=== PATIENT | female | born 1950 | race African-American/Black ===

== ENCOUNTER 2016-09-05 11:55 | Inpatient (IN) | payer MEDICAID ==
[~2016-09-05] VITALS: Ht 162.6 cm; Wt 61.2 kg
[~2016-09-05 11:55] MED LIST: ASPIRIN81 MG ORAL; BENADRYL50 MG GT; CATAPRES0.2 MG GT; CEPHALEXIN500 MG GT; COUMADIN5 MG ORAL; DOCUSATE SODIU100 MG GT; HEPARIN SO1000 UNIT3 SUBQ; LEVEMIR FL100 UNIT/1 SUBQ; LEVETIRACE100 MG/1 M GT; LOPRESSOR25 M1 GT; MULTI-DELYN237 ML GT; NEURONTIN100 MG GT; NOVOLOG100 UNIT/3 SUBQ; PROTONIX40 M2 GT; TYLENOL650 MG/20. GT
--- NOTE | 2016-09-05 12:28 | Emergency Room Report ---
History of Present Illness General Chief Complaint: Abnormal Labs Source: Patient, Medical Record Present Illness HPI 65 YO female presents to ED BIBA from [facility] for fevers, and positive urine culture. Pt has hx of seizures, DM,and HTN and is non-verbal and Quadra-plegic. HPI and ROS limited due to pt. being non-verbal, and limited to paperwork sent by [facility] Allergies: Coded Allergies: HYDANTOINS (Unverified Allergy, Unknown, 09/09/13) PHENYTOIN (Unverified Allergy, Unknown, 09/09/13) Patient History Limited by: medical condition Past Medical History: see triage record Past Surgical History: none Pertinent Family History: none Immunizations: UTD Reviewed Nursing Documentation: PMH: Agreed, PSxH: Agreed Nursing Documentation-PMH Past Medical History: No History, Except For Hx Cardiac Problems: Yes Hx Hypertension: Yes Hx COPD: Yes Hx Diabetes: Yes Hx Cancer: No Hx Gastrointestinal Problems: Yes - GT tube Hx Neurological Problems: Yes Hx Cerebrovascular Accident: Yes - left side weakness Hx Seizures: Yes Hx Memory Loss: Yes - Forgetful Hx Speech Problem: Yes - Slurred Speech following stroke Hx Weakness: Yes - Left Side following CVA Hx Brain Shunt: Yes Review of Systems All Other Systems: limited Physical Exam Vital Signs Date Time Temp Pulse Resp B/P Pulse Ox O2 Delivery O2 Flow Rate FiO2 09/05/16 11:55 97.9 61 22 136/78 100 Nasal Cannula 2.0 Sp02 EP Interpretation: reviewed, normal General Appearance: normal inspection, no apparent distress, alert, Chronically Ill Head: normocephalic, atraumatic Eyes: bilateral eye PERRL, bilateral eye fluoroscene uptake Respiratory: lungs clear, normal breath sounds, no respiratory distress, no accessory muscle use, no wheezing, other - distant breath sounds Cardiovascular #1: regular rate, rhythm, no edema, normal capillary refill Gastrointestinal: non tender Rectal: deferred Neurologic: alert, other - Pt. have prior CVA deficit, pt is alert but orientation unable to be assessed. Skin: normal inspection, normal color, no rash Medical Decision Making PA Attestation Dr. Davila is my supervising Physician whom patient management has been discussed with. Diagnostic Impression: Primary Impression: Urinary tract infection Qualified Codes: N30.00 - Acute cystitis without hematuria ER Course 65 YO female presents to ED BIBA from [facility] for fevers, and positive urine culture. Pt has hx of seizures, DM,and HTN and is non-verbal and Quadra-plegic. HPI and ROS limited due to pt. being non-verbal, and limited to paperwork sent by [facility]. Ddx considered but are not limited to UTi , Pyelo, STI, Stone, Cystitis, Sepsis Vital signs: are WNL, pt. is afebrile H&PE are most consistent with UTI ORDERS: - UA labs are attached -- elevated WBC's and Leukocytes few bacteria consistent with UTI -CBC: unremarkable -CMP: unremarkable other than decreased albumin -Lactic Acid: WNL - Troponin/Ck-MB/CK: unremarkable Blood Cultures: Pending EK BPM Bradycardic, no acute ST changes interpreted by Dr Davila -CXR 1 view: Bilateral, mostly interstitial edema, left-sided pleural effusion, appearing similar to prior study --Per official radiology report. ED INTERVENTIONS: -400mg Cipro IV DISPOSITION: at this time pt. will be admitted to Dr. Slaughter for UTI. I have discussed this pt. condition with Dr. Slaughter in person. Dr. Slaughter agreed to admit the pt. and to continue pt. care management. Labs Test 09/05/16 13:00 09/05/16 13:10 White Blood Count 9.6 K/UL (4.8-10.8) Red Blood Count 4.46 M/UL (4.20-5.40) Hemoglobin 13.9 G/DL (12.0-16.0) Hematocrit 43.3 % (37.0-47.0) Mean Corpuscular Volume 97 FL (80-99) Mean Corpuscular Hemoglobin 31.2 PG (27.0-31.0) Mean Corpuscular Hemoglobin Concent 32.1 G/DL (32.0-36.0) Red Cell Distribution Width 12.9 % (11.6-14.8) Platelet Count 201 K/UL (150-450) Mean Platelet Volume 8.1 FL (6.5-10.1) Neutrophils (%) (Auto) 73.2 % (45.0-75.0) Lymphocytes (%) (Auto) 13.8 % (20.0-45.0) Monocytes (%) (Auto) 7.6 % (1.0-10.0) Eosinophils (%) (Auto) 4.8 % (0.0-3.0) Basophils (%) (Auto) 0.6 % (0.0-2.0) Sodium Level 141 mEQ/L (135-145) Potassium Level 4.3 mEQ/L (3.4-4.9) Chloride Level 98 mEQ/L (98-107) Carbon Dioxide Level 31 mEQ/L (20-30) Anion Gap 12 (5-15) Blood Urea Nitrogen 17 mg/dL (7-23) Creatinine 0.6 mg/dL (0.5-0.9) Estimat Glomerular Filtration Rate > 60 mL/min (>60) Glucose Level 118 mg/dL (74-106) Lactic Acid Level 1.60 mmol/L (0.66-2.22) Calcium Level 10.4 mg/dL (8.6-10.2) Total Bilirubin 0.3 mg/dL (0.0-1.2) Aspartate Amino Transf (AST/SGOT) 20 U/L (5-40) Alanine Aminotransferase (ALT/SGPT) 28 U/L (3-33) Alkaline Phosphatase 101 U/L (35-104) Total Creatine Kinase 46 U/L (26-140) Creatine Kinase MB 1.7 ng/mL (< 3.8) Creatine Kinase MB Relative Index 3.6 Troponin I < 0.30 ng/mL (<=0.30) Total Protein 7.0 g/dL (6.6-8.7) Albumin 3.3 g/dL (3.5-5.2) Globulin 3.7 g/dL Albumin/Globulin Ratio 0.8 (1.0-2.7) Urine Color Pale yellow Urine Appearance Slightly cloudy Urine pH 8 (4.5-8.0) Urine Specific [place] 1.015 (1.005-1.035) Urine Protein Negative (NEGATIVE) Urine Glucose (UA) Negative (NEGATIVE) Urine Ketones Negative (NEGATIVE) Urine Occult Blood 4+ (NEGATIVE) Urine Nitrite Negative (NEGATIVE) Urine Bilirubin Negative (NEGATIVE) Urine Urobilinogen Normal MG/DL (0.0-1.0) Urine Leukocyte Esterase 3+ (NEGATIVE) Urine RBC 5-10 /HPF (0 - 2) Urine WBC 20-30 /HPF (0 - 2) Urine Squamous Epithelial Cells Few /LPF (NONE/OCC) Urine Bacteria Few /HPF (NONE) EKG Diagnostic Results EP Interpretation: Dr. Davila Rate: bradycardiac - 52 BPM Rhythm: NSR ST Segments: no acute changes ASA given to the pt in ED: No PA Scribe Text Dr. Davila's interpretation of this EKG was scribed by PREETHI Dash Rhythm Strip Diag. Results EP Interpretation: yes - interpreted by Dr. Davila Rate: 52 bradyca Rhythm: NSR PA Scribe Text This rhythm strip was interpreted by Dr. Davila and scribed by PA. Last Vital Signs Date Time Temp Pulse Resp B/P Pulse Ox O2 Delivery O2 Flow Rate FiO2 09/05/16 11:55 97.9 61 22 136/78 100 Nasal Cannula 2.0 Disposition: ADMITTED INPATIENT Condition: Serious Tamika Dash Sep 05, 2016 12:28
[2016-09-05 12:45] VITALS: BP 136/75
[2016-09-05] MEDS ORDERED: ATORVASTATIN CA40 MG ORAL (13:20)
[2016-09-05] MEDS ORDERED: CLOPIDOGREL75 MG ORAL (13:20)
[2016-09-05 13:32] LABS: BASOPHILS % (AUTO) 0.6 % (0.0-2.0); EOSINOPHILS % (AUTO) 4.8 % (0.0-3.0); LYMPHOCYTES % (AUTO) 13.8 % (20.0-45.0); MEAN CORPUSCULAR HEMOGLOBIN 31.2 PG (27.0-31.0); MEAN CORPUSCULAR HGB CONC 32.1 G/DL (32.0-36.0); MEAN CORPUSCULAR VOLUME 97 FL (80-99); MEAN PLATELET VOLUME 8.1 FL (6.5-10.1); MONOCYTES % (AUTO) 7.6 % (1.0-10.0); NEUTROPHILS % (AUTO) 73.2 % (45.0-75.0); PLATELET COUNT 201 K/UL (150-450); RED BLOOD COUNT 4.46 M/UL (4.20-5.40); RED CELL DISTRIBUTION WIDTH 12.9 % (11.6-14.8); WHITE BLOOD COUNT 9.6 K/UL (4.8-10.8)
[2016-09-05 13:43] LABS: APPEARANCE,URINE SLIGHTLY CLOUDY; KETONES,URINE NEGATIVE (NEGATIVE); LEUKOCYTE ESTERASE ,URINE 3+ (NEGATIVE); NITRITE,URINE NEGATIVE (NEGATIVE); PH,URINE 8 (4.5-8.0); PROTEIN,URINE NEGATIVE (NEGATIVE); UROBILINOGEN,URINE NORMAL MG/DL (0.0-1.0)
[2016-09-05 13:47] LABS: ALANINE AMINOTRANSFERASE 28 U/L (3-33); ALBUMIN/GLOBULIN RATIO 0.8 (1.0-2.7); ANION GAP 12 (5-15); ASPARTATE AMINO TRANSFERASE 20 U/L (5-40); CALCIUM 10.4 mg/dL (8.6-10.2); CARBON DIOXIDE 31 mEQ/L (20-30); CHLORIDE 98 mEQ/L (98-107); CREATININE 0.6 mg/dL (0.5-0.9); GLOMERULAR FILTRATION RATE > 60 mL/min (>60); HEMOLYSIS 20; POTASSIUM 4.3 mEQ/L (3.4-4.9); SODIUM 141 mEQ/L (135-145)
[2016-09-05] MEDS ORDERED: Nitroglycerin Subl 0.4mg tab (Bottle Of 25) SL PRN (14:00)
[2016-09-05] MEDS ORDERED: Morphine Sulfate 2mg/ml Inj IVP PRN (14:00)
[2016-09-05] MEDS ORDERED: Miralax 17gm pkt ORAL PRN (14:00)
[2016-09-05] MEDS ORDERED: DuoNeb 0.5-3(2.5)mg/3ml neb HHN PRN (14:00)
[2016-09-05 14:09] LABS: BACTERIA,URINE FEW /HPF; SQUAMOUS EPITHELIAL CELL,UR FEW /LPF (NONE/OCC); WBC,URINE 20-30 /HPF (0 - 2)
[2016-09-05 14:22] VITALS: BP 131/76
--- NOTE | 2016-09-05 14:46 | Infectious Diseases Prog Note ---
Assessment/Plan Problems: (1) Urinary tract infection Assessment & Plan: will send urine culture and start cefepime empirically . (2) Sepsis Assessment & Plan: possibly due to UTI, will start cefepime empirically, monitor blood culture (3) Diabetes mellitus out of control Assessment & Plan: recommend tight glycemic control to keep blood glucose between 80-120 Subjective Allergies: Coded Allergies: HYDANTOINS (Unverified Allergy, Unknown, 09/09/13) PHENYTOIN (Unverified Allergy, Unknown, 09/09/13) Objective Vital Signs Last 24 Hour Vital Signs Date Time Temp Pulse Resp B/P Pulse Ox O2 Delivery O2 Flow Rate FiO2 09/05/16 14:22 98.3 54 16 131/76 99 Room Air 09/05/16 12:45 98.3 16 136/75 97 Room Air 09/05/16 12:45 56 16 Room Air 09/05/16 11:55 97.9 61 22 136/78 100 Nasal Cannula 2.0 Height (Feet): 5 Height (Inches): 4.00 Weight (Pounds): 135 Laboratory Tests Test 09/05/16 13:00 09/05/16 13:10 White Blood Count 9.6 K/UL (4.8-10.8) Red Blood Count 4.46 M/UL (4.20-5.40) Hemoglobin 13.9 G/DL (12.0-16.0) Hematocrit 43.3 % (37.0-47.0) Mean Corpuscular Volume 97 FL (80-99) Mean Corpuscular Hemoglobin 31.2 PG (27.0-31.0) H Mean Corpuscular Hemoglobin Concent 32.1 G/DL (32.0-36.0) Red Cell Distribution Width 12.9 % (11.6-14.8) Platelet Count 201 K/UL (150-450) Mean Platelet Volume 8.1 FL (6.5-10.1) Neutrophils (%) (Auto) 73.2 % (45.0-75.0) Lymphocytes (%) (Auto) 13.8 % (20.0-45.0) L Monocytes (%) (Auto) 7.6 % (1.0-10.0) Eosinophils (%) (Auto) 4.8 % (0.0-3.0) H Basophils (%) (Auto) 0.6 % (0.0-2.0) Sodium Level 141 mEQ/L (135-145) Potassium Level 4.3 mEQ/L (3.4-4.9) Chloride Level 98 mEQ/L (98-107) Carbon Dioxide Level 31 mEQ/L (20-30) H Anion Gap 12 (5-15) Blood Urea Nitrogen 17 mg/dL (7-23) Creatinine 0.6 mg/dL (0.5-0.9) Estimat Glomerular Filtration Rate > 60 mL/min (>60) Glucose Level 118 mg/dL (74-106) H Lactic Acid Level 1.60 mmol/L (0.66-2.22) Calcium Level 10.4 mg/dL (8.6-10.2) H Total Bilirubin 0.3 mg/dL (0.0-1.2) Aspartate Amino Transf (AST/SGOT) 20 U/L (5-40) Alanine Aminotransferase (ALT/SGPT) 28 U/L (3-33) Alkaline Phosphatase 101 U/L (35-104) Total Creatine Kinase 46 U/L (26-140) Creatine Kinase MB Pending Troponin I Pending Total Protein 7.0 g/dL (6.6-8.7) Albumin 3.3 g/dL (3.5-5.2) L Globulin 3.7 g/dL Albumin/Globulin Ratio 0.8 (1.0-2.7) L Urine Color Pale yellow Urine Appearance Slightly cloudy Urine pH 8 (4.5-8.0) Urine Specific [place] 1.015 (1.005-1.035) Urine Protein Negative (NEGATIVE) Urine Glucose (UA) Negative (NEGATIVE) Urine Ketones Negative (NEGATIVE) Urine Occult Blood 4+ (NEGATIVE) H Urine Nitrite Negative (NEGATIVE) Urine Bilirubin Negative (NEGATIVE) Urine Urobilinogen Normal MG/DL (0.0-1.0) Urine Leukocyte Esterase 3+ (NEGATIVE) H Urine RBC 5-10 /HPF (0 - 2) H Urine WBC 20-30 /HPF (0 - 2) H Urine Squamous Epithelial Cells Few /LPF (NONE/OCC) Urine Bacteria Few /HPF (NONE) Current Medications Medications (Trade) Dose Ordered Sig/[place] Route PRN Reason Start Time Stop Time Status Last Admin Dose Admin Acetaminophen (Tylenol) 650 mg Q4H PRN ORAL fever 09/05/16 14:00 7/29/17 13:59 UNV Albuterol/ Ipratropium 3 ml 3 ml EVERY 4 HOURS PRN HHN Shortness of Breath 09/05/16 14:00 09/10/16 13:59 UNV Atorvastatin Calcium (Lipitor) 80 mg BEDTIME ORAL 09/05/16 21:00 10/05/16 20:59 UNV Cefepime HCl 2 gm/ Dextrose 110 ml @ 220 mls/hr EVERY 12 HOURS IV 09/05/16 21:00 09/12/16 20:59 UNV Ciprofloxacin (Cipro 400mg/ 200ml premix bag) 200 ml @ 200 mls/hr ONCE ONCE IV 09/05/16 14:30 09/05/16 15:29 Clopidogrel Bisulfate (Plavix) 75 mg DAILY ORAL 09/06/16 09:00 10/06/16 08:59 UNV Dextrose STAT PRN IV Hypoglycemia 09/05/16 14:00 10/05/16 13:59 UNV Gabapentin (Neurontin) 100 mg BID GT 09/05/16 18:00 10/05/16 17:59 UNV Heparin Sodium (Porcine) (Heparin 5000 units/ml) 5,000 units EVERY 12 HOURS SUBQ 09/05/16 21:00 10/05/16 20:59 UNV Insulin Aspart (NovoLOG) BEFORE MEALS AND HS SUBQ 09/05/16 16:30 10/05/16 16:29 UNV Levetiracetam (Keppra) 500 mg BID GT 09/05/16 18:00 10/05/16 17:59 UNV Morphine Sulfate (Morphine Sulfate) 2 mg EVERY 4 HOURS PRN IVP Moderate Pain (Pain Scale 4-6) 09/05/16 14:00 09/12/16 13:59 UNV Nitroglycerin (Ntg) 0.4 mg Every 5 Minutes PRN SL Prn Chest Pain 09/05/16 14:00 10/05/16 13:59 UNV Ondansetron HCl (Zofran) 4 mg Q6H PRN IVP Nausea & Vomiting 09/05/16 14:00 10/05/16 13:59 UNV Polyethylene Glycol (Miralax) 17 gm DAILYPRN PRN ORAL Constipation 09/05/16 14:00 10/05/16 13:59 UNV Temazepam (Restoril) 15 mg HSPRN PRN ORAL Insomnia 09/05/16 14:00 09/12/16 13:59 UNV Vancomycin HCl/ Dextrose (Vancomycin/D5W) 275 ml @ 183.3 mls/ hr Q24H IV 09/06/16 00:30 09/11/16 00:29 UNV Warfarin Sodium (Coumadin) 5 mg DAILY ORAL 09/06/16 09:00 09/11/16 08:59 UNV Lorin Mitchell M.D. Sep 05, 2016 14:46
[2016-09-05 14:58] LABS: TROPONIN I < 0.30 ng/mL (<=0.30)
--- NOTE | 2016-09-05 15:56 | Diagnostic Imaging Report ---
Indication: COUGH Technique: One view of the chest Comparison: 04/03/2015 Findings: Bilateral interstitial congestion and hazy parenchymal opacity appears similar to prior study. There is a left-sided pleural effusion which appears slightly smaller than the prior study. The right pleural space appears grossly clear. The heart is probably enlarged. Aorta is tortuous and ectatic. Impression: Bilateral mostly interstitial edema, left-sided pleural effusion, appearing similar to prior study 04/03/2015
[2016-09-05 16:22] LABS: CKMB 1.7 ng/mL (< 3.8)
[2016-09-05 17:27] VITALS: BP 124/79
--- NOTE | 2016-09-05 17:31 | Consultation ---
DATE OF CONSULTATION: 09/05/2016 CONSULTING PHYSICIAN: Lorin Mitchell M.D. REQUESTING PHYSICIAN: Los Slaughter M.D. REASON FOR CONSULTATION: Urinary tract infection, possible sepsis, recommendation for antibiotic therapy. HISTORY OF PRESENT ILLNESS: The patient is a 65-year-old female with past medical history of diabetes, COPD, cardiac disease, dysphagia, and CVA with left-sided weakness who was sent from senior living due to abnormal urinalysis and possible infection. The patient was draining cloudy urine from the Davis catheter. So, she was sent from senior living to the emergency room to receive IV antibiotics and to treat for possible urinary tract infection. In the emergency room, the patient had urinalysis, which confirmed evidence of infection, so she was admitted to the hospital for antibiotic treatment and I was consulted by the primary provider for antibiotic choice and further management. As of note, the patient is nonverbal and does not provide any history. History was obtained from the medical record. REVIEW OF SYSTEMS: Unable to obtain. PAST MEDICAL HISTORY: Significant for COPD, hypertension, coronary artery disease, dysphagia, CVA, seizure disorder, and status post left-sided weakness. PAST SURGICAL HISTORY: She had a G-tube placement. ALLERGIES: She is allergic to hydantoins and phenytoin. FAMILY HISTORY: Unable to obtain. SOCIAL HISTORY: She is a senior living resident. No recent drugs, tobacco, or alcohol reported. MEDICATIONS: The patient was started initially on vancomycin, cefepime, and ciprofloxacin. For the rest of the medications, please refer to MAR. LABORATORY DATA: Labs showed white count of 9.6, hemoglobin of 13.9. BUN of 17 and creatinine of 0.6. AST of 20 and ALT of 28. Urinalysis showed +3 leukocyte esterase, WBC 20 to 30 with few bacteria. PHYSICAL EXAMINATION: VITAL SIGNS: Temperature 98.3, pulse 54, respirations 16, blood pressure 131/76, and saturation 99% on room air. GENERAL: Elderly female, lying in bed with dementia, left-sided weakness, nonverbal, not in distress. HEENT: Normocephalic and atraumatic. Pale sclerae. Pupils are reactive to light. Dry oral mucosa. No exudate. NECK: Supple. No lymphadenopathy. CARDIOVASCULAR: Regular rate and rhythm. No murmur. LUNGS: Clear bilaterally. Diminished breathing sound on the bases. ABDOMEN: Soft, nontender, and nondistended. G-tube site looks intact. No organomegaly. EXTREMITIES: No edema or cyanosis. SKIN: No rash or hives. ASSESSMENT AND PLAN: 1. Urinary tract infection. We will send urine for culture. Start cefepime empiric treatment. 2. Possible sepsis due to urinary tract infection. Continue cefepime for now. We will monitor blood culture and urine culture result no need for vancomycin at this point. 3. Diabetes, poorly controlled. Recommend tight glycemic control to keep blood sugar between 80 to 120. Lorin Mitchell M.D. DR: NIKHIL JOB#: [id number] CC:
[2016-09-05 19:27] VITALS: BP_SYST 142; BP_SYST 161; BP_DIAS 68; BP_DIAS 84
[2016-09-05] MEDS: levETIRAcetam 500mg/5ml Liquid GT SCH (19:52)
[2016-09-05] MEDS: Gabapentin 300 MG/6 ML Soln GT SCH (19:52)
[2016-09-05 20:09] LABS: PROTHROMBIN TIME 10.3 SEC (9.30-11.50)
[2016-09-05] MEDS ORDERED: ALBUTEROL2.5 MG/0.1 NEBULIZ062 (20:29)
[2016-09-05 21:00] VITALS: BP 139/80
[2016-09-05] MEDS: NovoLOG Insulin Flexpen SUBQ SCH (21:00)
[2016-09-05] MEDS ORDERED: Atorvastatin 80mg tab ORAL SCH (21:00)
[2016-09-05] MEDS ORDERED: Warfarin Sodium 5mg ORAL SCH (21:30)
[2016-09-05] MEDS: Heparin 5000 units/ml inj SUBQ SCH (23:07)
--- NOTE | 2016-09-05 23:47 | Consultation ---
History of Present Illness General Chief Complaint: Abnormal Labs Present Illness Allergies: Coded Allergies: HYDANTOINS (Unverified Allergy, Unknown, 09/09/13) PHENYTOIN (Unverified Allergy, Unknown, 09/09/13) Medication History Scheduled Albuterol Sulfate (Albuterol Sulfate), 2.5 MG [id number] Q6HR, (Reported) Aspirin* (Aspirin*), 81 MG ORAL DAILY, (Reported) Atorvastatin Calcium* (Atorvastatin Calcium*), 80 MG ORAL BEDTIME, (Reported) Clonidine Hcl* (Catapres*), 0.2 MG GT Q8HR, (Reported) Clopidogrel* (Clopidogrel*), 75 MG ORAL DAILY, (Reported) Docusate Sodium* (Docusate Sodium*), 100 MG GT TWICE A DAY, (Reported) Gabapentin* (Neurontin*), 100 MG GT BID, (Reported) Insulin Aspart* (Novolog*), 0 SUBQ BID, (Reported) Insulin Detemir (Levemir Flexpen), 50 UNITS SUBQ Q12HR, (Reported) Levetiracetam* (Levetiracetam*), 500 MG GT BID, (Reported) Metoprolol Tartrate (Metoprolol Tartrate), 100 MG GT BID, (Reported) Pantoprazole Sodium (Protonix), 40 MG GT DAILY, (Reported) Warfarin Sod* (Coumadin*), 5 MG ORAL DAILY Scheduled PRN Acetaminophen (Acetaminophen), 650 MG GT Q4HR PRN for Prn Headache/Temp > 101, ( Reported) Discontinued Medications Cephalexin* (Keflex*), 500 MG GT EVERY 6 HOURS, (Reported) Discontinued Reason: MD discontinued med Diphenhydramine HCl (Diphenhydramine HCl), 50 MG GT Q6H PRN for Itching, ( Reported) Discontinued Reason: discontinued med Heparin Sodium,Porcine/Pf (Heparin Sod 1,000 Unit/Ml Vial), 5,000 UNIT SUBQ DAILY, (Reported) Discontinued Reason: discontinued med Multivitamin Liquid* (Multi-Delyn*), 5 ML GT DAILY, (Reported) Discontinued Reason: Pt stopped taking med Patient History Healthcare decision maker Mellissa Ferguson Resuscitation status Full Code Advanced Directive on File Yes Physical Exam Last 24 Hour Vital Signs Date Time Temp Pulse Resp B/P Pulse Ox O2 Delivery O2 Flow Rate FiO2 09/05/16 22:08 93 Room Air 09/05/16 21:15 97.9 55 16 142/84 96 Room Air 2.0 09/05/16 21:00 97.7 61 17 139/80 Room Air 09/05/16 19:27 55 16 142/84 96 Room Air 09/05/16 17:27 97.9 58 18 124/79 100 Nasal Cannula 2.0 09/05/16 14:22 98.3 54 16 131/76 99 Nasal Cannula 2.0 09/05/16 12:45 98.3 16 136/75 97 Room Air 09/05/16 12:45 56 16 Room Air 09/05/16 11:55 97.9 61 22 136/78 100 Nasal Cannula 2.0 Laboratory Tests Test 09/05/16 13:00 09/05/16 13:10 09/05/16 19:46 White Blood Count 9.6 K/UL (4.8-10.8) Red Blood Count 4.46 M/UL (4.20-5.40) Hemoglobin 13.9 G/DL (12.0-16.0) Hematocrit 43.3 % (37.0-47.0) Mean Corpuscular Volume 97 FL (80-99) Mean Corpuscular Hemoglobin 31.2 PG (27.0-31.0) H Mean Corpuscular Hemoglobin Concent 32.1 G/DL (32.0-36.0) Red Cell Distribution Width 12.9 % (11.6-14.8) Platelet Count 201 K/UL (150-450) Mean Platelet Volume 8.1 FL (6.5-10.1) Neutrophils (%) (Auto) 73.2 % (45.0-75.0) Lymphocytes (%) (Auto) 13.8 % (20.0-45.0) L Monocytes (%) (Auto) 7.6 % (1.0-10.0) Eosinophils (%) (Auto) 4.8 % (0.0-3.0) H Basophils (%) (Auto) 0.6 % (0.0-2.0) Sodium Level 141 mEQ/L (135-145) Potassium Level 4.3 mEQ/L (3.4-4.9) Chloride Level 98 mEQ/L (98-107) Carbon Dioxide Level 31 mEQ/L (20-30) H Anion Gap 12 (5-15) Blood Urea Nitrogen 17 mg/dL (7-23) Creatinine 0.6 mg/dL (0.5-0.9) Estimat Glomerular Filtration Rate > 60 mL/min (>60) Glucose Level 118 mg/dL (74-106) H Lactic Acid Level 1.60 mmol/L (0.66-2.22) Calcium Level 10.4 mg/dL (8.6-10.2) H Total Bilirubin 0.3 mg/dL (0.0-1.2) Aspartate Amino Transf (AST/SGOT) 20 U/L (5-40) Alanine Aminotransferase (ALT/SGPT) 28 U/L (3-33) Alkaline Phosphatase 101 U/L (35-104) Total Creatine Kinase 46 U/L (26-140) Creatine Kinase MB 1.7 ng/mL (< 3.8) Creatine Kinase MB Relative Index 3.6 Troponin I < 0.30 ng/mL (<=0.30) Total Protein 7.0 g/dL (6.6-8.7) Albumin 3.3 g/dL (3.5-5.2) L Globulin 3.7 g/dL Albumin/Globulin Ratio 0.8 (1.0-2.7) L Urine Color Pale yellow Urine Appearance Slightly cloudy Urine pH 8 (4.5-8.0) Urine Specific [place] 1.015 (1.005-1.035) Urine Protein Negative (NEGATIVE) Urine Glucose (UA) Negative (NEGATIVE) Urine Ketones Negative (NEGATIVE) Urine Occult Blood 4+ (NEGATIVE) H Urine Nitrite Negative (NEGATIVE) Urine Bilirubin Negative (NEGATIVE) Urine Urobilinogen Normal MG/DL (0.0-1.0) Urine Leukocyte Esterase 3+ (NEGATIVE) H Urine RBC 5-10 /HPF (0 - 2) H Urine WBC 20-30 /HPF (0 - 2) H Urine Squamous Epithelial Cells Few /LPF (NONE/OCC) Urine Bacteria Few /HPF (NONE) Prothrombin Time 10.3 SEC (9.30-11.50) Prothromb Time International Ratio 1.0 (0.9-1.1) Height (Feet): 5 Height (Inches): 4.00 Weight (Pounds): 135 Medications Current Medications Medications (Trade) Dose Ordered Sig/[place] Route PRN Reason Start Time Stop Time Status Last Admin Dose Admin Acetaminophen (Tylenol) 650 mg Q4H PRN ORAL fever 09/05/16 14:00 10/05/16 13:59 Albuterol/ Ipratropium 3 ml 3 ml EVERY 4 HOURS PRN HHN Shortness of Breath 09/05/16 14:00 09/10/16 13:59 Atorvastatin Calcium (Lipitor) 80 mg BEDTIME ORAL 09/05/16 21:00 10/05/16 20:59 09/05/16 23:06 Cefepime HCl/ Dextrose (Maxipime/D5W) 110 ml @ 220 mls/hr EVERY 12 HOURS IV 09/05/16 20:00 09/12/16 19:59 Clopidogrel Bisulfate (Plavix) 75 mg DAILY ORAL 09/06/16 09:00 10/06/16 08:59 Dextrose (Dextrose 50%) STAT PRN IV Hypoglycemia 09/05/16 14:00 10/05/16 13:59 Gabapentin (Neurontin) 100 mg BID GT 09/05/16 19:00 10/05/16 18:59 09/05/16 19:52 Heparin Sodium (Porcine) (Heparin 5000 units/ml) 5,000 units EVERY 12 HOURS SUBQ 09/05/16 21:00 10/05/16 20:59 09/05/16 23:07 Insulin Aspart (NovoLOG) BEFORE MEALS AND HS SUBQ 09/05/16 21:00 10/05/16 20:59 Levetiracetam (Keppra) 500 mg BID GT 09/05/16 19:00 10/05/16 18:59 09/05/16 19:52 Morphine Sulfate (Morphine Sulfate) 2 mg EVERY 4 HOURS PRN IVP Moderate Pain (Pain Scale 4-6) 09/05/16 14:00 09/12/16 13:59 Nitroglycerin (Ntg) 0.4 mg Q5M PRN SL Prn Chest Pain 09/05/16 14:00 10/05/16 13:59 Ondansetron HCl (Zofran) 4 mg Q6H PRN IVP Nausea & Vomiting 09/05/16 14:00 10/05/16 13:59 Polyethylene Glycol (Miralax) 17 gm DAILYPRN PRN ORAL Constipation 09/05/16 14:00 10/05/16 13:59 Temazepam (Restoril) 15 mg HSPRN PRN ORAL Insomnia 09/05/16 14:00 09/12/16 13:59 JIMMY DAVIS Sep 05, 2016 23:47
[2016-09-05] MEDS: Cefepime HCl 2 GM in D5W 110 ML IV SCH (23:59)
[2016-09-06] VITALS (7 sets, daily range): BP systolic 139–158; BP diastolic 80–101
[2016-09-06] MEDS ORDERED: Vancomycin 1 GM in D5W 275 ML IV SCH (00:30)
--- NOTE | 2016-09-06 04:15 | History and Physical Report ---
DATE OF ADMISSION: 09/05/2016 CONSULTATION: 1. Bailee Hoang M.D. 2. Dr. Gonzalez. CHIEF COMPLAINT: Abnormal labs, sepsis, and UTI. BRIEF HISTORY: This is a 65-year-old female from [facility] who presented with increased weakness. Abnormal labs showing UTI and sepsis. The patient admitted to Medical floor. Currently calm in bed in the ICU. O2 NC in place. Nonverbal. REVIEW OF SYSTEMS: Nonverbal. PAST MEDICAL HISTORY: CVA with seizure, GERD, hypertension, diabetes, and DVT. PAST SURGICAL HISTORY: Unknown. ALLERGIES: Phenytoin. SOCIAL HISTORY: No smoking. No alcohol. No intravenous drug use. FAMILY HISTORY: Noncontributory. PHYSICAL EXAMINATION: GENERAL: Calm, lethargic, in bed, nonverbal, O2 NC, . VITAL SIGNS: Temperature 98, pulse 54, respirations 15, and blood pressure 131/76. CARDIOVASCULAR: No murmur. LUNGS: Poor air exchange. ABDOMEN: Bowel sound positive. Soft, nontender, and nondistended. EXTREMITIES: No cyanosis, clubbing, or edema. NEUROLOGIC: The patient moves all extremities, but slightly weak. LABORATORY DATA: Lab examination showed CBC is normal. BMP showed CO2 31, glucose 118, otherwise, normal. Albumin 3.3. Urinalysis shows 4+ occult blood, 3+ leukocyte esterase. MEDICATIONS: Plavix, Coumadin, vancomycin, Lipitor, cefepime, heparin, Neurontin, Keppra, NovoLog, Cipro, DuoNeb, Tylenol, and morphine. ASSESSMENT: 1. Urinary tract infection. 2. Sepsis. 3. Cerebrovascular accident. 4. Seizure. 5. Gastroesophageal reflux disease. 6. Bradycardia. 7. Deep venous thrombosis. 8. Diabetes. 9. Hypertension . PLAN: 1. Continue premeds. 2. OT, PT, and dietary evaluation. 3. O2 and pulmonary treatment as needed. 4. Antibiotics per Infectious Disease. 5. Blood pressure and seizure control, and blood sugar control. 6. Dietary followup. 7. Dr. Hoang, Dr. Gonzalez, and Dr. Navarro to consult. 8. We will continue to follow this patient. Los Slaughter D.O. DR: NUPUR JOB#: [id number] CC:
[2016-09-06 05:52] LABS: APPEARANCE,URINE CLEAR; KETONES,URINE NEGATIVE (NEGATIVE); LEUKOCYTE ESTERASE ,URINE 2+ (NEGATIVE); NITRITE,URINE NEGATIVE (NEGATIVE); PH,URINE 7 (4.5-8.0); PROTEIN,URINE 2+ (NEGATIVE); UROBILINOGEN,URINE NORMAL MG/DL (0.0-1.0)
[2016-09-06] MEDS: NovoLOG Insulin Flexpen SUBQ SCH ×3 (05:57→19:21)
[2016-09-06 06:07] LABS: BACTERIA,URINE FEW /HPF; RBC,URINE TNTC /HPF (0 - 2)
[2016-09-06 07:16] LABS: MEAN CORPUSCULAR HEMOGLOBIN 30.5 PG (27.0-31.0); MEAN CORPUSCULAR HGB CONC 31.4 G/DL (32.0-36.0); MEAN CORPUSCULAR VOLUME 97 FL (80-99); MEAN PLATELET VOLUME 9.2 FL (6.5-10.1); PLATELET COUNT 197 K/UL (150-450); RED BLOOD COUNT 4.86 M/UL (4.20-5.40); RED CELL DISTRIBUTION WIDTH 13.3 % (11.6-14.8); WHITE BLOOD COUNT 14.6 K/UL (4.8-10.8)
--- NOTE | 2016-09-06 07:25 | Pulmonology Progress Note ---
Assessment/Plan Assessment/Plan ASSESSMENT sepsis UTI HCAP left pleural effusion dehydration ST likely 2 to dehydration Hx of DVT, PE DM Hx of CVA with R hemiplegia advanced dementia dysphagia, G tube PLAN OF CARE O2 HHN prn fup with CXR empiric abx, fup with cx get sputum cx ID follows strict aspiration precautions, GT feeding, monitor tolerance cardio follows, due to subtherapeutic INR started on Lovenox and Coumadin to bridge to therapeutic INR Venous Duplex BLE continue Plavix, statin check lipid panel BS management with SS of insulin, check HgA1c seizure precautions, continue Keppra case discussed and evaluated by supervising physician Subjective Allergies: Coded Allergies: HYDANTOINS (Unverified Allergy, Unknown, 09/09/13) PHENYTOIN (Unverified Allergy, Unknown, 09/09/13) Subjective leukocytosis today, afebrile, tachycardic on RA sat stable no signs of respiratory distress Objective Last 24 Hour Vital Signs Date Time Temp Pulse Resp B/P Pulse Ox O2 Delivery O2 Flow Rate FiO2 09/06/16 04:00 98.1 84 17 139/83 98 Room Air 09/06/16 00:00 97.0 69 17 149/80 94 Room Air 09/05/16 22:08 93 Room Air 09/05/16 21:15 97.9 55 16 142/84 96 Room Air 2.0 09/05/16 21:00 97.7 61 17 139/80 Room Air 09/05/16 19:27 55 16 142/84 96 Room Air 09/05/16 17:27 97.9 58 18 124/79 100 Nasal Cannula 2.0 09/05/16 14:22 98.3 54 16 131/76 99 Nasal Cannula 2.0 09/05/16 12:45 98.3 16 136/75 97 Room Air 09/05/16 12:45 56 16 Room Air 09/05/16 11:55 97.9 61 22 136/78 100 Nasal Cannula 2.0 Intake and Output 09/05/16 09/06/16 19:00 07:00 Intake Total 470 ml Output Total 10 ml 550 ml Balance -10 ml -80 ml Intake IV Total 110 ml Tube Feeding 360 ml Output Urine Total 10 ml 550 ml General Appearance: no acute distress, other - awake, not responsive, aphasic HEENT: normocephalic, atraumatic, anicteric Respiratory/Chest: rhonchi Cardiovascular: normal peripheral pulses, regular rhythm, no JVD, tachycardia Abdomen: normal bowel sounds, soft, non tender, non distended Neurologic/Psychiatric: abnormal gait - bedridden , other - eyes open, not responsive, aphasic, R hemiplegia Laboratory Tests 09/05/16 13:00: White Blood Count 9.6, Red Blood Count 4.46, Hemoglobin 13.9, Hematocrit 43.3, Mean Corpuscular Volume 97, Mean Corpuscular Hemoglobin 31.2H, Mean Corpuscular Hemoglobin Concent 32.1, Red Cell Distribution Width 12.9, Platelet Count 201, Mean Platelet Volume 8.1, Neutrophils (%) (Auto) 73.2, Lymphocytes (%) (Auto) 13.8L, Monocytes (%) (Auto) 7.6, Eosinophils (%) (Auto) 4.8H, Basophils (%) ( Auto) 0.6, Sodium Level 141, Potassium Level 4.3, Chloride Level 98, Carbon Dioxide Level 31H, Anion Gap 12, Blood Urea Nitrogen 17, Creatinine 0.6, Estimat Glomerular Filtration Rate > 60, Glucose Level 118H, Lactic Acid Level 1.60, Calcium Level 10.4H, Total Bilirubin 0.3, Aspartate Amino Transf (AST/SGOT ) 20, Alanine Aminotransferase (ALT/SGPT) 28, Alkaline Phosphatase 101, Total Creatine Kinase 46, Creatine Kinase MB 1.7, Creatine Kinase MB Relative Index 3.6, Troponin I < 0.30, Total Protein 7.0, Albumin 3.3L, Globulin 3.7, Albumin/ Globulin Ratio 0.8L 09/05/16 13:10: Urine Color Pale yellow, Urine Appearance Slightly cloudy, Urine pH 8, Urine Specific [place] 1.015, Urine Protein Negative, Urine Glucose (UA) Negative, Urine Ketones Negative, Urine Occult Blood 4+H, Urine Nitrite Negative, Urine Bilirubin Negative, Urine Urobilinogen Normal, Urine Leukocyte Esterase 3+H, Urine RBC 5-10H, Urine WBC 20-30H, Urine Squamous Epithelial Cells Few, Urine Bacteria Few 09/05/16 19:46: Prothrombin Time 10.3, Prothromb Time International Ratio 1.0 09/06/16 03:50: Urine Color Pale yellow, Urine Appearance Clear, Urine pH 7, Urine Specific [place] 1.010, Urine Protein 2+H, Urine Glucose (UA) Negative, Urine Ketones Negative, Urine Occult Blood 5+H, Urine Nitrite Negative, Urine Bilirubin Negative, Urine Urobilinogen Normal, Urine Leukocyte Esterase 2+H, Urine RBC TntcH, Urine WBC 5-10H, Urine Squamous Epithelial Cells None, Urine Bacteria Few 09/06/16 06:00: White Blood Count 14.6#H, Red Blood Count 4.86, Hemoglobin 14.8, Hematocrit 47.2H, Mean Corpuscular Volume 97, Mean Corpuscular Hemoglobin 30.5, Mean Corpuscular Hemoglobin Concent 31.4L, Red Cell Distribution Width 13.3, Platelet Count 197, Mean Platelet Volume 9.2, Neutrophils (%) (Auto) , Lymphocytes (%) (Auto) , Monocytes (%) (Auto) , Eosinophils (%) (Auto) , Basophils (%) (Auto) , Neutrophils % (Manual) [Pending], Lymphocytes % (Manual) [Pending], Platelet Estimate [Pending], Platelet Morphology [Pending], Sodium Level [Pending], Potassium Level [Pending], Chloride Level [Pending], Carbon Dioxide Level [Pending], Blood Urea Nitrogen [Pending], Creatinine [Pending], Estimat Glomerular Filtration Rate [Pending], Glucose Level [Pending], Calcium Level [Pending], Total Bilirubin [Pending], Aspartate Amino Transf (AST/SGOT) [ Pending], Alanine Aminotransferase (ALT/SGPT) [Pending], Alkaline Phosphatase [ Pending], Total Protein [Pending], Albumin [Pending], Globulin [Pending] Current Medications Medications (Trade) Dose Ordered Sig/[place] Route PRN Reason Start Time Stop Time Status Last Admin Dose Admin Acetaminophen (Tylenol) 650 mg Q4H PRN ORAL fever 09/05/16 14:00 10/05/16 13:59 Albuterol/ Ipratropium 3 ml 3 ml EVERY 4 HOURS PRN HHN Shortness of Breath 09/05/16 14:00 09/10/16 13:59 Atorvastatin Calcium (Lipitor) 80 mg BEDTIME ORAL 09/05/16 21:00 10/05/16 20:59 09/05/16 23:06 Cefepime HCl/ Dextrose (Maxipime/D5W) 110 ml @ 220 mls/hr EVERY 12 HOURS IV 09/05/16 20:00 09/12/16 19:59 09/05/16 23:59 Clopidogrel Bisulfate (Plavix) 75 mg DAILY ORAL 09/06/16 09:00 10/06/16 08:59 Dextrose (Dextrose 50%) STAT PRN IV Hypoglycemia 09/05/16 14:00 10/05/16 13:59 Gabapentin (Neurontin) 100 mg BID GT 09/05/16 19:00 10/05/16 18:59 09/05/16 19:52 Heparin Sodium (Porcine) (Heparin 5000 units/ml) 5,000 units EVERY 12 HOURS SUBQ 09/05/16 21:00 10/05/16 20:59 09/05/16 23:07 Insulin Aspart (NovoLOG) BEFORE MEALS AND HS SUBQ 09/05/16 21:00 10/05/16 20:59 09/06/16 05:57 Levetiracetam (Keppra) 500 mg BID GT 09/05/16 19:00 10/05/16 18:59 09/05/16 19:52 Morphine Sulfate (Morphine Sulfate) 2 mg EVERY 4 HOURS PRN IVP Moderate Pain (Pain Scale 4-6) 09/05/16 14:00 09/12/16 13:59 Nitroglycerin (Ntg) 0.4 mg Q5M PRN SL Prn Chest Pain 09/05/16 14:00 10/05/16 13:59 Ondansetron HCl (Zofran) 4 mg Q6H PRN IVP Nausea & Vomiting 09/05/16 14:00 10/05/16 13:59 Polyethylene Glycol (Miralax) 17 gm DAILYPRN PRN ORAL Constipation 09/05/16 14:00 10/05/16 13:59 Temazepam (Restoril) 15 mg HSPRN PRN ORAL Insomnia 09/05/16 14:00 09/12/16 13:59 Natasha Luna NP (Vanchtein) Sep 06, 2016 07:25
[2016-09-06 07:26] LABS: ALANINE AMINOTRANSFERASE 24 U/L (3-33); ALBUMIN/GLOBULIN RATIO 0.8 (1.0-2.7); ANION GAP 14 (5-15); ASPARTATE AMINO TRANSFERASE 20 U/L (5-40); CALCIUM 10.2 mg/dL (8.6-10.2); CARBON DIOXIDE 31 mEQ/L (20-30); CHLORIDE 99 mEQ/L (98-107); CREATININE 0.6 mg/dL (0.5-0.9); GLOMERULAR FILTRATION RATE > 60 mL/min (>60); HEMOLYSIS 8; POTASSIUM 4.1 mEQ/L (3.4-4.9); SODIUM 144 mEQ/L (135-145); TOTAL PROTEIN 6.9 g/dL (6.6-8.7)
[2016-09-06] MEDS: levETIRAcetam 500mg/5ml Liquid GT SCH ×2 (09:31→21:20)
[2016-09-06] MEDS: Cefepime HCl 2 GM in D5W 110 ML IV SCH ×3 (09:32→21:21)
[2016-09-06 09:36] LABS: BAND NEUTROPHILS % (MANUAL) 0 % (0-8); BASOPHILS % (MANUAL) 0 % (0-2); EOSINOPHILS % (MANUAL) 2 % (0-3); LYMPHOCYTES % (MANUAL) 4 % (20-45); NEUTROPHILS % (MANUAL) 90 % (45-75); PLATELET ESTIMATE ADEQUATE; PLATELET MORPHOLOGY NORMAL; TOTAL CELLS COUNTED 100
[2016-09-06] MEDS: Heparin 5000 units/ml inj SUBQ SCH (09:36)
[2016-09-06] MEDS: Gabapentin 300 MG/6 ML Soln GT SCH ×2 (10:56→19:22)
--- NOTE | 2016-09-06 13:11 | General Progress Note ---
Assessment/Plan Problem List: (1) Leukocytosis ICD Codes: D72.829 - Elevated white blood cell count, unspecified SNOMED: 917254180 (2) GERD (gastroesophageal reflux disease) ICD Codes: K21.9 - Gastro-esophageal reflux disease without esophagitis SNOMED: 081935138 (3) Seizure ICD Codes: R56.9 - Unspecified convulsions SNOMED: 68751480 (4) CVA (cerebral vascular accident) ICD Codes: I63.9 - Cerebral infarction, unspecified SNOMED: 369789791 (5) DVT (deep venous thrombosis) ICD Codes: I82.409 - Acute embolism and thrombosis of unspecified deep veins of unspecified lower extremity SNOMED: 520697436 (6) Sepsis ICD Codes: A41.9 - Sepsis SNOMED: 12734048 (7) Urinary tract infection ICD Codes: N39.0 - Urinary tract infection, site not specified SNOMED: 14219548 Qualifiers: Qualified Codes: N30.00 - Acute cystitis without hematuria (8) Diabetes mellitus out of control ICD Codes: E11.9 - Diabetes mellitus out of control SNOMED: 339181967 Status: stable, progressing, tolerating diet Assessment/Plan ot pt diet abx cbc bmp am Subjective Constitutional: Reports: weakness Allergies: Coded Allergies: HYDANTOINS (Unverified Allergy, Unknown, 09/09/13) PHENYTOIN (Unverified Allergy, Unknown, 09/09/13) All Systems: reviewed and negative except above Subjective sleepy calm Objective Last 24 Hour Vital Signs Date Time Temp Pulse Resp B/P Pulse Ox O2 Delivery O2 Flow Rate FiO2 09/06/16 12:40 157/81 09/06/16 11:45 99.3 117 20 158/101 100 Room Air 09/06/16 08:13 98.4 69 20 143/91 95 Room Air 09/06/16 07:55 103 20 Room Air 09/06/16 04:00 98.1 84 17 139/83 98 Room Air 09/06/16 00:00 97.0 69 17 149/80 94 Room Air 09/05/16 22:08 93 Room Air 09/05/16 21:15 97.9 55 16 142/84 96 Room Air 2.0 09/05/16 21:00 97.7 61 17 139/80 Room Air 09/05/16 19:27 55 16 142/84 96 Room Air 09/05/16 17:27 97.9 58 18 124/79 100 Nasal Cannula 2.0 09/05/16 14:22 98.3 54 16 131/76 99 Nasal Cannula 2.0 Intake and Output 09/05/16 09/06/16 19:00 07:00 Intake Total 470 ml Output Total 10 ml 550 ml Balance -10 ml -80 ml Intake IV Total 110 ml Tube Feeding 360 ml Output Urine Total 10 ml 550 ml Laboratory Tests 09/05/16 13:10: Urine Color Pale yellow, Urine Appearance Slightly cloudy, Urine pH 8, Urine Specific [place] 1.015, Urine Protein Negative, Urine Glucose (UA) Negative, Urine Ketones Negative, Urine Occult Blood 4+H, Urine Nitrite Negative, Urine Bilirubin Negative, Urine Urobilinogen Normal, Urine Leukocyte Esterase 3+H, Urine RBC 5-10H, Urine WBC 20-30H, Urine Squamous Epithelial Cells Few, Urine Bacteria Few 09/05/16 19:46: Prothrombin Time 10.3, Prothromb Time International Ratio 1.0 09/06/16 03:50: Urine Color Pale yellow, Urine Appearance Clear, Urine pH 7, Urine Specific [place] 1.010, Urine Protein 2+H, Urine Glucose (UA) Negative, Urine Ketones Negative, Urine Occult Blood 5+H, Urine Nitrite Negative, Urine Bilirubin Negative, Urine Urobilinogen Normal, Urine Leukocyte Esterase 2+H, Urine RBC TntcH, Urine WBC 5-10H, Urine Squamous Epithelial Cells None, Urine Bacteria Few 09/06/16 06:00: White Blood Count 14.6#H, Red Blood Count 4.86, Hemoglobin 14.8, Hematocrit 47.2H, Mean Corpuscular Volume 97, Mean Corpuscular Hemoglobin 30.5, Mean Corpuscular Hemoglobin Concent 31.4L, Red Cell Distribution Width 13.3, Platelet Count 197, Mean Platelet Volume 9.2, Neutrophils (%) (Auto) , Lymphocytes (%) (Auto) , Monocytes (%) (Auto) , Eosinophils (%) (Auto) , Basophils (%) (Auto) , Differential Total Cells Counted 100, Neutrophils % ( Manual) 90H, Lymphocytes % (Manual) 4L, Monocytes % (Manual) 4, Eosinophils % ( Manual) 2, Basophils % (Manual) 0, Band Neutrophils 0, Platelet Estimate Adequate, Platelet Morphology Normal, Red Blood Cell Morphology Normal, Sodium Level 144, Potassium Level 4.1, Chloride Level 99, Carbon Dioxide Level 31H, Anion Gap 14, Blood Urea Nitrogen 16, Creatinine 0.6, Estimat Glomerular Filtration Rate > 60, Glucose Level 167H, Calcium Level 10.2, Total Bilirubin 0.3, Aspartate Amino Transf (AST/SGOT) 20, Alanine Aminotransferase (ALT/SGPT) 24, Alkaline Phosphatase 99, Total Protein 6.9, Albumin 3.2L, Globulin 3.7, Albumin/Globulin Ratio 0.8L Height (Feet): 5 Height (Inches): 4.00 Weight (Pounds): 135 General Appearance: lethargic, confused EENT: normal ENT inspection Neck: normal alignment Cardiovascular: normal peripheral pulses, normal rate, regular rhythm Respiratory/Chest: chest wall non-tender, lungs clear, normal breath sounds Abdomen: normal bowel sounds, non tender, soft Extremities: normal inspection Edema: no edema noted Arm (L), no edema noted Arm (R), no edema noted Leg (L), no edema noted Leg (R), no edema noted Pedal (L), no edema noted Pedal (R), no edema noted Generalized Neurologic: motor weakness Skin: normal pigmentation, warm/dry CESAR BAJWA Sep 06, 2016 13:11
--- NOTE | 2016-09-06 14:16 | Infectious Diseases Prog Note ---
Assessment/Plan Problems: (1) Urinary tract infection Assessment & Plan: urine culture is growing gram negative rods , continue cefepime empirically for now . (2) Sepsis Assessment & Plan: possibly due to UTI, on cefepime empirically, will monitor blood culture (3) Diabetes mellitus out of control Assessment & Plan: recommend tight glycemic control to keep blood glucose between 80-120 Subjective ROS Limited/Unobtainable: Yes Allergies: Coded Allergies: HYDANTOINS (Unverified Allergy, Unknown, 09/09/13) PHENYTOIN (Unverified Allergy, Unknown, 09/09/13) Subjective she was up in bed , awake and alert, but nonverbal, afebrile. Objective Vital Signs Last 24 Hour Vital Signs Date Time Temp Pulse Resp B/P Pulse Ox O2 Delivery O2 Flow Rate FiO2 09/06/16 12:40 157/81 09/06/16 11:45 99.3 117 20 158/101 100 Room Air 09/06/16 08:13 98.4 69 20 143/91 95 Room Air 09/06/16 07:55 103 20 Room Air 09/06/16 04:00 98.1 84 17 139/83 98 Room Air 09/06/16 00:00 97.0 69 17 149/80 94 Room Air 09/05/16 22:08 93 Room Air 09/05/16 21:15 97.9 55 16 142/84 96 Room Air 2.0 09/05/16 21:00 97.7 61 17 139/80 Room Air 09/05/16 19:27 55 16 142/84 96 Room Air 09/05/16 17:27 97.9 58 18 124/79 100 Nasal Cannula 2.0 09/05/16 14:22 98.3 54 16 131/76 99 Nasal Cannula 2.0 Height (Feet): 5 Height (Inches): 4.00 Weight (Pounds): 135 General Appearance: WD/WN, no acute distress HEENT: normocephalic, atraumatic, anicteric, mucous membranes moist Respiratory/Chest: chest wall non-tender, lungs clear, normal breath sounds, no respiratory distress, no accessory muscle use Cardiovascular: normal peripheral pulses, normal rate, regular rhythm, no gallop/murmur, no JVD Abdomen: normal bowel sounds, soft, non tender, no organomegaly, non distended , no mass Extremities: no cyanosis, no clubbing Skin: no rash, no lesions, ulcers Microbiology Date/Time Source Procedure Growth Status 09/05/16 13:10 Urine,Clean Catch Urine Culture - Preliminary Gram Negative Bacillus 1 Resulted Laboratory Tests Test 09/05/16 19:46 09/06/16 03:50 09/06/16 06:00 Prothrombin Time 10.3 SEC (9.30-11.50) Prothromb Time International Ratio 1.0 (0.9-1.1) Urine Color Pale yellow Urine Appearance Clear Urine pH 7 (4.5-8.0) Urine Specific [place] 1.010 (1.005-1.035) Urine Protein 2+ (NEGATIVE) H Urine Glucose (UA) Negative (NEGATIVE) Urine Ketones Negative (NEGATIVE) Urine Occult Blood 5+ (NEGATIVE) H Urine Nitrite Negative (NEGATIVE) Urine Bilirubin Negative (NEGATIVE) Urine Urobilinogen Normal MG/DL (0.0-1.0) Urine Leukocyte Esterase 2+ (NEGATIVE) H Urine RBC Tntc /HPF (0 - 2) H Urine WBC 5-10 /HPF (0 - 2) H Urine Squamous Epithelial Cells None /LPF (NONE/OCC) Urine Bacteria Few /HPF (NONE) White Blood Count 14.6 K/UL (4.8-10.8) #H Red Blood Count 4.86 M/UL (4.20-5.40) Hemoglobin 14.8 G/DL (12.0-16.0) Hematocrit 47.2 % (37.0-47.0) H Mean Corpuscular Volume 97 FL (80-99) Mean Corpuscular Hemoglobin 30.5 PG (27.0-31.0) Mean Corpuscular Hemoglobin Concent 31.4 G/DL (32.0-36.0) L Red Cell Distribution Width 13.3 % (11.6-14.8) Platelet Count 197 K/UL (150-450) Mean Platelet Volume 9.2 FL (6.5-10.1) Neutrophils (%) (Auto) % (45.0-75.0) Lymphocytes (%) (Auto) % (20.0-45.0) Monocytes (%) (Auto) % (1.0-10.0) Eosinophils (%) (Auto) % (0.0-3.0) Basophils (%) (Auto) % (0.0-2.0) Differential Total Cells Counted 100 Neutrophils % (Manual) 90 % (45-75) H Lymphocytes % (Manual) 4 % (20-45) L Monocytes % (Manual) 4 % (1-10) Eosinophils % (Manual) 2 % (0-3) Basophils % (Manual) 0 % (0-2) Band Neutrophils 0 % (0-8) Platelet Estimate Adequate Platelet Morphology Normal Red Blood Cell Morphology Normal Sodium Level 144 mEQ/L (135-145) Potassium Level 4.1 mEQ/L (3.4-4.9) Chloride Level 99 mEQ/L (98-107) Carbon Dioxide Level 31 mEQ/L (20-30) H Anion Gap 14 (5-15) Blood Urea Nitrogen 16 mg/dL (7-23) Creatinine 0.6 mg/dL (0.5-0.9) Estimat Glomerular Filtration Rate > 60 mL/min (>60) Glucose Level 167 mg/dL (74-106) H Calcium Level 10.2 mg/dL (8.6-10.2) Total Bilirubin 0.3 mg/dL (0.0-1.2) Aspartate Amino Transf (AST/SGOT) 20 U/L (5-40) Alanine Aminotransferase (ALT/SGPT) 24 U/L (3-33) Alkaline Phosphatase 99 U/L (35-104) Total Protein 6.9 g/dL (6.6-8.7) Albumin 3.2 g/dL (3.5-5.2) L Globulin 3.7 g/dL Albumin/Globulin Ratio 0.8 (1.0-2.7) L Current Medications Medications (Trade) Dose Ordered Sig/[place] Route PRN Reason Start Time Stop Time Status Last Admin Dose Admin Acetaminophen (Tylenol) 650 mg Q4H PRN ORAL fever 09/05/16 14:00 10/05/16 13:59 Albuterol/ Ipratropium 3 ml 3 ml EVERY 4 HOURS PRN HHN Shortness of Breath 09/05/16 14:00 09/10/16 13:59 Atorvastatin Calcium (Lipitor) 80 mg BEDTIME ORAL 09/05/16 21:00 10/05/16 20:59 09/05/16 23:06 Cefepime HCl/ Dextrose (Maxipime/D5W) 110 ml @ 220 mls/hr EVERY 12 HOURS IV 6/29/17 20:00 09/12/16 19:59 09/06/16 09:32 Clonidine HCl (Catapres) 0.1 mg EVERY 6 HOURS PRN GT For High Blood Pressure 09/06/16 12:45 10/06/16 12:44 Clopidogrel Bisulfate (Plavix) 75 mg DAILY ORAL 09/06/16 09:00 10/06/16 08:59 09/06/16 09:24 Dextrose (Dextrose 50%) STAT PRN IV Hypoglycemia 09/05/16 14:00 10/05/16 13:59 Gabapentin (Neurontin) 100 mg BID GT 09/05/16 19:00 10/05/16 18:59 09/06/16 10:56 Heparin Sodium (Porcine) (Heparin 5000 units/ml) 5,000 units EVERY 12 HOURS SUBQ 09/05/16 21:00 10/05/16 20:59 09/06/16 09:36 Insulin Aspart (NovoLOG) EVERY 6 HOURS SUBQ 09/06/16 18:00 10/06/16 17:59 Levetiracetam (Keppra) 500 mg BID GT 09/05/16 19:00 10/05/16 18:59 09/06/16 09:31 Morphine Sulfate (Morphine Sulfate) 2 mg EVERY 4 HOURS PRN IVP Moderate Pain (Pain Scale 4-6) 09/05/16 14:00 09/12/16 13:59 Nitroglycerin (Ntg) 0.4 mg Q5M PRN SL Prn Chest Pain 09/05/16 14:00 10/05/16 13:59 Ondansetron HCl (Zofran) 4 mg Q6H PRN IVP Nausea & Vomiting 09/05/16 14:00 10/05/16 13:59 Polyethylene Glycol (Miralax) 17 gm DAILYPRN PRN ORAL Constipation 09/05/16 14:00 10/05/16 13:59 Temazepam (Restoril) 15 mg HSPRN PRN ORAL Insomnia 09/05/16 14:00 09/12/16 13:59 Lorin Mitchell M.D. Sep 06, 2016 14:16
[2016-09-06] MEDS ORDERED: Enoxaparin 100mg Inj SUBQ SCH (17:45)
[2016-09-06] MEDS ORDERED: NovoLOG Insulin Flexpen SUBQ SCH (18:00)
[2016-09-06] MEDS ORDERED: DuoNeb 0.5-3(2.5)mg/3ml neb HHN PRN (18:20)
[2016-09-06] MEDS ORDERED: Morphine Sulfate 2mg/ml Inj IVP PRN (18:21)
[2016-09-06] MEDS ORDERED: Miralax 17gm pkt ORAL PRN (18:21)
--- NOTE | 2016-09-06 18:46 | Cardiology Report ---
APPROVED REPORT EKG Measurement Heart [id number] 160P13 [id number] Sinus bradycardia Left axis deviation Voltage criteria for left ventricular hypertrophy ST elevation, consider early repolarization, pericarditis, or injury Abnormal ECG
[2016-09-06 19:22] LABS: INR 1.1 (0.9-1.1); PROTHROMBIN TIME 11.4 SEC (9.30-11.50)
[2016-09-06] MEDS ORDERED: Warfarin Sodium 5mg ORAL ONE (21:00)
[2016-09-06] MEDS: Enoxaparin 100mg Inj SUBQ SCH (21:20)
[2016-09-06] MEDS: Atorvastatin 80mg tab ORAL SCH (21:22)
--- NOTE | 2016-09-06 22:02 | Consultation ---
DATE OF CONSULTATION: 09/06/2016 CARDIOLOGY CONSULTATION CONSULTING PHYSICIAN: Tad Lyn M.D. REQUESTING PHYSICIAN: Los Slaughter D.O. REASON FOR CONSULTATION: Tachycardia. HISTORY OF PRESENT ILLNESS: This is a 65-year-old female debilitated due to prior strokes and residing in a assisted facility. She was admitted to the hospital because of an acute infection. She has been persistently tachycardic and I have been asked to assist with care. History is obtained from her daughter who states that this has happened in the past with infection. PAST MEDICAL HISTORY: Includes gastroesophageal reflux disease, history of DVT, pulmonary embolus, cerebrovascular accident with right hemiparesis, diabetes mellitus type 2, hypertension, encephalopathy, seizure disorder. ALLERGIES: Include phenytoin. SOCIAL HISTORY: No record of smoking or alcohol abuse. CURRENT MEDICATIONS: Reviewed and reconciled. REVIEW OF SYSTEMS: A 10-point review of systems performed from the patient's daughter's information. All pertinent data as outlined above. Otherwise all systems are negative. PHYSICAL EXAMINATION: GENERAL: Ill appearing, nonverbal, no acute respiratory distress. VITAL SIGNS: Blood pressure 158/101, pulse 117, respiratory rate 20, and temperature 99.3. HEENT: Conjunctivae pink. Oropharynx clear. Mucous membranes dry. NECK: Supple. LUNGS: Diminished breath sounds. Scattered rhonchi. CARDIAC: Regular rhythm. Rapid rate. Normal S1 and S2. Point of maximal pulse sustained. ABDOMEN: Soft and nontender. G-tube site intact. EXTREMITIES: No edema. Right hemiparesis. LABORATORY AND DIAGNOSTIC DATA: EKG sinus tachycardia with nonspecific ST change. INR 1. Sodium 144, potassium 4.1, bicarbonate 31, BUN 16, creatinine 0.6. Albumin 3.2. White count 14.6, hemoglobin 14.8. Chest x-ray reveals patchy interstitial edema versus infiltrates with left-sided pleural effusion. IMPRESSION: 1. Sepsis, healthcare-acquired pneumonia with parapneumonic effusion. 2. Sinus tachycardia. 3. Hypovolemia and dehydration. 4. Subtherapeutic INR in the setting of deep venous thrombosis and prior pulmonary embolus. 5. Cerebrovascular accident with hemiplegia and severe dementia. 6. Dysphagia with G-tube please. PLAN: 1. Add hypotonic IV fluid hydration. 2. Continue antimicrobials, respiratory hygiene, and bronchodilators. 3. High-dose Lovenox until warfarin is therapeutic to INR goal of 2 to 3. 4. Venous duplex will be obtained. 5. The patient has been transferred to the telemetry unit for cardiac monitoring. Tad Lyn M.D. DR: Ankush JOB#: [id number] CC:
[2016-09-07] VITALS: BP 124/75
[2016-09-07] MEDS: NovoLOG Insulin Flexpen SUBQ SCH ×4 (00:16→17:50)
[2016-09-07 04:00] VITALS: BP 128/76
[2016-09-07 06:39] LABS: BASOPHILS % (AUTO) 0.9 % (0.0-2.0); EOSINOPHILS % (AUTO) 4.6 % (0.0-3.0); LYMPHOCYTES % (AUTO) 5.6 % (20.0-45.0); MEAN CORPUSCULAR HEMOGLOBIN 31.4 PG (27.0-31.0); MEAN CORPUSCULAR HGB CONC 32.4 G/DL (32.0-36.0); MEAN CORPUSCULAR VOLUME 97 FL (80-99); MEAN PLATELET VOLUME 7.9 FL (6.5-10.1); MONOCYTES % (AUTO) 9.6 % (1.0-10.0); NEUTROPHILS % (AUTO) 79.3 % (45.0-75.0); PLATELET COUNT 172 K/UL (150-450); RED BLOOD COUNT 4.66 M/UL (4.20-5.40); RED CELL DISTRIBUTION WIDTH 13.3 % (11.6-14.8); WHITE BLOOD COUNT 11.3 K/UL (4.8-10.8)
[2016-09-07 06:48] LABS: ANION GAP 10 (5-15); CALCIUM 9.5 mg/dL (8.6-10.2); CARBON DIOXIDE 29 mEQ/L (20-30); CHLORIDE 101 mEQ/L (98-107); CHOLESTEROL 93 mg/dL (< 200); CHOLESTEROL/HDL RATIO 3.1 (3.3-4.4); CREATININE 0.8 mg/dL (0.5-0.9); GLOMERULAR FILTRATION RATE > 60 mL/min (>60); HEMOLYSIS 4; LDL CHOLESTEROL (CALC.) 8 mg/dL (60-99); SODIUM 140 mEQ/L (135-145)
[2016-09-07 07:02] LABS: INR 1.1 (0.9-1.1)
[2016-09-07 07:48] VITALS: BP 149/92
--- NOTE | 2016-09-07 08:51 | General Progress Note ---
Assessment/Plan Problem List: (1) Leukocytosis ICD Codes: D72.829 - Elevated white blood cell count, unspecified SNOMED: 291408426 (2) GERD (gastroesophageal reflux disease) ICD Codes: K21.9 - Gastro-esophageal reflux disease without esophagitis SNOMED: 434174083 (3) Seizure ICD Codes: R56.9 - Unspecified convulsions SNOMED: 15761415 (4) CVA (cerebral vascular accident) ICD Codes: I63.9 - Cerebral infarction, unspecified SNOMED: 216238283 (5) DVT (deep venous thrombosis) ICD Codes: I82.409 - Acute embolism and thrombosis of unspecified deep veins of unspecified lower extremity SNOMED: 859644763 (6) Sepsis ICD Codes: A41.9 - Sepsis SNOMED: 98839964 (7) Urinary tract infection ICD Codes: N39.0 - Urinary tract infection, site not specified SNOMED: 91986941 Qualifiers: Qualified Codes: N30.00 - Acute cystitis without hematuria (8) Diabetes mellitus out of control ICD Codes: E11.9 - Diabetes mellitus out of control SNOMED: 242727593 Status: stable, progressing, tolerating diet Assessment/Plan o2 pulm tx ot ot pt diet abx cbc bmp am Subjective Allergies: Coded Allergies: HYDANTOINS (Unverified Allergy, Unknown, 09/09/13) PHENYTOIN (Unverified Allergy, Unknown, 09/09/13) All Systems: reviewed and negative except above Subjective o2nc sleepy calm Objective Last 24 Hour Vital Signs Date Time Temp Pulse Resp B/P Pulse Ox O2 Delivery O2 Flow Rate FiO2 09/07/16 07:48 97.7 75 20 149/92 95 Nasal Cannula 2.0 09/07/16 04:00 98.0 94 18 128/76 95 Room Air 2.0 09/07/16 03:41 95 09/07/16 00:00 98.2 101 18 124/75 93 Room Air 2.0 09/07/16 00:00 101 09/06/16 21:26 99.9 09/06/16 20:00 102.2 122 22 140/90 93 Room Air 2.0 09/06/16 19:00 98 20 Room Air 09/06/16 16:03 99.1 121 22 154/97 93 Room Air 09/06/16 12:40 157/81 09/06/16 11:45 99.3 117 20 158/101 100 Room Air Intake and Output 09/06/16 09/07/16 19:00 07:00 Intake Total 410 ml 1980 ml Output Total 500 ml 800 ml Balance -90 ml 1180 ml Intake Free Water 50 ml 50 ml IV Total 1210 ml Tube Feeding 360 ml 720 ml Output Urine Total 500 ml 800 ml # Bowel Movements 1 1 Laboratory Tests 09/06/16 19:00: Prothrombin Time 11.4, Prothromb Time International Ratio 1.1 09/07/16 06:00: Prothrombin Time 12.0H, Prothromb Time International Ratio 1.1, White Blood Count 11.3H, Red Blood Count 4.66, Hemoglobin 14.6, Hematocrit 45.2, Mean Corpuscular Volume 97, Mean Corpuscular Hemoglobin 31.4H, Mean Corpuscular Hemoglobin Concent 32.4, Red Cell Distribution Width 13.3, Platelet Count 172, Mean Platelet Volume 7.9, Neutrophils (%) (Auto) 79.3H, Lymphocytes (%) (Auto) 5.6L, Monocytes (%) (Auto) 9.6, Eosinophils (%) (Auto) 4.6H, Basophils (%) (Auto ) 0.9, Sodium Level 140, Potassium Level 4.0, Chloride Level 101, Carbon Dioxide Level 29, Anion Gap 10, Blood Urea Nitrogen 16, Creatinine 0.8, Estimat Glomerular Filtration Rate > 60, Glucose Level 174H, Hemoglobin A1c 6.1H, Calcium Level 9.5, Triglycerides Level 274H, Cholesterol Level 93, LDL Cholesterol 8L, HDL Cholesterol 30, Cholesterol/HDL Ratio 3.1L Height (Feet): 5 Height (Inches): 4.00 Weight (Pounds): 135 General Appearance: lethargic, confused EENT: normal ENT inspection Neck: normal alignment Cardiovascular: normal peripheral pulses, normal rate, regular rhythm Respiratory/Chest: chest wall non-tender, lungs clear, normal breath sounds Abdomen: normal bowel sounds, non tender, soft Extremities: normal inspection Edema: no edema noted Arm (L), no edema noted Arm (R), no edema noted Leg (L), no edema noted Leg (R), no edema noted Pedal (L), no edema noted Pedal (R), no edema noted Generalized Neurologic: motor weakness Skin: normal pigmentation, cyanotic CESAR BAJWA Sep 07, 2016 08:51
[2016-09-07] MEDS: Cefepime HCl 2 GM in D5W 110 ML IV SCH (09:51)
[2016-09-07] MEDS: Gabapentin 300 MG/6 ML Soln GT SCH ×2 (09:52→17:46)
[2016-09-07] MEDS: levETIRAcetam 500mg/5ml Liquid GT SCH ×2 (09:52→21:51)
--- NOTE | 2016-09-07 10:11 | Pulmonology Progress Note ---
Assessment/Plan Assessment/Plan ASSESSMENT sepsis UTI HCAP left pleural effusion dehydration ST likely 2 to dehydration Hx of DVT, PE DM Hx of CVA with R hemiplegia advanced dementia dysphagia, G tube PLAN OF CARE tele O2 HHN prn fup with CXR abx, urine cx + E coli get sputum cx ID follows strict aspiration precautions, GT feeding, monitor tolerance cardio follows, due to subtherapeutic INR started on Lovenox and Coumadin to bridge to therapeutic INR Venous Duplex BLE continue Plavix, statin lipid panel with elevated TG, normal LDL and TC BS management with SS of insulin, HgA1c -6.1 at goal seizure precautions, continue Keppra case discussed and evaluated by supervising physician Subjective Allergies: Coded Allergies: HYDANTOINS (Unverified Allergy, Unknown, 09/09/13) PHENYTOIN (Unverified Allergy, Unknown, 09/09/13) Subjective leukocytosis trending down, afebrile, tachycardia resolved no signs of respiratory distress Objective Last 24 Hour Vital Signs Date Time Temp Pulse Resp B/P Pulse Ox O2 Delivery O2 Flow Rate FiO2 09/07/16 08:00 79 09/07/16 07:52 95 18 Room Air 09/07/16 07:48 97.7 75 20 149/92 95 Nasal Cannula 2.0 09/07/16 04:00 98.0 94 18 128/76 95 Room Air 2.0 09/07/16 03:41 95 09/07/16 00:00 98.2 101 18 124/75 93 Room Air 2.0 09/07/16 00:00 101 09/06/16 21:26 99.9 09/06/16 20:00 102.2 122 22 140/90 93 Room Air 2.0 09/06/16 19:00 98 20 Room Air 09/06/16 16:03 99.1 121 22 154/97 93 Room Air 09/06/16 12:40 157/81 09/06/16 11:45 99.3 117 20 158/101 100 Room Air Intake and Output 09/06/16 09/07/16 19:00 07:00 Intake Total 410 ml 1980 ml Output Total 500 ml 800 ml Balance -90 ml 1180 ml Intake Free Water 50 ml 50 ml IV Total 1210 ml Tube Feeding 360 ml 720 ml Output Urine Total 500 ml 800 ml # Bowel Movements 1 1 Objective General Appearance: no acute distress, awake, not responsive, aphasic HEENT: normocephalic, atraumatic, anicteric Respiratory/Chest: few isolated rhonchi Cardiovascular: normal peripheral pulses, regular rhythm, no JVD, tachycardia Abdomen: normal bowel sounds, soft, non tender, non distended Neurologic/Psychiatric: abnormal gait/bedridden , eyes open, not responsive, aphasic, R hemiplegia Microbiology Date/Time Source Procedure Growth Status 09/05/16 13:18 Blood Blood Culture - Preliminary NO GROWTH AFTER 24 HOURS Resulted 09/05/16 13:00 Blood Blood Culture - Preliminary NO GROWTH AFTER 24 HOURS Resulted 09/05/16 13:19 Nasal Nares MRSA Culture - Final Staphylococcus Aureus - Mrsa Complete 09/05/16 13:10 Urine,Clean Catch Urine Culture - Final Escherichia Coli Complete Laboratory Tests 09/06/16 19:00: Prothrombin Time 11.4, Prothromb Time International Ratio 1.1 09/07/16 06:00: Prothrombin Time 12.0H, Prothromb Time International Ratio 1.1, White Blood Count 11.3H, Red Blood Count 4.66, Hemoglobin 14.6, Hematocrit 45.2, Mean Corpuscular Volume 97, Mean Corpuscular Hemoglobin 31.4H, Mean Corpuscular Hemoglobin Concent 32.4, Red Cell Distribution Width 13.3, Platelet Count 172, Mean Platelet Volume 7.9, Neutrophils (%) (Auto) 79.3H, Lymphocytes (%) (Auto) 5.6L, Monocytes (%) (Auto) 9.6, Eosinophils (%) (Auto) 4.6H, Basophils (%) (Auto ) 0.9, Sodium Level 140, Potassium Level 4.0, Chloride Level 101, Carbon Dioxide Level 29, Anion Gap 10, Blood Urea Nitrogen 16, Creatinine 0.8, Estimat Glomerular Filtration Rate > 60, Glucose Level 174H, Hemoglobin A1c 6.1H, Calcium Level 9.5, Triglycerides Level 274H, Cholesterol Level 93, LDL Cholesterol 8L, HDL Cholesterol 30, Cholesterol/HDL Ratio 3.1L Current Medications Medications (Trade) Dose Ordered Sig/Chinyere Route PRN Reason Start Time Stop Time Status Last Admin Dose Admin Acetaminophen (Tylenol) 650 mg Q4H PRN ORAL fever 09/06/16 18:00 10/06/16 17:59 09/06/16 20:25 Albuterol/ Ipratropium (DuoNeb 0.5-3(2.5)mg/3ml) 3 ml Q4H PRN HHN Shortness of Breath 09/06/16 18:20 09/11/16 18:19 Atorvastatin Calcium (Lipitor) 80 mg BEDTIME ORAL 09/06/16 21:00 10/06/16 20:59 09/06/16 21:22 Cefepime HCl/ Dextrose (Maxipime/D5W) 110 ml @ 220 mls/hr EVERY 12 HOURS IV 09/06/16 21:00 09/13/16 20:59 09/07/16 09:51 Clonidine HCl (Catapres) 0.1 mg Q6H PRN GT SBP >160 and or DBP >90 09/06/16 18:00 10/06/16 17:59 Clopidogrel Bisulfate (Plavix) 75 mg DAILY ORAL 09/07/16 09:00 10/07/16 08:59 09/07/16 09:52 Dextrose (Dextrose 50%) STAT PRN IV Hypoglycemia 09/06/16 18:20 10/06/16 18:19 Enoxaparin Sodium (Lovenox) 90 mg QHS SUBQ 09/06/16 20:00 10/06/16 19:59 09/06/16 21:20 Gabapentin (Neurontin) 100 mg BID GT 09/06/16 19:00 10/06/16 18:59 09/07/16 09:52 Insulin Aspart (NovoLOG) EVERY 6 HOURS SUBQ 09/06/16 19:00 10/06/16 18:59 09/07/16 06:26 Levetiracetam (Keppra) 500 mg Q12HR GT 09/06/16 21:00 10/06/16 20:59 09/07/16 09:52 Morphine Sulfate (Morphine Sulfate) 2 mg Q4H PRN IVP Moderate Pain (Pain Scale 4-6) 09/06/16 18:21 09/13/16 18:20 Ondansetron HCl (Zofran) 4 mg Q6H PRN IVP Nausea & Vomiting 09/06/16 18:21 10/06/16 18:20 Polyethylene Glycol (Miralax) 17 gm DAILYPRN PRN ORAL Constipation 09/06/16 18:21 10/06/16 18:20 Sodium Chloride 1,000 ml @ 100 mls/hr Q10H IV 09/06/16 18:45 10/06/16 18:44 09/07/16 05:04 Temazepam (Restoril) 15 mg HSPRN PRN ORAL Insomnia 09/06/16 18:22 09/13/16 18:21 Warfarin Sodium (Coumadin) 5 mg ONCE ONCE ORAL 09/07/16 17:00 09/07/16 17:01 Warfarin Sodium 1 ea 1 ea DAILY PRN MISC Per rx protocol 09/06/16 20:00 10/06/16 19:59 Jeremy (Leroygrzegorz)Natasha NP Sep 07, 2016 10:11
[2016-09-07 11:42] VITALS: BP 161/91
--- NOTE | 2016-09-07 11:45 | Diagnostic Imaging Report ---
Indication: Dyspnea Comparison: 09/05/16 A single view chest radiograph was obtained. Findings: Interstitial edema suspected. Heart is enlarged. Lung volumes are low. Bones are osteopenic. Impression: No significant change. Suspected mild interstitial edema.
--- NOTE | 2016-09-07 14:04 | Infectious Diseases Prog Note ---
Assessment/Plan Problems: (1) Urinary tract infection Assessment & Plan: due to E coli , on cefepime empirically , will switch to ceftriaxon (2) Sepsis Assessment & Plan: possibly due to UTI, on cefepime empirically, will switch to ceftriaxon , and monitor blood culture (3) Diabetes mellitus out of control Assessment & Plan: recommend tight glycemic control to keep blood glucose between 80-120 (4) MRSA colonization Assessment & Plan: of the nares, will start Bactroban for five days Subjective ROS Limited/Unobtainable: Yes Allergies: Coded Allergies: HYDANTOINS (Unverified Allergy, Unknown, 09/09/13) PHENYTOIN (Unverified Allergy, Unknown, 09/09/13) Subjective she was sleeping in bed, comfortable , daughter at bedside , no evidence of cough or SOB as per daughter . afebrile. Objective Vital Signs Last 24 Hour Vital Signs Date Time Temp Pulse Resp B/P Pulse Ox O2 Delivery O2 Flow Rate FiO2 09/07/16 12:00 86 09/07/16 11:42 98.2 88 20 161/91 96 Nasal Cannula 2.0 09/07/16 08:00 79 09/07/16 07:52 95 18 Room Air 09/07/16 07:48 97.7 75 20 149/92 95 Nasal Cannula 2.0 09/07/16 04:00 98.0 94 18 128/76 95 Room Air 2.0 09/07/16 03:41 95 09/07/16 00:00 98.2 101 18 124/75 93 Room Air 2.0 09/07/16 00:00 101 09/06/16 21:26 99.9 09/06/16 20:00 102.2 122 22 140/90 93 Room Air 2.0 09/06/16 19:00 98 20 Room Air 09/06/16 16:03 99.1 121 22 154/97 93 Room Air Height (Feet): 5 Height (Inches): 4.00 Weight (Pounds): 135 General Appearance: WD/WN, no acute distress HEENT: normocephalic, atraumatic, anicteric, mucous membranes moist Respiratory/Chest: chest wall non-tender, lungs clear, normal breath sounds, no respiratory distress, no accessory muscle use, decreased breath sounds Cardiovascular: normal peripheral pulses, normal rate, regular rhythm, no gallop/murmur, no JVD Abdomen: normal bowel sounds, soft, non tender, no organomegaly, non distended , no mass, no scars Extremities: no cyanosis, no clubbing Skin: no rash, no lesions, no ulcers Microbiology Date/Time Source Procedure Growth Status 09/05/16 13:18 Blood Blood Culture - Preliminary NO GROWTH AFTER 24 HOURS Resulted 09/05/16 13:00 Blood Blood Culture - Preliminary NO GROWTH AFTER 24 HOURS Resulted 09/05/16 13:19 Nasal Nares MRSA Culture - Final Staphylococcus Aureus - Mrsa Complete 09/05/16 13:10 Urine,Clean Catch Urine Culture - Final Escherichia Coli Complete Laboratory Tests Test 09/06/16 19:00 09/07/16 06:00 Prothrombin Time 11.4 SEC (9.30-11.50) 12.0 SEC (9.30-11.50) H Prothromb Time International Ratio 1.1 (0.9-1.1) 1.1 (0.9-1.1) White Blood Count 11.3 K/UL (4.8-10.8) H Red Blood Count 4.66 M/UL (4.20-5.40) Hemoglobin 14.6 G/DL (12.0-16.0) Hematocrit 45.2 % (37.0-47.0) Mean Corpuscular Volume 97 FL (80-99) Mean Corpuscular Hemoglobin 31.4 PG (27.0-31.0) H Mean Corpuscular Hemoglobin Concent 32.4 G/DL (32.0-36.0) Red Cell Distribution Width 13.3 % (11.6-14.8) Platelet Count 172 K/UL (150-450) Mean Platelet Volume 7.9 FL (6.5-10.1) Neutrophils (%) (Auto) 79.3 % (45.0-75.0) H Lymphocytes (%) (Auto) 5.6 % (20.0-45.0) L Monocytes (%) (Auto) 9.6 % (1.0-10.0) Eosinophils (%) (Auto) 4.6 % (0.0-3.0) H Basophils (%) (Auto) 0.9 % (0.0-2.0) Sodium Level 140 mEQ/L (135-145) Potassium Level 4.0 mEQ/L (3.4-4.9) Chloride Level 101 mEQ/L (98-107) Carbon Dioxide Level 29 mEQ/L (20-30) Anion Gap 10 (5-15) Blood Urea Nitrogen 16 mg/dL (7-23) Creatinine 0.8 mg/dL (0.5-0.9) Estimat Glomerular Filtration Rate > 60 mL/min (>60) Glucose Level 174 mg/dL (74-106) H Hemoglobin A1c 6.1 % (< 6.0) H Calcium Level 9.5 mg/dL (8.6-10.2) Triglycerides Level 274 mg/dL (< 150) H Cholesterol Level 93 mg/dL (< 200) LDL Cholesterol 8 mg/dL (60-99) L HDL Cholesterol 30 mg/dL (> 60) Cholesterol/HDL Ratio 3.1 (3.3-4.4) L Current Medications Medications (Trade) Dose Ordered Sig/Cihnyere Route PRN Reason Start Time Stop Time Status Last Admin Dose Admin Acetaminophen (Tylenol) 650 mg Q4H PRN ORAL fever 09/06/16 18:00 10/06/16 17:59 09/06/16 20:25 Albuterol/ Ipratropium (DuoNeb 0.5-3(2.5)mg/3ml) 3 ml Q4H PRN HHN Shortness of Breath 09/06/16 18:20 09/11/16 18:19 Atorvastatin Calcium (Lipitor) 80 mg BEDTIME ORAL 09/06/16 21:00 10/06/16 20:59 09/06/16 21:22 Cefepime HCl/ Dextrose (Maxipime/D5W) 110 ml @ 220 mls/hr Q24H IV 09/08/16 09:00 09/15/16 08:59 Clonidine HCl (Catapres) 0.1 mg Q6H PRN GT SBP >160 and or DBP >90 09/06/16 18:00 10/06/16 17:59 Clopidogrel Bisulfate (Plavix) 75 mg DAILY ORAL 09/07/16 09:00 10/07/16 08:59 09/07/16 09:52 Dextrose (Dextrose 50%) STAT PRN IV Hypoglycemia 09/06/16 18:20 10/06/16 18:19 Enoxaparin Sodium (Lovenox) 90 mg QHS SUBQ 09/06/16 20:00 10/06/16 19:59 09/06/16 21:20 Gabapentin (Neurontin) 100 mg BID GT 09/06/16 19:00 10/06/16 18:59 09/07/16 09:52 Insulin Aspart (NovoLOG) EVERY 6 HOURS SUBQ 09/06/16 19:00 10/06/16 18:59 09/07/16 12:25 Levetiracetam (Keppra) 500 mg Q12HR GT 09/06/16 21:00 10/06/16 20:59 09/07/16 09:52 Morphine Sulfate (Morphine Sulfate) 2 mg Q4H PRN IVP Moderate Pain (Pain Scale 4-6) 09/06/16 18:21 09/13/16 18:20 Ondansetron HCl (Zofran) 4 mg Q6H PRN IVP Nausea & Vomiting 09/06/16 18:21 10/06/16 18:20 Polyethylene Glycol (Miralax) 17 gm DAILYPRN PRN ORAL Constipation 09/06/16 18:21 10/06/16 18:20 Sodium Chloride (0.45% NS 1000ml) 1,000 ml @ 100 mls/hr Q10H IV 09/06/16 18:45 10/06/16 18:44 09/07/16 05:04 Temazepam (Restoril) 15 mg HSPRN PRN ORAL Insomnia 09/06/16 18:22 09/13/16 18:21 Warfarin Sodium 1 ea 1 ea DAILY PRN MISC Per rx protocol 09/06/16 20:00 10/06/16 19:59 Warfarin Sodium 5 mg 5 mg ONCE ONCE ORAL 09/07/16 17:00 09/07/16 17:01 Lorin Mitchell M.D. Sep 07, 2016 14:04
[2016-09-07 16:20] VITALS: BP 145/79
[2016-09-07] MEDS ORDERED: Warfarin Sodium 5mg ORAL ONE ×2 (17:00→19:00)
[2016-09-07 20:00] VITALS: BP 136/68
[2016-09-07] MEDS: Atorvastatin 80mg tab ORAL SCH (21:51)
[2016-09-07] MEDS: Enoxaparin 100mg Inj SUBQ SCH (21:54)
--- NOTE | 2016-09-07 22:46 | Progress Note ---
DATE: 09/07/2016 CARDIOLOGY PROGRESS NOTE: SUBJECTIVE: The patient remains on antibiotics for urinary tract infection. Glucose control is optimal. Blood pressure parameters are rising. The patient's heart rate has stabilized. OBJECTIVE: VITAL SIGNS: Blood pressure is 161/91, pulse 88, respiratory rate 20, and afebrile. GENERAL: Poorly responsive. Moderate dependent edema. CHEST: Diminished breath sounds. No rales. HEART: Regular rhythm and rate. Normal S1 and S2. ABDOMEN: No drainage at G-tube site. LABORATORY DATA: White count is 11 and hemoglobin 14. BUN is 16 and creatinine 0.8. IMPRESSION: 1. Sinus tachycardia secondary to acute sepsis and hypovolemia, now improved. 2. Hypovolemia and dehydration, improved. 3. Urinary tract infection with sepsis, recovering. 4. Cerebrovascular disease with advanced dementia, dysphagia, and hemiparesis. 5. Subtherapeutic INR in setting of prior DVT and PE 6. Hypertensive heart disease with rising BP range. PLAN: 1. Decrease intravenous fluids. 2. Continue nutrition by gastrostomy tube. 3. Antimicrobials, per Infectious Disease real estate consultant. 4. Optimize glucose control with insulin titration. 5. High dose lovenox until INR 2-3. 6. Titrate anti-HTN regimen with caution, based on BP parameters. Tad Lyn M.D. DR: Manisha JOB#: [id number] CC: KAYY
[2016-09-08] VITALS: BP 142/77
[2016-09-08] MEDS: NovoLOG Insulin Flexpen SUBQ SCH ×4 (00:13→18:11)
[2016-09-08 04:00] VITALS: BP 139/70
[2016-09-08 07:26] LABS: BASOPHILS % (AUTO) 2.1 % (0.0-2.0); EOSINOPHILS % (AUTO) 7.7 % (0.0-3.0); LYMPHOCYTES % (AUTO) 4.8 % (20.0-45.0); MEAN CORPUSCULAR HGB CONC 32.7 G/DL (32.0-36.0); MEAN CORPUSCULAR VOLUME 98 FL (80-99); MONOCYTES % (AUTO) 12.3 % (1.0-10.0); NEUTROPHILS % (AUTO) 73.1 % (45.0-75.0); PLATELET COUNT 167 K/UL (150-450); RED BLOOD COUNT 4.29 M/UL (4.20-5.40); RED CELL DISTRIBUTION WIDTH 13.5 % (11.6-14.8)
[2016-09-08 07:31] LABS: INR 1.2 (0.9-1.1); PROTHROMBIN TIME 12.5 SEC (9.30-11.50)
[2016-09-08 07:58] VITALS: BP 158/86
[2016-09-08 08:08] LABS: ANION GAP 11 (5-15); CALCIUM 9.2 mg/dL (8.6-10.2); CARBON DIOXIDE 27 mEQ/L (20-30); CHLORIDE 104 mEQ/L (98-107); CREATININE 0.6 mg/dL (0.5-0.9); GLOMERULAR FILTRATION RATE > 60 mL/min (>60); HEMOLYSIS 36; POTASSIUM 4.4 mEQ/L (3.4-4.9); SODIUM 142 mEQ/L (135-145)
[2016-09-08] MEDS ORDERED: cefTRIAXone 1 GM in D5W 55 ML IVPB SCH (09:00)
[2016-09-08] MEDS ORDERED: Cefepime HCl 2 GM in D5W 110 ML IV SCH (09:00)
[2016-09-08] MEDS: levETIRAcetam 500mg/5ml Liquid GT SCH ×2 (09:17→21:13)
--- NOTE | 2016-09-08 09:53 | General Progress Note ---
Assessment/Plan Problem List: (1) Leukocytosis ICD Codes: D72.829 - Elevated white blood cell count, unspecified SNOMED: 889426334 (2) GERD (gastroesophageal reflux disease) ICD Codes: K21.9 - Gastro-esophageal reflux disease without esophagitis SNOMED: 167120433 (3) Seizure ICD Codes: R56.9 - Unspecified convulsions SNOMED: 92429020 (4) CVA (cerebral vascular accident) ICD Codes: I63.9 - Cerebral infarction, unspecified SNOMED: 896739038 (5) DVT (deep venous thrombosis) ICD Codes: I82.409 - Acute embolism and thrombosis of unspecified deep veins of unspecified lower extremity SNOMED: 400279151 (6) Sepsis ICD Codes: A41.9 - Sepsis SNOMED: 74228556 (7) Urinary tract infection ICD Codes: N39.0 - Urinary tract infection, site not specified SNOMED: 88427604 Qualifiers: Qualified Codes: N30.00 - Acute cystitis without hematuria (8) Diabetes mellitus out of control ICD Codes: E11.9 - Diabetes mellitus out of control SNOMED: 272514655 Status: stable, progressing, tolerating diet Assessment/Plan o2 pulm tx ot ot pt diet abx cbc bmp am dc plan Subjective Constitutional: Reports: weakness Allergies: Coded Allergies: HYDANTOINS (Unverified Allergy, Unknown, 09/09/13) PHENYTOIN (Unverified Allergy, Unknown, 09/09/13) All Systems: reviewed and negative except above Subjective o2nc sleepy calm Objective Last 24 Hour Vital Signs Date Time Temp Pulse Resp B/P Pulse Ox O2 Delivery O2 Flow Rate FiO2 09/08/16 07:58 97.7 85 18 158/86 100 Nasal Cannula 3.0 09/08/16 07:57 Nasal Cannula 2.0 28 09/08/16 07:56 99 Nasal Cannula 2.0 28 09/08/16 07:54 75 18 Room Air 09/08/16 04:00 81 09/08/16 04:00 98.1 79 20 139/70 100 Nasal Cannula 2.0 09/08/16 00:00 97.7 92 20 142/77 100 Nasal Cannula 2.0 09/07/16 23:37 75 09/07/16 20:00 98.1 91 20 136/68 100 Nasal Cannula 2.0 09/07/16 19:29 82 18 Room Air 09/07/16 19:12 87 09/07/16 16:20 98.1 76 20 145/79 98 Nasal Cannula 2.0 09/07/16 16:00 79 09/07/16 14:06 161/91 09/07/16 12:00 86 09/07/16 11:42 98.2 88 20 161/91 96 Nasal Cannula 2.0 Intake and Output 09/07/16 09/08/16 19:00 07:00 Intake Total 1120 ml 1220 ml Output Total 900 ml 800 ml Balance 220 ml 420 ml Intake Free Water 50 ml 50 ml IV Total 1010 ml 450 ml Tube Feeding 60 ml 720 ml Output Urine Total 900 ml 800 ml # Bowel Movements 1 Laboratory Tests 09/08/16 05:20: White Blood Count 9.0, Red Blood Count 4.29, Hemoglobin 13.8, Hematocrit 42.1, Mean Corpuscular Volume 98, Mean Corpuscular Hemoglobin 32.0H, Mean Corpuscular Hemoglobin Concent 32.7, Red Cell Distribution Width 13.5, Platelet Count 167, Mean Platelet Volume 9.0, Neutrophils (%) (Auto) 73.1, Lymphocytes (%) (Auto) 4.8L, Monocytes (%) (Auto) 12.3H, Eosinophils (%) (Auto) 7.7H, Basophils (%) ( Auto) 2.1H, Prothrombin Time 12.5H, Prothromb Time International Ratio 1.2H, Sodium Level 142, Potassium Level 4.4, Chloride Level 104, Carbon Dioxide Level 27, Anion Gap 11, Blood Urea Nitrogen 12, Creatinine 0.6, Estimat Glomerular Filtration Rate > 60, Glucose Level 160H, Calcium Level 9.2 Height (Feet): 5 Height (Inches): 4.00 Weight (Pounds): 135 General Appearance: lethargic EENT: normal ENT inspection Neck: normal alignment Cardiovascular: normal peripheral pulses, normal rate, regular rhythm Respiratory/Chest: chest wall non-tender, lungs clear, normal breath sounds Abdomen: normal bowel sounds, non tender, soft Extremities: normal inspection Edema: no edema noted Arm (L), no edema noted Arm (R), no edema noted Leg (L), no edema noted Leg (R), no edema noted Pedal (L), no edema noted Pedal (R), no edema noted Generalized Neurologic: motor weakness Skin: normal pigmentation, warm/dry CESAR BAJWA Sep 08, 2016 09:53
[2016-09-08] MEDS: Gabapentin 300 MG/6 ML Soln GT SCH ×2 (10:23→18:03)
[2016-09-08 11:34] VITALS: BP 153/85
--- NOTE | 2016-09-08 11:46 | Progress Note ---
DATE: 09/08/2016 CARDIOLOGY PROGRESS NOTE SUBJECTIVE: The patient remains on high-dose Lovenox, pending therapeutic INR. The patient is more alert, less distress, and less withdrawn. Monitored rhythm sinus. OBJECTIVE: GENERAL: No fevers. Baseline hemiparesis. Nonverbal. G-tube intact. VITAL SIGNS: Blood pressure is 139/70, pulse rate 79, and respiratory rate 20. LUNGS: Diminished breath sounds. No rales HEART: Regular rhythm and rate. Normal S1 and S2. ABDOMEN: Soft. EXTREMITIES: Trace edema. LABORATORY AND DIAGNOSTIC DATA: INR is 1.2. Potassium 4.4, BUN 12, creatinine 0.6, and glucose 160. White count 9 and hemoglobin 13.8. IMPRESSION: 1. Rehydrated resolved sinus tachycardia. 2. Subtherapeutic INR in the setting of prior deep venous thrombosis and pulmonary embolus. 3. Hypovolemia, corrected. 4. Urinary tract infection with sepsis, recovering. 5. Hypertensive heart disease. PLAN: Taper intravenous fluids. Continue nutrition by feeding tube. Lovenox until INR therapeutic. Discontinue telemetry. Titrate antihypertensives based on clinical parameters. Tad Lyn M.D. DR: GEORGES JOB#: [id number] CC:
--- NOTE | 2016-09-08 11:52 | Pulmonology Progress Note ---
Assessment/Plan Assessment/Plan ASSESSMENT sepsis UTI with E coli HCAP left pleural effusion dehydration ST likely 2 to dehydration-resolved Hx of DVT, PE DM Hx of CVA with R hemiplegia advanced dementia dysphagia, G tube PLAN OF CARE tele O2 HHN prn fup with CXR abx, urine cx + E coli get sputum cx if able ID follows gentle IV hydration strict aspiration precautions, GT feeding, monitor tolerance cardio follows, due to subtherapeutic INR started on Lovenox and Coumadin to bridge to therapeutic INR, today-1.2 Venous Duplex BLE continue Plavix, statin lipid panel with elevated TG, normal LDL and TC BS management with SS of insulin, HgA1c -6.1 at goal seizure precautions, continue Keppra case discussed and evaluated by supervising physician Subjective Allergies: Coded Allergies: HYDANTOINS (Unverified Allergy, Unknown, 09/09/13) PHENYTOIN (Unverified Allergy, Unknown, 09/09/13) Subjective leukocytosis resolved, afebrile, tachycardia resolved no signs of respiratory distress Objective Last 24 Hour Vital Signs Date Time Temp Pulse Resp B/P Pulse Ox O2 Delivery O2 Flow Rate FiO2 09/08/16 11:34 98.1 83 18 153/85 100 Nasal Cannula 3.0 09/08/16 08:00 75 09/08/16 07:58 97.7 85 18 158/86 100 Nasal Cannula 3.0 09/08/16 07:57 Nasal Cannula 2.0 28 09/08/16 07:56 99 Nasal Cannula 2.0 28 09/08/16 07:54 75 18 Room Air 09/08/16 04:00 81 09/08/16 04:00 98.1 79 20 139/70 100 Nasal Cannula 2.0 09/08/16 00:00 97.7 92 20 142/77 100 Nasal Cannula 2.0 09/07/16 23:37 75 09/07/16 20:00 98.1 91 20 136/68 100 Nasal Cannula 2.0 09/07/16 19:29 82 18 Room Air 09/07/16 19:12 87 09/07/16 16:20 98.1 76 20 145/79 98 Nasal Cannula 2.0 09/07/16 16:00 79 09/07/16 14:06 161/91 09/07/16 12:00 86 Intake and Output 09/07/16 09/08/16 19:00 07:00 Intake Total 1120 ml 1220 ml Output Total 900 ml 800 ml Balance 220 ml 420 ml Intake Free Water 50 ml 50 ml IV Total 1010 ml 450 ml Tube Feeding 60 ml 720 ml Output Urine Total 900 ml 800 ml # Bowel Movements 1 Objective General Appearance: no acute distress, awake, not responsive, aphasic HEENT: normocephalic, atraumatic, anicteric Respiratory/Chest: few isolated rhonchi Cardiovascular: normal peripheral pulses, regular rhythm, no JVD, tachycardia Abdomen: normal bowel sounds, soft, non tender, non distended Neurologic/Psychiatric: abnormal gait/bedridden , eyes open, not responsive, aphasic, R hemiplegia Microbiology Date/Time Source Procedure Growth Status 09/05/16 13:18 Blood Blood Culture - Preliminary NO GROWTH AFTER 48 HOURS Resulted 09/05/16 13:00 Blood Blood Culture - Preliminary NO GROWTH AFTER 48 HOURS Resulted 09/05/16 13:19 Nasal Nares MRSA Culture - Final Staphylococcus Aureus - Mrsa Complete 09/05/16 13:10 Urine,Clean Catch Urine Culture - Final Escherichia Coli Complete 09/05/16 13:19 Rectum VRE Culture - Final Enterococcus Faecalis - Vre Complete Laboratory Tests 09/08/16 05:20: White Blood Count 9.0, Red Blood Count 4.29, Hemoglobin 13.8, Hematocrit 42.1, Mean Corpuscular Volume 98, Mean Corpuscular Hemoglobin 32.0H, Mean Corpuscular Hemoglobin Concent 32.7, Red Cell Distribution Width 13.5, Platelet Count 167, Mean Platelet Volume 9.0, Neutrophils (%) (Auto) 73.1, Lymphocytes (%) (Auto) 4.8L, Monocytes (%) (Auto) 12.3H, Eosinophils (%) (Auto) 7.7H, Basophils (%) ( Auto) 2.1H, Prothrombin Time 12.5H, Prothromb Time International Ratio 1.2H, Sodium Level 142, Potassium Level 4.4, Chloride Level 104, Carbon Dioxide Level 27, Anion Gap 11, Blood Urea Nitrogen 12, Creatinine 0.6, Estimat Glomerular Filtration Rate > 60, Glucose Level 160H, Calcium Level 9.2 Current Medications Medications (Trade) Dose Ordered Sig/Chinyere Route PRN Reason Start Time Stop Time Status Last Admin Dose Admin Acetaminophen (Tylenol) 650 mg Q4H PRN ORAL fever 09/06/16 18:00 10/06/16 17:59 09/06/16 20:25 Albuterol/ Ipratropium (DuoNeb 0.5-3(2.5)mg/3ml) 3 ml Q4H PRN HHN Shortness of Breath 09/06/16 18:20 09/11/16 18:19 Atorvastatin Calcium (Lipitor) 80 mg BEDTIME ORAL 09/06/16 21:00 10/06/16 20:59 09/07/16 21:51 Ceftriaxone Sodium/Dextrose (Rocephin/D5W) 55 ml @ 110 mls/hr Q24H IVPB 09/08/16 09:00 09/15/16 08:59 09/08/16 09:18 Clonidine HCl (Catapres) 0.1 mg Q6H PRN GT SBP >160 and or DBP >90 09/06/16 18:00 10/06/16 17:59 09/07/16 14:06 Clopidogrel Bisulfate (Plavix) 75 mg DAILY ORAL 09/07/16 09:00 10/07/16 08:59 09/08/16 09:17 Dextrose (Dextrose 50%) STAT PRN IV Hypoglycemia 09/06/16 18:20 10/06/16 18:19 Enoxaparin Sodium (Lovenox) 90 mg QHS SUBQ 09/06/16 20:00 10/06/16 19:59 09/07/16 21:54 Gabapentin (Neurontin) 100 mg BID GT 09/06/16 19:00 10/06/16 18:59 09/08/16 10:23 Insulin Aspart (NovoLOG) EVERY 6 HOURS SUBQ 09/06/16 19:00 10/06/16 18:59 09/08/16 05:58 Levetiracetam (Keppra) 500 mg Q12HR GT 09/06/16 21:00 10/06/16 20:59 09/08/16 09:17 Morphine Sulfate (Morphine Sulfate) 2 mg Q4H PRN IVP Moderate Pain (Pain Scale 4-6) 09/06/16 18:21 09/13/16 18:20 Mupirocin 1 applic 1 applic THREE TIMES A DAY TOPIC 09/07/16 18:00 09/12/16 17:59 09/08/16 09:16 Ondansetron HCl (Zofran) 4 mg Q6H PRN IVP Nausea & Vomiting 09/06/16 18:21 10/06/16 18:20 Polyethylene Glycol (Miralax) 17 gm DAILYPRN PRN ORAL Constipation 09/06/16 18:21 10/06/16 18:20 Sodium Chloride (0.45% NS 1000ml) 1,000 ml @ 50 mls/hr Q20H IV 09/07/16 22:00 10/07/16 21:59 09/07/16 21:55 Temazepam 15 mg 15 mg HSPRN PRN ORAL Insomnia 09/06/16 18:22 09/13/16 18:21 Warfarin Sodium (Coumadin per pharmacy) 1 ea DAILY PRN MISC Per rx protocol 09/06/16 20:00 10/06/16 19:59 Warfarin Sodium (Coumadin) 7.5 mg ONCE ONCE ORAL 09/08/16 17:00 09/08/16 17:01 Jeremy ([facility])Natasha NP Sep 08, 2016 11:52
[2016-09-08 15:46] VITALS: BP 141/75
[2016-09-08] MEDS ORDERED: Warfarin Sodium 7.5mg ORAL ONE (17:00)
[2016-09-08 20:08] VITALS: BP 157/85
[2016-09-08] MEDS ORDERED: Atorvastatin 80mg tab ORAL SCH (21:00)
[2016-09-08] MEDS ORDERED: Enoxaparin 100mg Inj SUBQ SCH (21:00)
[2016-09-08] MEDS ORDERED: DuoNeb 0.5-3(2.5)mg/3ml neb HHN PRN (22:30)
[2016-09-08] MEDS ORDERED: Morphine Sulfate 2mg/ml Inj IVP PRN (22:30)
[2016-09-09] MEDS: NovoLOG Insulin Flexpen SUBQ SCH ×3 (00:24→12:02)
[2016-09-09 04:51] VITALS: BP 161/100
[2016-09-09 05:39] VITALS: BP 157/98
[2016-09-09 07:16] LABS: BASOPHILS % (AUTO) 0.3 % (0.0-2.0); EOSINOPHILS % (AUTO) 6.1 % (0.0-3.0); MEAN CORPUSCULAR HEMOGLOBIN 31.9 PG (27.0-31.0); MEAN CORPUSCULAR HGB CONC 32.6 G/DL (32.0-36.0); MEAN CORPUSCULAR VOLUME 98 FL (80-99); MEAN PLATELET VOLUME 8.4 FL (6.5-10.1); MONOCYTES % (AUTO) 9.2 % (1.0-10.0); NEUTROPHILS % (AUTO) 71.5 % (45.0-75.0); PLATELET COUNT 182 K/UL (150-450); RED BLOOD COUNT 4.32 M/UL (4.20-5.40); RED CELL DISTRIBUTION WIDTH 13.6 % (11.6-14.8); WHITE BLOOD COUNT 7.7 K/UL (4.8-10.8)
[2016-09-09 07:42] LABS: ANION GAP 9 (5-15); CALCIUM 9.7 mg/dL (8.6-10.2); CARBON DIOXIDE 32 mEQ/L (20-30); CHLORIDE 103 mEQ/L (98-107); CREATININE 0.5 mg/dL (0.5-0.9); GLOMERULAR FILTRATION RATE > 60 mL/min (>60); HEMOLYSIS 10; POTASSIUM 4.2 mEQ/L (3.4-4.9); SODIUM 144 mEQ/L (135-145)
[2016-09-09 08:00] VITALS: BP 156/93
[2016-09-09 08:00] LABS: INR 1.6 (0.9-1.1); PROTHROMBIN TIME 16.3 SEC (9.30-11.50)
--- NOTE | 2016-09-09 08:02 | Cardiology Report ---
APPROVED REPORT EXAM: Two-dimensional and M-mode echocardiogram with Doppler and color Doppler. INDICATION Tachycardia M-Mode DIMENSIONS IVSd0.7 (0.7-1.1cm)Left Atrium (MM)1.7 (1.6-4.0cm) LVDd4.3 (3.5-5.6cm)Aortic Root2.5 (2.0-3.7cm) PWd0.9 (0.7-1.1cm)Aortic Cusp Exc.1.7 (1.5-2.0cm) LVDs2.7 (2.5-4.0cm) PWs1.2 cm Normal left ventricular chamber size, systolic function and wall motion. Left ventricular ejection fraction estimated to be 60-65 %. No evidence of left ventricular hypertrophy. No evidence of pericardial fat or effusion. All other cardiac chamber sizes are within normal limits. Focal aortic valve sclerosis with adequate cusp excursion Thickened mitral valve leaflets with normal excursion. Mild mitral annulus and aortic root calcification. Pulmonic valve is well visualized. Normal tricuspid valve structure. IVC is normal in size with physiologic collapse. A color flow and spectral Doppler study was performed and revealed: No aortic regurgitation. No mitral regurgitation. Left ventricular diastolic dysfunction grade 1. Moderate tricuspid regurgitation. Tricuspid systolic velocities suggests peak right ventricular systolic pressure of 39 mmHg Consistent with mild pulmonary hypertension. Pulmonic regurgitation present.
[2016-09-09] MEDS: levETIRAcetam 500mg/5ml Liquid GT SCH (09:00)
[2016-09-09] MEDS ORDERED: cefTRIAXone 1 GM in D5W 55 ML IVPB SCH (09:00)
[2016-09-09] MEDS ORDERED: 1/2 NS 1000ml IV ONE ×2 (09:11→19:14)
[2016-09-09] MEDS ORDERED: Tubing IV Secondary IV ONE (09:11)
[2016-09-09] MEDS: Gabapentin 300 MG/6 ML Soln GT SCH ×2 (09:23→18:00)
--- NOTE | 2016-09-09 11:11 | Diagnostic Imaging Report ---
Indications: Shortness of breath Technique: Portable AP chest Findings: Comparison: 09/07/16 Cardiomegaly, pulmonary vascular redistribution, bilateral interstitial infiltrates, curvilinear density in region of right minor pleural fissure, linear density left lung base, left costophrenic angle indistinctness suggesting pleural effusion, leftward cardiac opacification all persist, unchanged. No new abnormality identified. IMPRESSION: Stable bilateral congestive changes Stable bilateral subsegmental atelectasis Underlying left lower lobe atelectasis or pneumonia not excludable, unchanged
[2016-09-09 11:47] VITALS: BP 154/86
--- NOTE | 2016-09-09 12:08 | General Progress Note ---
Assessment/Plan Problem List: (1) Leukocytosis ICD Codes: D72.829 - Elevated white blood cell count, unspecified SNOMED: 643203009 (2) GERD (gastroesophageal reflux disease) ICD Codes: K21.9 - Gastro-esophageal reflux disease without esophagitis SNOMED: 570442632 (3) Seizure ICD Codes: R56.9 - Unspecified convulsions SNOMED: 01393433 (4) CVA (cerebral vascular accident) ICD Codes: I63.9 - Cerebral infarction, unspecified SNOMED: 988277620 (5) DVT (deep venous thrombosis) ICD Codes: I82.409 - Acute embolism and thrombosis of unspecified deep veins of unspecified lower extremity SNOMED: 886299089 (6) Sepsis ICD Codes: A41.9 - Sepsis SNOMED: 52452804 (7) Urinary tract infection ICD Codes: N39.0 - Urinary tract infection, site not specified SNOMED: 65295463 Qualifiers: Qualified Codes: N30.00 - Acute cystitis without hematuria (8) Diabetes mellitus out of control ICD Codes: E11.9 - Diabetes mellitus out of control SNOMED: 256780543 Status: stable, progressing, tolerating diet Assessment/Plan o2 pulm tx ot ot pt diet abx cbc bmp am dc plan Subjective Constitutional: Reports: weakness Allergies: Coded Allergies: HYDANTOINS (Unverified Allergy, Unknown, 09/09/13) PHENYTOIN (Unverified Allergy, Unknown, 09/09/13) All Systems: reviewed and negative except above Subjective o2nc sleepy calm Objective Last 24 Hour Vital Signs Date Time Temp Pulse Resp B/P Pulse Ox O2 Delivery O2 Flow Rate FiO2 09/09/16 11:47 97.5 79 18 154/86 100 Nasal Cannula 3.0 09/09/16 08:08 82 16 Nasal Cannula 2.0 28 09/09/16 08:08 96 Nasal Cannula 2.0 28 09/09/16 08:08 Nasal Cannula 2.0 28 09/09/16 08:00 97.7 87 20 156/93 100 Nasal Cannula 3.0 09/09/16 05:53 85 24 99 32 09/09/16 05:48 83 23 95 Nasal Cannula 3.0 32 09/09/16 05:39 88 20 157/98 97 Nasal Cannula 2.0 09/09/16 04:51 97.3 92 20 161/100 97 Nasal Cannula 2.0 09/09/16 04:25 167/102 09/08/16 20:08 97.9 92 20 157/85 97 Nasal Cannula 2.0 09/08/16 19:30 95 Nasal Cannula 2.0 28 09/08/16 19:30 Nasal Cannula 2.0 28 09/08/16 19:30 86 16 Nasal Cannula 2.0 28 09/08/16 15:46 97.0 83 18 141/75 96 Nasal Cannula 3.0 Intake and Output 09/08/16 09/09/16 19:00 07:00 Intake Total 205 ml 1040 ml Output Total 650 ml 1000 ml Balance -445 ml 40 ml IV Total 205 ml 500 ml Tube Feeding 540 ml Output Urine Total 650 ml 1000 ml Laboratory Tests 09/09/16 05:50: White Blood Count 7.7, Red Blood Count 4.32, Hemoglobin 13.8, Hematocrit 42.3, Mean Corpuscular Volume 98, Mean Corpuscular Hemoglobin 31.9H, Mean Corpuscular Hemoglobin Concent 32.6, Red Cell Distribution Width 13.6, Platelet Count 182, Mean Platelet Volume 8.4, Neutrophils (%) (Auto) 71.5, Lymphocytes (%) (Auto) 13.0L, Monocytes (%) (Auto) 9.2, Eosinophils (%) (Auto) 6.1H, Basophils (%) ( Auto) 0.3, Prothrombin Time 16.3H, Prothromb Time International Ratio 1.6H, Sodium Level 144, Potassium Level 4.2, Chloride Level 103, Carbon Dioxide Level 32H, Anion Gap 9, Blood Urea Nitrogen 10, Creatinine 0.5, Estimat Glomerular Filtration Rate > 60, Glucose Level 176H, Calcium Level 9.7 Height (Feet): 5 Height (Inches): 4.00 Weight (Pounds): 135 General Appearance: lethargic EENT: normal ENT inspection Neck: non-tender, normal alignment, supple Cardiovascular: normal peripheral pulses, normal rate, regular rhythm Respiratory/Chest: chest wall non-tender, lungs clear, normal breath sounds Abdomen: normal bowel sounds, non tender, soft Extremities: normal inspection Edema: no edema noted Arm (L), no edema noted Arm (R), no edema noted Leg (L), no edema noted Leg (R), no edema noted Pedal (L), no edema noted Pedal (R), no edema noted Generalized Neurologic: motor weakness Skin: normal pigmentation, warm/dry CESAR BAJWA Sep 09, 2016 12:08
[2016-09-09] MEDS ORDERED: LEVAQUIN250 M1 GT (13:19)
--- NOTE | 2016-09-09 13:40 | Diagnostic Imaging Report ---
APPROVED REPORT CPT Code: 67121 Present Symptoms Lower Extremity Pain: Bilateral BILATERAL: Imaging reveals a patent deep venous system bilaterally. There is no evidence of thrombus within the femoral, popliteal or tibial segments. The greater saphenous veins are also within normal limits. Doppler indicates normal spontaneous flow within these segments.
--- NOTE | 2016-09-09 14:26 | Pulmonology Progress Note ---
Assessment/Plan Problems: (1) Pneumonia (2) Sepsis (3) Seizure (4) Dementia Assessment/Plan check cultures IV abx iv fluids dvt prophylaxis check labs all notes and meds reviewed. Subjective ROS Limited/Unobtainable: No Constitutional: Reports: no symptoms HEENT: Repors: no symptoms Respiratory: Reports: no symptoms Allergies: Coded Allergies: HYDANTOINS (Unverified Allergy, Unknown, 09/09/13) PHENYTOIN (Unverified Allergy, Unknown, 09/09/13) Objective Last 24 Hour Vital Signs Date Time Temp Pulse Resp B/P Pulse Ox O2 Delivery O2 Flow Rate FiO2 09/09/16 11:47 97.5 79 18 154/86 100 Nasal Cannula 3.0 09/09/16 08:08 82 16 Nasal Cannula 2.0 09/09/16 08:08 96 Nasal Cannula 2.0 09/09/16 08:08 Nasal Cannula 2.0 09/09/16 08:00 97.7 87 20 156/93 100 Nasal Cannula 3.0 09/09/16 05:53 85 24 99 32 09/09/16 05:48 83 23 95 Nasal Cannula 3.0 32 09/09/16 05:39 88 20 157/98 97 Nasal Cannula 2.0 09/09/16 04:51 97.3 92 20 161/100 97 Nasal Cannula 2.0 09/09/16 04:25 167/102 09/08/16 20:08 97.9 92 20 157/85 97 Nasal Cannula 2.0 09/08/16 19:30 95 Nasal Cannula 2.0 09/08/16 19:30 Nasal Cannula 2.0 09/08/16 19:30 86 16 Nasal Cannula 2.0 09/08/16 15:46 97.0 83 18 141/75 96 Nasal Cannula 3.0 Intake and Output 09/08/16 09/09/16 19:00 07:00 Intake Total 205 ml 1040 ml Output Total 650 ml 1000 ml Balance -445 ml 40 ml IV Total 205 ml 500 ml Tube Feeding 540 ml Output Urine Total 650 ml 1000 ml General Appearance: WD/WN HEENT: normocephalic, atraumatic Respiratory/Chest: chest wall non-tender, lungs clear Cardiovascular: normal peripheral pulses, normal rate Abdomen: normal bowel sounds, soft, non tender Genitourinary: normal external genitalia Skin: no rash Neurologic/Psychiatric: die cutter II-XII grossly normal Lymphatic: no neck adenopathy Microbiology Date/Time Source Procedure Growth Status 09/07/16 19:10 Sputum Gram Stain - Final Resulted 09/07/16 19:10 Sputum Sputum Culture - Preliminary NO GROWTH Resulted Laboratory Tests 09/09/16 05:50: White Blood Count 7.7, Red Blood Count 4.32, Hemoglobin 13.8, Hematocrit 42.3, Mean Corpuscular Volume 98, Mean Corpuscular Hemoglobin 31.9H, Mean Corpuscular Hemoglobin Concent 32.6, Red Cell Distribution Width 13.6, Platelet Count 182, Mean Platelet Volume 8.4, Neutrophils (%) (Auto) 71.5, Lymphocytes (%) (Auto) 13.0L, Monocytes (%) (Auto) 9.2, Eosinophils (%) (Auto) 6.1H, Basophils (%) ( Auto) 0.3, Prothrombin Time 16.3H, Prothromb Time International Ratio 1.6H, Sodium Level 144, Potassium Level 4.2, Chloride Level 103, Carbon Dioxide Level 32H, Anion Gap 9, Blood Urea Nitrogen 10, Creatinine 0.5, Estimat Glomerular Filtration Rate > 60, Glucose Level 176H, Calcium Level 9.7 Current Medications Medications (Trade) Dose Ordered Sig/Chinyere Route PRN Reason Start Time Stop Time Status Last Admin Dose Admin Acetaminophen (Tylenol) 650 mg Q4H PRN ORAL fever 09/08/16 22:00 10/08/16 21:59 Albuterol/ Ipratropium (DuoNeb 0.5-3(2.5)mg/3ml) 3 ml Q4H PRN HHN Shortness of Breath 09/08/16 22:30 09/13/16 22:29 09/09/16 05:48 Atorvastatin Calcium (Lipitor) 80 mg BEDTIME ORAL 09/08/16 21:00 10/08/16 20:59 09/08/16 21:14 Ceftriaxone Sodium/Dextrose (Rocephin/D5W) 55 ml @ 110 mls/hr Q24H IVPB 09/09/16 09:00 09/14/16 08:59 09/09/16 09:47 Clonidine HCl (Catapres) 0.1 mg Q6H PRN GT SBP >160 and or DBP >90 09/09/16 00:00 8/2/17 00:00 09/09/16 04:25 Clopidogrel Bisulfate (Plavix) 75 mg DAILY ORAL 09/09/16 09:00 10/09/16 08:59 09/09/16 09:00 Dextrose (Dextrose 50%) STAT PRN IV Hypoglycemia 09/09/16 18:30 10/09/16 18:29 Enoxaparin Sodium (Lovenox) 90 mg QHS SUBQ 09/08/16 21:00 10/08/16 20:59 09/08/16 21:36 Gabapentin (Neurontin) 100 mg BID GT 09/09/16 09:00 10/09/16 08:59 09/09/16 09:23 Insulin Aspart (NovoLOG) EVERY 6 HOURS SUBQ 09/09/16 00:00 10/09/16 00:00 09/09/16 12:02 Levetiracetam (Keppra) 500 mg Q12HR GT 09/08/16 21:00 10/08/16 20:59 09/09/16 09:00 Morphine Sulfate (Morphine Sulfate) 2 mg Q4H PRN IVP Moderate Pain (Pain Scale 4-6) 09/08/16 22:30 09/15/16 22:29 Mupirocin (Bactroban Oint) 1 applic THREE TIMES A DAY TOPIC 09/09/16 09:00 09/12/16 17:59 09/09/16 12:05 Ondansetron HCl (Zofran) 4 mg Q6H PRN IVP Nausea & Vomiting 09/09/16 00:30 10/09/16 00:29 Polyethylene Glycol (Miralax) 17 gm DAILYPRN PRN ORAL Constipation 09/09/16 18:30 10/09/16 18:29 Sodium Chloride 1,000 ml @ 50 mls/hr Q20H IV 09/08/16 20:30 10/08/16 20:29 09/08/16 20:30 Temazepam (Restoril) 15 mg HSPRN PRN ORAL Insomnia 09/09/16 18:30 09/16/16 18:29 Warfarin Sodium (Coumadin per pharmacy) 1 ea DAILY PRN MISC Per rx protocol 09/09/16 09:00 10/09/16 08:59 Warfarin Sodium (Coumadin) 7.5 mg COUMADIN ONCE ORAL 09/09/16 17:00 09/09/16 17:01 JIMMY DAVIS Sep 09, 2016 14:26
[2016-09-09] MEDS ORDERED: LOVENOX10 M2 SUBQ (15:13)
--- NOTE | 2016-09-09 15:13 | Infectious Diseases Prog Note ---
Assessment/Plan Problems: (1) Urinary tract infection Assessment & Plan: due to E coli , on ceftriaxon , will switch to oral keflex for 4 more days (2) Sepsis Assessment & Plan: possibly due to UTI, on ceftriaxon , will switch to keflex , since blood culture is negative (3) Diabetes mellitus out of control Assessment & Plan: recommend tight glycemic control to keep blood glucose between 80-120 (4) MRSA colonization Assessment & Plan: of the nares, on Bactroban for five days Subjective ROS Limited/Unobtainable: Yes Allergies: Coded Allergies: HYDANTOINS (Unverified Allergy, Unknown, 09/09/13) PHENYTOIN (Unverified Allergy, Unknown, 09/09/13) Subjective she was doing well , up in bed, comfortable ,no evidence of cough or SOB . afebrile. Objective Vital Signs Last 24 Hour Vital Signs Date Time Temp Pulse Resp B/P Pulse Ox O2 Delivery O2 Flow Rate FiO2 09/09/16 11:47 97.5 79 18 154/86 100 Nasal Cannula 3.0 09/09/16 08:08 82 16 Nasal Cannula 2.0 09/09/16 08:08 96 Nasal Cannula 2.0 28 09/09/16 08:08 Nasal Cannula 2.0 28 09/09/16 08:00 97.7 87 20 156/93 100 Nasal Cannula 3.0 09/09/16 05:53 85 24 99 32 09/09/16 05:48 83 23 95 Nasal Cannula 3.0 32 09/09/16 05:39 88 20 157/98 97 Nasal Cannula 2.0 09/09/16 04:51 97.3 92 20 161/100 97 Nasal Cannula 2.0 09/09/16 04:25 167/102 09/08/16 20:08 97.9 92 20 157/85 97 Nasal Cannula 2.0 09/08/16 19:30 95 Nasal Cannula 2.0 28 09/08/16 19:30 Nasal Cannula 2.0 28 09/08/16 19:30 86 16 Nasal Cannula 2.0 09/08/16 15:46 97.0 83 18 141/75 96 Nasal Cannula 3.0 Height (Feet): 5 Height (Inches): 4.00 Weight (Pounds): 135 General Appearance: WD/WN, no acute distress HEENT: normocephalic, atraumatic, anicteric, mucous membranes moist Respiratory/Chest: chest wall non-tender, lungs clear, normal breath sounds, no respiratory distress, no accessory muscle use Cardiovascular: normal peripheral pulses, normal rate, regular rhythm, no gallop/murmur, no JVD Abdomen: normal bowel sounds, soft, non tender, no organomegaly, non distended , no mass Extremities: no cyanosis, no clubbing Skin: no rash, no lesions Microbiology Date/Time Source Procedure Growth Status 09/07/16 19:10 Sputum Gram Stain - Final Resulted 09/07/16 19:10 Sputum Sputum Culture - Preliminary NO GROWTH Resulted Laboratory Tests Test 09/09/16 05:50 White Blood Count 7.7 K/UL (4.8-10.8) Red Blood Count 4.32 M/UL (4.20-5.40) Hemoglobin 13.8 G/DL (12.0-16.0) Hematocrit 42.3 % (37.0-47.0) Mean Corpuscular Volume 98 FL (80-99) Mean Corpuscular Hemoglobin 31.9 PG (27.0-31.0) H Mean Corpuscular Hemoglobin Concent 32.6 G/DL (32.0-36.0) Red Cell Distribution Width 13.6 % (11.6-14.8) Platelet Count 182 K/UL (150-450) Mean Platelet Volume 8.4 FL (6.5-10.1) Neutrophils (%) (Auto) 71.5 % (45.0-75.0) Lymphocytes (%) (Auto) 13.0 % (20.0-45.0) L Monocytes (%) (Auto) 9.2 % (1.0-10.0) Eosinophils (%) (Auto) 6.1 % (0.0-3.0) H Basophils (%) (Auto) 0.3 % (0.0-2.0) Prothrombin Time 16.3 SEC (9.30-11.50) H Prothromb Time International Ratio 1.6 (0.9-1.1) H Sodium Level 144 mEQ/L (135-145) Potassium Level 4.2 mEQ/L (3.4-4.9) Chloride Level 103 mEQ/L (98-107) Carbon Dioxide Level 32 mEQ/L (20-30) H Anion Gap 9 (5-15) Blood Urea Nitrogen 10 mg/dL (7-23) Creatinine 0.5 mg/dL (0.5-0.9) Estimat Glomerular Filtration Rate > 60 mL/min (>60) Glucose Level 176 mg/dL (74-106) H Calcium Level 9.7 mg/dL (8.6-10.2) Current Medications Medications (Trade) Dose Ordered Sig/Chinyere Route PRN Reason Start Time Stop Time Status Last Admin Dose Admin Acetaminophen (Tylenol) 650 mg Q4H PRN ORAL fever 09/08/16 22:00 10/08/16 21:59 Albuterol/ Ipratropium (DuoNeb 0.5-3(2.5)mg/3ml) 3 ml Q4H PRN HHN Shortness of Breath 09/08/16 22:30 09/13/16 22:29 09/09/16 05:48 Atorvastatin Calcium (Lipitor) 80 mg BEDTIME ORAL 09/08/16 21:00 10/08/16 20:59 09/08/16 21:14 Ceftriaxone Sodium/Dextrose (Rocephin/D5W) 55 ml @ 110 mls/hr Q24H IVPB 09/09/16 09:00 09/14/16 08:59 09/09/16 09:47 Clonidine HCl (Catapres) 0.1 mg Q6H PRN GT SBP >160 and or DBP >90 09/09/16 00:00 10/09/16 00:00 09/09/16 04:25 Clopidogrel Bisulfate (Plavix) 75 mg DAILY ORAL 09/09/16 09:00 10/09/16 08:59 09/09/16 09:00 Dextrose (Dextrose 50%) STAT PRN IV Hypoglycemia 09/09/16 18:30 10/09/16 18:29 Enoxaparin Sodium (Lovenox) 90 mg QHS SUBQ 09/08/16 21:00 10/08/16 20:59 09/08/16 21:36 Gabapentin (Neurontin) 100 mg BID GT 09/09/16 09:00 10/09/16 08:59 09/09/16 09:23 Insulin Aspart (NovoLOG) EVERY 6 HOURS SUBQ 09/09/16 00:00 10/09/16 00:00 09/09/16 12:02 Levetiracetam (Keppra) 500 mg Q12HR GT 09/08/16 21:00 10/08/16 20:59 09/09/16 09:00 Morphine Sulfate (Morphine Sulfate) 2 mg Q4H PRN IVP Moderate Pain (Pain Scale 4-6) 09/08/16 22:30 09/15/16 22:29 Mupirocin (Bactroban Oint) 1 applic THREE TIMES A DAY TOPIC 09/09/16 09:00 09/12/16 17:59 09/09/16 12:05 Ondansetron HCl (Zofran) 4 mg Q6H PRN IVP Nausea & Vomiting 09/09/16 00:30 10/09/16 00:29 Polyethylene Glycol (Miralax) 17 gm DAILYPRN PRN ORAL Constipation 09/09/16 18:30 10/09/16 18:29 Sodium Chloride 1,000 ml @ 50 mls/hr Q20H IV 09/08/16 20:30 10/08/16 20:29 09/08/16 20:30 Temazepam (Restoril) 15 mg HSPRN PRN ORAL Insomnia 09/09/16 18:30 09/16/16 18:29 Warfarin Sodium (Coumadin per pharmacy) 1 ea DAILY PRN MISC Per rx protocol 09/09/16 09:00 10/09/16 08:59 Warfarin Sodium (Coumadin) 7.5 mg COUMADIN ONCE ORAL 09/09/16 17:00 09/09/16 17:01 Lorin Mitchell M.D. Sep 09, 2016 15:13
[2016-09-09] MEDS ORDERED: MIRALAX17 G2 ORAL (15:14)
[2016-09-09] MEDS ORDERED: RESTORIL15 MG ORAL (15:14)
[2016-09-09] MEDS ORDERED: ZOFRAN 4 MG4 MG/2 ML IV (15:14)
[2016-09-09] MEDS ORDERED: MORPHINE SU4 MG/1 ML IVP (15:14)
[2016-09-09] MEDS ORDERED: COUMADIN7.5 MG ORAL (15:15)
[2016-09-09] MEDS ORDERED: CEPHALEXIN500 MG ORAL (15:28)
[2016-09-09 16:00] VITALS: BP 156/86
[2016-09-09] MEDS ORDERED: Warfarin Sodium 7.5mg ORAL ONE (17:00)
[2016-09-09] MEDS ORDERED: Cephalexin 500mg cap ORAL SCH (18:00)
[2016-09-09] MEDS ORDERED: Miralax 17gm pkt ORAL PRN (18:30)
[2016-09-09 18:55] VITALS: BP 175/110
[2016-09-09] MEDS ORDERED: Sterile Water Irrig 1000ml IRRIG ONE (19:14)
--- NOTE | 2016-09-10 23:00 | Progress Note ---
DATE: 09/09/2016 This is a late entry for September 09, 2016 SUBJECTIVE: The patient was seen and evaluated. Case discussed with her daughter. OBJECTIVE: GENERAL: The patient is in no distress. VITAL SIGNS: Blood pressure 154/86, pulse 79, respiratory rate 18, and afebrile. NECK: Supple. LUNGS: Clear. CARDIAC: Regular rhythm and rate. Normal S1, S2 with a fourth heart sound. ABDOMEN: Soft, left hemiparesis. EXTREMITIES: Trace edema. LABORATORY DATA: White count 7.7, hemoglobin 13.8. Potassium 4.2, BUN 10, and creatinine 0.5. INR 1.6. IMPRESSION: 1. Sinus tachycardia, resolved with hydration. 2. Dehydration and hypovolemia, recovered with IV fluid hydration. 3. Subtherapeutic INR improving with loading of warfarin. 4. Urinary tract infection with sepsis, recovering and no signs of shock. 5. Hypertensive heart disease with increasing blood pressure trend. PLAN: 1. Discontinue intravenous fluids. 2. Continue hydration by G-tube as well as nutrition. 3. Stable for correction facility. 4. Antihypertensives advanced to optimize blood pressure control. Ezio Hubbard JOB#: [id number] CC:
--- NOTE | 2016-09-11 01:45 | Consultation ---
DATE OF CONSULTATION: 09/09/2016 HEMATOLOGY/ONCOLOGY CONSULTATION CONSULTING PHYSICIAN: Jose Boateng M.D. REQUESTING PHYSICIAN: Los Slaughter D.O. REASON FOR CONSULTATION: Evaluation of use of anticoagulants in the setting of pulmonary embolism and deep venous thrombosis. IDENTIFICATION: Dear Dr. Los Slaughter, The patient is a pleasant 65-year-old female debilitated due to prior multiple strokes residing in a long term facility rehab unit. She was admitted because of acute infection. She was found to be tachycardic and has had history of pulmonary embolism though unknown . In addition she has a clot in her left lower extremity, left superficial vein from 2016 which has since had a Doppler which was negative. Hematology service was consulted in regards to Coumadin use in the setting of aspirin and Plavix. PAST MEDICAL HISTORY: Pulmonary embolism, history of deep venous thrombosis, gastroesophageal reflux disease, cerebrovascular accident with right hemiparesis, type 2 diabetes, hypertension, encephalopathy, seizure disorder. CURRENT MEDICATIONS: Reviewed. ALLERGIES: Include phenytoin. SOCIAL HISTORY: No alcohol, tobacco, or illicit drug use. REVIEW OF SYSTEMS: Reviewed from the daughter and are negative. The patient is nonverbal. PHYSICAL EXAMINATION: GENERAL: The patient is in no acute distress. VITAL SIGNS: Blood pressure 135/102, pulse 103, respiratory rate 20, temperature 98 degrees Fahrenheit. PULMONARY: Decreased breath sounds. CARDIOVASCULAR: Regular rate and rhythm. No S3 or S4. ABDOMEN: Soft and nontender. EXTREMITIES: No edema. Right hemiparesis. LABORATORY AND DIAGNOSTIC DATA: INR 1.7. Potassium 4.1, bicarbonate 31, BUN 16, and creatinine 0.6. White count 14.6, hemoglobin 14.8. Imaging, chest x-ray shows patchy interstitial edema versus infiltrates. ASSESSMENT: 1. Pulmonary embolism as well as deep venous thrombosis from before. Okay to discontinue Coumadin at the moment given most recent Duplex is negative. 2. Leukocytosis secondary to infection, improved 3. Deep venous thrombosis of the left lower extremity has since resolved. 4. Coagulopathy secondary to use of Coumadin. 5. Cerebrovascular accident. Continue aspirin and Plavix. 6. Deep venous thrombosis prophylaxis with heparin subcutaneous in the setting of jail. 7. Sinus tachycardia. 8. Hypovolemia. 9. Dehydration. 10. Dysphagia status post gastrostomy tube. 11. Discussed with staff. 12. . Jose Boateng M.D. DR: Rodriguez JOB#: [id number] CC:
--- NOTE | 2016-09-12 00:15 | Discharge Summary 2 SIG ---
DATE OF ADMISSION: 09/05/2016 DATE OF DISCHARGE: 09/09/2016 CONSULTANTS: 1. Bailee Hoang M.D. 2. Jose Boateng M.D. 3. Lorin Mitchell M.D. 4. Tad Lyn M.D. BRIEF HOSPITAL COURSE: The patient is a 65-year-old female from [facility] who presented to [facility] with increased weakness. The patient also had a fever at SNF and had a positive urine culture. Workup was done at ED. UA showed elevated WBC with leukocytes. EKG showed sinus bradycardia with no acute ST changes. Chest x-ray showed bilateral interstitial edema with left-sided pleural effusion. The patient was pancultured and was started on IV antibiotics at ED and was admitted to medical floor. The patient was tachycardic. Dr. Lyn was consulted. The patient had a history of DVT and prior PE with subtherapeutic INR, was given Lovenox, and bridged with Coumadin until INR was therapeutic. The patient was transferred to telemetry and was continued on hypotonic IV fluid hydration. Chest x-ray done showed no significant change. Venous duplex of lower extremity was negative for DVT. Echocardiogram showed ejection fraction of 60% to 65% with mild pulmonary hypertension and moderate tricuspid regurgitation. She was continued on Plavix and a statin, and was continued on Keppra for seizure. Urine culture showed growth of E. coli. Cefepime was switched to ceftriaxone. The patient was also positive for MRSA colonization of the nares and was given Bactroban. Sinus tachycardia improved. Telemetry was discontinued. Blood culture was negative. IV fluid was discontinued. The patient was also seen by Hematology Service and was eventually discharged to senior care. FINAL DIAGNOSES: 1. Sepsis possibly due to urinary tract infection. 2. Urinary tract infection with Escherichia coli. 3. Sinus tachycardia secondary to sepsis and dehydration. 4. Subtherapeutic INR. 5. Prior deep venous thrombosis and pulmonary embolism, on anticoagulation. 6. Hypertensive heart disease. 7. Dehydration and hypovolemia, recovered with IV hydration. 8. Seizure disorder. 9. Dementia. 10. Coagulopathy secondary to use of Coumadin. 11. Dysphagia, status post gastrostomy tube. 12. Old cerebrovascular accident. 13. Gastroesophageal reflux disease. 14. Diabetes mellitus. Los Slaughter D.O. I have been assigned to dictate discharge summary on this account and I was not involved in the patient's management. Ana Walton N.P. DR: MANNIE JOB#: [id number] CC:
== END 2016-09-09 19:15 | DRG 720 ==
LOC: EDBD 11:55 → EMR 12:28 → EDBEDREQ 12:45 → 4W 12:55 → EDBEDREQ 20:09 → 2E 09-06 16:57 → 4W 09-08 20:12
DX: A41.9 Sepsis, unspecified organism (principal); J18.9 Pneumonia, unspecified organism; F03.90 Unspecified dementia, unspecified severity, without behavioral disturbance, psychotic disturbance, mood disturbance, and anxiety; E11.65 Type 2 diabetes mellitus with hyperglycemia; N39.0 Urinary tract infection, site not specified; K21.9 Gastro-esophageal reflux disease without esophagitis; Z79.02 Long term (current) use of antithrombotics/antiplatelets; Z79.4 Long term (current) use of insulin; Z86.718 Personal history of other venous thrombosis and embolism; B96.20 Unspecified Escherichia coli [E. coli] as the cause of diseases classified elsewhere; R00.0 Tachycardia, unspecified; Z86.711 Personal history of pulmonary embolism; R13.10 Dysphagia, unspecified; Z79.01 Long term (current) use of anticoagulants; I11.9 Hypertensive heart disease without heart failure; Z43.1 Encounter for attention to gastrostomy; I25.10 Atherosclerotic heart disease of native coronary artery without angina pectoris; Z88.8 Allergy status to other drugs, medicaments and biological substances; Z22.322 Carrier or suspected carrier of Methicillin resistant Staphylococcus aureus; G40.909 Epilepsy, unspecified, not intractable, without status epilepticus; I69.351 Hemiplegia and hemiparesis following cerebral infarction affecting right dominant side
CPT/HCPCS: 36415; 71010; 80048; 80053; 80061; 81001; 81003; 82550; 82553; 82962; 83036; 83605; 84484; 85007; 85025; 85610; 87040; 87070; 87081; 87086; 87181; 87205; 93005; 93306; 93970; 94640; 94664; 94760; 97803; J1815; J7620

== ENCOUNTER 2016-11-04 13:42 | Inpatient (IN) | payer MEDICAID ==
[~2016-11-04] VITALS: Ht 165.1 cm; Wt 59.0 kg
[~2016-11-04 13:42] MED LIST changes: +ALBUTEROL2.5 MG/0.1 NEBULIZ062; +ATORVASTATIN CA40 MG ORAL; +CLOPIDOGREL75 MG ORAL; +COUMADIN7.5 MG GT; +LEVAQUIN250 M1 GT; +LOVENOX10 M2 SUBQ; +MIRALAX17 G2 ORAL; +MORPHINE SU4 MG/1 ML IVP; +RESTORIL15 MG ORAL; +ZOFRAN 4 MG4 MG/2 ML IV
[2016-11-04] MEDS ORDERED: CATAPRES0.2 MG GT (14:09)
[2016-11-04] MEDS ORDERED: MULTI-DELYN237 ML GT (14:09)
[2016-11-04] MEDS ORDERED: PANTOPRAZOLE SO40 MG GT (14:09)
[2016-11-04] MEDS ORDERED: GALZIN25 MG GT (14:09)
[2016-11-04] MEDS ORDERED: ALBUTEROL2.5 MG/3 M INH (14:09)
[2016-11-04] MEDS ORDERED: IPRATROPIU0.2 MG/1 M HHN (14:09)
[2016-11-04] MEDS ORDERED: ASCORBIC ACID500 MG GT (14:09)
[2016-11-04] MEDS ORDERED: SENNA8.6 M2 GT (14:09)
[2016-11-04] MEDS ORDERED: HUMALOG100 UNIT/4 SUBQ (14:09)
[2016-11-04] MEDS ORDERED: METOPROLOL SUC100 MG GT (14:09)
[2016-11-04] MEDS ORDERED: LEVEMIR100 UNIT/1 SUBQ (14:09)
[2016-11-04 14:14] LABS: LYMPHOCYTES % (AUTO) 12.8 % (20.0-45.0); MEAN CORPUSCULAR HEMOGLOBIN 29.7 PG (27.0-31.0); MEAN CORPUSCULAR HGB CONC 31.4 G/DL (32.0-36.0); MEAN CORPUSCULAR VOLUME 94 FL (80-99); MEAN PLATELET VOLUME 9.2 FL (6.5-10.1); MONOCYTES % (AUTO) 12.9 % (1.0-10.0); NEUTROPHILS % (AUTO) 67.4 % (45.0-75.0); PLATELET COUNT 200 K/UL (150-450); RED BLOOD COUNT 4.49 M/UL (4.20-5.40); RED CELL DISTRIBUTION WIDTH 13.4 % (11.6-14.8); WHITE BLOOD COUNT 7.9 K/UL (4.8-10.8)
[2016-11-04 14:20] LABS: APPEARANCE,URINE CLOUDY; KETONES,URINE 1+ (NEGATIVE); LEUKOCYTE ESTERASE ,URINE 3+ (NEGATIVE); NITRITE,URINE NEGATIVE (NEGATIVE); PH,URINE 8 (4.5-8.0); PROTEIN,URINE 3+ (NEGATIVE); UROBILINOGEN,URINE NORMAL MG/DL (0.0-1.0)
[2016-11-04 14:23] LABS: BACTERIA,URINE MODERATE /HPF; CALCIUM OXALATE CRYSTALS,UR FEW /LPF; RBC,URINE 60-80 /HPF (0 - 2); SQUAMOUS EPITHELIAL CELL,UR FEW /LPF (NONE/OCC)
[2016-11-04 14:29] LABS: ALANINE AMINOTRANSFERASE 37 U/L (3-33); ALBUMIN/GLOBULIN RATIO 0.6 (1.0-2.7); ANION GAP 12 (5-15); ASPARTATE AMINO TRANSFERASE 24 U/L (5-40); CALCIUM 10.5 mg/dL (8.6-10.2); CARBON DIOXIDE 33 mEQ/L (20-30); CHLORIDE 93 mEQ/L (98-107); CREATININE 1.7 mg/dL (0.5-0.9); GLOMERULAR FILTRATION RATE 36.5 mL/min (>60); HEMOLYSIS 16; POTASSIUM 4.3 mEQ/L (3.4-4.9); SODIUM 138 mEQ/L (135-145); TOTAL PROTEIN 7.3 g/dL (6.6-8.7)
--- NOTE | 2016-11-04 14:54 | Emergency Room Report ---
History of Present Illness General Chief Complaint: Female Urogenital Problems Source: Patient Present Illness HPI [id number] BIBEMS from [facility] for gross hematuria. PMD states was "unstable and hypoxic" at [facility]. Daughter states patient on Coumadin. Also has IVC filter d/t to be removed. Frequent UTIs. Was also just admitted to [facility] for urosepsis per daughter. Chronic indwelling catheter Last Blood Cx shows matthews-susceptible except for Flouroquinolones Daughter states mental status is "more or less the same." Apashic s/pt previous CVA. Allergies: Coded Allergies: HYDANTOINS (Unverified Allergy, Unknown, 09/09/13) PHENYTOIN (Unverified Allergy, Unknown, 09/09/13) Patient History Past Medical History: CVA/TIA Past Surgical History: none Pertinent Family History: none Social History: Denies: smoking, alcohol use, drug use Now: No Immunizations: UTD Reviewed Nursing Documentation: PMH: Agreed, PSxH: Agreed Nursing Documentation-PMH Hx Cardiac Problems: Yes Hx Hypertension: Yes Hx COPD: Yes Hx Diabetes: Yes Hx Cancer: No Hx Gastrointestinal Problems: Yes - GT tube Hx Neurological Problems: Yes - intracranial hemorrhage Hx Cerebrovascular Accident: Yes Hx Seizures: Yes Hx Epilepsy: Yes Hx Memory Loss: Yes - Forgetful Hx Speech Problem: Yes - Slurred Speech following stroke Hx Weakness: Yes - Left Side following CVA Hx Brain Shunt: Yes Review of Systems All Other Systems: negative except mentioned in HPI Physical Exam Vital Signs Date Time Temp Pulse Resp B/P (MAP) Pulse Ox O2 Delivery O2 Flow Rate FiO2 11/04/16 13:30 97.9 96 20 108/74 100 Nasal Cannula 2.0 Sp02 EP Interpretation: reviewed, normal General Appearance: normal inspection, well appearing, no apparent distress, alert, non-toxic Head: normocephalic, atraumatic Eyes: bilateral eye PERRL, bilateral eye EOMI ENT: normal ENT inspection, hearing grossly normal, normal voice Neck: normal inspection, full range of motion, supple, no bony tend Respiratory: normal inspection, lungs clear, normal breath sounds, no respiratory distress, no retraction, no wheezing Cardiovascular #1: regular rate, rhythm, no edema Gastrointestinal: normal inspection, normal bowel sounds, non tender, soft, no mass, no guarding, no hernia Genitourinary: no CVA tenderness, other - Gross hematuira in [place] Musculoskeletal: normal inspection, back normal, normal range of motion, Maryann' s Sign negative Neurologic: other - Contracted left upper extremity Psychiatric: normal inspection, judgement/insight normal, mood/affect normal Skin: normal inspection, normal color, no rash Lymphatic: normal inspection Medical Decision Making Diagnostic Impression: Primary Impression: Gross hematuria Additional Impressions: EDGAR (acute kidney injury) UTI (urinary tract infection) due to urinary indwelling catheter Qualified Codes: T83.511D - Infection and inflammatory reaction due to indwelling urethral catheter, subsequent encounter; N39.0 - Urinary tract infection, site not specified ER Course VSS. Afebrile. Not unstable in ED Labs show normal H&H. Normal INR, which is ? given supposedly on Coumadin. EDGAR. Zosyn given based on E Coli sensitive on last Urine Cx here Gentle hydration given in ED for EDGAR Endorsed to Dr Bajwa for admission EKG Diagnostic Results Rate: normal Rhythm: NSR ST Segments: no acute changes ASA given to the pt in ED: No Rhythm Strip Diag. Results EP Interpretation: yes Rate: 94 Rhythm: NSR, no PVC's, no ectopy Chest X-Ray Diagnostic Results Chest X-Ray Diagnostic Results : Chest X-Ray Ordered: Yes # of Views/Limited/Complete: 1 View Indication: Shortness of Breath EP Interpretation: Yes Interpretation: no pneumothorax, other - Cardiomegaly. Improved vascular congestion from previous Interpreting ER Provider: Dr Daniel Mcdaniel MD Last Vital Signs Date Time Temp Pulse Resp B/P (MAP) Pulse Ox O2 Delivery O2 Flow Rate FiO2 11/04/16 13:30 97.9 96 20 108/74 100 Nasal Cannula 2.0 Status: improved Disposition: ADMITTED INPATIENT Referrals: CESAR BAJWA (PCP) DANIEL MCDANIEL M.D. Nov 04, 2016 14:54
[2016-11-04] MEDS ORDERED: Piperacillin/Tazobactam 3.375 GM in NS 110 ML IVPB ONE (15:00)
--- NOTE | 2016-11-04 15:18 | Infectious Diseases Prog Note ---
Assessment/Plan Problems: (1) Catheter-associated urinary tract infection Assessment & Plan: will send urine culture and start cefepime empirically (2) Gross hematuria Assessment & Plan: suspect due to anticoagulation, monitor H/H, transfuse blood as needed, consult urology (3) EDGAR (acute kidney injury) Assessment & Plan: suspect dehydration , or obstruction due to blood clots, recommend renal consult, and hydration. Subjective Allergies: Coded Allergies: HYDANTOINS (Unverified Allergy, Unknown, 09/09/13) PHENYTOIN (Unverified Allergy, Unknown, 09/09/13) Objective Vital Signs Last 24 Hour Vital Signs Date Time Temp Pulse Resp B/P (MAP) Pulse Ox O2 Delivery O2 Flow Rate FiO2 11/04/16 13:30 97.9 96 20 108/74 100 Nasal Cannula 2.0 Height (Feet): 5 Height (Inches): 5.00 Weight (Pounds): 130 Laboratory Tests Test 11/04/16 13:55 11/04/16 14:00 White Blood Count 7.9 K/UL (4.8-10.8) Red Blood Count 4.49 M/UL (4.20-5.40) Hemoglobin 13.3 G/DL (12.0-16.0) Hematocrit 42.4 % (37.0-47.0) Mean Corpuscular Volume 94 FL (80-99) Mean Corpuscular Hemoglobin 29.7 PG (27.0-31.0) Mean Corpuscular Hemoglobin Concent 31.4 G/DL (32.0-36.0) L Red Cell Distribution Width 13.4 % (11.6-14.8) Platelet Count 200 K/UL (150-450) Mean Platelet Volume 9.2 FL (6.5-10.1) Neutrophils (%) (Auto) 67.4 % (45.0-75.0) Lymphocytes (%) (Auto) 12.8 % (20.0-45.0) L Monocytes (%) (Auto) 12.9 % (1.0-10.0) H Eosinophils (%) (Auto) 6.0 % (0.0-3.0) H Basophils (%) (Auto) 1.0 % (0.0-2.0) Prothrombin Time 10.0 SEC (9.30-11.50) Prothromb Time International Ratio 1.0 (0.9-1.1) Sodium Level 138 mEQ/L (135-145) Potassium Level 4.3 mEQ/L (3.4-4.9) Chloride Level 93 mEQ/L (98-107) L Carbon Dioxide Level 33 mEQ/L (20-30) H Anion Gap 12 (5-15) Blood Urea Nitrogen 82 mg/dL (7-23) H Creatinine 1.7 mg/dL (0.5-0.9) H Estimat Glomerular Filtration Rate 36.5 mL/min (>60) Glucose Level 243 mg/dL (74-106) H Calcium Level 10.5 mg/dL (8.6-10.2) H Total Bilirubin < 0.2 mg/dL (0.0-1.2) Aspartate Amino Transf (AST/SGOT) 24 U/L (5-40) Alanine Aminotransferase (ALT/SGPT) 37 U/L (3-33) H Alkaline Phosphatase 102 U/L (35-104) Total Protein 7.3 g/dL (6.6-8.7) Albumin 3.0 g/dL (3.5-5.2) L Globulin 4.3 g/dL Albumin/Globulin Ratio 0.6 (1.0-2.7) L Urine Color Red Urine Appearance Cloudy Urine pH 8 (4.5-8.0) Urine Specific [employer] 1.010 (1.005-1.035) Urine Protein 3+ (NEGATIVE) H Urine Glucose (UA) Negative (NEGATIVE) Urine Ketones 1+ (NEGATIVE) H Urine Occult Blood 5+ (NEGATIVE) H Urine Nitrite Negative (NEGATIVE) Urine Bilirubin Negative (NEGATIVE) Urine Urobilinogen Normal MG/DL (0.0-1.0) Urine Leukocyte Esterase 3+ (NEGATIVE) H Urine RBC 60-80 /HPF (0 - 2) H Urine WBC 5-10 /HPF (0 - 2) H Urine Squamous Epithelial Cells Few /LPF (NONE/OCC) Urine Calcium Oxalate Crystals Few /LPF (NONE) Urine Bacteria Moderate /HPF (NONE) H Current Medications Medications (Trade) Dose Ordered Sig/Chinyere Route PRN Reason Start Time Stop Time Status Last Admin Dose Admin Piperacillin Sod/ Tazobactam Sod 3.375 gm/Sodium Chloride 110 ml @ 220 mls/hr ONCE ONCE IVPB 11/04/16 15:00 11/04/16 15:29 11/04/16 14:55 Lorin Mitchell M.D. Nov 04, 2016 15:18
--- NOTE | 2016-11-04 15:21 | Diagnostic Imaging Report ---
Indication: Dyspnea Comparison: 09/09/16 A single view chest radiograph was obtained. Findings: Lung volumes are low. There is basilar atelectasis and cardiomegaly. Mild interstitial edema may be present. The bones are osteopenic. Impression: No significant change compared to the last occasion. Mild basilar atelectasis demonstrated. Suspect mild interstitial edema
[2016-11-04] MEDS ORDERED: Zolpidem 5mg tab ORAL PRN ×2 (16:30→19:00)
[2016-11-04 16:38] VITALS: BP 113/72
[2016-11-04] MEDS ORDERED: Miralax 17gm pkt ORAL PRN (19:00)
[2016-11-04] MEDS ORDERED: Morphine Sulfate 2mg/ml Inj IVP PRN (19:00)
[2016-11-04] MEDS ORDERED: Mylanta II UD 30ml ORAL PRN (19:00)
[2016-11-04] MEDS ORDERED: LORazepam Inj 2mg/ml 1ml IV PRN (19:00)
[2016-11-04] MEDS ORDERED: Albuterol ud Inhalation HHN PRN (19:15)
--- NOTE | 2016-11-04 19:42 | Consultation ---
History of Present Illness General Chief Complaint: Female Urogenital Problems Present Illness Allergies: Coded Allergies: HYDANTOINS (Unverified Allergy, Unknown, 09/09/13) PHENYTOIN (Unverified Allergy, Unknown, 09/09/13) Medication History Scheduled Ascorbic Acid* (Ascorbic Acid*), 500 MG GT DAILY, (Reported) Atorvastatin Calcium* (Atorvastatin Calcium*), 80 MG ORAL BEDTIME, (Reported) Cephalexin* (Keflex*), 250 MG GT BID, (Reported) Clonidine Hcl* (Catapres*), 0.2 MG GT Q8HR, (Reported) Clopidogrel* (Clopidogrel*), 75 MG ORAL DAILY, (Reported) Enoxaparin* (Lovenox*), 40 MG SUBQ QHS, (Reported) Gabapentin* (Neurontin*), 100 MG GT BID, (Reported) Insulin Detemir (Levemir), 24 SUBQ BID, (Reported) Levetiracetam* (Levetiracetam*), 500 MG GT BID, (Reported) Metoprolol Succinate* (Metoprolol Succinate*), 100 MG GT DAILY, (Reported) Multivitamin Liquid* (Multi-Delyn*), 5 ML GT DAILY, (Reported) Pantoprazole* (Pantoprazole*), 40 MG GT DAILY, (Reported) Sennosides (Senna), 8.6 MG GT BEDTIME, (Reported) Warfarin Sod (Coumadin*), 5 MG GT EVERY OTHER DAY, (Reported) Zinc Acetate (Galzin), 220 MG GT DAILY, (Reported) Scheduled PRN Acetaminophen (Acetaminophen), 650 MG GT Q4HR PRN for Prn Headache/Temp > 101, ( Reported) Albuterol Sulfate* (Albuterol Sulfate Hhn*), 3 ML INH Q6H PRN for Shortness of Breath, (Reported) Ipratropium Slemp 0.5MG/2.5ML (Ipratropium Slemp 0.5MG/2.5ML), 0.5 MG HHN Q6H PRN for Shortness of Breath, (Reported) Morphine Sulfate (Morphine Sulfate), 2 MG IVP Q4HR PRN for For Pain, (Reported) Ondansetron* (Zofran*), 4 MG IV Q6H PRN for Nausea & Vomiting, (Reported) Polyethylene Glycol 3350* (Miralax*), 17 GM ORAL DAILY PRN for Constipation, ( Reported) Temazepam* (Restoril*), 15 MG ORAL BEDTIME PRN for Insomnia, (Reported) Miscellaneous Medications Insulin Lispro (Humalog), 0 SUBQ, (Reported) Patient History Healthcare decision maker Resuscitation status Full Code Advanced Directive on File No Physical Exam Last 24 Hour Vital Signs Date Time Temp Pulse Resp B/P (MAP) Pulse Ox O2 Delivery O2 Flow Rate FiO2 11/04/16 16:39 88 19 110/74 99 Room Air 11/04/16 16:38 97.9 89 20 113/72 100 Nasal Cannula 2.0 11/04/16 13:30 97.9 96 20 108/74 100 Nasal Cannula 2.0 Laboratory Tests Test 11/04/16 13:55 11/04/16 14:00 White Blood Count 7.9 K/UL (4.8-10.8) Red Blood Count 4.49 M/UL (4.20-5.40) Hemoglobin 13.3 G/DL (12.0-16.0) Hematocrit 42.4 % (37.0-47.0) Mean Corpuscular Volume 94 FL (80-99) Mean Corpuscular Hemoglobin 29.7 PG (27.0-31.0) Mean Corpuscular Hemoglobin Concent 31.4 G/DL (32.0-36.0) L Red Cell Distribution Width 13.4 % (11.6-14.8) Platelet Count 200 K/UL (150-450) Mean Platelet Volume 9.2 FL (6.5-10.1) Neutrophils (%) (Auto) 67.4 % (45.0-75.0) Lymphocytes (%) (Auto) 12.8 % (20.0-45.0) L Monocytes (%) (Auto) 12.9 % (1.0-10.0) H Eosinophils (%) (Auto) 6.0 % (0.0-3.0) H Basophils (%) (Auto) 1.0 % (0.0-2.0) Prothrombin Time 10.0 SEC (9.30-11.50) Prothromb Time International Ratio 1.0 (0.9-1.1) Sodium Level 138 mEQ/L (135-145) Potassium Level 4.3 mEQ/L (3.4-4.9) Chloride Level 93 mEQ/L (98-107) L Carbon Dioxide Level 33 mEQ/L (20-30) H Anion Gap 12 (5-15) Blood Urea Nitrogen 82 mg/dL (7-23) H Creatinine 1.7 mg/dL (0.5-0.9) H Estimat Glomerular Filtration Rate 36.5 mL/min (>60) Glucose Level 243 mg/dL (74-106) H Calcium Level 10.5 mg/dL (8.6-10.2) H Total Bilirubin < 0.2 mg/dL (0.0-1.2) Aspartate Amino Transf (AST/SGOT) 24 U/L (5-40) Alanine Aminotransferase (ALT/SGPT) 37 U/L (3-33) H Alkaline Phosphatase 102 U/L (35-104) Total Protein 7.3 g/dL (6.6-8.7) Albumin 3.0 g/dL (3.5-5.2) L Globulin 4.3 g/dL Albumin/Globulin Ratio 0.6 (1.0-2.7) L Urine Color Red Urine Appearance Cloudy Urine pH 8 (4.5-8.0) Urine Specific [place] 1.010 (1.005-1.035) Urine Protein 3+ (NEGATIVE) H Urine Glucose (UA) Negative (NEGATIVE) Urine Ketones 1+ (NEGATIVE) H Urine Occult Blood 5+ (NEGATIVE) H Urine Nitrite Negative (NEGATIVE) Urine Bilirubin Negative (NEGATIVE) Urine Urobilinogen Normal MG/DL (0.0-1.0) Urine Leukocyte Esterase 3+ (NEGATIVE) H Urine RBC 60-80 /HPF (0 - 2) H Urine WBC 5-10 /HPF (0 - 2) H Urine Squamous Epithelial Cells Few /LPF (NONE/OCC) Urine Calcium Oxalate Crystals Few /LPF (NONE) Urine Bacteria Moderate /HPF (NONE) H Height (Feet): 5 Height (Inches): 5.00 Weight (Pounds): 130 Medications Current Medications Medications (Trade) Dose Ordered Sig/[place] Route PRN Reason Start Time Stop Time Status Last Admin Dose Admin Acetaminophen (Tylenol) 650 mg Q4H PRN ORAL fever 11/04/16 19:00 12/04/16 18:59 Al Hydroxide/Mg Hydroxide (Mylanta II) 30 ml Q6H PRN ORAL dyspepsia 11/04/16 19:00 12/04/16 18:59 Albuterol Sulfate (Proventil) 2.5 mg Q6H PRN HHN Shortness of Breath 11/04/16 19:15 11/09/16 19:14 Cefepime HCl 1 gm/ Dextrose 55 ml @ 110 mls/hr Q24HRS IVPB 11/04/16 21:00 11/11/16 20:59 Dextrose (Dextrose 50%) STAT PRN IV Hypoglycemia 11/04/16 19:00 12/04/16 18:59 Gabapentin (Neurontin) 100 mg BID GT 11/05/16 20:00 12/05/16 19:59 Lorazepam (Ativan 2mg/ml 1ml) 0.5 mg Q4H PRN IV For Anxiety 11/04/16 19:00 11/11/16 18:59 Metoprolol Succinate (Toprol XL) 100 mg DAILY ORAL 11/05/16 09:00 12/05/16 08:59 Morphine Sulfate (Morphine Sulfate) 1 mg Q4H PRN IVP For Pain 11/04/16 19:00 11/11/16 18:59 Ondansetron HCl (Zofran) 4 mg Q6H PRN IVP Nausea & Vomiting 11/04/16 19:00 12/04/16 18:59 Polyethylene Glycol (Miralax) 17 gm HSPRN PRN ORAL Constipation 11/04/16 19:00 12/04/16 18:59 Zolpidem Tartrate (Ambien) 5 mg HSPRN PRN ORAL Insomnia 11/04/16 19:00 11/11/16 18:59 JIMMY DAVIS Nov 04, 2016 19:42
[2016-11-04 20:00] VITALS: BP 116/74
[2016-11-04] MEDS ORDERED: Heparin 5000 units/ml inj SUBQ SCH (21:00)
[2016-11-04] MEDS ORDERED: Cefepime HCl 1 GM in D5W 55 ML IVPB SCH (21:00)
--- NOTE | 2016-11-04 21:23 | Consultation ---
History of Present Illness General Chief Complaint: Female Urogenital Problems Referring physician: Dr Slaughter Reason for Consultation: ARF on CKD Present Illness HPI This is a 65-year-old female, a [facility] resident with a PMHx significant for CVA, seizure, GERD, hypertension, diabetes, recurrent UTIs, and DVT, who presented with increased weakness, and gross hematuria. Per medical records, she was "unstable and hypoxic" at [facility], was just admitted to [facility] for urosepsis, chronic indwelling catheter, on Coumadin and also has IVC filter. Frequent UTIs. Apashic s/pt previous CVA.. Abnormal labs showing UTI and sepsis as well as elevated BUN and creatinine. Allergies: Coded Allergies: HYDANTOINS (Unverified Allergy, Unknown, 09/09/13) PHENYTOIN (Unverified Allergy, Unknown, 09/09/13) Medication History Scheduled Ascorbic Acid* (Ascorbic Acid*), 500 MG GT DAILY, (Reported) Atorvastatin Calcium* (Atorvastatin Calcium*), 80 MG ORAL BEDTIME, (Reported) Cephalexin* (Keflex*), 250 MG GT BID, (Reported) Clonidine Hcl* (Catapres*), 0.2 MG GT Q8HR, (Reported) Clopidogrel* (Clopidogrel*), 75 MG ORAL DAILY, (Reported) Enoxaparin* (Lovenox*), 40 MG SUBQ QHS, (Reported) Gabapentin* (Neurontin*), 100 MG GT BID, (Reported) Insulin Detemir (Levemir), 24 SUBQ BID, (Reported) Levetiracetam* (Levetiracetam*), 500 MG GT BID, (Reported) Metoprolol Succinate* (Metoprolol Succinate*), 100 MG GT DAILY, (Reported) Multivitamin Liquid* (Multi-Delyn*), 5 ML GT DAILY, (Reported) Pantoprazole* (Pantoprazole*), 40 MG GT DAILY, (Reported) Sennosides (Senna), 8.6 MG GT BEDTIME, (Reported) Warfarin Sod (Coumadin*), 5 MG GT EVERY OTHER DAY, (Reported) Zinc Acetate (Galzin), 220 MG GT DAILY, (Reported) Scheduled PRN Acetaminophen (Acetaminophen), 650 MG GT Q4HR PRN for Prn Headache/Temp > 101, ( Reported) Albuterol Sulfate* (Albuterol Sulfate Hhn*), 3 ML INH Q6H PRN for Shortness of Breath, (Reported) Ipratropium [place] 0.5MG/2.5ML (Ipratropium [place] 0.5MG/2.5ML), 0.5 MG HHN Q6H PRN for Shortness of Breath, (Reported) Morphine Sulfate (Morphine Sulfate), 2 MG IVP Q4HR PRN for For Pain, (Reported) Ondansetron* (Zofran*), 4 MG IV Q6H PRN for Nausea & Vomiting, (Reported) Polyethylene Glycol 3350* (Miralax*), 17 GM ORAL DAILY PRN for Constipation, ( Reported) Temazepam* (Restoril*), 15 MG ORAL BEDTIME PRN for Insomnia, (Reported) Miscellaneous Medications Insulin Lispro (Humalog), 0 SUBQ, (Reported) Patient History Limited by: medical condition Healthcare decision maker Resuscitation status Full Code Advanced Directive on File No Past Medical/Surgical History Past Medical/Surgical History: (1) HTN (hypertension) (2) Pleural effusion (3) Dysphagia (4) Hyperglycemia (5) Seizure (6) DVT (deep venous thrombosis) (7) GERD (gastroesophageal reflux disease) (8) CVA (cerebral vascular accident) (9) Dementia (10) UTI (urinary tract infection) due to urinary indwelling catheter (11) EDGAR (acute kidney injury) Social History Social History: (1) [facility] resident (2) No history of alcohol use (3) Non-smoker (4) No illicit drug use Review of Systems ROS Narrative pt is nonverbal Physical Exam Last 24 Hour Vital Signs Date Time Temp Pulse Resp B/P (MAP) Pulse Ox O2 Delivery O2 Flow Rate FiO2 11/04/16 20:00 97.7 104 20 116/74 99 Nasal Cannula 3.0 11/04/16 16:39 88 19 110/74 99 Room Air 11/04/16 16:38 97.9 89 20 113/72 100 Nasal Cannula 2.0 11/04/16 13:30 97.9 96 20 108/74 100 Nasal Cannula 2.0 Laboratory Tests Test 11/04/16 13:55 11/04/16 14:00 White Blood Count 7.9 K/UL (4.8-10.8) Red Blood Count 4.49 M/UL (4.20-5.40) Hemoglobin 13.3 G/DL (12.0-16.0) Hematocrit 42.4 % (37.0-47.0) Mean Corpuscular Volume 94 FL (80-99) Mean Corpuscular Hemoglobin 29.7 PG (27.0-31.0) Mean Corpuscular Hemoglobin Concent 31.4 G/DL (32.0-36.0) L Red Cell Distribution Width 13.4 % (11.6-14.8) Platelet Count 200 K/UL (150-450) Mean Platelet Volume 9.2 FL (6.5-10.1) Neutrophils (%) (Auto) 67.4 % (45.0-75.0) Lymphocytes (%) (Auto) 12.8 % (20.0-45.0) L Monocytes (%) (Auto) 12.9 % (1.0-10.0) H Eosinophils (%) (Auto) 6.0 % (0.0-3.0) H Basophils (%) (Auto) 1.0 % (0.0-2.0) Prothrombin Time 10.0 SEC (9.30-11.50) Prothromb Time International Ratio 1.0 (0.9-1.1) Sodium Level 138 mEQ/L (135-145) Potassium Level 4.3 mEQ/L (3.4-4.9) Chloride Level 93 mEQ/L (98-107) L Carbon Dioxide Level 33 mEQ/L (20-30) H Anion Gap 12 (5-15) Blood Urea Nitrogen 82 mg/dL (7-23) H Creatinine 1.7 mg/dL (0.5-0.9) H Estimat Glomerular Filtration Rate 36.5 mL/min (>60) Glucose Level 243 mg/dL (74-106) H Calcium Level 10.5 mg/dL (8.6-10.2) H Total Bilirubin < 0.2 mg/dL (0.0-1.2) Aspartate Amino Transf (AST/SGOT) 24 U/L (5-40) Alanine Aminotransferase (ALT/SGPT) 37 U/L (3-33) H Alkaline Phosphatase 102 U/L (35-104) Total Protein 7.3 g/dL (6.6-8.7) Albumin 3.0 g/dL (3.5-5.2) L Globulin 4.3 g/dL Albumin/Globulin Ratio 0.6 (1.0-2.7) L Urine Color Red Urine Appearance Cloudy Urine pH 8 (4.5-8.0) Urine Specific [place] 1.010 (1.005-1.035) Urine Protein 3+ (NEGATIVE) H Urine Glucose (UA) Negative (NEGATIVE) Urine Ketones 1+ (NEGATIVE) H Urine Occult Blood 5+ (NEGATIVE) H Urine Nitrite Negative (NEGATIVE) Urine Bilirubin Negative (NEGATIVE) Urine Urobilinogen Normal MG/DL (0.0-1.0) Urine Leukocyte Esterase 3+ (NEGATIVE) H Urine RBC 60-80 /HPF (0 - 2) H Urine WBC 5-10 /HPF (0 - 2) H Urine Squamous Epithelial Cells Few /LPF (NONE/OCC) Urine Calcium Oxalate Crystals Few /LPF (NONE) Urine Bacteria Moderate /HPF (NONE) H Height (Feet): 5 Height (Inches): 5.00 Weight (Pounds): 130 Medications Current Medications Medications (Trade) Dose Ordered Sig/[place] Route PRN Reason Start Time Stop Time Status Last Admin Dose Admin Acetaminophen (Tylenol) 650 mg Q4H PRN ORAL fever 11/04/16 19:00 12/04/16 18:59 Al Hydroxide/Mg Hydroxide (Mylanta II) 30 ml Q6H PRN ORAL dyspepsia 11/04/16 19:00 12/04/16 18:59 Albuterol Sulfate (Proventil) 2.5 mg Q6H PRN HHN Shortness of Breath 11/04/16 19:15 11/09/16 19:14 Cefepime HCl 1 gm/ Dextrose 55 ml @ 110 mls/hr Q24HRS IVPB 11/04/16 21:00 11/11/16 20:59 11/04/16 20:46 Dextrose (Dextrose 50%) STAT PRN IV Hypoglycemia 11/04/16 19:00 12/04/16 18:59 Gabapentin (Neurontin) 100 mg BID GT 11/05/16 20:00 12/05/16 19:59 Lorazepam (Ativan 2mg/ml 1ml) 0.5 mg Q4H PRN IV For Anxiety 11/04/16 19:00 11/11/16 18:59 Metoprolol Succinate (Toprol XL) 100 mg DAILY ORAL 11/05/16 09:00 12/05/16 08:59 Morphine Sulfate (Morphine Sulfate) 1 mg Q4H PRN IVP For Pain 11/04/16 19:00 11/11/16 18:59 Ondansetron HCl (Zofran) 4 mg Q6H PRN IVP Nausea & Vomiting 11/04/16 19:00 12/04/16 18:59 Polyethylene Glycol (Miralax) 17 gm HSPRN PRN ORAL Constipation 11/04/16 19:00 12/04/16 18:59 Zolpidem Tartrate (Ambien) 5 mg HSPRN PRN ORAL Insomnia 11/04/16 19:00 11/11/16 18:59 Assessment/Plan Problem List: (1) Acute renal failure superimposed on chronic kidney disease ICD Codes: N17.9 - Acute kidney failure, unspecified; N18.9 - Chronic kidney disease, unspecified SNOMED: 619218018 (2) Sepsis ICD Codes: A41.9 - Sepsis SNOMED: 58804664 (3) Diabetes mellitus out of control ICD Codes: E11.9 - Diabetes mellitus out of control SNOMED: 052902351 (4) Leukocytosis ICD Codes: D72.829 - Elevated white blood cell count, unspecified SNOMED: 832811272 (5) Gross hematuria ICD Codes: R31.0 - Gross hematuria; N39.0 - Urinary tract infection, site not specified SNOMED: 238277292 (6) Dementia ICD Codes: F03.90 - Unspecified dementia without behavioral disturbance SNOMED: 04531887 Assessment/Plan Continue current treatment plan IVF 0.45% NACL @ 75cc/hr Renally dose meds, avoid nephrotoxins Continue abx per ID Monitor lytes, correct prn Monitor I/O DVT prophylaxis am labs Odilia Zamarripa N.P. Nov 04, 2016 21:23
[2016-11-05] VITALS: BP 112/76
--- NOTE | 2016-11-05 02:45 | Consultation ---
DATE OF CONSULTATION: INFECTIOUS DISEASE CONSULTATION CONSULTING PHYSICIAN: Lorin Mitchell M.D. REQUESTING PHYSICIAN: Los Slaughter D.O. REASON FOR CONSULTATION: Urinary tract infection, recurrent. Recommendation for antibiotic treatment. HISTORY OF PRESENT ILLNESS: The patient is a 65-year-old female with past medical history of CVA, hypertension, seizure disorder, and COPD, who has been on anticoagulation, was sent from a [facility] facility for gross hematuria. The patient had recurrent urine infection in the past and she has been on Coumadin, also has an IVC filter placed. Recently, she was admitted to [facility] for urosepsis and was treated for it. The patient had a chronic Davis catheter and she was here admitted in August for urine infection, grew E. coli sensitive to all antibiotics except fluoroquinolone, so I was consulted by the primary provider for antibiotic treatment and further management. PAST MEDICAL HISTORY: Significant for coronary artery disease, hypertension, COPD, diabetes, CVA, and seizure. PAST SURGICAL HISTORY: Negative. MEDICATIONS: She received Zosyn in the emergency room. ALLERGIES: She is allergic to hydantoins and phenytoins. SOCIAL HISTORY: She lives at a [facility] facility. No recent drugs, tobacco, or alcohol. FAMILY HISTORY: Negative. PHYSICAL EXAMINATION: VITAL SIGNS: Temperature 97.9 degrees, pulse 96, respirations 20, and blood pressure 108/74. GENERAL: An elderly female, lying in bed, aphasic, not in distress, and nonverbal. HEENT: Normocephalic and atraumatic. Dry oral mucosa. No exudate. NECK: Supple. No lymphadenopathy. CARDIOVASCULAR: Regular rate and rhythm. No murmur. LUNGS: Clear bilaterally. Diminished breathing sounds at the base. ABDOMEN: Soft, nontender, and nondistended. Normal bowel sounds. PEG tube site looks intact. EXTREMITY: No edema. No cyanosis. Contraction and muscle atrophy due to CVA and paresis. LABORATORY DATA: Labs showed white count of 7.9, hemoglobin of 13.3, BUN of 82, and creatinine of 1.7. AST of 24 and ALT of 37. Urinalysis showed negative nitrite, +3 leukocyte esterase, WBC 5 to 10, and moderate amount of bacteria. MICROBIOLOGY: In August 2016, urine culture grew E. coli, resistant only to ciprofloxacin and levofloxacin. IMAGING: None. ASSESSMENT AND RECOMMENDATIONS: 1. Gross hematuria, suspect due to anticoagulation. Monitor hemoglobin and hematocrit. Transfuse blood as needed. Consult urology. 2. Urinary tract infection. The patient will be started on cefepime. We will send urine culture. 3. Acute renal failure, suspect due to dehydration versus obstruction due to blood clot. Continue hydration. Monitor urine output. Consult renal. Lorin Mitchell M.D. DR: JONNATHAN JOB#: [id number] CC:
[2016-11-05 04:00] VITALS: BP 124/76
[2016-11-05 06:41] LABS: BASOPHILS % (AUTO) 0.6 % (0.0-2.0); EOSINOPHILS % (AUTO) 3.8 % (0.0-3.0); MEAN CORPUSCULAR HEMOGLOBIN 30.2 PG (27.0-31.0); MEAN CORPUSCULAR HGB CONC 31.6 G/DL (32.0-36.0); MEAN CORPUSCULAR VOLUME 95 FL (80-99); MEAN PLATELET VOLUME 7.7 FL (6.5-10.1); MONOCYTES % (AUTO) 8.8 % (1.0-10.0); NEUTROPHILS % (AUTO) 83.7 % (45.0-75.0); PLATELET COUNT 193 K/UL (150-450); RED BLOOD COUNT 4.32 M/UL (4.20-5.40); RED CELL DISTRIBUTION WIDTH 13.6 % (11.6-14.8); WHITE BLOOD COUNT 10.2 K/UL (4.8-10.8)
[2016-11-05 07:09] LABS: ALANINE AMINOTRANSFERASE 31 U/L (3-33); ALBUMIN/GLOBULIN RATIO 0.7 (1.0-2.7); ANION GAP 11 (5-15); ASPARTATE AMINO TRANSFERASE 17 U/L (5-40); CALCIUM 10.7 mg/dL (8.6-10.2); CARBON DIOXIDE 36 mEQ/L (20-30); CHLORIDE 99 mEQ/L (98-107); CHOLESTEROL 120 mg/dL (< 200); CHOLESTEROL/HDL RATIO 4.3 (3.3-4.4); CREATININE 0.8 mg/dL (0.5-0.9); GLOMERULAR FILTRATION RATE > 60 mL/min (>60); HEMOLYSIS 2; LDL CHOLESTEROL (CALC.) 42 mg/dL (60-99); POTASSIUM 4.4 mEQ/L (3.4-4.9); SODIUM 146 mEQ/L (135-145); TOTAL PROTEIN 7.6 g/dL (6.6-8.7)
[2016-11-05 08:12] VITALS: BP 122/81
[2016-11-05] MEDS: Metoprolol Succinate XL 100mg tab ORAL SCH (09:41)
[2016-11-05] MEDS ORDERED: NovoLOG Insulin Flexpen SUBQ SCH ×2 (11:30→11:50)
--- NOTE | 2016-11-05 11:40 | Diagnostic Imaging Report ---
APPROVED REPORT CPT Code: 24452 Present Symptoms Shortness of breath Past History DVT : RIGHT LEG: Venous imaging reveals a patent deep venous system. There is no evidence of thrombus within the femoral, popliteal or tibial segments. The greater saphenous vein is also within normal limits. Doppler indicates normal spontaneous flow within these segments. LEFT LEG: Venous imaging reveals recanalized chronic thrombus in the distal superficial femoral vein. Collateral vein noted anterior to the superficial femoral artery. The remainder of the deep venous system is within normal limits. There is no evidence of thrombus in the common femoral, popliteal or calf veins. The greater saphenous vein is also within normal limits. Doppler indicates normal spontaneous flow within these segments. There is no evidence of acute DVT.
--- NOTE | 2016-11-05 11:55 | Wound Care Consultation ---
Wound Assessment Wound Assessment #1: Wound Number: 1 Wound Present on Admission: Yes New Wound: No Status Change of Wound: No Wound Location Body Site Modif: mid Wound Location Body Site: sacral Wound Type: pressure ulcer Matteo Test: Does not Matteo Pressure Ulcer Stage: IV/unstageable Wound Thickness: Full Thickness Wound Length: 4.5 Wound Width: 5.5 Wound Depth: utd Percent of Wound Blakeslee/Red: 20 Percent of Wound Bed Yellow/Wh: 80 Wound Drainage Description: Serosanguineous Wound Drainage Amount: Moderate Wound Drainage Odor: Mild Odor Tissue Surrounding Wound: Macerated Wound General Appearance: Draining, Necrotic Wound Assessment #2: Wound Number: 2 Wound Present on Admission: Yes New Wound: No Status Change of Wound: No Wound Location Body Site Modif: left Wound Location Body Site: trochanter Wound Type: pressure ulcer Matteo Test: Does not Matteo Pressure Ulcer Stage: deep tissue injury Wound Thickness: Full Thickness Wound Length: 6.0 Wound Width: 5.5 Wound Depth: utd Percent of Wound Purple/Maroon: 100 Wound Drainage Amount: None Wound Drainage Odor: None/Absent Tissue Surrounding Wound: Intact Wound General Appearance: Reddened Wound Comment #1 Sacral unstageable pressure ulcer #2 Left trochanter DTI pressure ulcer Recommendation -Sacral unstageable pressure ulcer Cleanse with saline, pat dry, apply Therahoney gel to wound bed, apply calcium alginate, cover with Biatain silicone daily and PRN soiled/dislodged -Local wound care per protocol for DTIs -Low air loss mattress -Optimize nutrition -Offload both heels -Heel protector on both heels -Turn and Reposition -Keep clean dry -Assess and f/u accordingly for any changes LINSEY TORRES RN Nov 05, 2016 11:55
[2016-11-05 11:57] VITALS: BP 117/76
[2016-11-05] MEDS: NovoLOG Insulin Flexpen SUBQ SCH ×2 (12:56→18:14)
--- NOTE | 2016-11-05 15:36 | Cardiology Report ---
APPROVED REPORT EKG Measurement Heart [id number] Normal sinus rhythm Moderate voltage criteria for LVH, may be normal variant Borderline ECG
--- NOTE | 2016-11-05 15:40 | Infectious Diseases Prog Note ---
Assessment/Plan Problems: (1) Gross hematuria Assessment & Plan: suspect due to anticoagulation, monitor H/H, transfuse blood as needed, consult urology (2) EDGAR (acute kidney injury) Assessment & Plan: suspect dehydration , or obstruction due to blood clots, recommend renal consult, and hydration. (3) Catheter-associated urinary tract infection Assessment & Plan: urine culture is growing gram negative rods , continue cefepime empirically Subjective ROS Limited/Unobtainable: Yes Allergies: Coded Allergies: HYDANTOINS (Unverified Allergy, Unknown, 09/09/13) PHENYTOIN (Unverified Allergy, Unknown, 09/09/13) Objective Vital Signs Last 24 Hour Vital Signs Date Time Temp Pulse Resp B/P (MAP) Pulse Ox O2 Delivery O2 Flow Rate FiO2 11/05/16 11:57 97.9 101 20 117/76 99 Nasal Cannula 2.0 11/05/16 09:41 105 122/81 11/05/16 08:12 98.2 105 20 122/81 97 Nasal Cannula 2.0 11/05/16 04:00 97.6 105 20 124/76 98 11/05/16 00:00 97.3 98 20 112/76 99 Nasal Cannula 3.0 11/04/16 20:00 97.7 104 20 116/74 99 Nasal Cannula 3.0 11/04/16 16:39 88 19 110/74 99 Room Air 11/04/16 16:38 97.9 89 20 113/72 100 Nasal Cannula 2.0 Height (Feet): 5 Height (Inches): 5.00 Weight (Pounds): 130 General Appearance: WD/WN, cachetic HEENT: normocephalic, atraumatic, anicteric Respiratory/Chest: chest wall non-tender, no respiratory distress, no accessory muscle use, decreased breath sounds Cardiovascular: normal peripheral pulses, normal rate, regular rhythm, no gallop/murmur, no JVD Abdomen: normal bowel sounds, soft, non tender, no organomegaly, non distended , no mass Extremities: no cyanosis, no clubbing Skin: no rash, no lesions, ulcers Microbiology Date/Time Source Procedure Growth Status 11/04/16 14:00 Urine,Clean Catch Urine Culture - Preliminary Gram Negative Bacillus 1 Resulted 11/05/16 01:30 Sacral Ulcer Gram Stain - Final Resulted 11/05/16 01:30 Sacral Ulcer Wound Culture Pending Resulted Laboratory Tests Test 11/05/16 05:10 White Blood Count 10.2 K/UL (4.8-10.8) Red Blood Count 4.32 M/UL (4.20-5.40) Hemoglobin 13.0 G/DL (12.0-16.0) Hematocrit 41.2 % (37.0-47.0) Mean Corpuscular Volume 95 FL (80-99) Mean Corpuscular Hemoglobin 30.2 PG (27.0-31.0) Mean Corpuscular Hemoglobin Concent 31.6 G/DL (32.0-36.0) L Red Cell Distribution Width 13.6 % (11.6-14.8) Platelet Count 193 K/UL (150-450) Mean Platelet Volume 7.7 FL (6.5-10.1) Neutrophils (%) (Auto) 83.7 % (45.0-75.0) H Lymphocytes (%) (Auto) 3.0 % (20.0-45.0) L Monocytes (%) (Auto) 8.8 % (1.0-10.0) Eosinophils (%) (Auto) 3.8 % (0.0-3.0) H Basophils (%) (Auto) 0.6 % (0.0-2.0) Sodium Level 146 mEQ/L (135-145) H Potassium Level 4.4 mEQ/L (3.4-4.9) Chloride Level 99 mEQ/L (98-107) Carbon Dioxide Level 36 mEQ/L (20-30) H Anion Gap 11 (5-15) Blood Urea Nitrogen 55 mg/dL (7-23) #H Creatinine 0.8 mg/dL (0.5-0.9) # Estimat Glomerular Filtration Rate > 60 mL/min (>60) Glucose Level 239 mg/dL (74-106) H Calcium Level 10.7 mg/dL (8.6-10.2) H Total Bilirubin 0.3 mg/dL (0.0-1.2) Aspartate Amino Transf (AST/SGOT) 17 U/L (5-40) Alanine Aminotransferase (ALT/SGPT) 31 U/L (3-33) Alkaline Phosphatase 99 U/L (35-104) Total Protein 7.6 g/dL (6.6-8.7) Albumin 3.3 g/dL (3.5-5.2) L Globulin 4.3 g/dL Albumin/Globulin Ratio 0.7 (1.0-2.7) L Triglycerides Level 248 mg/dL (< 150) H Cholesterol Level 120 mg/dL (< 200) LDL Cholesterol 42 mg/dL (60-99) L HDL Cholesterol 28 mg/dL (> 60) Cholesterol/HDL Ratio 4.3 (3.3-4.4) Thyroid Stimulating Hormone (TSH) 2.010 uIU/mL (0.300-4.500) Current Medications Medications (Trade) Dose Ordered Sig/Chinyere Route PRN Reason Start Time Stop Time Status Last Admin Dose Admin Acetaminophen (Tylenol) 650 mg Q4H PRN ORAL fever 11/04/16 19:00 12/04/16 18:59 Al Hydroxide/Mg Hydroxide (Mylanta II) 30 ml Q6H PRN ORAL dyspepsia 11/04/16 19:00 12/04/16 18:59 Albuterol Sulfate (Proventil) 2.5 mg Q6H PRN HHN Shortness of Breath 11/04/16 19:15 11/09/16 19:14 Cefepime HCl 1 gm/ Dextrose 55 ml @ 110 mls/hr Q24HRS IVPB 11/04/16 21:00 11/11/16 20:59 11/04/16 20:46 Dextrose (Dextrose 50%) STAT PRN IV Hypoglycemia 11/04/16 19:00 12/04/16 18:59 Dextrose (Dextrose 50%) STAT PRN IV Hypoglycemia 11/05/16 11:00 12/05/16 10:59 Gabapentin (Neurontin) 100 mg BID GT 11/05/16 20:00 12/05/16 19:59 Insulin Aspart (NovoLOG) Q6HR SUBQ 11/05/16 12:00 12/05/16 11:29 11/05/16 12:56 Lorazepam (Ativan 2mg/ml 1ml) 0.5 mg Q4H PRN IV For Anxiety 11/04/16 19:00 11/11/16 18:59 Metoprolol Succinate (Toprol XL) 100 mg DAILY ORAL 11/05/16 09:00 12/05/16 08:59 11/05/16 09:41 Morphine Sulfate (Morphine Sulfate) 1 mg Q4H PRN IVP For Pain 11/04/16 19:00 11/11/16 18:59 Ondansetron HCl (Zofran) 4 mg Q6H PRN IVP Nausea & Vomiting 11/04/16 19:00 12/04/16 18:59 Polyethylene Glycol (Miralax) 17 gm HSPRN PRN ORAL Constipation 11/04/16 19:00 12/04/16 18:59 Sodium Chloride 1,000 ml @ 75 mls/hr [id number] IV 11/04/16 21:30 12/04/16 21:29 11/05/16 09:41 Zolpidem Tartrate (Ambien) 5 mg HSPRN PRN ORAL Insomnia 11/04/16 19:00 11/11/16 18:59 Lorin Mitchell M.D. Nov 05, 2016 15:40
[2016-11-05 20:00] VITALS: BP 114/71
[2016-11-05] MEDS: Cefepime 2gm/D5W 110ml IV SCH ×2 (22:36)
--- NOTE | 2016-11-05 22:40 | Pulmonology Progress Note ---
Assessment/Plan Problems: (1) UTI (urinary tract infection) due to urinary indwelling catheter (2) EDGAR (acute kidney injury) (3) Leukocytosis (4) Seizure Assessment/Plan IV fluids IV antibiotics check cultures dvt prophylaxis Subjective ROS Limited/Unobtainable: No Allergies: Coded Allergies: HYDANTOINS (Unverified Allergy, Unknown, 09/09/13) PHENYTOIN (Unverified Allergy, Unknown, 09/09/13) Objective Last 24 Hour Vital Signs Date Time Temp Pulse Resp B/P (MAP) Pulse Ox O2 Delivery O2 Flow Rate FiO2 11/05/16 20:22 98 Nasal Cannula 2.0 28 11/05/16 20:22 Nasal Cannula 2.0 28 11/05/16 20:19 97 20 Nasal Cannula 2.0 11/05/16 20:00 97.9 97 20 114/71 97 Nasal Cannula 2.0 11/05/16 11:57 97.9 101 20 117/76 99 Nasal Cannula 2.0 11/05/16 09:41 105 122/81 11/05/16 08:12 98.2 105 20 122/81 97 Nasal Cannula 2.0 11/05/16 04:00 97.6 105 20 124/76 98 11/05/16 00:00 97.3 98 20 112/76 99 Nasal Cannula 3.0 Intake and Output 11/05/16 11/06/16 19:00 07:00 Intake Total 1095 ml Output Total 1850 ml Balance -755 ml Intake Oral 0 ml IV Total 675 ml Tube Feeding 420 ml Output Urine Total 1850 ml General Appearance: WD/WN, no acute distress HEENT: normocephalic, atraumatic Respiratory/Chest: chest wall non-tender, lungs clear, chest wall tender Cardiovascular: normal peripheral pulses Abdomen: normal bowel sounds, soft, non tender Genitourinary: normal external genitalia Extremities: no cyanosis Skin: no rash Neurologic/Psychiatric: die repairer trimmer dies II-XII grossly normal, no motor/sensory deficits Microbiology Date/Time Source Procedure Growth Status 11/04/16 14:00 Urine,Clean Catch Urine Culture - Preliminary Gram Negative Bacillus 1 Resulted 11/05/16 01:30 Sacral Ulcer Gram Stain - Final Resulted 11/05/16 01:30 Sacral Ulcer Wound Culture Pending Resulted Laboratory Tests 11/05/16 05:10: White Blood Count 10.2, Red Blood Count 4.32, Hemoglobin 13.0, Hematocrit 41.2, Mean Corpuscular Volume 95, Mean Corpuscular Hemoglobin 30.2, Mean Corpuscular Hemoglobin Concent 31.6L, Red Cell Distribution Width 13.6, Platelet Count 193, Mean Platelet Volume 7.7, Neutrophils (%) (Auto) 83.7H, Lymphocytes (%) (Auto) 3.0L, Monocytes (%) (Auto) 8.8, Eosinophils (%) (Auto) 3.8H, Basophils (%) (Auto ) 0.6, Sodium Level 146H, Potassium Level 4.4, Chloride Level 99, Carbon Dioxide Level 36H, Anion Gap 11, Blood Urea Nitrogen 55#H, Creatinine 0.8#, Estimat Glomerular Filtration Rate > 60, Glucose Level 239H, Calcium Level 10.7H , Total Bilirubin 0.3, Aspartate Amino Transf (AST/SGOT) 17, Alanine Aminotransferase (ALT/SGPT) 31, Alkaline Phosphatase 99, Total Protein 7.6, Albumin 3.3L, Globulin 4.3, Albumin/Globulin Ratio 0.7L, Triglycerides Level 248H, Cholesterol Level 120, LDL Cholesterol 42L, HDL Cholesterol 28, Cholesterol/HDL Ratio 4.3, Thyroid Stimulating Hormone (TSH) 2.010 Current Medications Medications (Trade) Dose Ordered Sig/Chinyere Route PRN Reason Start Time Stop Time Status Last Admin Dose Admin Acetaminophen (Tylenol) 650 mg Q4H PRN ORAL fever 11/04/16 19:00 12/04/16 18:59 Al Hydroxide/Mg Hydroxide (Mylanta II) 30 ml Q6H PRN ORAL dyspepsia 11/04/16 19:00 12/04/16 18:59 Albuterol Sulfate (Proventil) 2.5 mg Q6H PRN HHN Shortness of Breath 11/04/16 19:15 11/09/16 19:14 Cefepime HCl 2 gm/ Dextrose 110 ml @ 220 mls/hr Q24HRS IV 11/05/16 21:00 11/12/16 20:59 11/05/16 22:36 Dextrose (Dextrose 50%) STAT PRN IV Hypoglycemia 11/04/16 19:00 12/04/16 18:59 Dextrose (Dextrose 50%) STAT PRN IV Hypoglycemia 11/05/16 11:00 12/05/16 10:59 Gabapentin (Neurontin) 100 mg BID GT 11/05/16 20:00 12/05/16 19:59 11/05/16 22:24 Insulin Aspart (NovoLOG) Q6HR SUBQ 11/05/16 12:00 12/05/16 11:29 11/05/16 18:14 Lorazepam (Ativan 2mg/ml 1ml) 0.5 mg Q4H PRN IV For Anxiety 11/04/16 19:00 11/11/16 18:59 Metoprolol Succinate (Toprol XL) 100 mg DAILY ORAL 11/05/16 09:00 12/05/16 08:59 11/05/16 09:41 Morphine Sulfate (Morphine Sulfate) 1 mg Q4H PRN IVP For Pain 11/04/16 19:00 11/11/16 18:59 Ondansetron HCl (Zofran) 4 mg Q6H PRN IVP Nausea & Vomiting 11/04/16 19:00 12/04/16 18:59 Polyethylene Glycol (Miralax) 17 gm HSPRN PRN ORAL Constipation 11/04/16 19:00 12/04/16 18:59 Sodium Chloride 1,000 ml @ 75 mls/hr [id number] IV 11/04/16 21:30 12/04/16 21:29 11/05/16 22:37 Zolpidem Tartrate (Ambien) 5 mg HSPRN PRN ORAL Insomnia 11/04/16 19:00 11/11/16 18:59 JIMMY DAVIS Nov 05, 2016 22:40
[2016-11-06] VITALS: BP 118/70
[2016-11-06] MEDS: NovoLOG Insulin Flexpen SUBQ SCH ×4 (00:41→17:57)
--- NOTE | 2016-11-06 01:30 | History and Physical Report ---
DATE OF ADMISSION: 11/04/2016 TIME SEEN: At 2 p.m. CONSULTANTS: 1. Dr. Gonzalez. 2. Casey Chapin M.D. 3. Bailee Hoang M.D. CHIEF COMPLAINT: UTI, sepsis, renal failure, and confusion. BRIEF HISTORY: This is a 65-year-old female from [facility], who presented with the above-mentioned diagnoses of UTI, sepsis, and renal failure, admitted to medical floor for further treatment. Currently calm, O2 NC, sleeping in bed. Not talking much. PAST MEDICAL HISTORY: Renal failure, CVA, diabetes, and confusion. PAST SURGICAL HISTORY: Unknown. MEDICATIONS: Include Neurontin, NovoLog, Toprol, cefepime, Proventil, Tylenol, morphine, MiraLAX, Zofran, Ambien, and Mylanta. ALLERGIES: Hydantoin and phenytoin. SOCIAL HISTORY: No smoking. No alcohol. No intravenous drug abuse. FAMILY HISTORY: Noncontributory. REVIEW OF SYSTEMS: Unavailable. PHYSICAL EXAMINATION: GENERAL: Lethargy in bed, nonverbal. VITAL SIGNS: Temperature is 97 degrees, pulse 101, respirations 20, and blood pressure 117/76. CARDIOVASCULAR: No murmurs. LUNGS: Poor exchange. ABDOMEN: Positive bowel sounds. Nontender and nondistended. EXTREMITIES: No cyanosis, clubbing, or edema. NEUROLOGIC: The patient moves all extremities, slightly weak. LABORATORY DATA: Lab exam shows CBC normal. BMP shows sodium 146, bicarbonate 36, BUN and creatinine 55 and 0.8. Glucose 239. Albumin 3.3. INR is 1.0. Urinalysis shows 3 + leukocyte esterase. ASSESSMENT: 1. Urinary tract infection. 2. Sepsis. 3. Renal failure. 4. Gastroesophageal reflux disease. 5. Cerebrovascular accident. 6. Diabetes. 7. Shortness of breath. PLAN: 1. Continue premedications. 2. O2 and pulmonary treatment. 3. Antibiotics per Infectious Diseases. 4. Blood pressure and blood sugar control. 5. Dietary followup. 6. Resume home medications. 7. OT, PT, and dietary evaluation. Dr. Gonzalez, Dr. Chapin, and Dr. Hoang to consult. [place] D.O. DR: MARY CARMEN JOB#: [id number] CC:
[2016-11-06 04:00] VITALS: BP 117/67
[2016-11-06 07:05] LABS: BASOPHILS % (AUTO) 0.5 % (0.0-2.0); EOSINOPHILS % (AUTO) 6.3 % (0.0-3.0); LYMPHOCYTES % (AUTO) 8.6 % (20.0-45.0); MEAN CORPUSCULAR HEMOGLOBIN 30.1 PG (27.0-31.0); MEAN CORPUSCULAR HGB CONC 31.4 G/DL (32.0-36.0); MEAN CORPUSCULAR VOLUME 96 FL (80-99); MEAN PLATELET VOLUME 7.6 FL (6.5-10.1); MONOCYTES % (AUTO) 13.1 % (1.0-10.0); NEUTROPHILS % (AUTO) 71.6 % (45.0-75.0); PLATELET COUNT 215 K/UL (150-450); RED BLOOD COUNT 3.75 M/UL (4.20-5.40); RED CELL DISTRIBUTION WIDTH 14.1 % (11.6-14.8); WHITE BLOOD COUNT 9.1 K/UL (4.8-10.8)
[2016-11-06 07:17] LABS: ANION GAP 7 (5-15); CALCIUM 10.2 mg/dL (8.6-10.2); CARBON DIOXIDE 37 mEQ/L (20-30); CHLORIDE 103 mEQ/L (98-107); CREATININE 0.6 mg/dL (0.5-0.9); GLOMERULAR FILTRATION RATE > 60 mL/min (>60); HEMOLYSIS 0; POTASSIUM 4.3 mEQ/L (3.4-4.9); SODIUM 147 mEQ/L (135-145)
[2016-11-06 07:59] VITALS: BP 136/80
[2016-11-06] MEDS: Metoprolol Succinate XL 100mg tab ORAL SCH (08:30)
[2016-11-06 12:22] VITALS: BP 114/63
--- NOTE | 2016-11-06 12:54 | General Progress Note ---
Assessment/Plan Problem List: (1) UTI (urinary tract infection) due to urinary indwelling catheter ICD Codes: T83.511A - Infection and inflammatory reaction due to indwelling urethral catheter, initial encounter; N39.0 - Urinary tract infection, site not specified SNOMED: 734222880 Qualifiers: Qualified Codes: T83.511D - Infection and inflammatory reaction due to indwelling urethral catheter, subsequent encounter; N39.0 - Urinary tract infection, site not specified (2) CVA (cerebral vascular accident) ICD Codes: I63.9 - Cerebral infarction, unspecified SNOMED: 385579936 (3) Sepsis ICD Codes: A41.9 - Sepsis SNOMED: 59503541 (4) Diabetes mellitus out of control ICD Codes: E11.9 - Diabetes mellitus out of control SNOMED: 725341444 (5) Acute renal failure superimposed on chronic kidney disease ICD Codes: N17.9 - Acute kidney failure, unspecified; N18.9 - Chronic kidney disease, unspecified SNOMED: 407666555 Status: stable, progressing, tolerating diet Assessment/Plan ot pt diet o2 pulm tx abx cbc bmp am Subjective Constitutional: Reports: weakness Allergies: Coded Allergies: HYDANTOINS (Unverified Allergy, Unknown, 09/09/13) PHENYTOIN (Unverified Allergy, Unknown, 09/09/13) All Systems: reviewed and negative except above Subjective o2nc sleepy Objective Last 24 Hour Vital Signs Date Time Temp Pulse Resp B/P (MAP) Pulse Ox O2 Delivery O2 Flow Rate FiO2 11/06/16 12:22 98.1 78 20 114/63 99 Nasal Cannula 2.0 11/06/16 08:30 94 136/80 11/06/16 08:05 Nasal Cannula 3.0 32 11/06/16 08:05 99 Nasal Cannula 3.0 32 11/06/16 08:05 94 20 Nasal Cannula 3.0 32 11/06/16 07:59 97.5 98 20 136/80 100 Nasal Cannula 2.0 11/06/16 04:00 97.5 95 21 117/67 99 Nasal Cannula 2.0 11/06/16 00:00 97.0 89 19 118/70 98 Nasal Cannula 2.0 11/05/16 20:22 98 Nasal Cannula 2.0 11/05/16 20:22 Nasal Cannula 2.0 28 11/05/16 20:19 97 20 Nasal Cannula 2.0 28 11/05/16 20:00 97.9 97 20 114/71 97 Nasal Cannula 2.0 Intake and Output 11/06/16 11/07/16 19:00 07:00 Intake Total 345 ml Balance 345 ml IV Total 225 ml Tube Feeding 120 ml Laboratory Tests 11/06/16 05:15: White Blood Count 9.1, Red Blood Count 3.75L, Hemoglobin 11.3L, Hematocrit 35.9L , Mean Corpuscular Volume 96, Mean Corpuscular Hemoglobin 30.1, Mean Corpuscular Hemoglobin Concent 31.4L, Red Cell Distribution Width 14.1, Platelet Count 215, Mean Platelet Volume 7.6, Neutrophils (%) (Auto) 71.6, Lymphocytes (%) (Auto) 8.6L, Monocytes (%) (Auto) 13.1H, Eosinophils (%) (Auto) 6.3H, Basophils (%) (Auto) 0.5, Sodium Level 147H, Potassium Level 4.3, Chloride Level 103, Carbon Dioxide Level 37H, Anion Gap 7, Blood Urea Nitrogen 33H, Creatinine 0.6, Estimat Glomerular Filtration Rate > 60, Glucose Level 227H , Calcium Level 10.2 Height (Feet): 5 Height (Inches): 5.00 Weight (Pounds): 130 General Appearance: lethargic EENT: normal ENT inspection Neck: normal alignment Cardiovascular: normal peripheral pulses, normal rate, regular rhythm Respiratory/Chest: chest wall non-tender, lungs clear, normal breath sounds Abdomen: normal bowel sounds, non tender, soft Extremities: normal inspection Edema: no edema noted Arm (L), no edema noted Arm (R), no edema noted Leg (L), no edema noted Leg (R), no edema noted Pedal (L), no edema noted Pedal (R), no edema noted Generalized Neurologic: motor weakness Skin: normal pigmentation, warm/dry CESAR BAJWA Nov 06, 2016 12:54
--- NOTE | 2016-11-06 14:53 | Infectious Diseases Prog Note ---
Assessment/Plan Problems: (1) Catheter-associated urinary tract infection Assessment & Plan: urine culture is growing gram negative rods , continue cefepime empirically (2) Gross hematuria Assessment & Plan: suspect due to anticoagulation, monitor H/H, transfuse blood as needed, consult urology (3) EDGAR (acute kidney injury) Assessment & Plan: suspect dehydration , or obstruction due to blood clots, renal is following , continue hydration. Subjective ROS Limited/Unobtainable: Yes Allergies: Coded Allergies: HYDANTOINS (Unverified Allergy, Unknown, 09/09/13) PHENYTOIN (Unverified Allergy, Unknown, 09/09/13) Objective Vital Signs Last 24 Hour Vital Signs Date Time Temp Pulse Resp B/P (MAP) Pulse Ox O2 Delivery O2 Flow Rate FiO2 11/06/16 12:22 98.1 78 20 114/63 99 Nasal Cannula 2.0 11/06/16 08:30 94 136/80 11/06/16 08:05 Nasal Cannula 3.0 32 11/06/16 08:05 99 Nasal Cannula 3.0 32 11/06/16 08:05 94 20 Nasal Cannula 3.0 32 11/06/16 07:59 97.5 98 20 136/80 100 Nasal Cannula 2.0 11/06/16 04:00 97.5 95 21 117/67 99 Nasal Cannula 2.0 11/06/16 00:00 97.0 89 19 118/70 98 Nasal Cannula 2.0 11/05/16 20:22 98 Nasal Cannula 2.0 28 11/05/16 20:22 Nasal Cannula 2.0 28 11/05/16 20:19 97 20 Nasal Cannula 2.0 11/05/16 20:00 97.9 97 20 114/71 97 Nasal Cannula 2.0 Height (Feet): 5 Height (Inches): 5.00 Weight (Pounds): 130 General Appearance: WD/WN, no acute distress HEENT: normocephalic, atraumatic, anicteric, mucous membranes moist Respiratory/Chest: chest wall non-tender, no respiratory distress, no accessory muscle use, decreased breath sounds, crackles/rales Cardiovascular: normal peripheral pulses, normal rate, regular rhythm, no gallop/murmur, no JVD Abdomen: normal bowel sounds, soft, non tender, no organomegaly, non distended , no mass, no scars Extremities: no cyanosis, no clubbing Skin: no rash, no lesions, no ulcers Microbiology Date/Time Source Procedure Growth Status 11/04/16 20:00 Blood Blood Culture - Preliminary NO GROWTH AFTER 24 HOURS Resulted 11/04/16 19:45 Blood Blood Culture - Preliminary NO GROWTH AFTER 24 HOURS Resulted 11/04/16 14:00 Urine,Clean Catch Urine Culture - Preliminary Proteus Mirabilis Gram Negative Bacillus 2 Resulted 11/05/16 01:30 Sacral Ulcer Gram Stain - Final Resulted 11/05/16 01:30 Wound Culture - Preliminary Gram Negative Bacillus 1 Resulted Laboratory Tests Test 11/06/16 05:15 White Blood Count 9.1 K/UL (4.8-10.8) Red Blood Count 3.75 M/UL (4.20-5.40) L Hemoglobin 11.3 G/DL (12.0-16.0) L Hematocrit 35.9 % (37.0-47.0) L Mean Corpuscular Volume 96 FL (80-99) Mean Corpuscular Hemoglobin 30.1 PG (27.0-31.0) Mean Corpuscular Hemoglobin Concent 31.4 G/DL (32.0-36.0) L Red Cell Distribution Width 14.1 % (11.6-14.8) Platelet Count 215 K/UL (150-450) Mean Platelet Volume 7.6 FL (6.5-10.1) Neutrophils (%) (Auto) 71.6 % (45.0-75.0) Lymphocytes (%) (Auto) 8.6 % (20.0-45.0) L Monocytes (%) (Auto) 13.1 % (1.0-10.0) H Eosinophils (%) (Auto) 6.3 % (0.0-3.0) H Basophils (%) (Auto) 0.5 % (0.0-2.0) Sodium Level 147 mEQ/L (135-145) H Potassium Level 4.3 mEQ/L (3.4-4.9) Chloride Level 103 mEQ/L (98-107) Carbon Dioxide Level 37 mEQ/L (20-30) H Anion Gap 7 (5-15) Blood Urea Nitrogen 33 mg/dL (7-23) H Creatinine 0.6 mg/dL (0.5-0.9) Estimat Glomerular Filtration Rate > 60 mL/min (>60) Glucose Level 227 mg/dL (74-106) H Calcium Level 10.2 mg/dL (8.6-10.2) Current Medications Medications (Trade) Dose Ordered Sig/Chinyere Route PRN Reason Start Time Stop Time Status Last Admin Dose Admin Acetaminophen (Tylenol) 650 mg Q4H PRN ORAL fever 11/04/16 19:00 12/04/16 18:59 Al Hydroxide/Mg Hydroxide (Mylanta II) 30 ml Q6H PRN ORAL dyspepsia 11/04/16 19:00 12/04/16 18:59 Albuterol Sulfate (Proventil) 2.5 mg Q6H PRN HHN Shortness of Breath 11/04/16 19:15 11/09/16 19:14 Cefepime HCl 2 gm/ Dextrose 110 ml @ 220 mls/hr Q24HRS IV 11/05/16 21:00 11/12/16 20:59 11/05/16 22:36 Dextrose (Dextrose 50%) STAT PRN IV Hypoglycemia 11/04/16 19:00 12/04/16 18:59 Dextrose (Dextrose 50%) STAT PRN IV Hypoglycemia 11/05/16 11:00 12/05/16 10:59 Gabapentin (Neurontin) 100 mg BID GT 11/05/16 20:00 12/05/16 19:59 11/06/16 08:30 Insulin Aspart (NovoLOG) Q6HR SUBQ 11/05/16 12:00 12/05/16 11:29 11/06/16 12:04 Lorazepam (Ativan 2mg/ml 1ml) 0.5 mg Q4H PRN IV For Anxiety 11/04/16 19:00 11/11/16 18:59 Metoprolol Succinate (Toprol XL) 100 mg DAILY ORAL 11/05/16 09:00 12/05/16 08:59 11/06/16 08:30 Morphine Sulfate (Morphine Sulfate) 1 mg Q4H PRN IVP For Pain 11/04/16 19:00 11/11/16 18:59 Ondansetron HCl (Zofran) 4 mg Q6H PRN IVP Nausea & Vomiting 11/04/16 19:00 12/04/16 18:59 Polyethylene Glycol (Miralax) 17 gm HSPRN PRN ORAL Constipation 11/04/16 19:00 12/04/16 18:59 Sodium Chloride 1,000 ml @ 75 mls/hr [id number] IV 11/04/16 21:30 12/04/16 21:29 11/06/16 13:58 Zolpidem Tartrate (Ambien) 5 mg HSPRN PRN ORAL Insomnia 11/04/16 19:00 11/11/16 18:59 Lorin Mitchell M.D. Nov 06, 2016 14:53
[2016-11-06] MEDS ORDERED: 1/2 NS 1000ml IV ONE ×2 (16:55→17:01)
[2016-11-06] MEDS ORDERED: Tubing IV Secondary IV ONE (16:55)
[2016-11-06] MEDS ORDERED: NS 275ml ONE (16:55)
--- NOTE | 2016-11-06 17:19 | Nephrology Progress Note ---
Assessment/Plan Problem List: (1) Acute renal failure superimposed on chronic kidney disease (2) Sepsis (3) Diabetes mellitus out of control (4) Leukocytosis (5) Gross hematuria (6) Dementia Plan Continue current treatment plan IVF 0.45% NACL @ 75cc/hr Renally dose meds, avoid nephrotoxins Continue abx per ID Monitor lytes, correct prn Monitor I/O DVT prophylaxis am labs Subjective ROS Limited/Unobtainable: Yes Subjective In no apparent distress, non verbal, IVF ongoing, tube feeding ongoing, family at bedside Objective Objective Last 24 Hour Vital Signs Date Time Temp Pulse Resp B/P (MAP) Pulse Ox O2 Delivery O2 Flow Rate FiO2 11/06/16 12:22 98.1 78 20 114/63 99 Nasal Cannula 2.0 11/06/16 08:30 94 136/80 11/06/16 08:05 Nasal Cannula 3.0 32 11/06/16 08:05 99 Nasal Cannula 3.0 32 11/06/16 08:05 94 20 Nasal Cannula 3.0 32 11/06/16 07:59 97.5 98 20 136/80 100 Nasal Cannula 2.0 11/06/16 04:00 97.5 95 21 117/67 99 Nasal Cannula 2.0 11/06/16 00:00 97.0 89 19 118/70 98 Nasal Cannula 2.0 11/05/16 20:22 98 Nasal Cannula 2.0 28 11/05/16 20:22 Nasal Cannula 2.0 28 11/05/16 20:19 97 20 Nasal Cannula 2.0 28 11/05/16 20:00 97.9 97 20 114/71 97 Nasal Cannula 2.0 Intake and Output 11/06/16 11/07/16 19:00 07:00 Intake Total 675 ml Balance 675 ml IV Total 375 ml Tube Feeding 300 ml Laboratory Tests 11/06/16 05:15: White Blood Count 9.1, Red Blood Count 3.75L, Hemoglobin 11.3L, Hematocrit 35.9L , Mean Corpuscular Volume 96, Mean Corpuscular Hemoglobin 30.1, Mean Corpuscular Hemoglobin Concent 31.4L, Red Cell Distribution Width 14.1, Platelet Count 215, Mean Platelet Volume 7.6, Neutrophils (%) (Auto) 71.6, Lymphocytes (%) (Auto) 8.6L, Monocytes (%) (Auto) 13.1H, Eosinophils (%) (Auto) 6.3H, Basophils (%) (Auto) 0.5, Sodium Level 147H, Potassium Level 4.3, Chloride Level 103, Carbon Dioxide Level 37H, Anion Gap 7, Blood Urea Nitrogen 33H, Creatinine 0.6, Estimat Glomerular Filtration Rate > 60, Glucose Level 227H , Calcium Level 10.2 Height (Feet): 5 Height (Inches): 5.00 Weight (Pounds): 130 General Appearance: no apparent distress, other - non verbal Neck: non-tender Cardiovascular: regular rhythm Respiratory/Chest: inspiratory wheezing - right lung Abdomen: non tender, other - PEG tube Extremities: non-tender, normal inspection Neurologic: motor weakness Odilia Zamarripa N.P. Nov 06, 2016 17:19
--- NOTE | 2016-11-06 18:53 | Pulmonology Progress Note ---
Assessment/Plan Problems: (1) UTI (urinary tract infection) due to urinary indwelling catheter (2) EDGAR (acute kidney injury) (3) Leukocytosis (4) Seizure Assessment/Plan IV fluids IV antibiotics check cultures dvt prophylaxis tolerating feeding check labs in am Subjective ROS Limited/Unobtainable: Yes Allergies: Coded Allergies: HYDANTOINS (Unverified Allergy, Unknown, 09/09/13) PHENYTOIN (Unverified Allergy, Unknown, 09/09/13) Objective Last 24 Hour Vital Signs Date Time Temp Pulse Resp B/P (MAP) Pulse Ox O2 Delivery O2 Flow Rate FiO2 11/06/16 12:22 98.1 78 20 114/63 99 Nasal Cannula 2.0 11/06/16 08:30 94 136/80 11/06/16 08:05 Nasal Cannula 3.0 32 11/06/16 08:05 99 Nasal Cannula 3.0 32 11/06/16 08:05 94 20 Nasal Cannula 3.0 32 11/06/16 07:59 97.5 98 20 136/80 100 Nasal Cannula 2.0 11/06/16 04:00 97.5 95 21 117/67 99 Nasal Cannula 2.0 11/06/16 00:00 97.0 89 19 118/70 98 Nasal Cannula 2.0 11/05/16 20:22 98 Nasal Cannula 2.0 28 11/05/16 20:22 Nasal Cannula 2.0 28 11/05/16 20:19 97 20 Nasal Cannula 2.0 28 11/05/16 20:00 97.9 97 20 114/71 97 Nasal Cannula 2.0 Intake and Output 11/06/16 11/07/16 19:00 07:00 Intake Total 1185 ml Balance 1185 ml Free Water 30 ml IV Total 675 ml Tube Feeding 480 ml General Appearance: WD/WN HEENT: normocephalic, atraumatic Respiratory/Chest: chest wall non-tender, lungs clear Breasts: no masses Cardiovascular: normal peripheral pulses, normal rate Abdomen: normal bowel sounds, soft, non tender Genitourinary: normal external genitalia Extremities: no cyanosis Skin: no rash Neurologic/Psychiatric: drapery cutter machine II-XII grossly normal Microbiology Date/Time Source Procedure Growth Status 11/04/16 20:00 Blood Blood Culture - Preliminary NO GROWTH AFTER 24 HOURS Resulted 11/04/16 19:45 Blood Blood Culture - Preliminary NO GROWTH AFTER 24 HOURS Resulted 11/04/16 14:00 Urine,Clean Catch Urine Culture - Preliminary Proteus Mirabilis Gram Negative Bacillus 2 Resulted 11/05/16 01:30 Sacral Ulcer Gram Stain - Final Resulted 11/05/16 01:30 Wound Culture - Preliminary Gram Negative Bacillus 1 Resulted Laboratory Tests 11/06/16 05:15: White Blood Count 9.1, Red Blood Count 3.75L, Hemoglobin 11.3L, Hematocrit 35.9L , Mean Corpuscular Volume 96, Mean Corpuscular Hemoglobin 30.1, Mean Corpuscular Hemoglobin Concent 31.4L, Red Cell Distribution Width 14.1, Platelet Count 215, Mean Platelet Volume 7.6, Neutrophils (%) (Auto) 71.6, Lymphocytes (%) (Auto) 8.6L, Monocytes (%) (Auto) 13.1H, Eosinophils (%) (Auto) 6.3H, Basophils (%) (Auto) 0.5, Sodium Level 147H, Potassium Level 4.3, Chloride Level 103, Carbon Dioxide Level 37H, Anion Gap 7, Blood Urea Nitrogen 33H, Creatinine 0.6, Estimat Glomerular Filtration Rate > 60, Glucose Level 227H , Calcium Level 10.2 Current Medications Medications (Trade) Dose Ordered Sig/Chinyere Route PRN Reason Start Time Stop Time Status Last Admin Dose Admin Acetaminophen (Tylenol) 650 mg Q4H PRN ORAL fever 11/04/16 19:00 12/04/16 18:59 Al Hydroxide/Mg Hydroxide (Mylanta II) 30 ml Q6H PRN ORAL dyspepsia 11/04/16 19:00 12/04/16 18:59 Albuterol Sulfate (Proventil) 2.5 mg Q6H PRN HHN Shortness of Breath 11/04/16 19:15 11/09/16 19:14 Cefepime HCl 2 gm/ Dextrose 110 ml @ 220 mls/hr Q24HRS IV 11/05/16 21:00 11/12/16 20:59 11/05/16 22:36 Dextrose (Dextrose 50%) STAT PRN IV Hypoglycemia 11/04/16 19:00 12/04/16 18:59 Dextrose (Dextrose 50%) STAT PRN IV Hypoglycemia 11/05/16 11:00 12/05/16 10:59 Gabapentin (Neurontin) 100 mg BID GT 11/05/16 20:00 12/05/16 19:59 11/06/16 17:57 Insulin Aspart (NovoLOG) Q6HR SUBQ 11/05/16 12:00 12/05/16 11:29 11/06/16 17:57 Lorazepam (Ativan 2mg/ml 1ml) 0.5 mg Q4H PRN IV For Anxiety 11/04/16 19:00 11/11/16 18:59 Metoprolol Succinate (Toprol XL) 100 mg DAILY ORAL 11/05/16 09:00 12/05/16 08:59 11/06/16 08:30 Morphine Sulfate (Morphine Sulfate) 1 mg Q4H PRN IVP For Pain 11/04/16 19:00 11/11/16 18:59 Ondansetron HCl (Zofran) 4 mg Q6H PRN IVP Nausea & Vomiting 11/04/16 19:00 12/04/16 18:59 Polyethylene Glycol (Miralax) 17 gm HSPRN PRN ORAL Constipation 11/04/16 19:00 12/04/16 18:59 Sodium Chloride 1,000 ml @ 75 mls/hr [id number] IV 11/04/16 21:30 12/04/16 21:29 11/06/16 13:58 Zolpidem Tartrate (Ambien) 5 mg HSPRN PRN ORAL Insomnia 11/04/16 19:00 11/11/16 18:59 JIMMY DAVIS Nov 06, 2016 18:53
[2016-11-06] MEDS: Cefepime 2gm/D5W 110ml IV SCH ×2 (20:30)
[2016-11-06 21:00] VITALS: BP 131/76
[2016-11-07] MEDS: NovoLOG Insulin Flexpen SUBQ SCH ×4 (00:26→17:47)
[2016-11-07 06:29] LABS: BASOPHILS % (AUTO) 0.9 % (0.0-2.0); EOSINOPHILS % (AUTO) 8.2 % (0.0-3.0); LYMPHOCYTES % (AUTO) 8.9 % (20.0-45.0); MEAN CORPUSCULAR HEMOGLOBIN 29.9 PG (27.0-31.0); MEAN CORPUSCULAR HGB CONC 31.1 G/DL (32.0-36.0); MEAN CORPUSCULAR VOLUME 96 FL (80-99); MONOCYTES % (AUTO) 11.5 % (1.0-10.0); NEUTROPHILS % (AUTO) 70.5 % (45.0-75.0); PLATELET COUNT 192 K/UL (150-450); RED BLOOD COUNT 3.73 M/UL (4.20-5.40); RED CELL DISTRIBUTION WIDTH 13.9 % (11.6-14.8); WHITE BLOOD COUNT 9.6 K/UL (4.8-10.8)
[2016-11-07 06:44] LABS: ANION GAP 6 (5-15); CALCIUM 9.7 mg/dL (8.6-10.2); CARBON DIOXIDE 35 mEQ/L (20-30); CHLORIDE 103 mEQ/L (98-107); CREATININE 0.5 mg/dL (0.5-0.9); GLOMERULAR FILTRATION RATE > 60 mL/min (>60); HEMOLYSIS 2; POTASSIUM 4.5 mEQ/L (3.4-4.9); SODIUM 144 mEQ/L (135-145)
[2016-11-07 08:00] VITALS: BP 135/78
[2016-11-07] MEDS: Metoprolol Succinate XL 100mg tab ORAL SCH (09:00)
[2016-11-07 11:42] VITALS: BP 153/88
--- NOTE | 2016-11-07 11:57 | General Progress Note ---
Assessment/Plan Problem List: (1) UTI (urinary tract infection) due to urinary indwelling catheter ICD Codes: T83.511A - Infection and inflammatory reaction due to indwelling urethral catheter, initial encounter; N39.0 - Urinary tract infection, site not specified SNOMED: 031596118 Qualifiers: Qualified Codes: T83.511D - Infection and inflammatory reaction due to indwelling urethral catheter, subsequent encounter; N39.0 - Urinary tract infection, site not specified (2) CVA (cerebral vascular accident) ICD Codes: I63.9 - Cerebral infarction, unspecified SNOMED: 631570414 (3) Sepsis ICD Codes: A41.9 - Sepsis SNOMED: 97455886 (4) Diabetes mellitus out of control ICD Codes: E11.9 - Diabetes mellitus out of control SNOMED: 582616012 (5) Acute renal failure superimposed on chronic kidney disease ICD Codes: N17.9 - Acute kidney failure, unspecified; N18.9 - Chronic kidney disease, unspecified SNOMED: 790670946 Status: stable, progressing, tolerating diet Assessment/Plan ot pt diet o2 pulm tx abx dc Subjective Constitutional: Reports: weakness Allergies: Coded Allergies: HYDANTOINS (Unverified Allergy, Unknown, 09/09/13) PHENYTOIN (Unverified Allergy, Unknown, 09/09/13) All Systems: reviewed and negative except above Subjective o2nc sleepy Objective Last 24 Hour Vital Signs Date Time Temp Pulse Resp B/P (MAP) Pulse Ox O2 Delivery O2 Flow Rate FiO2 11/07/16 11:42 97.9 78 18 153/88 99 Nasal Cannula 2.0 11/07/16 09:00 89 135/78 11/07/16 08:00 97.9 89 20 135/78 100 Nasal Cannula 2.0 11/06/16 21:00 98.1 84 20 131/76 99 Nasal Cannula 2.0 11/06/16 20:31 Nasal Cannula 2.0 28 11/06/16 20:30 82 20 Nasal Cannula 3.0 32 11/06/16 20:30 97 Nasal Cannula 2.0 28 11/06/16 12:22 98.1 78 20 114/63 99 Nasal Cannula 2.0 Laboratory Tests 11/07/16 05:50: White Blood Count 9.6, Red Blood Count 3.73L, Hemoglobin 11.2L, Hematocrit 35.9L , Mean Corpuscular Volume 96, Mean Corpuscular Hemoglobin 29.9, Mean Corpuscular Hemoglobin Concent 31.1L, Red Cell Distribution Width 13.9, Platelet Count 192, Mean Platelet Volume 7.0, Neutrophils (%) (Auto) 70.5, Lymphocytes (%) (Auto) 8.9L, Monocytes (%) (Auto) 11.5H, Eosinophils (%) (Auto) 8.2H, Basophils (%) (Auto) 0.9, Sodium Level 144, Potassium Level 4.5, Chloride Level 103, Carbon Dioxide Level 35H, Anion Gap 6, Blood Urea Nitrogen 16, Creatinine 0.5, Estimat Glomerular Filtration Rate > 60, Glucose Level 193H, Calcium Level 9.7 Height (Feet): 5 Height (Inches): 5.00 Weight (Pounds): 130 General Appearance: lethargic EENT: normal ENT inspection Neck: normal alignment Cardiovascular: normal peripheral pulses, normal rate, regular rhythm Respiratory/Chest: chest wall non-tender, lungs clear, decreased breath sounds Abdomen: normal bowel sounds, non tender, soft Extremities: normal inspection Edema: no edema noted Arm (L), no edema noted Arm (R), no edema noted Leg (L), no edema noted Leg (R), no edema noted Pedal (L), no edema noted Pedal (R), no edema noted Generalized Neurologic: motor weakness Skin: normal pigmentation, warm/dry CESAR BAJWA Nov 07, 2016 11:57
[2016-11-07] MEDS ORDERED: MYLANTA30 M1 GT ×2 (13:55→13:58)
[2016-11-07] MEDS ORDERED: cefTRIAXone 1 GM in D5W 55 ML IVPB SCH (14:00)
[2016-11-07] MEDS ORDERED: NOVOLOG100 UNITS1 (14:01)
[2016-11-07] MEDS ORDERED: LORAZEPAM0.5 GM MC (14:03)
[2016-11-07] MEDS ORDERED: TOPROL XL200 MG ORAL (14:04)
[2016-11-07] MEDS ORDERED: ZOLPIDEM TARTRAT5 MG ORAL (14:06)
[2016-11-07] MEDS ORDERED: ROCEPHIN250 MG IV (14:08)
[2016-11-07] MEDS ORDERED: MORPHINE 11 MG/2 ML IV (14:28)
[2016-11-07] MEDS ORDERED: DEXTROSE 50%-WA50 ML IV (14:30)
[2016-11-07 16:00] VITALS: BP 151/95
--- NOTE | 2016-11-07 16:37 | Pulmonology Progress Note ---
Assessment/Plan Problems: (1) UTI (urinary tract infection) due to urinary indwelling catheter (2) EDGAR (acute kidney injury) (3) Leukocytosis (4) Seizure Assessment/Plan IV fluids IV antibiotics check cultures dvt prophylaxis tolerating feeding check labs in am dc home when cleared by all consultants renal function improving Subjective ROS Limited/Unobtainable: Yes Constitutional: Reports: no symptoms HEENT: Repors: no symptoms Allergies: Coded Allergies: HYDANTOINS (Unverified Allergy, Unknown, 09/09/13) PHENYTOIN (Unverified Allergy, Unknown, 09/09/13) Objective Last 24 Hour Vital Signs Date Time Temp Pulse Resp B/P (MAP) Pulse Ox O2 Delivery O2 Flow Rate FiO2 11/07/16 11:42 97.9 78 18 153/88 99 Nasal Cannula 2.0 11/07/16 09:00 89 135/78 11/07/16 08:00 97.9 89 20 135/78 100 Nasal Cannula 2.0 11/06/16 21:00 98.1 84 20 131/76 99 Nasal Cannula 2.0 11/06/16 20:31 Nasal Cannula 2.0 28 11/06/16 20:30 82 20 Nasal Cannula 3.0 32 11/06/16 20:30 97 Nasal Cannula 2.0 28 Intake and Output 11/07/16 11/08/16 19:00 07:00 Intake Total 450 ml Balance 450 ml IV Total 450 ml General Appearance: cachetic HEENT: normocephalic, atraumatic Respiratory/Chest: chest wall non-tender, lungs clear Cardiovascular: normal peripheral pulses, normal rate Abdomen: normal bowel sounds, soft, non tender Extremities: no cyanosis Neurologic/Psychiatric: instrument lens generator II-XII grossly normal, no motor/sensory deficits Microbiology Date/Time Source Procedure Growth Status 11/04/16 20:00 Blood Blood Culture - Preliminary NO GROWTH AFTER 48 HOURS Resulted 11/04/16 19:45 Blood Blood Culture - Preliminary NO GROWTH AFTER 48 HOURS Resulted 11/05/16 01:30 Sacral Ulcer Gram Stain - Final Resulted 11/05/16 01:30 Wound Culture - Preliminary Acinetobacter Baumannii Complx Gram Negative Bacillus 2 Gram Negative Bacillus 3 Strep Species, Gamma-Hemolytic Diphtheroids Resulted Laboratory Tests 11/07/16 05:50: White Blood Count 9.6, Red Blood Count 3.73L, Hemoglobin 11.2L, Hematocrit 35.9L , Mean Corpuscular Volume 96, Mean Corpuscular Hemoglobin 29.9, Mean Corpuscular Hemoglobin Concent 31.1L, Red Cell Distribution Width 13.9, Platelet Count 192, Mean Platelet Volume 7.0, Neutrophils (%) (Auto) 70.5, Lymphocytes (%) (Auto) 8.9L, Monocytes (%) (Auto) 11.5H, Eosinophils (%) (Auto) 8.2H, Basophils (%) (Auto) 0.9, Sodium Level 144, Potassium Level 4.5, Chloride Level 103, Carbon Dioxide Level 35H, Anion Gap 6, Blood Urea Nitrogen 16, Creatinine 0.5, Estimat Glomerular Filtration Rate > 60, Glucose Level 193H, Calcium Level 9.7 Current Medications Medications (Trade) Dose Ordered Sig/Chinyere Route PRN Reason Start Time Stop Time Status Last Admin Dose Admin Acetaminophen (Tylenol) 650 mg Q4H PRN ORAL fever 11/04/16 19:00 12/04/16 18:59 Al Hydroxide/Mg Hydroxide (Mylanta II) 30 ml Q6H PRN ORAL dyspepsia 11/04/16 19:00 12/04/16 18:59 Albuterol Sulfate (Proventil) 2.5 mg Q6H PRN HHN Shortness of Breath 11/04/16 19:15 11/09/16 19:14 Ceftriaxone Sodium 1 gm/ Dextrose 55 ml @ 110 mls/hr Q24H IVPB 11/07/16 14:00 11/14/16 13:59 11/07/16 14:17 Dextrose (Dextrose 50%) STAT PRN IV Hypoglycemia 11/04/16 19:00 12/04/16 18:59 Dextrose (Dextrose 50%) STAT PRN IV Hypoglycemia 11/05/16 11:00 12/05/16 10:59 Gabapentin (Neurontin) 100 mg BID GT 11/05/16 20:00 12/05/16 19:59 11/07/16 09:00 Insulin Aspart (NovoLOG) Q6HR SUBQ 11/05/16 12:00 12/05/16 11:29 11/07/16 05:49 Lorazepam (Ativan 2mg/ml 1ml) 0.5 mg Q4H PRN IV For Anxiety 11/04/16 19:00 11/11/16 18:59 Metoprolol Succinate (Toprol XL) 100 mg DAILY ORAL 11/05/16 09:00 12/05/16 08:59 11/07/16 09:00 Morphine Sulfate (Morphine Sulfate) 1 mg Q4H PRN IVP For Pain 11/04/16 19:00 11/11/16 18:59 Ondansetron HCl (Zofran) 4 mg Q6H PRN IVP Nausea & Vomiting 11/04/16 19:00 12/04/16 18:59 Polyethylene Glycol (Miralax) 17 gm HSPRN PRN ORAL Constipation 11/04/16 19:00 12/04/16 18:59 Sodium Chloride 1,000 ml @ 75 mls/hr [id number] IV 11/04/16 21:30 12/04/16 21:29 11/07/16 03:22 Zolpidem Tartrate (Ambien) 5 mg HSPRN PRN ORAL Insomnia 11/04/16 19:00 11/11/16 18:59 JIMMY DAVIS Nov 07, 2016 16:37
--- NOTE | 2016-11-07 17:46 | Infectious Diseases Prog Note ---
Assessment/Plan Problems: (1) Catheter-associated urinary tract infection Assessment & Plan: urine culture is growing gram negative rods , continue cefepime empirically (2) Gross hematuria Assessment & Plan: suspect due to anticoagulation, monitor H/H, transfuse blood as needed, consult urology (3) EDGAR (acute kidney injury) Assessment & Plan: suspect dehydration , or obstruction due to blood clots, renal is following , continue hydration. Subjective Allergies: Coded Allergies: HYDANTOINS (Unverified Allergy, Unknown, 09/09/13) PHENYTOIN (Unverified Allergy, Unknown, 09/09/13) Objective Vital Signs Last 24 Hour Vital Signs Date Time Temp Pulse Resp B/P (MAP) Pulse Ox O2 Delivery O2 Flow Rate FiO2 11/07/16 16:00 97.7 81 19 151/95 100 Nasal Cannula 2.0 11/07/16 11:42 97.9 78 18 153/88 99 Nasal Cannula 2.0 11/07/16 09:00 89 135/78 11/07/16 08:00 97.9 89 20 135/78 100 Nasal Cannula 2.0 11/06/16 21:00 98.1 84 20 131/76 99 Nasal Cannula 2.0 11/06/16 20:31 Nasal Cannula 2.0 28 11/06/16 20:30 82 20 Nasal Cannula 3.0 32 11/06/16 20:30 97 Nasal Cannula 2.0 28 Height (Feet): 5 Height (Inches): 5.00 Weight (Pounds): 130 Microbiology Date/Time Source Procedure Growth Status 11/04/16 20:00 Blood Blood Culture - Preliminary NO GROWTH AFTER 48 HOURS Resulted 11/04/16 19:45 Blood Blood Culture - Preliminary NO GROWTH AFTER 48 HOURS Resulted 11/05/16 01:30 Sacral Ulcer Gram Stain - Final Resulted 11/05/16 01:30 Wound Culture - Preliminary Acinetobacter Baumannii Complx Gram Negative Bacillus 2 Gram Negative Bacillus 3 Strep Species, Gamma-Hemolytic Diphtheroids Resulted Laboratory Tests Test 11/07/16 05:50 White Blood Count 9.6 K/UL (4.8-10.8) Red Blood Count 3.73 M/UL (4.20-5.40) L Hemoglobin 11.2 G/DL (12.0-16.0) L Hematocrit 35.9 % (37.0-47.0) L Mean Corpuscular Volume 96 FL (80-99) Mean Corpuscular Hemoglobin 29.9 PG (27.0-31.0) Mean Corpuscular Hemoglobin Concent 31.1 G/DL (32.0-36.0) L Red Cell Distribution Width 13.9 % (11.6-14.8) Platelet Count 192 K/UL (150-450) Mean Platelet Volume 7.0 FL (6.5-10.1) Neutrophils (%) (Auto) 70.5 % (45.0-75.0) Lymphocytes (%) (Auto) 8.9 % (20.0-45.0) L Monocytes (%) (Auto) 11.5 % (1.0-10.0) H Eosinophils (%) (Auto) 8.2 % (0.0-3.0) H Basophils (%) (Auto) 0.9 % (0.0-2.0) Sodium Level 144 mEQ/L (135-145) Potassium Level 4.5 mEQ/L (3.4-4.9) Chloride Level 103 mEQ/L (98-107) Carbon Dioxide Level 35 mEQ/L (20-30) H Anion Gap 6 (5-15) Blood Urea Nitrogen 16 mg/dL (7-23) Creatinine 0.5 mg/dL (0.5-0.9) Estimat Glomerular Filtration Rate > 60 mL/min (>60) Glucose Level 193 mg/dL (74-106) H Calcium Level 9.7 mg/dL (8.6-10.2) Current Medications Medications (Trade) Dose Ordered Sig/Chinyere Route PRN Reason Start Time Stop Time Status Last Admin Dose Admin Acetaminophen (Tylenol) 650 mg Q4H PRN ORAL fever 11/04/16 19:00 12/04/16 18:59 Al Hydroxide/Mg Hydroxide (Mylanta II) 30 ml Q6H PRN ORAL dyspepsia 11/04/16 19:00 12/04/16 18:59 Albuterol Sulfate (Proventil) 2.5 mg Q6H PRN HHN Shortness of Breath 11/04/16 19:15 11/09/16 19:14 Ceftriaxone Sodium 1 gm/ Dextrose 55 ml @ 110 mls/hr Q24H IVPB 11/07/16 14:00 11/14/16 13:59 11/07/16 14:17 Dextrose (Dextrose 50%) STAT PRN IV Hypoglycemia 11/04/16 19:00 12/04/16 18:59 Dextrose (Dextrose 50%) STAT PRN IV Hypoglycemia 11/05/16 11:00 12/05/16 10:59 Gabapentin (Neurontin) 100 mg BID GT 11/05/16 20:00 12/05/16 19:59 11/07/16 17:42 Insulin Aspart (NovoLOG) Q6HR SUBQ 11/05/16 12:00 12/05/16 11:29 11/07/16 05:49 Lorazepam (Ativan 2mg/ml 1ml) 0.5 mg Q4H PRN IV For Anxiety 11/04/16 19:00 11/11/16 18:59 Metoprolol Succinate (Toprol XL) 100 mg DAILY ORAL 11/05/16 09:00 12/05/16 08:59 11/07/16 09:00 Morphine Sulfate (Morphine Sulfate) 1 mg Q4H PRN IVP For Pain 11/04/16 19:00 11/11/16 18:59 Ondansetron HCl (Zofran) 4 mg Q6H PRN IVP Nausea & Vomiting 11/04/16 19:00 12/04/16 18:59 Polyethylene Glycol (Miralax) 17 gm HSPRN PRN ORAL Constipation 11/04/16 19:00 12/04/16 18:59 Sodium Chloride 1,000 ml @ 75 mls/hr [id number] IV 11/04/16 21:30 12/04/16 21:29 11/07/16 03:22 Zolpidem Tartrate (Ambien) 5 mg HSPRN PRN ORAL Insomnia 11/04/16 19:00 11/11/16 18:59 Lorin Mitchell M.D. Nov 07, 2016 17:46
[2016-11-07 19:30] VITALS: BP 133/78
[2016-11-07] MEDS ORDERED: Tubing IV Secondary IV ONE (19:49)
[2016-11-07] MEDS ORDERED: 1/2 NS 1000ml IV ONE (19:49)
--- NOTE | 2016-11-08 15:57 | Discharge Summary ---
Discharge Summary Hospital Course Date of Admission Nov 04, 2016 at 14:54 Date of Discharge Nov 07, 2016 at 19:50 Admitting Diagnosis urinary tract infection HPI Lily Ferguson is a 65 year old female who was admitted on Nov 04, 2016 at 14:54 for Urinary Tract Infection Hospital Course [id number] Discharge Discharge Disposition Patient was discharged to SNF/Subacute Facility(03) Discharge Diagnoses: Ana Walton NP Nov 08, 2016 15:57
--- NOTE | 2016-11-09 05:00 | Discharge Summary 2 SIG ---
DATE OF ADMISSION: 11/04/2016 DATE OF DISCHARGE: 11/07/2016 CONSULTANTS: 1. Lorin Mitchell M.D. 2. Bailee Hoang M.D. 3. Casey Chapin M.D. BRIEF HOSPITAL COURSE: The patient is a 65-year-old female from [facility], presented to ED for gross hematuria. She was just admitted to [facility] for urosepsis per daughter and has a chronic indwelling catheter. She has been on Coumadin and also has an IVC filter, which is due to be removed. On evaluation at ED, labs showed normal hemoglobin and hematocrit and normal INR. She was started on gentle IV hydration. Labs showed acute kidney injury, creatinine was elevated to 1.7 and BUN of 82. Urine WBC 5 to 10 and urine RBC 30 to 60. She was started on cefepime empirically and was given IV hydration with half NS. She has a sacral unstageable pressure ulcer and a left trochanter DTI pressure ulcer. Wound care was rendered. Venous duplex of lower extremity was negative for DVT. Renal function improved with IV hydration. She was eventually discharged back to SNF. FINAL DIAGNOSES: 1. Catheter-associated urinary tract infection. 2. Acute kidney injury. 3. Acute on chronic kidney failure. 4. Diabetes mellitus, out of control. 5. Gross hematuria. 6. Dementia. 7. Sacral unstageable pressure ulcer and left trochanter DTI pressure ulcer, present on admission. DISPOSITION: The patient was discharged to [facility]. DISCHARGE MEDICATIONS: Refer to medication list. Los Slaughter D.O. I have been assigned to dictate discharge summary on this account and I was not involved in the patient's management. Ana Walton N.P. DR: Nicolasa JOB#: [id number] CC: [email or web address]
== END 2016-11-07 19:50 | DRG 466 ==
LOC: EDBD 13:42 → EMR 14:10 → 4E 14:54 → EDBEDREQ 15:23 → 4W 11-05 18:45
DX: T83.511A Infection and inflammatory reaction due to indwelling urethral catheter, initial encounter (principal); N17.9 Acute kidney failure, unspecified; L89.150 Pressure ulcer of sacral region, unstageable; L89.229 Pressure ulcer of left hip, unspecified stage; E11.22 Type 2 diabetes mellitus with diabetic chronic kidney disease; F03.90 Unspecified dementia, unspecified severity, without behavioral disturbance, psychotic disturbance, mood disturbance, and anxiety; J44.9 Chronic obstructive pulmonary disease, unspecified; I69.320 Aphasia following cerebral infarction; E11.65 Type 2 diabetes mellitus with hyperglycemia; R31.0 Gross hematuria; K21.9 Gastro-esophageal reflux disease without esophagitis; I12.9 Hypertensive chronic kidney disease with stage 1 through stage 4 chronic kidney disease, or unspecified chronic kidney disease; N18.9 Chronic kidney disease, unspecified; Z79.4 Long term (current) use of insulin; I69.391 Dysphagia following cerebral infarction; R13.10 Dysphagia, unspecified; Z93.1 Gastrostomy status; Z86.718 Personal history of other venous thrombosis and embolism; Z79.01 Long term (current) use of anticoagulants; D72.829 Elevated white blood cell count, unspecified; I25.10 Atherosclerotic heart disease of native coronary artery without angina pectoris
CPT/HCPCS: 36415; 71010; 80048; 80053; 80061; 81003; 82962; 84443; 85025; 85610; 87040; 87070; 87086; 87181; 87205; 93005; 93970; 94664; 94760; 97803; 99285; J1815

== ENCOUNTER 2017-02-19 06:58 | Inpatient (IN) | payer MEDICAID ==
[~2017-02-19] VITALS: Ht 162.6 cm; Wt 72.6 kg
[2017-02-19] VITALS (7 sets, daily range): BP systolic 114–155; BP diastolic 66–109
[~2017-02-19 06:58] MED LIST changes: +ALBUTEROL2.5 MG/3 M INH; +ASCORBIC ACID500 MG GT; +DEXTROSE 50%-WA50 ML IV; +GALZIN25 MG GT; +HUMALOG100 UNIT/4 SUBQ; +IPRATROPIU0.2 MG/1 M HHN; +LEVEMIR100 UNIT/1 SUBQ; +LORAZEPAM0.5 GM MC; +METOPROLOL SUC100 MG GT; +MORPHINE 11 MG/2 ML IV; +MYLANTA30 M1 GT; +NOVOLOG100 UNITS1; +PANTOPRAZOLE SO40 MG GT; +ROCEPHIN250 MG IV; +SENNA8.6 M2 GT; +TOPROL XL200 MG ORAL; +ZOLPIDEM TARTRAT5 MG ORAL
--- NOTE | 2017-02-19 07:11 | Emergency Room Report ---
History of Present Illness General Source: Medical Record, EMS, PMD Present Illness HPI 66-year-old female brought in by EMS from longterm for multiple reasons: Including gross hematuria, tachypnea, elevated blood pressure and elevated glucose. hpi is limited because patient is nonverbal at baseline, and previous CVA All information from review of the EMR Patient was admitted at end of October for gross hematuria and urosepsis Patient has chronic indwelling Davis, frequent UTIs Blood cultures from that visit were negative Urine cultures ECOLI and PROTEUS show susceptibility to Zosyn. Cefepime was given on recent admission but only Proteus demonstrated susceptibility to it. Allergies: Coded Allergies: HYDANTOINS (Unverified Allergy, Unknown, 09/09/13) PHENYTOIN (Unverified Allergy, Unknown, 09/09/13) Patient History Past Medical History: other - See HPI Past Surgical History: none Pertinent Family History: none Social History: Denies: smoking, alcohol use, drug use Now: No Immunizations: UTD Reviewed Nursing Documentation: PMH: Agreed, PSxH: Agreed Nursing Documentation-PMH Hx Cardiac Problems: Yes Hx Hypertension: Yes Hx COPD: Yes Hx Diabetes: Yes Hx Cancer: No Hx Gastrointestinal Problems: Yes - GT tube Hx Neurological Problems: Yes - intracranial hemorrhage Hx Cerebrovascular Accident: Yes - Left side weakness Hx Seizures: Yes Hx Epilepsy: Yes Hx Memory Loss: Yes - Forgetful Hx Speech Problem: Yes - Slurred Speech following stroke Hx Weakness: Yes - Left Side following CVA Hx Brain Shunt: Yes Review of Systems All Other Systems: limited - non-verbal Physical Exam Sp02 EP Interpretation: reviewed, normal General Appearance: normal inspection, well appearing, no apparent distress, alert, non-toxic, Chronically Ill Head: normocephalic, atraumatic Eyes: bilateral eye PERRL, bilateral eye EOMI ENT: normal ENT inspection, no angioedema Neck: normal inspection, full range of motion, supple, no bony tend Respiratory: normal inspection, lungs clear, normal breath sounds, no respiratory distress, no retraction, no accessory muscle use, no wheezing, speaking full sentences Cardiovascular #1: regular rate, rhythm, no edema Gastrointestinal: normal inspection, normal bowel sounds, non tender, soft, no guarding, no hernia, other - G-tube in place Genitourinary: no CVA tenderness Musculoskeletal: normal inspection, back normal, normal range of motion, Maryann' s Sign negative Neurologic: normal inspection, alert, responsive, speech normal, other - contracted left upper extremity Psychiatric: normal inspection, judgement/insight normal, mood/affect normal Skin: normal inspection, normal color, no rash Procedures Critical Care Time Critical Care Time CC time 35 Critical care time endorsed for this patient for suspected recurrent urosepsis given tachycardia, tachypnea Critical care time includes review of laboratory tests, imaging, review of EMR, review of paperwork from SNF (if available), discussion with patient and family (if available), review of code status/POLS (if available). Critical care time also likely includes assessment of fluid status, stabilization of vital signs, selection and dosing of appropriate antibiotics, selection and dosing of Aspirin/Plavix/Heparin/Lovenox, discussion with PMD/ attending hospitalist/e mail system administrator. Critical care time does not include any procedures which are documented elsewhere in this EMR. Medical Decision Making Medicare Attestation I Aundrea Mcdaniel MD hereby attest that the medical record entry for date of service, 02/20/16 accurately reflects signatures/notations that I made in my capacity as MD when I treated/diagnosed the above listed Medicare beneficiary. I attest that this information is true, accurate and complete to the best of my knowledge. I understand that any falsification, omission, or concealment of material fact may subject me to administrative, civil, or criminal liability. This patient warrants hospital admission for extreme of age and has a condition that cannot be treated as outpatient. Diagnostic Impression: Primary Impression: Hyperglycemia Additional Impressions: Sepsis Qualified Codes: A41.9 - Sepsis, unspecified organism UTI (urinary tract infection) due to urinary indwelling catheter Qualified Codes: T83.511D - Infection and inflammatory reaction due to indwelling urethral catheter, subsequent encounter; N39.0 - Urinary tract infection, site not specified Hyperkalemia ER Course 66-year-old female brought in for gross hematuria, hyperglycemia Vital signs including tachycardia, tachypnea and fever Consistent with sepsis Has history of frequent UTIs, indwelling Davis Presuming sepsis again today Empiric antibiotics, Zosyn, given recent previous urine susceptibility IV insulin given for elevated sugar 1 L NS bolus given - complete 30 mL per KG sepsis bundle fluid bolus and not given because I am uncertain of patient's EF Labs also significant for hyperkalemia of 5.5. No peak T waves on EKG. Was given IV insulin and fluid to reduce hyperkalemia. Albuterol not given because patient's tachycardic. Calcium gluc also not given also because no acute EKG changes. Hyperglycemia treated with insulin. Not in DKA. Telemetry admission, DR Slaughter as her PMD, at 734am EKG Diagnostic Results Rate: tachycardiac Rhythm: NSR ST Segments: no acute changes ASA given to the pt in ED: No Rhythm Strip Diag. Results EP Interpretation: yes Rate: 113 Rhythm: NSR, no PVC's, no ectopy Chest X-Ray Diagnostic Results Chest X-Ray Diagnostic Results : Chest X-Ray Ordered: Yes # of Views/Limited/Complete: 1 View Indication: Other - Sepsis EP Interpretation: Yes Interpretation: no consolidation, no effusion, no pneumothorax, other - Bibasilar atelectasis, Cardiomegaly Electronically Signed by: Dr Aundrea Mcdaniel MD Reevaluation Time: 08:20 Status: improved Reevaluation Impression Sepsis Re-examination Time: 820am VS: Temp 99F HR 110 BP 115/79 RR 22 CVS: RRR Respiratory: Lungs clear bilaterally Peripheral pulses: 2+ radial Capillary refill: <2 seconds Skin exam: warm, dry, no rash, not mottled Disposition: ADMITTED INPATIENT Condition: Serious AUNDREA MCDANIEL M.D. Feb 19, 2017 07:11
[2017-02-19] MEDS ORDERED: Piperacillin/Tazobactam 3.375 GM in NS 55 ML IVPB ONE (07:30)
[2017-02-19] MEDS ORDERED: Zosyn 3.375gm inj ONE (07:32)
[2017-02-19 07:37] LABS: BASOPHILS % (AUTO) 2.2 % (0.0-2.0); HEMATOCRIT 42.1 % (37.0-47.0); HEMOGLOBIN 12.2 G/DL (12.0-16.0); LYMPHOCYTES % (AUTO) 10.5 % (20.0-45.0); MEAN CORPUSCULAR VOLUME 85 FL (80-99); MONOCYTES % (AUTO) 5.1 % (1.0-10.0); NEUTROPHILS % (AUTO) 80.3 % (45.0-75.0); PLATELET COUNT 231 K/UL (150-450); RED BLOOD COUNT 4.96 M/UL (4.20-5.40); RED CELL DISTRIBUTION WIDTH 16.4 % (11.6-14.8); WHITE BLOOD COUNT 11.7 K/UL (4.8-10.8)
[2017-02-19 07:46] LABS: ANION GAP 2 mmol/L (5-15); BLOOD UREA NITROGEN 24 mg/dL (7-18); CALCIUM 9.9 MG/DL (8.5-10.1); CARBON DIOXIDE 37 MMOL/L (21-32); CHLORIDE 99 MMOL/L (98-107); CREATININE 0.8 MG/DL (0.55-1.30); POTASSIUM 5.5 MMOL/L (3.5-5.1); SODIUM 137 MMOL/L (136-145)
[2017-02-19] MEDS ORDERED: Acetaminophen 650mg/20.3ml GT STA (07:55)
[2017-02-19 08:00] LABS: ALANINE AMINOTRANSFERASE 33 U/L (12-78); ALBUMIN 2.5 G/DL (3.4-5.0); ALBUMIN/GLOBULIN RATIO 0.4 (1.0-2.7); ALKALINE PHOSPHATASE 153 U/L (46-116); ASPARTATE AMINO TRANSFERASE 47 U/L (15-37); BILIRUBIN,TOTAL 0.3 MG/DL (0.2-1.0); CKMB 1.4 NG/ML (0.0-3.6); CREATINE KINASE 97 U/L (26-308)
[2017-02-19] MEDS ORDERED: LOSARTAN POTASS25 M1 PO (08:49)
[2017-02-19] MEDS ORDERED: METOPROLOL TART50 M1 GT (08:49)
[2017-02-19] MEDS ORDERED: ZINC SULFATE220 M2 ORAL (08:49)
--- NOTE | 2017-02-19 12:25 | Consultation ---
History of Present Illness General Date patient seen: Feb 19, 2017 Chief Complaint: Shortness of breath aspiration pneumonia Referring physician: Dr. Slaughter Reason for Consultation: Dyspnea aspiration pneumonia Present Illness HPI 66-year-old female brought in by EMS from skilled nursing for multiple reasons: dyspnea, gross hematuria, tachypnea, elevated blood pressure and elevated glucose. History of present illness is limited because patient is nonverbal at baseline, and previous CVA with profound left sided hemiplegia. All information from review of the EMR. Chest xray done in the emergency room reveals evidence of a left basilar pleural fluid, atelectasis, and possibly consolidation when compared to a similar study of 11/04/2016. Patient was recently admitted at end of October for gross hematuria and urosepsis Patient has chronic indwelling Davis, frequent UTIs. Blood cultures from that visit were negative. I was asked to consult on this case from pulmonary point of view due to the patients respiratory symptoms and abnormal chest exam. Allergies: Coded Allergies: HYDANTOINS (Unverified Allergy, Unknown, 09/09/13) PHENYTOIN (Unverified Allergy, Unknown, 09/09/13) Medication History Scheduled Al Hydroxide/mg Hydroxide (Mag-Al Liquid), 30 ML GT Q6HR, (Reported) Ascorbic Acid* (Ascorbic Acid*), 500 MG GT DAILY, (Reported) Atorvastatin Calcium* (Atorvastatin Calcium*), 80 MG ORAL BEDTIME, (Reported) Ceftriaxone Sod (Rocephin), 1 GM IV DAILY, (Reported) Cephalexin* (Keflex*), 250 MG GT BID, (Reported) Clonidine Hcl* (Catapres*), 0.2 MG GT Q8HR, (Reported) Clopidogrel* (Clopidogrel*), 75 MG ORAL DAILY, (Reported) Enoxaparin* (Lovenox*), 40 MG SUBQ QHS, (Reported) Gabapentin* (Neurontin*), 100 MG GT BID, (Reported) Insulin Detemir (Levemir), 24 SUBQ BID, (Reported) Levetiracetam* (Levetiracetam*), 500 MG GT BID, (Reported) Losartan Potassium (Losartan Potassium), 25 MG PO DAILY, (Reported) Metoprolol Succinate (Toprol Xl), 100 MG ORAL DAILY, (Reported) Metoprolol Succinate* (Metoprolol Succinate*), 100 MG GT DAILY, (Reported) Metoprolol Tartrate* (Metoprolol Tartrate*), 50 MG GT BID, (Reported) Morphine Sulfate/Pf (Morphine 1 mg/2 ml Syringe), 1 MG IV Q4HR, (Reported) Multivitamin Liquid* (Multi-Delyn*), 5 ML GT DAILY, (Reported) Pantoprazole* (Pantoprazole*), 40 MG GT DAILY, (Reported) Sennosides (Senna), 8.6 MG GT BEDTIME, (Reported) Warfarin Sod (Coumadin*), 5 MG GT EVERY OTHER DAY, (Reported) Zinc Acetate (Galzin), 220 MG GT DAILY, (Reported) Zinc Sulfate (Zinc Sulfate), 220 MG ORAL DAILY, (Reported) Scheduled PRN Acetaminophen (Acetaminophen), 650 MG GT Q4HR PRN for Prn Headache/Temp > 101, ( Reported) Al Hydroxide/mg Hydroxide (Mag-Al Liquid), 30 ML GT Q6HR PRN for Dyspepsia, ( Reported) Albuterol Sulfate* (Albuterol Sulfate Hhn*), 3 ML INH Q6H PRN for Shortness of Breath, (Reported) Dextrose 50 % in Water (Dextrose 50%-Water Syringe), 50 ML IV NEEDED PRN for Hypoglycemia, (Reported) Ipratropium [place] 0.5MG/2.5ML (Ipratropium [place] 0.5MG/2.5ML), 0.5 MG HHN Q6H PRN for Shortness of Breath, (Reported) Lorazepam (Lorazepam), 0.5 GM MC Q4HR PRN for For Anxiety, (Reported) Morphine Sulfate (Morphine Sulfate), 2 MG IVP Q4HR PRN for For Pain, (Reported) Ondansetron* (Zofran*), 4 MG IV Q6H PRN for Nausea & Vomiting, (Reported) Polyethylene Glycol 3350* (Miralax*), 17 GM ORAL DAILY PRN for Constipation, ( Reported) Temazepam* (Restoril*), 15 MG ORAL BEDTIME PRN for Insomnia, (Reported) Zolpidem Tartrate* (Zolpidem Tartrate*), 5 MG ORAL BEDTIME PRN for Insomnia, ( Reported) Miscellaneous Medications Insulin Aspart (Novolog Flexpen), (Reported) Insulin Lispro (Humalog), 0 SUBQ, (Reported) Patient History Healthcare decision maker Resuscitation status Advanced Directive on File No Past Medical/Surgical History Past Medical/Surgical History: (1) Cellulitis (2) Catheter-associated urinary tract infection (3) Acute renal failure superimposed on chronic kidney disease (4) GERD (gastroesophageal reflux disease) (5) HTN (hypertension) (6) CVA (cerebral vascular accident) (7) Diabetes mellitus out of control (8) Hypercalcemia (9) Upper respiratory infection (10) Sepsis (11) MRSA colonization (12) Atelectasis, left (13) Leukocytosis (14) Hyperglycemia (15) Seizure (16) DVT (deep venous thrombosis) (17) Pneumonia (18) Dysphagia (19) Dementia (20) Pleural effusion (21) Hypercapnic respiratory failure (22) Adrenal adenoma Review of Systems Constitutional: Reports: malaise, weakness Respiratory: Reports: shortness of breath Genitourinary: Reports: dysuria, hematuria, incontinence Physical Exam General Appearance: mild distress Lines, tubes and drains: peripheral HEENT: normocephalic, atraumatic, PERRL Neck: non-tender, normal alignment, supple, normal inspection Respiratory/Chest: chest wall non-tender, decreased breath sounds, accessory muscle use Cardiovascular/Chest: normal peripheral pulses, normal rate, regular rhythm, no JVD Abdomen: normal bowel sounds, non tender, soft, no organomegaly, no mass Genitourinary/Rectal: normal genital exam, normal rectal exam Extremities: non-tender, normal inspection, no calf tenderness Skin Exam: normal pigmentation, warm/dry Neurologic: responsive, abnormal CN, disoriented, aphasia Last 24 Hour Vital Signs Date Time Temp Pulse Resp B/P (MAP) Pulse Ox O2 Delivery O2 Flow Rate FiO2 02/19/17 11:33 98.1 106 22 155/99 100 02/19/17 10:45 103 19 124/70 100 Nasal Cannula 2.0 02/19/17 10:02 101.0 102 22 133/66 100 Nasal Cannula 2.0 02/19/17 08:30 101.0 02/19/17 08:24 101.1 110 27 115/79 100 Nasal Cannula 2.0 02/19/17 07:10 101.3 113 32 114/79 100 Nasal Cannula 2.0 02/19/17 07:00 123 30 122/82 96 Nasal Cannula 2.0 Intake and Output 12/13/17 12/14/17 19:00 07:00 Intake Total 50 ml Output Total 100 ml Balance -50 ml Intake IV Total 50 ml Output Urine Total 100 ml Laboratory Tests Test 02/19/17 07:16 02/19/17 09:10 White Blood Count 11.7 K/UL (4.8-10.8) H Red Blood Count 4.96 M/UL (4.20-5.40) Hemoglobin 12.2 G/DL (12.0-16.0) Hematocrit 42.1 % (37.0-47.0) Mean Corpuscular Volume 85 FL (80-99) Mean Corpuscular Hemoglobin 24.6 PG (27.0-31.0) L Mean Corpuscular Hemoglobin Concent 29.0 G/DL (32.0-36.0) L Red Cell Distribution Width 16.4 % (11.6-14.8) H Platelet Count 231 K/UL (150-450) Mean Platelet Volume 7.1 FL (6.5-10.1) Neutrophils (%) (Auto) 80.3 % (45.0-75.0) H Lymphocytes (%) (Auto) 10.5 % (20.0-45.0) L Monocytes (%) (Auto) 5.1 % (1.0-10.0) Eosinophils (%) (Auto) 2.0 % (0.0-3.0) Basophils (%) (Auto) 2.2 % (0.0-2.0) H Prothrombin Time 10.1 SEC (9.30-11.50) Prothromb Time International Ratio 1.0 (0.9-1.1) Sodium Level 137 MMOL/L (136-145) Potassium Level 5.5 MMOL/L (3.5-5.1) H Chloride Level 99 MMOL/L (98-107) Carbon Dioxide Level 37 MMOL/L (21-32) H Anion Gap 2 mmol/L (5-15) L Blood Urea Nitrogen 24 mg/dL (7-18) H Creatinine 0.8 MG/DL (0.55-1.30) Estimat Glomerular Filtration Rate > 60 mL/min (>60) Glucose Level 383 MG/DL (74-106) H Lactic Acid Level 2.50 mmol/L (0.66-2.22) H 2.60 mmol/L (0.66-2.22) H Calcium Level 9.9 MG/DL (8.5-10.1) Total Bilirubin 0.3 MG/DL (0.2-1.0) Aspartate Amino Transf (AST/SGOT) 47 U/L (15-37) H Alanine Aminotransferase (ALT/SGPT) 33 U/L (12-78) Alkaline Phosphatase 153 U/L (46-116) H Total Creatine Kinase 97 U/L (26-308) Creatine Kinase MB 1.4 NG/ML (0.0-3.6) Creatine Kinase MB Relative Index 1.4 Troponin I 0.000 ng/mL (0.000-0.056) Pro-B-Type Natriuretic Peptide 499 pg/mL (0-125) H Total Protein 8.5 G/DL (6.4-8.2) H Albumin 2.5 G/DL (3.4-5.0) L Globulin 6.0 g/dL Albumin/Globulin Ratio 0.4 (1.0-2.7) L Height (Feet): 5 Height (Inches): 4.00 Weight (Pounds): 160 Assessment/Plan Status: stable, progressing Assessment/Plan Acute dyspnea Acute respiratory distress Aspiration Pnuemonia Large left pleural effusion Sepsis UTI with E coli and Enterobacter Hx of CVA with L hemiplegia Dysphagia, G tube Seizure disorder HTN Moderate pulmonary HTN Plan High risk for aspiration strict aspiration precautions Check ABG Titrate O2 to keep sat above 92 %, CXR examined US chest requested Venous Duplex Pulmonary toilet Broad spectrum empiric abx Infectious Disease requested to follow DVT prophylaxis Seizure precautions, continue Keppra BP management with BB and optimize further as needed JIMMY DAVIS Feb 19, 2017 12:25
[2017-02-19] MEDS ORDERED: Nitroglycerin Subl 0.4mg tab SL PRN (12:30)
[2017-02-19] MEDS ORDERED: Morphine Sulfate 2mg/ml Inj IVP PRN (12:30)
[2017-02-19] MEDS ORDERED: Miralax 17gm pkt ORAL PRN (12:30)
[2017-02-19] MEDS: Albuterol/Ipratropium 3ml neb HHN PRN (13:36)
[2017-02-19 15:08] LABS: APPEARANCE,URINE CLOUDY; BILIRUBIN, URINE NEGATIVE (NEGATIVE); COLOR,URINE PALE YELLOW; GLUCOSE, URINE (UA) 4+ (NEGATIVE); KETONES,URINE NEGATIVE (NEGATIVE); LEUKOCYTE ESTERASE ,URINE 3+ (NEGATIVE); NITRITE,URINE POSITIVE (NEGATIVE); PH,URINE 8 (4.5-8.0); PROTEIN,URINE 3+ (NEGATIVE); UROBILINOGEN,URINE NORMAL MG/DL (0.0-1.0)
[2017-02-19] MEDS: Cefepime HCl 2 GM in D5W 55 ML IV SCH (15:23)
[2017-02-19] MEDS: Metoprolol Tartrate 50mg tab GT SCH ×2 (15:23→22:20)
[2017-02-19] MEDS: cloNIDine 0.2mg Tab GT SCH ×2 (15:23→22:20)
[2017-02-19] MEDS: Vancomycin 1250mg/D5W 250ml IVPB SCH (16:30)
[2017-02-19] MEDS: NovoLOG Insulin Flexpen SUBQ SCH ×2 (16:44→22:23)
--- NOTE | 2017-02-19 17:15 | Consultation ---
DATE OF CONSULTATION: 02/19/2017 INFECTIOUS DISEASE CONSULTATION CONSULTING PHYSICIAN: Dillon Terrell M.D. PRIMARY ATTENDING PHYSICIAN: Los Slaughter D.O. REASON FOR CONSULT: Sepsis and urinary tract infection. HISTORY OF PRESENT ILLNESS: This is a 66-year-old female admitted today from a longterm facility. She has multiple medical problems including hematuria, tachycardia, and increasing blood pressure and glucose. In the hospital, the patient was found to have a fever of 101.3, heart rate of 123, and respiratory rate of 32. She cannot provide any history. PAST MEDICAL HISTORY: Significant for CVA x2, the first time in 2004 and the second time in 2016. The patient had weakness in the left side of the body, status post G-tube, seizure disorder, diabetes mellitus, hypertension, and chronic obstructive pulmonary disease. The patient has indwelling urinary catheter and pressure ulcer. MEDICATIONS: She is started on cefepime and got a dose of Zosyn in the ER. She is started on vancomycin, Tylenol, Catapres, DuoNeb inhaler, gabapentin, heparin, insulin, Keppra, metoprolol, morphine, and Zofran. ALLERGIES: She is allergic to phenytoin and hydantoins. SOCIAL HISTORY: senior care resident. Single. Has daughter, who is present at the bedside. No history of alcohol, drug abuse, or smoking. FAMILY HISTORY: Significant for diabetes, hypertension, and history of stroke. REVIEW OF SYSTEMS: Unobtainable. PHYSICAL EXAMINATION: VITAL SIGNS: Temperature 98.1, pulse 106, and blood pressure 155/99. GENERAL APPEARANCE: Seems to have respiratory distress, breathing fast. HEAD AND NECK: Mucous membranes are moist. [place] conjunctiva. Poor dentition. HEART: Tachycardic. LUNGS: Tachypneic, but clear. Getting O2 by nasal cannula. ABDOMEN: Distended, soft, and nontender. EXTREMITY: No edema. She has a bone deformity below the left knee. SKIN: She has stage III sacral ulcer. LABORATORY DATA: WBC 11.7, hemoglobin 12.2, hematocrit 42.1, and platelets is 231,000. Sodium 137, potassium 5.5, chloride 97, bicarbonate 37, BUN 24, creatinine 0.8, and glucose 283. Lactic acid 2.6. AST is high at 47, ALT is 33, and alkaline phosphatase is 153. Albumin is 2.5. Chest x-ray was negative. Cultures are pending. IMPRESSION: Sepsis. The patient has fever, leukocytosis, tachypnea, and tachycardia. Source of infection may be urinary tract infection. The patient has chronic indwelling urinary catheter. She has diabetes mellitus that is uncontrolled. She has hypertension and seizure disorder. She had hyperkalemia at the time of admission. She has stage III sacral ulcer. RECOMMENDATIONS: We will continue with cefepime and vancomycin. We will order an x-ray of the left knee for bone deformity there. At the end of my exam, I thank, Dr. Los Slaughter, for involving me in the care of this patient. Dillon Terrell M.D. DR: PARMJIT JOB#: [id number] CC:
[2017-02-19] MEDS: Gabapentin 300 MG/6 ML Soln GT SCH (17:21)
--- NOTE | 2017-02-19 20:46 | Cardiology Progress Note ---
Assessment/Plan Assessment/Plan The patient is seen and examined, full consult note will be dictated. Objective Last 24 Hour Vital Signs Date Time Temp Pulse Resp B/P (MAP) Pulse Ox O2 Delivery O2 Flow Rate FiO2 02/19/17 20:20 Nasal Cannula 2.0 28 02/19/17 20:19 94 Nasal Cannula 2.0 28 02/19/17 20:19 127 25 Nasal Cannula 2.0 28 02/19/17 20:10 101.7 127 25 115/83 97 Nasal Cannula 2.0 02/19/17 18:27 118 18 125/78 98 Nasal Cannula 2.0 02/19/17 16:53 103 02/19/17 15:33 99.3 120 26 150/109 98 02/19/17 15:23 117 155/99 02/19/17 15:23 155/99 02/19/17 13:46 117 28 99 Nasal Cannula 2.0 28 02/19/17 13:43 118 26 Nasal Cannula 2.0 28 02/19/17 13:36 118 24 99 Nasal Cannula 2.0 24 02/19/17 11:33 98.1 106 22 155/99 100 02/19/17 11:23 105 02/19/17 10:45 103 19 124/70 100 Nasal Cannula 2.0 02/19/17 10:02 101.0 102 22 133/66 100 Nasal Cannula 2.0 02/19/17 08:30 101.0 02/19/17 08:24 101.1 110 27 115/79 100 Nasal Cannula 2.0 02/19/17 07:10 101.3 113 32 114/79 100 Nasal Cannula 2.0 02/19/17 07:00 123 30 122/82 96 Nasal Cannula 2.0 Intake and Output 02/19/17 02/20/17 19:00 07:00 Intake Total 1173.334 ml Output Total 800 ml Balance 373.334 ml Intake Free Water 300 ml IV Total 493.334 ml Tube Feeding 380 ml Output Urine Total 800 ml Laboratory Tests Test 02/19/17 07:16 02/19/17 09:10 02/19/17 10:00 White Blood Count 11.7 K/UL (4.8-10.8) H Red Blood Count 4.96 M/UL (4.20-5.40) Hemoglobin 12.2 G/DL (12.0-16.0) Hematocrit 42.1 % (37.0-47.0) Mean Corpuscular Volume 85 FL (80-99) Mean Corpuscular Hemoglobin 24.6 PG (27.0-31.0) L Mean Corpuscular Hemoglobin Concent 29.0 G/DL (32.0-36.0) L Red Cell Distribution Width 16.4 % (11.6-14.8) H Platelet Count 231 K/UL (150-450) Mean Platelet Volume 7.1 FL (6.5-10.1) Neutrophils (%) (Auto) 80.3 % (45.0-75.0) H Lymphocytes (%) (Auto) 10.5 % (20.0-45.0) L Monocytes (%) (Auto) 5.1 % (1.0-10.0) Eosinophils (%) (Auto) 2.0 % (0.0-3.0) Basophils (%) (Auto) 2.2 % (0.0-2.0) H Prothrombin Time 10.1 SEC (9.30-11.50) Prothromb Time International Ratio 1.0 (0.9-1.1) Sodium Level 137 MMOL/L (136-145) Potassium Level 5.5 MMOL/L (3.5-5.1) H Chloride Level 99 MMOL/L (98-107) Carbon Dioxide Level 37 MMOL/L (21-32) H Anion Gap 2 mmol/L (5-15) L Blood Urea Nitrogen 24 mg/dL (7-18) H Creatinine 0.8 MG/DL (0.55-1.30) Estimat Glomerular Filtration Rate > 60 mL/min (>60) Glucose Level 383 MG/DL (74-106) H Lactic Acid Level 2.50 mmol/L (0.66-2.22) H 2.60 mmol/L (0.66-2.22) H Calcium Level 9.9 MG/DL (8.5-10.1) Total Bilirubin 0.3 MG/DL (0.2-1.0) Aspartate Amino Transf (AST/SGOT) 47 U/L (15-37) H Alanine Aminotransferase (ALT/SGPT) 33 U/L (12-78) Alkaline Phosphatase 153 U/L (46-116) H Total Creatine Kinase 97 U/L (26-308) Creatine Kinase MB 1.4 NG/ML (0.0-3.6) Creatine Kinase MB Relative Index 1.4 Troponin I 0.000 ng/mL (0.000-0.056) Pro-B-Type Natriuretic Peptide 499 pg/mL (0-125) H Total Protein 8.5 G/DL (6.4-8.2) H Albumin 2.5 G/DL (3.4-5.0) L Globulin 6.0 g/dL Albumin/Globulin Ratio 0.4 (1.0-2.7) L Urine Color Pale yellow Urine Appearance Cloudy Urine pH 8 (4.5-8.0) Urine Specific [place] 1.010 (1.005-1.035) Urine Protein 3+ (NEGATIVE) H Urine Glucose (UA) 4+ (NEGATIVE) H Urine Ketones Negative (NEGATIVE) Urine Occult Blood 5+ (NEGATIVE) H Urine Nitrite Positive (NEGATIVE) H Urine Bilirubin Negative (NEGATIVE) Urine Urobilinogen Normal MG/DL (0.0-1.0) Urine Leukocyte Esterase 3+ (NEGATIVE) H Urine RBC 20-30 /HPF (0 - 2) H Urine WBC 5-10 /HPF (0 - 2) H Urine Squamous Epithelial Cells Few /LPF (NONE/OCC) Urine Amorphous Sediment Few /LPF (NONE) H Urine Bacteria Few /HPF (NONE) DESMOND GORDON Feb 19, 2017 20:46
[2017-02-19] MEDS: levETIRAcetam 500mg/5ml Liquid GT SCH (22:19)
[2017-02-19] MEDS: Heparin 5000 units/ml inj SUBQ SCH (22:22)
--- NOTE | 2017-02-20 00:16 | History and Physical Report ---
DATE OF ADMISSION: 02/19/2017 TIME SEEN: At 2 p.m. ATTENDING PHYSICIAN: Los Slaughter D.O. CONSULTANTS: 1. Bailee Hoang M.D. 2. Dr. Gonzalez. 3. Sergio Baumann M.D. 4. Gil Navarro M.D. 5. Alec Lopez M.D. 6. Tom Hurt M.D. CHIEF COMPLAINT: Altered mental status, UTI, sepsis, and hyperglycemia. BRIEF HISTORY: This is a 66-year-old female from [facility], presented with above-mentioned diagnoses. Currently on O2 NC, slightly confused in bed, nonverbal. PAST MEDICAL HISTORY: Include CVA, GERD, acute renal failure, hypertension, and diabetes. PAST SURGICAL HISTORY: G-tube. MEDICATIONS: Include Keppra, heparin, Neurontin, NovoLog, Catapres, vancomycin, cefepime, albuterol, and morphine. ALLERGIES: Phenytoin and hydantoin. SOCIAL HISTORY: No smoking. No alcohol. No intravenous drug abuse. FAMILY HISTORY: Noncontributory. REVIEW OF SYSTEMS: Unavailable. PHYSICAL EXAMINATION: GENERAL: O2 NC/sleeping in bed, nonverbal. VITAL SIGNS: Show temperature is 98, pulse 117, respirations 28, and blood pressure 155/99. CARDIOVASCULAR: No murmur. LUNGS: Poor exchange. ABDOMEN: Bowel sounds positive. Nontender. Nondistended. EXTREMITIES: No cyanosis, clubbing, or edema. NEUROLOGIC: The patient moves all extremities, but does not follow commands. LABORATORY DATA: Labs at this time show white count 11.7, otherwise, CBC is normal. BMP shows potassium 5.5, BUN and creatinine 24 and 0.8, and glucose 383. Troponin 0.00. INR is 1.0. ASSESSMENT: 1. Urinary tract infection. 2. Sepsis. 3. Cerebrovascular accident. 4. Gastroesophageal reflux disease. 5. Acute renal failure. 6. Hyperglycemia. 7. Diabetes. 8. Altered mental status. 9. Hypertension. PLAN: 1. Continue previous medications. 2. OT, PT, and dietary evaluation. 3. O2 and pulmonary treatment. 4. CBC and BMP in the morning. 5. Antibiotics per Infectious Diseases. 6. Dr. Hoang, Dr. Gonzalez, Dr. Baumann, Dr. Navarro, Dr. Lopez, and Dr. Hurt to consult. 7. We will continue to follow this patient medically. Los Slaughter D.O. DR: ROSANGELA JOB#: [id number] CC:
[2017-02-20 00:17] VITALS: BP 80/55
[2017-02-20] MEDS ORDERED: Vancomycin 1 GM in D5W 275 ML IV SCH (00:30)
[2017-02-20 04:00] VITALS: BP 119/73
--- NOTE | 2017-02-20 04:00 | Consultation ---
DATE OF CONSULTATION: 02/19/2017 CARDIOLOGY CONSULTATION CONSULTING PHYSICIAN: Gil Navarro M.D. ATTENDING/REFERRING PHYSICIAN: Los Slaughter D.O. REASON FOR CONSULTATION: Management of shortness of breath. HISTORY OF PRESENT ILLNESS: The patient is a very unfortunate 66-year-old female, who was brought in by EMS from [facility] for complaints of dyspnea. The patient is not providing any history and nonverbal at baseline, this report is prepared by using the old record. She had suffered from cerebrovascular accident in the past. In the nursing facility, she was found to also have gross hematuria as well as elevated glucose and also she was hypertensive. Upon arrival to the emergency department, vital signs showed blood pressure 122/82 with heart rate of 123, respiratory rate of 30, and she was saturating at 96% on 2 L oxygen. An attempt to obtain the images of x-ray was made, however, there was no evidence of chest x-ray on the computer. In the emergency department, she received 1 liter of normal saline bolus as well as IV insulin due to hyperkalemia. She was also started on Zosyn as empiric therapy for possible urinary tract infection. She was admitted to telemetry for further evaluation and management. She is considered to be full code. Initial 12-lead electrocardiogram in the emergency department was significant for sinus tachycardia, rate of 115, but there was no ST or T-wave abnormalities. PAST MEDICAL HISTORY: Including UTI, history of hypertension, history of COPD, history of diabetes mellitus, history of dysphagia, status post G-tube placement, history of intracranial hemorrhage, history of CVA with left hemiparesis, history of seizures, history of dementia, and history of brain shunt. PAST SURGICAL HISTORY: Status post PEG placement. MEDICATIONS: List of medications in the nursing facility includin. Acetaminophen 650 mg G-tube q.4 hours p.r.n. temperature above 101. 2. Mag-AL liquid 30 mL G-tube q.6 hours. 3. Albuterol 3 mL inhaler q.6 hours p.r.n. shortness of breath. 4. Ascorbic acid 500 mg G-tube daily. 5. Atorvastatin 80 mg G-tube nightly. 6. Rocephin 1 g IV daily for 10 days. 7. Keflex 250 mg G-tube twice daily for 4 days. 8. Catapres 0.2 mg G-tube q.8 hours. 9. Clopidogrel 75 mg G-tube daily. 10. Lovenox 40 mg subcutaneously daily. 11. Neurontin 100 mg G-tube twice daily. 12. Insulin aspart as needed. 13. Levemir insulin units subcutaneous twice daily. 14. Atrovent 0.5 mg HHN q.6 hours p.r.n. shortness of breath. 15. Keppra 500 mg G-tube twice daily. 16. Lorazepam 0.5 mg q.4 hours p.r.n. anxiety. 17. Losartan 25 mg G-tube daily. 18. Metoprolol 100 mg G-tube daily. 19. Morphine sulfate 2 mg IV push q.4 hours p.r.n. pain. 20. Multivitamin 5 mL G-tube daily. 21. Zofran 4 mg IV q.6 hours p.r.n. nausea, vomiting. 22. Pantoprazole 40 mg G-tube daily. 23. MiraLAX 17 g G-tube daily p.r.n. constipation. 24. Senna 8.6 mg G-tube nightly. 25. Restoril 15 mg nightly G-tube p.r.n. insomnia. 26. Warfarin 5 mg G-tube every other day, pharmacy to dose. 27. 220 mg G-tube daily. 28. Zolpidem 5 mg G-tube nightly p.r.n. insomnia. ALLERGIES: Phenytoin. FAMILY HISTORY: Cannot be obtained at this time due to the patient being nonverbal. SOCIAL HISTORY: There is no current use of tobacco, alcohol, or illicit drug use. REVIEW OF SYSTEMS: Cannot be obtained as the patient is nonverbal. PHYSICAL EXAMINATION: VITAL SIGNS: Blood pressure was 122/82, pulse of 123, respirations of 30, and O2 saturation 96% on 2 L oxygen. GENERAL: The patient is a very unfortunate 66-year-old with head dropped and tilted, chronically ill-looking with contraction over the left upper and lower extremities. HEENT: Atraumatic and normocephalic. Anicteric. Conjunctival pallor. Pupils are equal, round, and reactive to light and accommodation. NECK: Cannot assess JVP as she is in sitting position. No carotid bruit. CARDIOVASCULAR SYSTEM: Normal S1, S2. Tachycardic. No murmurs, gallops, or rubs. LUNGS: Clear to auscultation bilaterally. Poor inspiratory effort. ABDOMEN: Soft, nontender, and nondistended. No hepatosplenomegaly. Presence of a G-tube. EXTREMITIES: No evidence of edema, clubbing, or cyanosis. LABORATORY AND DIAGNOSTIC DATA: INR was 1.0. Chemistry shows sodium 137, potassium 5.5, chloride 99, bicarbonate 37, BUN of 24, creatinine 0.8, glucose 383, and calcium 9.9. Troponin I is zero. ProBNP was 499. WBC 11.7, hemoglobin of 12.2, hematocrit 42.1, and platelet count 231,000. INR 1.0. Chest x-ray not available. Chest x-ray from 11/04/2016 shows poor inspiratory effort, cardiomegaly with no pulmonary edema. A 2D echocardiography from 09/07/2016 showed normal LV systolic function with LVEF of about 60% to 65% with grade 1 LV diastolic dysfunction and moderate TR with RVSP of 39 mmHg consistent with mild pulmonary hypertension and mild LA. ASSESSMENT AND PLAN: The patient is a very unfortunate 66-year-old lady who is seen in cardiology consultation. 1. Sinus tachycardia, likely secondary to underlying infection/sepsis. Treatment of this condition is aggressive hydration. I do not recommend any atrioventricular mckenzie agents at this point. 2. Tachypnea/dyspnea. Arterial blood gas was drawn. Pulmonary to follow up. The patient may require repeat of chest x-ray. Pulmonary consultation is recommended. 3. We would obtain 2D echocardiography for assessment of left ventricular systolic and diastolic function for better hemodynamic management. 4. History of prior cerebrovascular accident with left hemiparalysis. It is unclear whether the patient was having atrial fibrillation or flutter in the past as there is presence of warfarin as one of the medication in her list. There is no documentation about atrial fibrillation in the past. 5. At this time, warfarin has been placed on hold. Of note, the patient's INR is 1.0 and most likely the patient has not been taking warfarin in the nursing facility. I would like to thank Dr. Slaughter for the courtesy of this consultation. Gil Navarro M.D. DR: GAGE JOB#: [id number] CC:
[2017-02-20] MEDS: Albuterol/Ipratropium 3ml neb HHN PRN ×3 (04:37→23:28)
--- NOTE | 2017-02-20 05:01 | Diagnostic Imaging Report ---
Indication: Pain Technique: 3 views of the left knee Comparison: None Findings: Ossific density adjacent to the medial epicondyle may reflect old ligamentous injury. No acute fractures or dislocations. The joint spaces are preserved. No suprapatellar effusion. Impression: No acute process
--- NOTE | 2017-02-20 05:01 | Diagnostic Imaging Report ---
Indication: Shortness of breath Technique: One view of the chest Comparison: 11/04/2016 Findings: Suboptimal inspiration. There is some right perihilar atelectasis. There is obscuration of left hemidiaphragm, likely combination of pleural fluid and atelectasis, possibly some consolidation as well. The heart is borderline enlarged. The aorta is tortuous and ectatic. Findings are similar to the previous study Impression: Left basilar pleural fluid, atelectasis, and possibly consolidation, similar to prior study of 11/04/2016 Right perihilar atelectasis
[2017-02-20] MEDS: cloNIDine 0.2mg Tab GT SCH ×3 (06:00→22:25)
[2017-02-20] MEDS: NovoLOG Insulin Flexpen SUBQ SCH ×4 (07:03→22:38)
[2017-02-20 07:31] LABS: BASOPHILS % (AUTO) 0.5 % (0.0-2.0); EOSINOPHILS % (AUTO) 1.3 % (0.0-3.0); HEMATOCRIT 32.4 % (37.0-47.0); HEMOGLOBIN 9.7 G/DL (12.0-16.0); LYMPHOCYTES % (AUTO) 4.6 % (20.0-45.0); MEAN CORPUSCULAR VOLUME 86 FL (80-99); MONOCYTES % (AUTO) 10.5 % (1.0-10.0); NEUTROPHILS % (AUTO) 83.2 % (45.0-75.0); PLATELET COUNT 214 K/UL (150-450); RED BLOOD COUNT 3.79 M/UL (4.20-5.40); RED CELL DISTRIBUTION WIDTH 16.6 % (11.6-14.8); WHITE BLOOD COUNT 9.5 K/UL (4.8-10.8)
[2017-02-20 07:53] LABS: ALANINE AMINOTRANSFERASE 34 U/L (12-78); ALBUMIN 2.1 G/DL (3.4-5.0); ALBUMIN/GLOBULIN RATIO 0.4 (1.0-2.7); ALKALINE PHOSPHATASE 118 U/L (46-116); ANION GAP 2 mmol/L (5-15); ASPARTATE AMINO TRANSFERASE 29 U/L (15-37); BILIRUBIN,TOTAL 0.2 MG/DL (0.2-1.0); BLOOD UREA NITROGEN 26 mg/dL (7-18); CALCIUM 9.1 MG/DL (8.5-10.1); CARBON DIOXIDE 34 MMOL/L (21-32); CHLORIDE 107 MMOL/L (98-107); POTASSIUM 4.3 MMOL/L (3.5-5.1); SODIUM 143 MMOL/L (136-145)
[2017-02-20 08:47] VITALS: BP 104/68
--- NOTE | 2017-02-20 09:14 | General Progress Note ---
Progress Note Progress Note [id number] full note dictated ZEINA ZENDEJAS Feb 20, 2017 09:14
--- NOTE | 2017-02-20 09:27 | Infectious Diseases Prog Note ---
Assessment/Plan Assessment/Plan A: Sepsis UTI Pneumonia Uncontrolled DM s/p CVA P: Continue Vancomycin & Cefepime will f/u cultures Subjective ROS Limited/Unobtainable: Yes Constitutional: Reports: fever, other - last night Allergies: Coded Allergies: HYDANTOINS (Unverified Allergy, Unknown, 09/09/13) PHENYTOIN (Unverified Allergy, Unknown, 09/09/13) Objective Vital Signs Last 24 Hour Vital Signs Date Time Temp Pulse Resp B/P (MAP) Pulse Ox O2 Delivery O2 Flow Rate FiO2 02/20/17 08:47 97.3 96 20 104/68 100 02/20/17 08:02 94 Nasal Cannula 2.0 28 02/20/17 08:02 Nasal Cannula 2.0 28 02/20/17 08:01 115 24 Nasal Cannula 2.0 28 02/20/17 06:00 119/73 02/20/17 04:49 106 24 98 Nasal Cannula 2.0 28 02/20/17 04:35 101 26 92 Nasal Cannula 2.0 02/20/17 04:00 97 02/20/17 04:00 97.0 99 24 119/73 85 Nasal Cannula 2.0 02/20/17 00:17 99.1 101 24 80/55 98 Nasal Cannula 2.0 02/20/17 00:00 97 02/19/17 23:20 101.7 02/19/17 22:20 130 115/83 02/19/17 22:20 115/83 02/19/17 20:20 Nasal Cannula 2.0 28 02/19/17 20:19 94 Nasal Cannula 2.0 02/19/17 20:19 130 25 Nasal Cannula 2.0 02/19/17 20:10 101.7 127 25 115/83 97 Nasal Cannula 2.0 02/19/17 20:00 138 02/19/17 18:27 118 18 125/78 98 Nasal Cannula 2.0 02/19/17 16:53 103 02/19/17 15:33 99.3 120 26 150/109 98 02/19/17 15:23 117 155/99 02/19/17 15:23 155/99 02/19/17 13:46 117 28 99 Nasal Cannula 2.0 28 02/19/17 13:43 118 26 Nasal Cannula 2.0 02/19/17 13:36 118 24 99 Nasal Cannula 2.0 24 02/19/17 11:33 98.1 106 22 155/99 100 02/19/17 11:23 105 02/19/17 10:45 103 19 124/70 100 Nasal Cannula 2.0 02/19/17 10:02 101.0 102 22 133/66 100 Nasal Cannula 2.0 Height (Feet): 5 Height (Inches): 4.00 Weight (Pounds): 160 General Appearance: no acute distress HEENT: mucous membranes moist Respiratory/Chest: lungs clear Cardiovascular: normal rate Abdomen: soft, non tender, other - G feeding Extremities: no edema Neurologic/Psychiatric: aphasia, other - left heiplegia Microbiology Date/Time Source Procedure Growth Status 02/19/17 10:00 Indwelling Cath Urine Culture - Preliminary Resulted Laboratory Tests Test 02/19/17 10:00 02/19/17 20:28 02/20/17 06:05 Urine Color Pale yellow Urine Appearance Cloudy Urine pH 8 (4.5-8.0) Urine Specific [place] 1.010 (1.005-1.035) Urine Protein 3+ (NEGATIVE) H Urine Glucose (UA) 4+ (NEGATIVE) H Urine Ketones Negative (NEGATIVE) Urine Occult Blood 5+ (NEGATIVE) H Urine Nitrite Positive (NEGATIVE) H Urine Bilirubin Negative (NEGATIVE) Urine Urobilinogen Normal MG/DL (0.0-1.0) Urine Leukocyte Esterase 3+ (NEGATIVE) H Urine RBC 20-30 /HPF (0 - 2) H Urine WBC 5-10 /HPF (0 - 2) H Urine Squamous Epithelial Cells Few /LPF (NONE/OCC) Urine Amorphous Sediment Few /LPF (NONE) H Urine Bacteria Few /HPF (NONE) Arterial Blood pH 7.410 (7.350-7.450) Arterial Blood Partial Pressure CO2 54.9 mmHg (35.0-45.0) H Arterial Blood Partial Pressure O2 76.3 mmHg (75.0-100.0) Arterial Blood HCO3 34.0 mmol/L (22.0-26.0) H Arterial Blood Oxygen Saturation 95.2 % (92.0-98.0) Arterial Blood Base Excess 7.9 Justo Test Positive White Blood Count 9.5 K/UL (4.8-10.8) Red Blood Count 3.79 M/UL (4.20-5.40) L Hemoglobin 9.7 G/DL (12.0-16.0) L Hematocrit 32.4 % (37.0-47.0) L Mean Corpuscular Volume 86 FL (80-99) Mean Corpuscular Hemoglobin 25.7 PG (27.0-31.0) L Mean Corpuscular Hemoglobin Concent 30.0 G/DL (32.0-36.0) L Red Cell Distribution Width 16.6 % (11.6-14.8) H Platelet Count 214 K/UL (150-450) Mean Platelet Volume 8.8 FL (6.5-10.1) Neutrophils (%) (Auto) 83.2 % (45.0-75.0) H Lymphocytes (%) (Auto) 4.6 % (20.0-45.0) L Monocytes (%) (Auto) 10.5 % (1.0-10.0) H Eosinophils (%) (Auto) 1.3 % (0.0-3.0) Basophils (%) (Auto) 0.5 % (0.0-2.0) Sodium Level 143 MMOL/L (136-145) Potassium Level 4.3 MMOL/L (3.5-5.1) Chloride Level 107 MMOL/L (98-107) Carbon Dioxide Level 34 MMOL/L (21-32) H Anion Gap 2 mmol/L (5-15) L Blood Urea Nitrogen 26 mg/dL (7-18) H Creatinine 1.0 MG/DL (0.55-1.30) Estimat Glomerular Filtration Rate > 60 mL/min (>60) Glucose Level 374 MG/DL (74-106) H Calcium Level 9.1 MG/DL (8.5-10.1) Total Bilirubin 0.2 MG/DL (0.2-1.0) Aspartate Amino Transf (AST/SGOT) 29 U/L (15-37) Alanine Aminotransferase (ALT/SGPT) 34 U/L (12-78) Alkaline Phosphatase 118 U/L (46-116) H Total Protein 6.9 G/DL (6.4-8.2) Albumin 2.1 G/DL (3.4-5.0) L Globulin 4.8 g/dL Albumin/Globulin Ratio 0.4 (1.0-2.7) L Current Medications Medications (Trade) Dose Ordered Sig/Chinyere Route PRN Reason Start Time Stop Time Status Last Admin Dose Admin Acetaminophen (Tylenol) 650 mg Q4H PRN ORAL fever (temp >100.5F) 02/19/17 12:30 03/21/17 12:29 02/19/17 22:21 Albuterol/ Ipratropium (Albuterol/ Ipratropium) 3 ml Q4H PRN HHN Shortness of Breath 02/19/17 12:30 02/24/17 12:29 02/20/17 04:37 Cefepime HCl 2 gm/ Dextrose 55 ml @ 110 mls/hr Q24H IV 02/19/17 13:00 02/26/17 12:59 02/19/17 15:23 Clonidine HCl (Catapres) 0.2 mg Q8HR GT 02/19/17 14:00 03/21/17 13:59 02/19/17 22:20 Dextrose (Dextrose 50%) STAT PRN IV Hypoglycemia 02/19/17 12:30 03/21/17 12:29 Gabapentin (Neurontin) 100 mg BID GT 02/19/17 18:00 03/21/17 17:59 02/19/17 17:21 Heparin Sodium (Porcine) (Heparin 5000 units/ml) 5,000 units EVERY 12 HOURS SUBQ 02/19/17 21:00 03/21/17 20:59 02/19/17 22:22 Insulin Aspart (NovoLOG) BEFORE MEALS AND HS SUBQ 02/19/17 16:30 03/21/17 16:29 02/20/17 07:03 Levetiracetam (Keppra) 500 mg Q12HR GT 02/19/17 21:00 03/21/17 20:59 02/19/17 22:19 Metoprolol Tartrate (Lopressor) 50 mg Q12HR GT 02/19/17 13:00 03/21/17 12:59 02/19/17 22:20 Morphine Sulfate (Morphine Sulfate) 2 mg Q4H PRN IVP Moderate Pain (Pain Scale 4-6) 02/19/17 12:30 02/26/17 12:29 Nitroglycerin (Ntg) 0.4 mg Q5M PRN SL Prn Chest Pain 02/19/17 12:30 03/21/17 12:29 Ondansetron HCl (Zofran) 4 mg Q6H PRN IVP Nausea & Vomiting 02/19/17 12:30 03/21/17 12:29 Polyethylene Glycol (Miralax) 17 gm DAILYPRN PRN ORAL Constipation 02/19/17 12:30 03/21/17 12:29 Temazepam (Restoril) 15 mg HSPRN PRN ORAL Insomnia 02/19/17 12:30 02/26/17 12:29 Vancomycin HCl (Vanco rx to dose) 1 ea DAILY PRN MISC per RX protocol 02/19/17 12:45 03/21/17 12:44 Vancomycin HCl/ Dextrose 250 ml @ 166.667 mls/hr Q24H IVPB 02/19/17 14:00 02/24/17 13:59 02/19/17 16:30 DENEEN BRENNAN Feb 20, 2017 09:27
[2017-02-20] MEDS: Metoprolol Tartrate 50mg tab GT SCH ×2 (10:20→22:26)
[2017-02-20] MEDS: Heparin 5000 units/ml inj SUBQ SCH ×2 (10:20→21:00)
[2017-02-20] MEDS: levETIRAcetam 500mg/5ml Liquid GT SCH ×2 (10:20→22:26)
--- NOTE | 2017-02-20 12:12 | Neurology Progress Note ---
Interim History Interim History ROS Limited/Unobtainable: Yes Objective Physical Exam Last Vital Signs Date Time Temp Pulse Resp B/P (MAP) Pulse Ox O2 Delivery O2 Flow Rate FiO2 02/20/17 11:38 97 26 99 Nasal Cannula 2.0 28 02/20/17 10:20 104/68 02/20/17 08:47 97.3 Laboratory Tests Test 02/19/17 20:28 02/20/17 06:05 Arterial Blood pH 7.410 (7.350-7.450) Arterial Blood Partial Pressure CO2 54.9 mmHg (35.0-45.0) H Arterial Blood Partial Pressure O2 76.3 mmHg (75.0-100.0) Arterial Blood HCO3 34.0 mmol/L (22.0-26.0) H Arterial Blood Oxygen Saturation 95.2 % (92.0-98.0) Arterial Blood Base Excess 7.9 Justo Test Positive White Blood Count 9.5 K/UL (4.8-10.8) Red Blood Count 3.79 M/UL (4.20-5.40) L Hemoglobin 9.7 G/DL (12.0-16.0) L Hematocrit 32.4 % (37.0-47.0) L Mean Corpuscular Volume 86 FL (80-99) Mean Corpuscular Hemoglobin 25.7 PG (27.0-31.0) L Mean Corpuscular Hemoglobin Concent 30.0 G/DL (32.0-36.0) L Red Cell Distribution Width 16.6 % (11.6-14.8) H Platelet Count 214 K/UL (150-450) Mean Platelet Volume 8.8 FL (6.5-10.1) Neutrophils (%) (Auto) 83.2 % (45.0-75.0) H Lymphocytes (%) (Auto) 4.6 % (20.0-45.0) L Monocytes (%) (Auto) 10.5 % (1.0-10.0) H Eosinophils (%) (Auto) 1.3 % (0.0-3.0) Basophils (%) (Auto) 0.5 % (0.0-2.0) Sodium Level 143 MMOL/L (136-145) Potassium Level 4.3 MMOL/L (3.5-5.1) Chloride Level 107 MMOL/L (98-107) Carbon Dioxide Level 34 MMOL/L (21-32) H Anion Gap 2 mmol/L (5-15) L Blood Urea Nitrogen 26 mg/dL (7-18) H Creatinine 1.0 MG/DL (0.55-1.30) Estimat Glomerular Filtration Rate > 60 mL/min (>60) Glucose Level 374 MG/DL (74-106) H Calcium Level 9.1 MG/DL (8.5-10.1) Total Bilirubin 0.2 MG/DL (0.2-1.0) Aspartate Amino Transf (AST/SGOT) 29 U/L (15-37) Alanine Aminotransferase (ALT/SGPT) 34 U/L (12-78) Alkaline Phosphatase 118 U/L (46-116) H Total Protein 6.9 G/DL (6.4-8.2) Albumin 2.1 G/DL (3.4-5.0) L Globulin 4.8 g/dL Albumin/Globulin Ratio 0.4 (1.0-2.7) L Impression/Recommendations Recommendations #[id number] AAMIR CRENSHAW Feb 20, 2017 12:12
[2017-02-20] MEDS: Gabapentin 300 MG/6 ML Soln GT SCH ×2 (12:27→18:04)
[2017-02-20 12:35] VITALS: BP 120/70
--- NOTE | 2017-02-20 13:06 | Pulmonology Progress Note ---
Assessment/Plan Assessment/Plan Acute dyspnea Acute respiratory distress Aspiration Pnuemonia Large left pleural effusion Sepsis UTI with E coli and Enterobacter Hx of CVA with L hemiplegia Dysphagia, G tube Seizure disorder HTN Moderate pulmonary HTN Plan High risk for aspiration strict aspiration precautions Check ABG Titrate O2 to keep sat above 92 %, CXR examined US chest requested Venous Duplex Pulmonary toilet Broad spectrum empiric abx Infectious Disease requested to follow DVT prophylaxis Seizure precautions, continue Keppra BP management with BB and optimize further as needed Subjective ROS Limited/Unobtainable: No Respiratory: Reports: productive cough, shortness of breath Allergies: Coded Allergies: HYDANTOINS (Unverified Allergy, Unknown, 09/09/13) PHENYTOIN (Unverified Allergy, Unknown, 09/09/13) Objective Last 24 Hour Vital Signs Date Time Temp Pulse Resp B/P (MAP) Pulse Ox O2 Delivery O2 Flow Rate FiO2 02/20/17 12:35 98.4 82 20 120/70 97 02/20/17 12:27 104/68 02/20/17 11:38 97 26 99 Nasal Cannula 2.0 28 02/20/17 11:31 106 22 96 Nasal Cannula 2.0 28 02/20/17 10:20 96 104/68 02/20/17 08:47 97.3 96 20 104/68 100 02/20/17 08:02 94 Nasal Cannula 2.0 02/20/17 08:02 Nasal Cannula 2.0 28 02/20/17 08:01 115 24 Nasal Cannula 2.0 28 02/20/17 06:00 119/73 02/20/17 04:49 106 24 98 Nasal Cannula 2.0 28 02/20/17 04:35 101 26 92 Nasal Cannula 2.0 28 02/20/17 04:00 97 02/20/17 04:00 97.0 99 24 119/73 85 Nasal Cannula 2.0 02/20/17 00:17 99.1 101 24 80/55 98 Nasal Cannula 2.0 02/20/17 00:00 97 02/19/17 23:20 101.7 02/19/17 22:20 130 115/83 02/19/17 22:20 115/83 02/19/17 20:20 Nasal Cannula 2.0 28 02/19/17 20:19 94 Nasal Cannula 2.0 02/19/17 20:19 130 25 Nasal Cannula 2.0 28 02/19/17 20:10 101.7 127 25 115/83 97 Nasal Cannula 2.0 02/19/17 20:00 138 02/19/17 18:27 118 18 125/78 98 Nasal Cannula 2.0 02/19/17 16:53 103 02/19/17 15:33 99.3 120 26 150/109 98 02/19/17 15:23 117 155/99 02/19/17 15:23 155/99 02/19/17 13:46 117 28 99 Nasal Cannula 2.0 28 02/19/17 13:43 118 26 Nasal Cannula 2.0 28 02/19/17 13:36 118 24 99 Nasal Cannula 2.0 24 General Appearance: no acute distress HEENT: normocephalic, atraumatic, PERRL Respiratory/Chest: chest wall non-tender, lungs clear, normal breath sounds, no respiratory distress Breasts: no masses Cardiovascular: normal peripheral pulses, normal rate, regular rhythm, no JVD Abdomen: normal bowel sounds, soft, non tender, no organomegaly, non distended , no mass Genitourinary: normal external genitalia Extremities: no cyanosis Skin: no rash, no lesions 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, no motor/sensory deficits Microbiology Date/Time Source Procedure Growth Status 02/19/17 10:00 Indwelling Cath Urine Culture - Preliminary Resulted Laboratory Tests 02/19/17 20:28: Arterial Blood pH 7.410, Arterial Blood Partial Pressure CO2 54.9H, Arterial Blood Partial Pressure O2 76.3, Arterial Blood HCO3 34.0H, Arterial Blood Oxygen Saturation 95.2, Arterial Blood Base Excess 7.9, Justo Test Positive 02/20/17 06:05: White Blood Count 9.5, Red Blood Count 3.79L, Hemoglobin 9.7L, Hematocrit 32.4L , Mean Corpuscular Volume 86, Mean Corpuscular Hemoglobin 25.7L, Mean Corpuscular Hemoglobin Concent 30.0L, Red Cell Distribution Width 16.6H, Platelet Count 214, Mean Platelet Volume 8.8, Neutrophils (%) (Auto) 83.2H, Lymphocytes (%) (Auto) 4.6L, Monocytes (%) (Auto) 10.5H, Eosinophils (%) (Auto) 1.3, Basophils (%) (Auto) 0.5, Sodium Level 143, Potassium Level 4.3, Chloride Level 107, Carbon Dioxide Level 34H, Anion Gap 2L, Blood Urea Nitrogen 26H, Creatinine 1.0, Estimat Glomerular Filtration Rate > 60, Glucose Level 374H, Calcium Level 9.1, Total Bilirubin 0.2, Aspartate Amino Transf (AST/SGOT) 29, Alanine Aminotransferase (ALT/SGPT) 34, Alkaline Phosphatase 118H, Total Protein 6.9, Albumin 2.1L, Globulin 4.8, Albumin/Globulin Ratio 0.4L Current Medications Medications (Trade) Dose Ordered Sig/Chinyere Route PRN Reason Start Time Stop Time Status Last Admin Dose Admin Acetaminophen (Tylenol) 650 mg Q4H PRN ORAL fever (temp >100.5F) 02/19/17 12:30 03/21/17 12:29 02/19/17 22:21 Albuterol/ Ipratropium (Albuterol/ Ipratropium) 3 ml Q4H PRN HHN Shortness of Breath 02/19/17 12:30 02/24/17 12:29 02/20/17 11:31 Cefepime HCl 2 gm/ Dextrose 55 ml @ 110 mls/hr Q24H IV 02/19/17 13:00 02/26/17 12:59 02/19/17 15:23 Clonidine HCl (Catapres) 0.2 mg Q8HR GT 02/19/17 14:00 03/21/17 13:59 02/20/17 12:27 Dextrose (Dextrose 50%) STAT PRN IV Hypoglycemia 02/19/17 12:30 03/21/17 12:29 Gabapentin (Neurontin) 100 mg BID GT 02/19/17 18:00 03/21/17 17:59 02/20/17 12:27 Heparin Sodium (Porcine) (Heparin 5000 units/ml) 5,000 units EVERY 12 HOURS SUBQ 02/19/17 21:00 03/21/17 20:59 02/20/17 10:20 Insulin Aspart (NovoLOG) BEFORE MEALS AND HS SUBQ 02/19/17 16:30 03/21/17 16:29 02/20/17 12:25 Levetiracetam (Keppra) 500 mg Q12HR GT 02/19/17 21:00 03/21/17 20:59 02/20/17 10:20 Metoprolol Tartrate (Lopressor) 50 mg Q12HR GT 02/19/17 13:00 03/21/17 12:59 02/20/17 10:20 Morphine Sulfate (Morphine Sulfate) 2 mg Q4H PRN IVP Moderate Pain (Pain Scale 4-6) 02/19/17 12:30 02/26/17 12:29 Nitroglycerin (Ntg) 0.4 mg Q5M PRN SL Prn Chest Pain 02/19/17 12:30 03/21/17 12:29 Ondansetron HCl (Zofran) 4 mg Q6H PRN IVP Nausea & Vomiting 02/19/17 12:30 03/21/17 12:29 Polyethylene Glycol (Miralax) 17 gm DAILYPRN PRN ORAL Constipation 02/19/17 12:30 03/21/17 12:29 Temazepam (Restoril) 15 mg HSPRN PRN ORAL Insomnia 02/19/17 12:30 02/26/17 12:29 Vancomycin HCl (Vanco rx to dose) 1 ea DAILY PRN MISC per RX protocol 02/19/17 12:45 03/21/17 12:44 Vancomycin HCl/ Dextrose 250 ml @ 166.667 mls/hr Q24H IVPB 02/19/17 14:00 02/24/17 13:59 02/19/17 16:30 JIMMY DAVIS Feb 20, 2017 13:06
--- NOTE | 2017-02-20 13:33 | Diagnostic Imaging Report ---
Indication: Altered mental status Technique: Continuous helical CT scanning of the head was performed utilizing automated exposure control without intravenous contrast material. Axial and coronal reconstructions were obtained. Comparison: None CT dose: Total DLP 1425 mGycm; CTDI vol 70.6 mGy Findings: Exam degraded by patient motion, particularly degrading the coronal reconstructions. A left frontal approach ventriculostomy catheter is noted. There is hypoattenuation in the left frontal lobe possibly related to ventriculostomy tube tract. The attenuation is noted within the right laird radiata and right basal ganglia, again possibly related to ventriculostomy or known prior hemorrhage. There are asymmetric focus of high attenuation in the region of the right inferior frontal/anterior temporal lobes is noted which is likely artifactual in etiology. Apparent focal low attenuation in the right aspect of the lorenzo and midbrain may also be related to artifact secondary to patient positioning. There is no hydrocephalus. There is mild periventricular hypoattenuation on the left, likely reflecting sequela of chronic microvascular ischemia. There is no depressed skull fracture. Mastoid air cells are clear. There is near complete opacification of the left maxillary sinus. Because of thickening noted within multiple ethmoid air cells. Impression: Limited, motion degraded exam. Right frontal approach ventriculostomy catheter in place with expected low attenuation along the ventriculostomy tube tract. Additional foci of low-attenuation in the right laird radiata and right basal ganglia may be related to prior surgical intervention or known prior hemorrhage in this area. Ischemia in these areas is not entirely excluded. Focus of high attenuation in the region of the right inferior frontal/anterior temporal lobe and focal low attenuation in the right lorenzo and midbrain. These findings may be artifactual and related to patient motion/positioning. Areas of hemorrhage and ischemia (respectively) not excluded. Short term interval repeat head CT or MRI recommended for better evaluation as clinically indicated. The CT scanner at [facility] is accredited by the [employer] and the scans are performed using protocols designed to limit radiation exposure to as low as reasonably achievable to attain images of sufficient resolution adequate for diagnostic evaluation.
[2017-02-20] MEDS: Cefepime HCl 2 GM in D5W 55 ML IV SCH (14:38)
--- NOTE | 2017-02-20 15:22 | General Progress Note ---
Assessment/Plan Problem List: (1) CVA (cerebral vascular accident) ICD Codes: I63.9 - Cerebral infarction, unspecified SNOMED: 053121373 (2) Diabetes mellitus out of control ICD Codes: E11.9 - Diabetes mellitus out of control SNOMED: 134491957 (3) UTI (urinary tract infection) due to urinary indwelling catheter ICD Codes: T83.511A - Infection and inflammatory reaction due to indwelling urethral catheter, initial encounter; N39.0 - Urinary tract infection, site not specified SNOMED: 939312363 Qualifiers: Qualified Codes: T83.511D - Infection and inflammatory reaction due to indwelling urethral catheter, subsequent encounter; N39.0 - Urinary tract infection, site not specified (4) Sepsis ICD Codes: A41.9 - Sepsis SNOMED: 69540439 Qualifiers: Qualified Codes: A41.9 - Sepsis, unspecified organism (5) GERD (gastroesophageal reflux disease) ICD Codes: K21.9 - Gastro-esophageal reflux disease without esophagitis SNOMED: 306371201 (6) HTN (hypertension) ICD Codes: I10 - Essential (primary) hypertension SNOMED: 50074148 Status: stable, progressing, tolerating diet Assessment/Plan o2 pul trx ot pt diet abx cbc bmp am Subjective Constitutional: Reports: weakness Allergies: Coded Allergies: HYDANTOINS (Unverified Allergy, Unknown, 09/09/13) PHENYTOIN (Unverified Allergy, Unknown, 09/09/13) All Systems: reviewed and negative except above Subjective o2nc sleep Objective Last 24 Hour Vital Signs Date Time Temp Pulse Resp B/P (MAP) Pulse Ox O2 Delivery O2 Flow Rate FiO2 02/20/17 12:35 98.4 82 20 120/70 97 02/20/17 12:27 104/02/20/17 12:00 107 02/20/17 11:38 97 26 99 Nasal Cannula 2.0 28 02/20/17 11:31 106 22 96 Nasal Cannula 2.0 28 02/20/17 10:20 96 104/68 02/20/17 08:47 97.3 96 20 104/68 100 02/20/17 08:02 94 Nasal Cannula 2.0 28 02/20/17 08:02 Nasal Cannula 2.0 28 02/20/17 08:01 115 24 Nasal Cannula 2.0 28 02/20/17 08:00 102 12/14/17 06:00 119/73 02/20/17 04:49 106 24 98 Nasal Cannula 2.0 28 02/20/17 04:35 101 26 92 Nasal Cannula 2.0 28 02/20/17 04:00 97 02/20/17 04:00 97.0 99 24 119/73 85 Nasal Cannula 2.0 02/20/17 00:17 99.1 101 24 80/55 98 Nasal Cannula 2.0 02/20/17 00:00 97 02/19/17 23:20 101.7 02/19/17 22:20 130 115/83 02/19/17 22:20 115/83 02/19/17 20:20 Nasal Cannula 2.0 28 02/19/17 20:19 94 Nasal Cannula 2.0 28 02/19/17 20:19 130 25 Nasal Cannula 2.0 28 02/19/17 20:10 101.7 127 25 115/83 97 Nasal Cannula 2.0 02/19/17 20:00 138 02/19/17 18:27 118 18 125/78 98 Nasal Cannula 2.0 02/19/17 16:53 103 02/19/17 15:33 99.3 120 26 150/109 98 02/19/17 15:23 117 155/99 02/19/17 15:23 155/99 Laboratory Tests 02/19/17 20:28: Arterial Blood pH 7.410, Arterial Blood Partial Pressure CO2 54.9H, Arterial Blood Partial Pressure O2 76.3, Arterial Blood HCO3 34.0H, Arterial Blood Oxygen Saturation 95.2, Arterial Blood Base Excess 7.9, Justo Test Positive 02/20/17 06:05: White Blood Count 9.5, Red Blood Count 3.79L, Hemoglobin 9.7L, Hematocrit 32.4L , Mean Corpuscular Volume 86, Mean Corpuscular Hemoglobin 25.7L, Mean Corpuscular Hemoglobin Concent 30.0L, Red Cell Distribution Width 16.6H, Platelet Count 214, Mean Platelet Volume 8.8, Neutrophils (%) (Auto) 83.2H, Lymphocytes (%) (Auto) 4.6L, Monocytes (%) (Auto) 10.5H, Eosinophils (%) (Auto) 1.3, Basophils (%) (Auto) 0.5, Sodium Level 143, Potassium Level 4.3, Chloride Level 107, Carbon Dioxide Level 34H, Anion Gap 2L, Blood Urea Nitrogen 26H, Creatinine 1.0, Estimat Glomerular Filtration Rate > 60, Glucose Level 374H, Calcium Level 9.1, Total Bilirubin 0.2, Aspartate Amino Transf (AST/SGOT) 29, Alanine Aminotransferase (ALT/SGPT) 34, Alkaline Phosphatase 118H, Total Protein 6.9, Albumin 2.1L, Globulin 4.8, Albumin/Globulin Ratio 0.4L Height (Feet): 5 Height (Inches): 4.00 Weight (Pounds): 160 General Appearance: lethargic EENT: normal ENT inspection Neck: normal alignment Cardiovascular: normal peripheral pulses, normal rate, regular rhythm Respiratory/Chest: chest wall non-tender, lungs clear, normal breath sounds Abdomen: normal bowel sounds, non tender, soft Extremities: normal inspection Edema: no edema noted Arm (L), no edema noted Arm (R), no edema noted Leg (L), no edema noted Leg (R), no edema noted Pedal (L), no edema noted Pedal (R), no edema noted Generalized Neurologic: motor weakness Skin: normal pigmentation, warm/dry CESAR BAJWA Feb 20, 2017 15:22
[2017-02-20 16:00] VITALS: BP 105/55
[2017-02-20] MEDS: Vancomycin 1250mg/D5W 250ml IVPB SCH (16:12)
--- NOTE | 2017-02-20 17:46 | Consultation ---
DATE OF CONSULTATION: 02/20/2017 NEPHROLOGY CONSULTATION CONSULTING PHYSICIAN: Jade Washington M.D. ATTENDING/REFERRING PHYSICIAN: Los Slaughter D.O. REASON FOR CONSULTATION: Abnormal electrolytes. HISTORY OF PRESENT ILLNESS: The patient is a 66-year-old female, brought in from [facility] to the [facility] for evaluation of dyspnea on exertion. The patient is not able to provide any meaningful history, so most of our history was obtained through reviewing the information from the nursing facility. The patient was found to have gross hematuria and elevated blood sugar, and upon arrival, the patient was found to be mildly tachycardic and not hypoxic. Consequently, the patient was admitted in the hospital and started on IV antibiotics for possible urinary tract infection. I was called for hyperkalemia, hematuria, and abnormal electrolytes. PAST MEDICAL HISTORY: 1. History of urinary tract infection in the past. 2. History of COPD. 3. History of diabetes. 4. History of dysphagia, status post PEG placement. 5. History of intracranial hemorrhage. 6. History of CVA. 7. History of left hemiparesis. 8. History of seizure disorder. 9. History of dementia. 10. History of 01:46. PAST SURGICAL HISTORY: History of PEG placement. MEDICATIONS: 1. Tylenol 650 p.o. q.6 h. 2. Albuterol p.r.n. 3. Ascorbic acid 500 mg p.o. daily. 4. Atorvastatin 80 mg p.o. daily. 5. Catapres 0.2 via G-tube q.6 h. 6. Plavix 75 mg p.o. daily. 7. Lovenox 40 subcutaneous. 8. Neurontin 100 mg via G-tube. 9. Atrovent p.r.n. shortness of breath. 10. Keppra 500 mg via G-tube b.i.d. 11. Lorazepam 0.5 mg p.r.n. 12. Metoprolol 100 mg p.o. daily. 13. Morphine sulfate 2 g IV q.4 h. 14. MVI 5 mL via G-tube. 15. Zofran 4 mg IV q.4 h. p.r.n. nausea or vomiting. 16. MiraLAX 17 g p.o. daily. 17. Senna 8.6 mg. 18. Restoril 15 mg at night. 19. Warfarin 5 mg p.o. daily. 20. Ambien 5 mg p.o. daily. ALLERGIES: Allergic to phenytoin. FAMILY HISTORY: Noncontributory. REVIEW OF SYSTEMS: Unable to obtain due to the patient's condition and mental status. PHYSICAL EXAMINATION: VITAL SIGNS: The patient had temperature of 98 degrees, blood pressure 120/82, pulse rate of 123, and respiratory rate of 30. HEAD AND NECK: No JVP. No LAD. No thyromegaly. Extraocular movement intact. Pupils are reactive to light and accommodation. LUNGS: Clear to auscultation. CARDIAC: Regular rate and rhythm. S1 and S2. No murmur. No rub. ABDOMEN: Soft. PEG is in place. EXTREMITIES: She has 1 to 2+ edema. No clubbing. No cyanosis. NEUROLOGIC: The patient opened up her eyes with verbal stimuli, not following commands. LABORATORY DATA: Lab value upon admission, the patient has WBC count of 11,000, hemoglobin of 12.2, hematocrit of 42, and platelet count of 233,000. Chemistry reveals sodium 137, potassium 5.5, chloride 99, bicarbonate 37, BUN of 24, creatinine of 0.8, glucose of 383, calcium of 9.9. AST of 47, ALT of 33, alkaline phosphatase of 153. BNP of 499. Total protein of 8.5 and albumin of 3.5. UA reveals specific gravity of 1.010, protein 3+, glucose 3+, blood 5+, WBC of 5-10, RBC 20-30, leukocyte esterase positive. ASSESSMENT: 1. Hyperkalemia. 2. Urinary tract infection. 3. Prerenal azotemia. 4. Dehydration. 5. Dyspnea on exertion. PLAN: 1. Obtain UA. 2. Check the random urine protein/creatinine ratio to calculate the proteinuria. 3. Check the urine sodium and creatinine to calculate fractional excretion of sodium. 4. Monitor renal function and electrolytes closely. Replace electrolyte as needed. 5. Broad-spectrum antibiotic for the urinary tract infection. 6. If the patient continued to have hematuria, may need an ultrasound of the kidney and bladder. Again, I would like to thank Dr. Los Slaughter for allowing me to participate in the care of this patient. Jade Washington M.D. DR: VALDEMAR JOB#: [id number] CC:
[2017-02-20 20:20] VITALS: BP 108/62
[2017-02-21 04:27] VITALS: BP 104/63
[2017-02-21] MEDS: cloNIDine 0.2mg Tab GT SCH ×3 (06:28→22:13)
[2017-02-21] MEDS: NovoLOG Insulin Flexpen SUBQ SCH ×3 (06:38→17:53)
[2017-02-21 07:23] LABS: ANION GAP 1 mmol/L (5-15); BLOOD UREA NITROGEN 19 mg/dL (7-18); CALCIUM 9.5 MG/DL (8.5-10.1); CARBON DIOXIDE 36 MMOL/L (21-32); CHLORIDE 109 MMOL/L (98-107); CREATININE 0.8 MG/DL (0.55-1.30); SODIUM 146 MMOL/L (136-145)
[2017-02-21 07:32] LABS: BASOPHILS % (AUTO) 0.9 % (0.0-2.0); EOSINOPHILS % (AUTO) 3.6 % (0.0-3.0); HEMATOCRIT 31.6 % (37.0-47.0); HEMOGLOBIN 9.5 G/DL (12.0-16.0); LYMPHOCYTES % (AUTO) 11.5 % (20.0-45.0); MEAN CORPUSCULAR VOLUME 85 FL (80-99); MONOCYTES % (AUTO) 10.3 % (1.0-10.0); NEUTROPHILS % (AUTO) 73.6 % (45.0-75.0); PLATELET COUNT 184 K/UL (150-450); RED BLOOD COUNT 3.74 M/UL (4.20-5.40); RED CELL DISTRIBUTION WIDTH 16.3 % (11.6-14.8); WHITE BLOOD COUNT 6.5 K/UL (4.8-10.8)
--- NOTE | 2017-02-21 07:52 | Pulmonology Progress Note ---
Assessment/Plan Assessment/Plan ASSESSMENT Sepsis with possible bacteremia UTI PNA acute respiratory distress with hypoxemia and hypercapnia large left pleural effusion gross hematuria -resolved hyperkalemia hyperglycemia with DM OOC hx of CVA with L hemiplegia dysphagia, G tube seizure disorder HTN moderate pulmonary HTN PLAN OF CARE tele ABG with hypercapnia, titrate O2 to keep sat above 92 %, CXR US guided thoracentesis Friday Venous Duplex Pulmonary toilet empiric abx ID follows urine cx + GNB, Strep species, sputum cx +GNB, blood cx 2/4 Staph DVT [id number] seizure precautions, continue Keppra BP management with BB and optimize further as needed PT/OT pain management bowel regimen monitor HH, transfuse with goal to keep Hgb above 8 BS management with SS of insulin, Qko6l-3,4 not at goal, BS elevated, add Levemir cardio follows aggressive hydration, monitor HR ECHO with EF 55% and RVSP of 47 c/w moderate pulmonary HTN Strict aspiration precautions, GT feeding monitor tolerance case discussed and evaluated by supervising physician Subjective Allergies: Coded Allergies: HYDANTOINS (Unverified Allergy, Unknown, 09/09/13) PHENYTOIN (Unverified Allergy, Unknown, 09/09/13) Subjective no fever, no leukocytosis episode of hypoxemia last night ABG with evidence of hypercapnia breathing somewhat labored, tachypneic Objective Last 24 Hour Vital Signs Date Time Temp Pulse Resp B/P (MAP) Pulse Ox O2 Delivery O2 Flow Rate FiO2 02/21/17 06:28 104/63 02/21/17 04:27 97.9 105 20 104/63 98 Nasal Cannula 02/21/17 04:00 106 02/21/17 00:00 100 02/20/17 23:37 90 22 96 Nasal Cannula 2.0 02/20/17 23:30 28 02/20/17 23:28 98 22 90 Nasal Cannula 2.0 02/20/17 22:26 96 108/62 02/20/17 22:25 108/62 02/20/17 20:28 96 Nasal Cannula 2.0 28 02/20/17 20:28 Nasal Cannula 2.0 28 02/20/17 20:27 91 22 Nasal Cannula 2.0 02/20/17 20:20 98.2 70 20 108/62 96 02/20/17 20:20 Nasal Cannula 2.0 02/20/17 20:00 95 02/20/17 16:00 97.7 91 20 105/55 96 02/20/17 16:00 90 02/20/17 12:35 98.4 82 20 120/70 97 02/20/17 12:27 104/68 02/20/17 12:00 107 02/20/17 11:38 97 26 99 Nasal Cannula 2.0 28 02/20/17 11:31 106 22 96 Nasal Cannula 2.0 28 02/20/17 10:20 96 104/68 02/20/17 08:47 97.3 96 20 104/68 100 02/20/17 08:02 94 Nasal Cannula 2.0 28 02/20/17 08:02 Nasal Cannula 2.0 28 02/20/17 08:01 115 24 Nasal Cannula 2.0 28 02/20/17 08:00 102 General Appearance: other - mild distress HEENT: normocephalic, atraumatic, anicteric Respiratory/Chest: chest wall non-tender, no accessory muscle use, rhonchi - few isolated Cardiovascular: normal rate, regular rhythm - SR on tele, no JVD Abdomen: normal bowel sounds, soft, non tender, non distended, other - G tube Extremities: no edema Neurologic/Psychiatric: other - poorly responsive , Left hemiplegia Musculoskeletal: atrophy - BLE Microbiology Date/Time Source Procedure Growth Status 02/19/17 07:20 Blood Blood Culture - Preliminary NO GROWTH AFTER 24 HOURS Resulted 02/19/17 07:15 Blood Blood Culture - Preliminary NO GROWTH AFTER 24 HOURS Resulted 02/19/17 16:30 Sputum Induced Gram Stain Pending Resulted 02/19/17 16:30 Sputum Culture - Preliminary Gram Negative Bacillus 1 Gram Negative Bacillus 2 Resulted 02/19/17 10:00 Indwelling Cath Urine Culture - Preliminary Gram Negative Bacillus 1 Streptococcus Species Resulted Laboratory Tests 02/21/17 01:59: Arterial Blood pH 7.360, Arterial Blood Partial Pressure CO2 63.8*H, Arterial Blood Partial Pressure O2 105.0H, Arterial Blood HCO3 35.1H, Arterial Blood Oxygen Saturation 97.5, Arterial Blood Base Excess 7.9, Justo Test Positive 02/21/17 06:30: White Blood Count 6.5, Red Blood Count 3.74L, Hemoglobin 9.5L, Hematocrit 31.6L , Mean Corpuscular Volume 85, Mean Corpuscular Hemoglobin 25.5L, Mean Corpuscular Hemoglobin Concent 30.2L, Red Cell Distribution Width 16.3H, Platelet Count 184, Mean Platelet Volume 8.6, Neutrophils (%) (Auto) 73.6, Lymphocytes (%) (Auto) 11.5L, Monocytes (%) (Auto) 10.3H, Eosinophils (%) (Auto ) 3.6H, Basophils (%) (Auto) 0.9, Sodium Level 146H, Potassium Level 4.0, Chloride Level 109H, Carbon Dioxide Level 36H, Anion Gap 1L, Blood Urea Nitrogen 19H, Creatinine 0.8, Estimat Glomerular Filtration Rate > 60, Glucose Level 200#H, Hemoglobin A1c 9.4H, Calcium Level 9.5 Current Medications Medications (Trade) Dose Ordered Sig/[place] Route PRN Reason Start Time Stop Time Status Last Admin Dose Admin Acetaminophen (Tylenol) 650 mg Q4H PRN ORAL fever (temp >100.5F) 02/19/17 12:30 03/21/17 12:29 02/19/17 22:21 Albuterol/ Ipratropium (Albuterol/ Ipratropium) 3 ml Q4H PRN HHN Shortness of Breath 02/19/17 12:30 02/24/17 12:29 02/20/17 23:28 Cefepime HCl 2 gm/ Dextrose 55 ml @ 110 mls/hr Q24H IV 02/19/17 13:00 02/26/17 12:59 02/20/17 14:38 Clonidine HCl (Catapres) 0.2 mg Q8HR GT 02/19/17 14:00 03/21/17 13:59 02/21/17 06:28 Dextrose (Dextrose 50%) STAT PRN IV Hypoglycemia 02/19/17 12:30 03/21/17 12:29 Gabapentin (Neurontin) 100 mg BID GT 02/19/17 18:00 03/21/17 17:59 02/20/17 18:04 Heparin Sodium (Porcine) (Heparin 5000 units/ml) 5,000 units EVERY 12 HOURS SUBQ 02/19/17 21:00 03/21/17 20:59 02/20/17 21:00 Insulin Aspart (NovoLOG) BEFORE MEALS AND HS SUBQ 02/19/17 16:30 03/21/17 16:29 02/21/17 06:38 Levetiracetam (Keppra) 500 mg Q12HR GT 02/19/17 21:00 03/21/17 20:59 02/20/17 22:26 Metoprolol Tartrate (Lopressor) 50 mg Q12HR GT 02/19/17 13:00 03/21/17 12:59 02/20/17 22:26 Morphine Sulfate (Morphine Sulfate) 2 mg Q4H PRN IVP Moderate Pain (Pain Scale 4-6) 02/19/17 12:30 02/26/17 12:29 Nitroglycerin (Ntg) 0.4 mg Q5M PRN SL Prn Chest Pain 02/19/17 12:30 03/21/17 12:29 Ondansetron HCl (Zofran) 4 mg Q6H PRN IVP Nausea & Vomiting 02/19/17 12:30 03/21/17 12:29 Polyethylene Glycol (Miralax) 17 gm DAILYPRN PRN ORAL Constipation 02/19/17 12:30 03/21/17 12:29 Temazepam (Restoril) 15 mg HSPRN PRN ORAL Insomnia 02/19/17 12:30 02/26/17 12:29 Vancomycin HCl (Vanco rx to dose) 1 ea DAILY PRN MISC per RX protocol 02/19/17 12:45 03/21/17 12:44 Vancomycin HCl/ Dextrose 250 ml @ 166.667 mls/hr Q24H IVPB 02/19/17 14:00 02/24/17 13:59 02/20/17 16:12 Natasha Luna NP ([facility]) Feb 21, 2017 07:52
[2017-02-21 08:00] VITALS: BP 101/61
--- NOTE | 2017-02-21 08:30 | Consultation ---
DATE OF CONSULTATION: 02/20/2017 NEUROLOGICAL CONSULTATION CONSULTING PHYSICIAN: Alec Lopez M.D. REFERRING PHYSICIAN: Los Slaughter D.O. ATTENDING PHYSICIAN: Los Slaughter D.O. HISTORY OF PRESENT ILLNESS: This is a 66 years old, resident of acute rehabilitation facility, seen in neurological consultation to evaluate the new onset of progressive changes in her mental status. The patient is a resident of a nursing facility where she was described being tachypneic with elevated blood pressure and hyperglycemia. She states she is unable to provide with any history, given that she has residual old stroke and being nonverbal. On admission, her EKG normal sinus rhythm. Imaging studies included a chest x-ray with right perihilar atelectasis, left basilar pleural fluid, possible consideration. Knee x-ray revealed trauma with the patient. Lab work included CBC study with WBC 11.7, low MCV and MCH. Coagulation panel was negative, but urinalysis with 5 to 10 WBCs, 3+ leukocyte esterase, and 3+ protein. Chemistry panel with potassium 5.5, BUN of 24, blood sugar 333, elevated BNP of 499, and total protein of 8.5. Following admission, she was placed on IV fluids and antibiotics. The patient remains in tachycardia at rate of 123, fever of 101.3, and respiration rate of 32. The patient currently received course of antibiotics. No paroxysmal events noted. She remained unresponsive. The patient still remained in Full Code. The patient has additional history of ventriculoperitoneal shunt. She is status placement. 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 She developed chronic seizure disorder, dementia, and speech abnormality. She has a history of diabetes, hypertension, and COPD, currently maintained on indwelling urinary catheter. She developed pressure sores and ulcers. MEDICATIONS: Her treatment prior to admission included albuterol, atorvastatin, Rocephin, Keflex, clonidine, clopidogrel, Lovenox, gabapentin b.i.d., insulin, Keppra 500 mg b.i.d., losartan, metoprolol, morphine as needed, Zofran as needed, Coumadin, and zolpidem. ALLERGIES: Phenytoin and hydantoin. SOCIAL HISTORY: Resident of nursing facility. There is no evidence of previous alcohol or drug abuse. FAMILY HISTORY: Unable to obtain. REVIEW OF SYMPTOMS: Unable to obtain due to the patient's status. PHYSICAL EXAMINATION: GENERAL: This is a well-developed, ill-appearing elderly female, lying in bed, appears to be asleep. VITAL SIGNS: Current blood pressure is 104/68, heart rate of 106, and temperature 97.3 degrees. HEENT: Head, normocephalic. No evidence of trauma. There is conjunctivitis. LUNGS: Somewhat labored respirations. NECK: Rigid. MUSCULOSKELETAL: With left arm spastic and flexor contracture. Peripheral pulses, 1+ symmetric. MENTAL STATUS: The patient opens eyes on vigorous stimulation. She has no eye contact and does not follow commands. Nonverbal. CRANIAL NERVE II: Pupils 2 mm, both responding to light and accommodation. Extraocular movements full range. Visual field, unable to test. Fundi poorly visualized. CRANIAL NERVES V: Normal corneal responses. CRANIAL NERVES VII: Drooped left nasolabial fold. CRANIAL NERVES VIII: Unable to test. CRANIAL NERVES IX THROUGH XII: Tongue is in the midline. Reduced gag response. MOTOR EXAMINATION: Spastic left upper extremity with no spontaneous movement. There is significant weakness in both lower extremities, probably 1/5 and 3/5 right upper extremity. Deep tendon reflexes depressed bilaterally. Plantar response is mute bilaterally. SENSORY EXAMINATION: No response to pin stimulation. IMPRESSION: 1. The patient has multiple stroke risk factors, status post hemorrhagic stroke with left hemiplegia, expressive aphasia, and dementia. 2. Currently with verbal unresponsiveness, lethargy due to combined causes of infection in the setting of old massive strokes. 3. New intracranial abnormalities, hemorrhage should be suspected, given the patient is on Coumadin. RECOMMENDATIONS: 1. Stat CT of the brain without contrast. 2. Continue IV fluids and antibiotics for underlying infection/sepsis. 3. Stop anticoagulation and antiplatelets until CAT scan available. Thank you for allowing me to see this interesting patient in neurological consultation. Alec Lopez M.D. DR: Broderick JOB#: [id number] CC:
--- NOTE | 2017-02-21 08:46 | Infectious Diseases Prog Note ---
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 P: Continue Vancomycin & Cefepime will f/u cultures Subjective ROS Limited/Unobtainable: Yes Constitutional: Reports: other - no fever in last 24 hrs Allergies: Coded Allergies: HYDANTOINS (Unverified Allergy, Unknown, 09/09/13) PHENYTOIN (Unverified Allergy, Unknown, 09/09/13) Objective Vital Signs Last 24 Hour Vital Signs Date Time Temp Pulse Resp B/P (MAP) Pulse Ox O2 Delivery O2 Flow Rate FiO2 02/21/17 06:28 104/63 02/21/17 04:27 97.9 105 20 104/63 98 Nasal Cannula 02/21/17 04:00 106 02/21/17 00:00 100 02/20/17 23:37 90 22 96 Nasal Cannula 2.0 28 02/20/17 23:30 28 02/20/17 23:28 98 22 90 Nasal Cannula 2.0 28 02/20/17 22:26 96 108/62 02/20/17 22:25 108/62 02/20/17 20:28 96 Nasal Cannula 2.0 28 02/20/17 20:28 Nasal Cannula 2.0 28 02/20/17 20:27 91 22 Nasal Cannula 2.0 28 02/20/17 20:20 98.2 70 20 108/62 96 02/20/17 20:20 Nasal Cannula 2.0 02/20/17 20:00 95 02/20/17 16:00 97.7 91 20 105/55 96 02/20/17 16:00 90 02/20/17 12:35 98.4 82 20 120/70 97 02/20/17 12:27 104/68 02/20/17 12:00 107 02/20/17 11:38 97 26 99 Nasal Cannula 2.0 28 02/20/17 11:31 106 22 96 Nasal Cannula 2.0 28 02/20/17 10:20 96 104/68 02/20/17 08:47 97.3 96 20 104/68 100 Height (Feet): 5 Height (Inches): 4.00 Weight (Pounds): 160 HEENT: mucous membranes moist Respiratory/Chest: crackles/rales, rhonchi - bilaterally, other - O2 by nasal cannula Cardiovascular: tachycardia Abdomen: distended, other - GT in olace Extremities: no edema Neurologic/Psychiatric: aphasia, other - awake Microbiology Date/Time Source Procedure Growth Status 02/19/17 07:20 Blood Blood Culture - Preliminary NO GROWTH AFTER 24 HOURS Resulted 02/19/17 07:15 Blood Blood Culture - Preliminary NO GROWTH AFTER 24 HOURS Resulted 02/19/17 16:30 Sputum Induced Gram Stain Pending Resulted 02/19/17 16:30 Sputum Culture - Preliminary Gram Negative Bacillus 1 Gram Negative Bacillus 2 Resulted 02/19/17 08:51 Nasal Nares MRSA Culture - Final NO METHICILLIN RESISTANT STAPH AUREUS... Complete 02/19/17 10:00 Indwelling Cath Urine Culture - Preliminary Gram Negative Bacillus 1 Streptococcus Species Resulted 02/19/17 08:51 Rectum VRE Culture - Final NO VANCOMYCIN RESISTANT ENTEROCOCCUS ... Complete Laboratory Tests Test 02/21/17 01:59 02/21/17 06:00 02/21/17 06:30 Arterial Blood pH 7.360 (7.350-7.450) Arterial Blood Partial Pressure CO2 63.8 mmHg (35.0-45.0) *H Arterial Blood Partial Pressure O2 105.0 mmHg (75.0-100.0) H Arterial Blood HCO3 35.1 mmol/L (22.0-26.0) H Arterial Blood Oxygen Saturation 97.5 % (92.0-98.0) Arterial Blood Base Excess 7.9 Justo Test Positive Urine Creatinine Pending White Blood Count 6.5 K/UL (4.8-10.8) Red Blood Count 3.74 M/UL (4.20-5.40) L Hemoglobin 9.5 G/DL (12.0-16.0) L Hematocrit 31.6 % (37.0-47.0) L Mean Corpuscular Volume 85 FL (80-99) Mean Corpuscular Hemoglobin 25.5 PG (27.0-31.0) L Mean Corpuscular Hemoglobin Concent 30.2 G/DL (32.0-36.0) L Red Cell Distribution Width 16.3 % (11.6-14.8) H Platelet Count 184 K/UL (150-450) Mean Platelet Volume 8.6 FL (6.5-10.1) Neutrophils (%) (Auto) 73.6 % (45.0-75.0) Lymphocytes (%) (Auto) 11.5 % (20.0-45.0) L Monocytes (%) (Auto) 10.3 % (1.0-10.0) H Eosinophils (%) (Auto) 3.6 % (0.0-3.0) H Basophils (%) (Auto) 0.9 % (0.0-2.0) Sodium Level 146 MMOL/L (136-145) H Potassium Level 4.0 MMOL/L (3.5-5.1) Chloride Level 109 MMOL/L (98-107) H Carbon Dioxide Level 36 MMOL/L (21-32) H Anion Gap 1 mmol/L (5-15) L Blood Urea Nitrogen 19 mg/dL (7-18) H Creatinine 0.8 MG/DL (0.55-1.30) Estimat Glomerular Filtration Rate > 60 mL/min (>60) Glucose Level 200 MG/DL (74-106) #H Hemoglobin A1c 9.4 % (4.3-6.0) H Calcium Level 9.5 MG/DL (8.5-10.1) Current Medications Medications (Trade) Dose Ordered Sig/[place] Route PRN Reason Start Time Stop Time Status Last Admin Dose Admin Acetaminophen (Tylenol) 650 mg Q4H PRN ORAL fever (temp >100.5F) 02/19/17 12:30 03/21/17 12:29 02/19/17 22:21 Albuterol/ Ipratropium (Albuterol/ Ipratropium) 3 ml Q4H PRN HHN Shortness of Breath 02/19/17 12:30 02/24/17 12:29 02/20/17 23:28 Cefepime HCl 2 gm/ Dextrose 55 ml @ 110 mls/hr Q24H IV 02/19/17 13:00 02/26/17 12:59 02/20/17 14:38 Clonidine HCl (Catapres) 0.2 mg Q8HR GT 02/19/17 14:00 03/21/17 13:59 02/21/17 06:28 Dextrose (Dextrose 50%) STAT PRN IV Hypoglycemia 02/19/17 12:30 03/21/17 12:29 Gabapentin (Neurontin) 100 mg BID GT 02/19/17 18:00 03/21/17 17:59 02/20/17 18:04 Heparin Sodium (Porcine) (Heparin 5000 units/ml) 5,000 units EVERY 12 HOURS SUBQ 02/19/17 21:00 03/21/17 20:59 02/20/17 21:00 Insulin Aspart (NovoLOG) BEFORE MEALS AND HS SUBQ 02/19/17 16:30 03/21/17 16:29 02/21/17 06:38 Levetiracetam (Keppra) 500 mg Q12HR GT 02/19/17 21:00 03/21/17 20:59 02/20/17 22:26 Metoprolol Tartrate (Lopressor) 50 mg Q12HR GT 02/19/17 13:00 03/21/17 12:59 02/20/17 22:26 Morphine Sulfate (Morphine Sulfate) 2 mg Q4H PRN IVP Moderate Pain (Pain Scale 4-6) 02/19/17 12:30 02/26/17 12:29 Nitroglycerin (Ntg) 0.4 mg Q5M PRN SL Prn Chest Pain 02/19/17 12:30 03/21/17 12:29 Ondansetron HCl (Zofran) 4 mg Q6H PRN IVP Nausea & Vomiting 02/19/17 12:30 03/21/17 12:29 Polyethylene Glycol (Miralax) 17 gm DAILYPRN PRN ORAL Constipation 02/19/17 12:30 03/21/17 12:29 Temazepam (Restoril) 15 mg HSPRN PRN ORAL Insomnia 02/19/17 12:30 02/26/17 12:29 Vancomycin HCl (Vanco rx to dose) 1 ea DAILY PRN MISC per RX protocol 02/19/17 12:45 03/21/17 12:44 Vancomycin HCl/ Dextrose 250 ml @ 166.667 mls/hr Q24H IVPB 02/19/17 14:00 02/24/17 13:59 02/20/17 16:12 DENEEN BRENNAN Feb 21, 2017 08:46
[2017-02-21] MEDS: Gabapentin 300 MG/6 ML Soln GT SCH ×2 (09:37→17:52)
[2017-02-21] MEDS: levETIRAcetam 500mg/5ml Liquid GT SCH ×2 (09:37→22:14)
[2017-02-21] MEDS: Metoprolol Tartrate 50mg tab GT SCH ×2 (09:37→22:14)
[2017-02-21] MEDS: Heparin 5000 units/ml inj SUBQ SCH ×2 (09:39→22:18)
[2017-02-21] MEDS: Albuterol/Ipratropium 3ml neb HHN PRN ×2 (09:54→14:15)
--- NOTE | 2017-02-21 11:39 | Diagnostic Imaging Report ---
Indication: Shortness of breath Technique: One view of the chest Comparison: 02/19/2017 Findings: Suboptimal inspiration, as previously. Probable left pleural effusion. Likely retrocardiac consolidation. Mild interstitial congestion persists. Findings are overall unchanged Impression: Unchanged, over 2 days, findings as above.
--- NOTE | 2017-02-21 11:54 | Wound Care Consultation ---
Wound Assessment Wound Assessment #1: Wound Number: 1 Wound Present on Admission: Yes New Wound: No Status Change of Wound: No Wound Location Body Site Modif: mid Wound Location Body Site: sacral Wound Type: pressure ulcer Matteo Test: Does not Matteo Pressure Ulcer Stage: IV Wound Thickness: Full Thickness Wound Length: 7.5 Wound Width: 7.5 Wound Depth: 1.5 Percent of Wound Conrad/Red: 100 Wound Drainage Description: Serosanguineous Wound Drainage Amount: Moderate Wound Drainage Odor: None/Absent Tissue Surrounding Wound: Macerated Wound General Appearance: Reddened, Draining, Bone Palpable, Muscle Visible Wound Assessment #2: Wound Number: 2 Wound Present on Admission: Yes New Wound: No Status Change of Wound: No Wound Location Body Site Modif: left Wound Location Body Site: iliac crest Wound Type: pressure ulcer Matteo Test: Does not Matteo Pressure Ulcer Stage: Deep Tissue Injury Wound Thickness: Full Thickness Wound Length: 8.5 Wound Width: 7.5 Wound Depth: utd Percent of Wound Purple/Maroon: 100 Wound Drainage Amount: None Wound Drainage Odor: None/Absent Tissue Surrounding Wound: Intact Wound General Appearance: Reddened - purple/maroon Wound Comment #1 Sacral stage IV pressure ulcer #2 Left iliac crest DTI pressure ulcer Recommendation -Local wound care as ordered -Keep clean and dry -Turn and reposition -Optimize nutrition -Offload both heels -Heel protector on both heels -Low air loss mattress -Assess and f/u accordingly for any changes LINSEY TORRES RN Feb 21, 2017 11:54
[2017-02-21 12:00] VITALS: BP 114/69
--- NOTE | 2017-02-21 12:26 | Nephrology Progress Note ---
Assessment/Plan Assessment 1. Hyperkalemia. 2. Urinary tract infection. 3. Prerenal azotemia. 4. Dehydration. 5. Dyspnea on exertion. Plan plan to continue current iv monitoring renal function avoid NSAID Replace electrolyte as need it Subjective Constitutional: Reports: no symptoms HEENT: Reports: no symptoms Genitourinary: Reports: no symptoms Neurologic/Psychiatric: Reports: no symptoms Subjective no acute events Objective Objective Last 24 Hour Vital Signs Date Time Temp Pulse Resp B/P (MAP) Pulse Ox O2 Delivery O2 Flow Rate FiO2 02/21/17 09:58 94 22 95 Room Air 02/21/17 09:50 96 24 94 Room Air 02/21/17 09:48 94 22 Room Air 02/21/17 09:48 94 Room Air 02/21/17 09:48 Room Air 02/21/17 09:37 98 101/61 02/21/17 08:00 97 02/21/17 08:00 97.9 98 22 101/61 99 02/21/17 06:28 104/63 02/21/17 04:27 97.9 105 20 104/63 98 Nasal Cannula 02/21/17 04:00 106 02/21/17 00:00 100 02/20/17 23:37 90 22 96 Nasal Cannula 2.0 02/20/17 23:30 28 02/20/17 23:28 98 22 90 Nasal Cannula 2.0 02/20/17 22:26 96 108/62 02/20/17 22:25 108/62 02/20/17 20:28 96 Nasal Cannula 2.0 02/20/17 20:28 Nasal Cannula 2.0 28 02/20/17 20:27 91 22 Nasal Cannula 2.0 02/20/17 20:20 98.2 70 20 108/62 96 02/20/17 20:20 Nasal Cannula 2.0 02/20/17 20:00 95 02/20/17 16:00 97.7 91 20 105/55 96 02/20/17 16:00 90 02/20/17 12:35 98.4 82 20 120/70 97 02/20/17 12:27 104/68 Intake and Output 02/21/17 02/22/17 19:00 07:00 Intake Total 385 ml Balance 385 ml Intake Free Water 100 ml Tube Feeding 285 ml Laboratory Tests 02/21/17 01:59: Arterial Blood pH 7.360, Arterial Blood Partial Pressure CO2 63.8*H, Arterial Blood Partial Pressure O2 105.0H, Arterial Blood HCO3 35.1H, Arterial Blood Oxygen Saturation 97.5, Arterial Blood Base Excess 7.9, Justo Test Positive 02/21/17 06:00: Urine Creatinine 131.2H 02/21/17 06:30: White Blood Count 6.5, Red Blood Count 3.74L, Hemoglobin 9.5L, Hematocrit 31.6L , Mean Corpuscular Volume 85, Mean Corpuscular Hemoglobin 25.5L, Mean Corpuscular Hemoglobin Concent 30.2L, Red Cell Distribution Width 16.3H, Platelet Count 184, Mean Platelet Volume 8.6, Neutrophils (%) (Auto) 73.6, Lymphocytes (%) (Auto) 11.5L, Monocytes (%) (Auto) 10.3H, Eosinophils (%) (Auto ) 3.6H, Basophils (%) (Auto) 0.9, Sodium Level 146H, Potassium Level 4.0, Chloride Level 109H, Carbon Dioxide Level 36H, Anion Gap 1L, Blood Urea Nitrogen 19H, Creatinine 0.8, Estimat Glomerular Filtration Rate > 60, Glucose Level 200#H, Hemoglobin A1c 9.4H, Calcium Level 9.5 Height (Feet): 5 Height (Inches): 4.00 Weight (Pounds): 160 Objective HEAD AND NECK: No JVP. No LAD. No thyromegaly. Extraocular movement intact. Pupils are reactive to light and accommodation. LUNGS: Clear to auscultation. CARDIAC: Regular rate and rhythm. S1 and S2. No murmur. No rub. ABDOMEN: Soft. PEG is in place. EXTREMITIES: She has 1 to 2+ edema. No clubbing. No cyanosis. NEUROLOGIC: The patient opened up her eyes with verbal stimuli, not following commands. ZEINA ZENDEJAS Feb 21, 2017 12:26
[2017-02-21] MEDS: Cefepime HCl 2 GM in D5W 55 ML IV SCH (12:55)
[2017-02-21] MEDS ORDERED: Levemir Flexpen SUBQ SCH (14:00)
[2017-02-21] MEDS: Vancomycin 1250mg/D5W 250ml IVPB SCH (14:23)
[2017-02-21 16:00] VITALS: BP 107/69
--- NOTE | 2017-02-21 16:03 | Cardiology Progress Note ---
Assessment/Plan Assessment/Plan 1. Sinus tachycardia, resolved, likely secondary to underlying infection/ sepsis. Normal LV systolic function. 2. Hypopxic hypercapnic respiratory failure, pulmonary to follow. 3. History of prior cerebrovascular accident with left hemiparalysis. 4. Mild pulmonary HTN. 5. Large left pleural effusion. Subjective Subjective Sinus rhythm at 95. Objective Last 24 Hour Vital Signs Date Time Temp Pulse Resp B/P (MAP) Pulse Ox O2 Delivery O2 Flow Rate FiO2 02/21/17 14:23 114/69 02/21/17 12:00 97.6 97 22 114/69 96 02/21/17 12:00 96 02/21/17 09:58 94 22 95 Room Air 21 02/21/17 09:50 96 24 94 Room Air 21 02/21/17 09:48 94 22 Room Air 21 02/21/17 09:48 94 Room Air 21 02/21/17 09:48 Room Air 21 02/21/17 09:37 98 101/61 02/21/17 08:00 97 02/21/17 08:00 97.9 98 22 101/61 99 02/21/17 06:28 104/63 02/21/17 04:27 97.9 105 20 104/63 98 Nasal Cannula 02/21/17 04:00 106 02/21/17 00:00 100 02/20/17 23:37 90 22 96 Nasal Cannula 2.0 02/20/17 23:30 28 02/20/17 23:28 98 22 90 Nasal Cannula 2.0 02/20/17 22:26 96 108/62 02/20/17 22:25 108/62 02/20/17 20:28 96 Nasal Cannula 2.0 02/20/17 20:28 Nasal Cannula 2.0 02/20/17 20:27 91 22 Nasal Cannula 2.0 02/20/17 20:20 98.2 70 20 108/62 96 02/20/17 20:20 Nasal Cannula 2.0 02/20/17 20:00 95 02/20/17 16:00 97.7 91 20 105/55 96 02/20/17 16:00 90 Intake and Output 02/21/17 02/22/17 19:00 07:00 Intake Total 885.000 ml Balance 885.000 ml Intake Free Water 100 ml IV Total 305.000 ml Tube Feeding 480 ml 2D Echo: LVEF 55%, RVSP 47 mmHg, Mild LVH, Large left pleural effusion, mild MR. Laboratory Tests Test 02/21/17 01:59 02/21/17 06:00 02/21/17 06:30 Arterial Blood pH 7.360 (7.350-7.450) Arterial Blood Partial Pressure CO2 63.8 mmHg (35.0-45.0) *H Arterial Blood Partial Pressure O2 105.0 mmHg (75.0-100.0) H Arterial Blood HCO3 35.1 mmol/L (22.0-26.0) H Arterial Blood Oxygen Saturation 97.5 % (92.0-98.0) Arterial Blood Base Excess 7.9 Justo Test Positive Urine Creatinine 131.2 MG/DL (30.0-125.0) H White Blood Count 6.5 K/UL (4.8-10.8) Red Blood Count 3.74 M/UL (4.20-5.40) L Hemoglobin 9.5 G/DL (12.0-16.0) L Hematocrit 31.6 % (37.0-47.0) L Mean Corpuscular Volume 85 FL (80-99) Mean Corpuscular Hemoglobin 25.5 PG (27.0-31.0) L Mean Corpuscular Hemoglobin Concent 30.2 G/DL (32.0-36.0) L Red Cell Distribution Width 16.3 % (11.6-14.8) H Platelet Count 184 K/UL (150-450) Mean Platelet Volume 8.6 FL (6.5-10.1) Neutrophils (%) (Auto) 73.6 % (45.0-75.0) Lymphocytes (%) (Auto) 11.5 % (20.0-45.0) L Monocytes (%) (Auto) 10.3 % (1.0-10.0) H Eosinophils (%) (Auto) 3.6 % (0.0-3.0) H Basophils (%) (Auto) 0.9 % (0.0-2.0) Sodium Level 146 MMOL/L (136-145) H Potassium Level 4.0 MMOL/L (3.5-5.1) Chloride Level 109 MMOL/L (98-107) H Carbon Dioxide Level 36 MMOL/L (21-32) H Anion Gap 1 mmol/L (5-15) L Blood Urea Nitrogen 19 mg/dL (7-18) H Creatinine 0.8 MG/DL (0.55-1.30) Estimat Glomerular Filtration Rate > 60 mL/min (>60) Glucose Level 200 MG/DL (74-106) #H Hemoglobin A1c 9.4 % (4.3-6.0) H Calcium Level 9.5 MG/DL (8.5-10.1) Microbiology Date/Time Source Procedure Growth Status 02/19/17 07:20 Blood Blood Culture - Preliminary Resulted 02/19/17 07:15 Blood Blood Culture - Preliminary Resulted 02/19/17 16:30 Sputum Induced Gram Stain Pending Resulted 02/19/17 16:30 Sputum Culture - Preliminary Gram Negative Bacillus 1 Gram Negative Bacillus 2 Resulted 02/19/17 08:51 Nasal Nares MRSA Culture - Final NO METHICILLIN RESISTANT STAPH AUREUS... Complete 02/19/17 10:00 Indwelling Cath Urine Culture - Preliminary Gram Negative Bacillus 1 Streptococcus Species Resulted 02/19/17 08:51 Rectum VRE Culture - Final NO VANCOMYCIN RESISTANT ENTEROCOCCUS ... Complete DESMOND GORDON Feb 21, 2017 16:03
[2017-02-21] MEDS: Albuterol/Ipratropium 3ml neb HHN SCH (19:37)
[2017-02-21 20:00] VITALS: BP 124/75
--- NOTE | 2017-02-21 20:37 | General Progress Note ---
Assessment/Plan Problem List: (1) Seizure ICD Codes: R56.9 - Unspecified convulsions SNOMED: 24367823 (2) Hyperglycemia ICD Codes: R73.9 - Hyperglycemia, unspecified SNOMED: 66749295 (3) DVT (deep venous thrombosis) ICD Codes: I82.409 - Acute embolism and thrombosis of unspecified deep veins of unspecified lower extremity SNOMED: 336572294 (4) Leukocytosis ICD Codes: D72.829 - Elevated white blood cell count, unspecified SNOMED: 918759633 (5) HTN (hypertension) ICD Codes: I10 - Essential (primary) hypertension SNOMED: 13840607 (6) CVA (cerebral vascular accident) ICD Codes: I63.9 - Cerebral infarction, unspecified SNOMED: 767377164 (7) Diabetes mellitus out of control ICD Codes: E11.9 - Diabetes mellitus out of control SNOMED: 251531056 (8) Sepsis ICD Codes: A41.9 - Sepsis SNOMED: 82163339 Qualifiers: Qualified Codes: A41.9 - Sepsis, unspecified organism (9) Pneumonia ICD Codes: J18.9 - Pneumonia, unspecified organism SNOMED: 344256431 Status: progressing Assessment/Plan afebrile reviewed chart and labs no acute events elevated bp check lytes Subjective ROS Limited/Unobtainable: Yes Allergies: Coded Allergies: HYDANTOINS (Unverified Allergy, Unknown, 09/09/13) PHENYTOIN (Unverified Allergy, Unknown, 09/09/13) Objective Last 24 Hour Vital Signs Date Time Temp Pulse Resp B/P (MAP) Pulse Ox O2 Delivery O2 Flow Rate FiO2 02/21/17 19:52 101 22 99 Nasal Cannula 2.0 28 02/21/17 19:38 101 22 Nasal Cannula 2.0 28 02/21/17 19:37 99 Nasal Cannula 2.0 28 02/21/17 19:37 101 22 99 Nasal Cannula 2.0 28 02/21/17 19:37 Nasal Cannula 2.0 28 02/21/17 16:26 20 99 Nasal Cannula 2.0 02/21/17 16:00 97.2 110 20 107/69 99 02/21/17 16:00 118 02/21/17 14:23 114/69 02/21/17 12:00 97.6 97 22 114/69 96 02/21/17 12:00 96 02/21/17 09:58 94 22 95 Room Air 21 02/21/17 09:50 96 24 94 Room Air 21 02/21/17 09:48 94 22 Room Air 21 02/21/17 09:48 94 Room Air 21 02/21/17 09:48 Room Air 21 02/21/17 09:37 98 101/61 02/21/17 08:00 97 02/21/17 08:00 97.9 98 22 101/61 99 02/21/17 06:28 104/63 02/21/17 04:27 97.9 105 20 104/63 98 Nasal Cannula 02/21/17 04:00 106 02/21/17 00:00 100 02/20/17 23:37 90 22 96 Nasal Cannula 2.0 28 02/20/17 23:30 28 02/20/17 23:28 98 22 90 Nasal Cannula 2.0 28 02/20/17 22:26 96 108/62 02/20/17 22:25 108/62 Intake and Output 02/21/17 02/22/17 19:00 07:00 Intake Total 1255.000 ml Output Total 700 ml Balance 555.000 ml Intake Free Water 200 ml IV Total 305.000 ml Tube Feeding 750 ml Output Urine Total 700 ml Laboratory Tests 02/21/17 01:59: Arterial Blood pH 7.360, Arterial Blood Partial Pressure CO2 63.8*H, Arterial Blood Partial Pressure O2 105.0H, Arterial Blood HCO3 35.1H, Arterial Blood Oxygen Saturation 97.5, Arterial Blood Base Excess 7.9, Justo Test Positive 02/21/17 06:00: Urine Creatinine 131.2H 02/21/17 06:30: White Blood Count 6.5, Red Blood Count 3.74L, Hemoglobin 9.5L, Hematocrit 31.6L , Mean Corpuscular Volume 85, Mean Corpuscular Hemoglobin 25.5L, Mean Corpuscular Hemoglobin Concent 30.2L, Red Cell Distribution Width 16.3H, Platelet Count 184, Mean Platelet Volume 8.6, Neutrophils (%) (Auto) 73.6, Lymphocytes (%) (Auto) 11.5L, Monocytes (%) (Auto) 10.3H, Eosinophils (%) (Auto ) 3.6H, Basophils (%) (Auto) 0.9, Sodium Level 146H, Potassium Level 4.0, Chloride Level 109H, Carbon Dioxide Level 36H, Anion Gap 1L, Blood Urea Nitrogen 19H, Creatinine 0.8, Estimat Glomerular Filtration Rate > 60, Glucose Level 200#H, Hemoglobin A1c 9.4H, Calcium Level 9.5 Height (Feet): 5 Height (Inches): 4.00 Weight (Pounds): 160 Cardiovascular: regular rhythm Jes Jacques MD Feb 21, 2017 20:37
[2017-02-22] VITALS: BP 124/75
[2017-02-22] MEDS: NovoLOG Insulin Flexpen SUBQ SCH ×4 (00:34→17:22)
[2017-02-22] MEDS: Albuterol/Ipratropium 3ml neb HHN SCH ×4 (01:21→19:10)
[2017-02-22 04:00] VITALS: BP 127/73
[2017-02-22] MEDS: cloNIDine 0.2mg Tab GT SCH ×3 (06:11→21:54)
--- NOTE | 2017-02-22 07:11 | General Progress Note ---
Assessment/Plan Problem List: (1) Dementia ICD Codes: F03.90 - Unspecified dementia without behavioral disturbance SNOMED: 75433631 (2) Dysphagia ICD Codes: R13.10 - Dysphagia SNOMED: 02286335 (3) HTN (hypertension) ICD Codes: I10 - Essential (primary) hypertension SNOMED: 07238422 (4) CVA (cerebral vascular accident) ICD Codes: I63.9 - Cerebral infarction, unspecified SNOMED: 972017496 (5) Hyperglycemia ICD Codes: R73.9 - Hyperglycemia, unspecified SNOMED: 39298947 Assessment/Plan increase Levemir to 10 units bid continue Novolog sliding scale Subjective ROS Limited/Unobtainable: Yes Allergies: Coded Allergies: HYDANTOINS (Unverified Allergy, Unknown, 09/09/13) PHENYTOIN (Unverified Allergy, Unknown, 09/09/13) Subjective events noted interval notes reviewed on continuous TF Objective Last 24 Hour Vital Signs Date Time Temp Pulse Resp B/P (MAP) Pulse Ox O2 Delivery O2 Flow Rate FiO2 02/22/17 06:11 203/123 02/22/17 04:00 92 02/22/17 04:00 98.6 95 22 127/73 99 Nasal Cannula 2.0 28 02/22/17 01:36 93 22 99 Nasal Cannula 2.0 28 02/22/17 01:21 84 22 97 Nasal Cannula 2.0 28 02/22/17 00:00 98.6 86 18 124/75 98 Nasal Cannula 02/22/17 00:00 82 02/21/17 23:14 98.6 02/21/17 22:14 112 124/75 02/21/17 22:13 124/75 02/21/17 20:00 100.5 112 18 124/75 95 Nasal Cannula 2.0 28 02/21/17 20:00 107 02/21/17 19:52 101 22 99 Nasal Cannula 2.0 28 02/21/17 19:38 101 22 Nasal Cannula 2.0 28 02/21/17 19:37 99 Nasal Cannula 2.0 28 02/21/17 19:37 101 22 99 Nasal Cannula 2.0 28 02/21/17 19:37 Nasal Cannula 2.0 28 02/21/17 16:26 20 99 Nasal Cannula 2.0 02/21/17 16:00 97.2 110 20 107/69 99 02/21/17 16:00 118 02/21/17 14:23 114/69 02/21/17 12:00 97.6 97 22 114/69 96 02/21/17 12:00 96 02/21/17 09:58 94 22 95 Room Air 02/21/17 09:50 96 24 94 Room Air 21 02/21/17 09:48 94 22 Room Air 02/21/17 09:48 94 Room Air 02/21/17 09:48 Room Air 02/21/17 09:37 98 101/61 02/21/17 08:00 97 02/21/17 08:00 97.9 98 22 101/61 99 Height (Feet): 5 Height (Inches): 4.00 Weight (Pounds): 160 General Appearance: no apparent distress Neck: normal alignment Cardiovascular: normal rate Respiratory/Chest: decreased breath sounds Abdomen: normal bowel sounds Pelvis: normal external exam Edema: no edema noted Arm (L), no edema noted Arm (R), no edema noted Leg (L), no edema noted Leg (R), no edema noted Pedal (L), no edema noted Pedal (R), no edema noted Generalized MARCIO GERONIMO Feb 22, 2017 07:11
[2017-02-22] MEDS: Gabapentin 300 MG/6 ML Soln GT SCH ×2 (09:00→17:25)
[2017-02-22] MEDS: levETIRAcetam 500mg/5ml Liquid GT SCH ×2 (10:34→21:54)
[2017-02-22] MEDS: Metoprolol Tartrate 50mg tab GT SCH ×2 (10:35→21:53)
--- NOTE | 2017-02-22 10:36 | Infectious Diseases Prog Note ---
"Assessment/Plan Assessment/Plan antibiotics : vancomycin iv 02.19.17 - cefepime 02.19.17 - A 1. pseudomonas | proteus pneumonia 2. e.coli | enterococcus UTI 3. + blood cultures with coag neg staph likely contaminated 4. DM 5. CVA P 1. continue iv vancomycin, cefepime 2. will follow up cultures Subjective ROS Limited/Unobtainable: Yes Allergies: Coded Allergies: HYDANTOINS (Unverified Allergy, Unknown, 09/09/13) PHENYTOIN (Unverified Allergy, Unknown, 09/09/13) Objective Vital Signs Last 24 Hour Vital Signs Date Time Temp Pulse Resp B/P (MAP) Pulse Ox O2 Delivery O2 Flow Rate FiO2 02/22/17 07:37 110 22 96 Nasal Cannula 2.0 28 02/22/17 07:27 Nasal Cannula 2.0 28 02/22/17 07:27 103 22 99 Nasal Cannula 2.0 28 02/22/17 07:27 98 Nasal Cannula 2.0 28 02/22/17 06:11 203/123 02/22/17 04:00 92 02/22/17 04:00 98.6 95 22 127/73 99 Nasal Cannula 2.0 28 02/22/17 01:36 93 22 99 Nasal Cannula 2.0 28 02/22/17 01:21 84 22 97 Nasal Cannula 2.0 28 02/22/17 00:00 98.6 86 18 124/75 98 Nasal Cannula 02/22/17 00:00 82 02/21/17 23:14 98.6 02/21/17 22:14 112 124/75 02/21/17 22:13 124/75 02/21/17 20:00 100.5 112 18 124/75 95 Nasal Cannula 2.0 28 02/21/17 20:00 107 02/21/17 19:52 101 22 99 Nasal Cannula 2.0 28 02/21/17 19:38 101 22 Nasal Cannula 2.0 28 02/21/17 19:37 99 Nasal Cannula 2.0 28 02/21/17 19:37 101 22 99 Nasal Cannula 2.0 28 02/21/17 19:37 Nasal Cannula 2.0 28 02/21/17 16:26 20 99 Nasal Cannula 2.0 02/21/17 16:00 97.2 110 20 107/69 99 02/21/17 16:00 118 02/21/17 14:23 114/69 02/21/17 12:00 97.6 97 22 114/69 96 02/21/17 12:00 96 Height (Feet): 5 Height (Inches): 4.00 Weight (Pounds): 160 Respiratory/Chest: rhonchi - bilaterally Cardiovascular: normal rate, regular rhythm, no gallop/murmur Abdomen: soft, non tender, other - GT Extremities: no edema Microbiology Date/Time Source Procedure Growth Status 02/19/17 16:30 Sputum Induced Gram Stain - Final Resulted 02/19/17 16:30 Sputum Culture - Preliminary Pseudomonas Aeruginosa Proteus Mirabilis Resulted ANDREA BLAS Feb 22, 2017 10:36"
[2017-02-22] MEDS: Heparin 5000 units/ml inj SUBQ SCH ×2 (10:37→21:55)
[2017-02-22] MEDS: Levemir Flexpen SUBQ SCH ×2 (10:40→17:17)
--- NOTE | 2017-02-22 11:44 | General Progress Note ---
Assessment/Plan Problem List: (1) Seizure ICD Codes: R56.9 - Unspecified convulsions SNOMED: 07437189 (2) Hyperglycemia ICD Codes: R73.9 - Hyperglycemia, unspecified SNOMED: 21792010 (3) DVT (deep venous thrombosis) ICD Codes: I82.409 - Acute embolism and thrombosis of unspecified deep veins of unspecified lower extremity SNOMED: 519489019 (4) Leukocytosis ICD Codes: D72.829 - Elevated white blood cell count, unspecified SNOMED: 986612100 (5) HTN (hypertension) ICD Codes: I10 - Essential (primary) hypertension SNOMED: 41441772 (6) CVA (cerebral vascular accident) ICD Codes: I63.9 - Cerebral infarction, unspecified SNOMED: 994552653 (7) Diabetes mellitus out of control ICD Codes: E11.9 - Diabetes mellitus out of control SNOMED: 268669628 (8) Sepsis ICD Codes: A41.9 - Sepsis SNOMED: 14396037 Qualifiers: Qualified Codes: A41.9 - Sepsis, unspecified organism (9) Pneumonia ICD Codes: J18.9 - Pneumonia, unspecified organism SNOMED: 780559785 Status: progressing Assessment/Plan htn and dm reviewed chart and labs afebrile no change no acute events Subjective ROS Limited/Unobtainable: Yes Allergies: Coded Allergies: HYDANTOINS (Unverified Allergy, Unknown, 09/09/13) PHENYTOIN (Unverified Allergy, Unknown, 09/09/13) Objective Last 24 Hour Vital Signs Date Time Temp Pulse Resp B/P (MAP) Pulse Ox O2 Delivery O2 Flow Rate FiO2 02/22/17 10:35 117 135/75 02/22/17 07:37 110 22 96 Nasal Cannula 2.0 28 02/22/17 07:27 Nasal Cannula 2.0 28 02/22/17 07:27 103 22 99 Nasal Cannula 2.0 28 02/22/17 07:27 98 Nasal Cannula 2.0 28 02/22/17 06:11 203/123 02/22/17 04:00 92 02/22/17 04:00 98.6 95 22 127/73 99 Nasal Cannula 2.0 28 02/22/17 01:36 93 22 99 Nasal Cannula 2.0 02/22/17 01:21 84 22 97 Nasal Cannula 2.0 28 02/22/17 00:00 98.6 86 18 124/75 98 Nasal Cannula 02/22/17 00:00 82 02/21/17 23:14 98.6 02/21/17 22:14 112 124/75 02/21/17 22:13 124/75 02/21/17 20:00 100.5 112 18 124/75 95 Nasal Cannula 2.0 28 02/21/17 20:00 107 02/21/17 19:52 101 22 99 Nasal Cannula 2.0 02/21/17 19:38 101 22 Nasal Cannula 2.0 28 02/21/17 19:37 99 Nasal Cannula 2.0 28 02/21/17 19:37 101 22 99 Nasal Cannula 2.0 02/21/17 19:37 Nasal Cannula 2.0 02/21/17 16:26 20 99 Nasal Cannula 2.0 02/21/17 16:00 97.2 110 20 107/69 99 02/21/17 16:00 118 02/21/17 14:23 114/69 02/21/17 12:00 97.6 97 22 114/69 96 02/21/17 12:00 96 Height (Feet): 5 Height (Inches): 4.00 Weight (Pounds): 160 General Appearance: confused Jes Jacques MD Feb 22, 2017 11:44
[2017-02-22 12:10] VITALS: BP 135/75
[2017-02-22] MEDS: Cefepime HCl 2 GM in D5W 55 ML IV SCH (13:42)
[2017-02-22] MEDS: Vancomycin 1250mg/D5W 250ml IVPB SCH (13:50)
--- NOTE | 2017-02-22 15:41 | Pulmonology Progress Note ---
Assessment/Plan Assessment/Plan ASSESSMENT Sepsis with possible bacteremia UTI with E coli and Enterobacter PNA with Pseudomonas and Proteus acute respiratory distress with hypoxemia and hypercapnia large left pleural effusion gross hematuria -resolved hyperkalemia hyperglycemia with DM OOC hx of CVA with L hemiplegia dysphagia, G tube seizure disorder HTN moderate pulmonary HTN PLAN OF CARE tele ABG with hypercapnia, titrate O2 to keep sat above 92 %, CXR today US chest Friday and thoracentesis if enough fluid on US Venous Duplex with chronic thrombus LLE Pulmonary toilet abx ID follows urine cx + E coli, Enterobacter, sputum cx + Pseudomonas, Proteus , blood cx 2 /4 SCON, likely contaminant DVT prophylaxis seizure precautions, continue Keppra BP management with BB and optimize further as needed PT/OT pain management bowel regimen monitor HH, transfuse with goal to keep Hgb above 8 BS management with SS of insulin, Jju2s-7,4 not at goal, BS elevated, add Levemir cardio follows ECHO with EF 55% and RVSP of 47 c/w moderate pulmonary HTN Strict aspiration precautions, GT feeding monitor tolerance case discussed and evaluated by supervising physician Subjective Allergies: Coded Allergies: HYDANTOINS (Unverified Allergy, Unknown, 09/09/13) PHENYTOIN (Unverified Allergy, Unknown, 09/09/13) Subjective no fever, no leukocytosis episode of hypoxemia last night ABG with evidence of hypercapnia breathing somewhat labored, tachypneic Objective Last 24 Hour Vital Signs Date Time Temp Pulse Resp B/P (MAP) Pulse Ox O2 Delivery O2 Flow Rate FiO2 02/22/17 13:58 136/78 02/22/17 13:39 112 22 94 Nasal Cannula 4.0 36 02/22/17 13:29 105 22 88 Nasal Cannula 2.0 28 02/22/17 12:10 97.9 117 24 135/75 98 Simple Mask 2.0 02/22/17 12:00 96 02/22/17 10:35 117 135/75 02/22/17 08:00 109 02/22/17 07:37 110 22 96 Nasal Cannula 2.0 28 02/22/17 07:27 Nasal Cannula 2.0 28 02/22/17 07:27 103 22 99 Nasal Cannula 2.0 28 02/22/17 07:27 98 Nasal Cannula 2.0 28 02/22/17 06:11 203/123 02/22/17 04:00 92 02/22/17 04:00 98.6 95 22 127/73 99 Nasal Cannula 2.0 28 02/22/17 01:36 93 22 99 Nasal Cannula 2.0 28 02/22/17 01:21 84 22 97 Nasal Cannula 2.0 28 02/22/17 00:00 98.6 86 18 124/75 98 Nasal Cannula 02/22/17 00:00 82 02/21/17 23:14 98.6 02/21/17 22:14 112 124/75 02/21/17 22:13 124/75 02/21/17 20:00 100.5 112 18 124/75 95 Nasal Cannula 2.0 28 02/21/17 20:00 107 02/21/17 19:52 101 22 99 Nasal Cannula 2.0 28 02/21/17 19:38 101 22 Nasal Cannula 2.0 28 02/21/17 19:37 99 Nasal Cannula 2.0 28 02/21/17 19:37 101 22 99 Nasal Cannula 2.0 28 02/21/17 19:37 Nasal Cannula 2.0 28 02/21/17 16:26 20 99 Nasal Cannula 2.0 02/21/17 16:00 97.2 110 20 107/69 99 02/21/17 16:00 118 Intake and Output 02/22/17 02/23/17 19:00 07:00 # Bowel Movements 1 Objective General Appearance: NAD HEENT: normocephalic, atraumatic, anicteric, O2 via NC Respiratory/Chest: chest wall non-tender, no accessory muscle use, few isolated rhonchi, decreased BS at bases Cardiovascular: tachy, regular rhythm - ST on tele, no JVD Abdomen: normal bowel sounds, soft, non tender, non distended, G tube Extremities: no edema Neurologic/Psychiatric: other - poorly responsive , Left hemiplegia Musculoskeletal: atrophy - BLE Microbiology Date/Time Source Procedure Growth Status 02/19/17 16:30 Sputum Induced Gram Stain - Final Resulted 02/19/17 16:30 Sputum Culture - Preliminary Pseudomonas Aeruginosa Proteus Mirabilis Resulted Laboratory Tests 02/22/17 12:50: Vancomycin Level Trough 7.1 Current Medications Medications (Trade) Dose Ordered Sig/Chinyere Route PRN Reason Start Time Stop Time Status Last Admin Dose Admin Acetaminophen (Tylenol) 650 mg Q4H PRN ORAL fever (temp >100.5F) 02/19/17 12:30 03/21/17 12:29 02/21/17 22:15 Albuterol/ Ipratropium (Albuterol/ Ipratropium) 3 ml Q4H PRN HHN Shortness of Breath 02/19/17 12:30 02/24/17 12:29 02/21/17 14:15 Albuterol/ Ipratropium (Albuterol/ Ipratropium) 3 ml Q6HRT HHN 02/21/17 19:00 02/26/17 18:59 02/22/17 13:29 Cefepime HCl 2 gm/ Dextrose 55 ml @ 110 mls/hr Q24H IV 02/19/17 13:00 02/26/17 12:59 02/22/17 13:42 Clonidine HCl (Catapres) 0.2 mg Q8HR GT 02/19/17 14:00 03/21/17 13:59 02/22/17 13:58 Dextrose (Dextrose 50%) STAT PRN IV Hypoglycemia 02/19/17 12:30 03/21/17 12:29 Gabapentin (Neurontin) 100 mg BID GT 02/19/17 18:00 03/21/17 17:59 02/21/17 17:52 Heparin Sodium (Porcine) (Heparin 5000 units/ml) 5,000 units EVERY 12 HOURS SUBQ 02/19/17 21:00 03/21/17 20:59 02/22/17 10:37 Insulin Aspart (NovoLOG) EVERY 6 HOURS SUBQ 02/21/17 18:00 03/21/17 16:29 02/22/17 13:15 Insulin Detemir (Levemir) 10 units BID SUBQ 02/22/17 09:00 03/23/17 13:59 02/22/17 10:40 Levetiracetam (Keppra) 500 mg Q12HR GT 02/19/17 21:00 03/21/17 20:59 02/22/17 10:34 Metoprolol Tartrate (Lopressor) 50 mg Q12HR GT 02/19/17 13:00 03/21/17 12:59 02/22/17 10:35 Morphine Sulfate (Morphine Sulfate) 2 mg Q4H PRN IVP Moderate Pain (Pain Scale 4-6) 12/13/17 12:30 02/26/17 12:29 Nitroglycerin (Ntg) 0.4 mg Q5M PRN SL Prn Chest Pain 02/19/17 12:30 03/21/17 12:29 Ondansetron HCl (Zofran) 4 mg Q6H PRN IVP Nausea & Vomiting 02/19/17 12:30 03/21/17 12:29 Polyethylene Glycol (Miralax) 17 gm DAILYPRN PRN ORAL Constipation 02/19/17 12:30 03/21/17 12:29 Temazepam (Restoril) 15 mg HSPRN PRN ORAL Insomnia 02/19/17 12:30 02/26/17 12:29 Vancomycin HCl (Vanco rx to dose) 1 ea DAILY PRN MISC per RX protocol 02/19/17 12:45 03/21/17 12:44 Vancomycin HCl/ Dextrose 250 ml @ 166.667 mls/hr Q24H IVPB 02/19/17 14:00 02/22/17 16:00 02/22/17 13:50 Vancomycin/Sodium Chloride 250 ml @ 166.667 mls/hr Q12HR@0100,1300 IVPB 02/23/17 01:00 02/28/17 00:59 Jeremy (Leroygrzegorz)Natasha NP Feb 22, 2017 15:41
[2017-02-22 16:00] VITALS: BP 136/78
[2017-02-22] MEDS ORDERED: NS 500ML ONE (16:05)
[2017-02-22] MEDS ORDERED: Tubing IV Secondary IV ONE (16:05)
[2017-02-22] MEDS ORDERED: NS Irrig 1000ml ONE (16:05)
[2017-02-22 20:00] VITALS: BP 116/70
--- NOTE | 2017-02-22 21:29 | Nephrology Progress Note ---
Assessment/Plan Assessment 1. Hyperkalemia. 2. Urinary tract infection. 3. Prerenal azotemia. 4. Dehydration. 5. Dyspnea on exertion. Plan plan to free water per g tube monitoring renal function avoid NSAID Replace electrolyte as need it Subjective Constitutional: Reports: no symptoms HEENT: Reports: no symptoms Genitourinary: Reports: no symptoms Neurologic/Psychiatric: Reports: no symptoms Subjective no acute events Objective Objective Last 24 Hour Vital Signs Date Time Temp Pulse Resp B/P (MAP) Pulse Ox O2 Delivery O2 Flow Rate FiO2 02/22/17 19:11 118 20 96 Nasal Cannula 2.0 28 02/22/17 19:10 116 20 94 Nasal Cannula 2.0 28 02/22/17 19:10 Nasal Cannula 2.0 28 02/22/17 19:10 94 Nasal Cannula 2.0 28 02/22/17 16:00 109 02/22/17 16:00 97.5 119 22 136/78 99 Nasal Cannula 4.0 02/22/17 13:58 136/78 02/22/17 13:39 112 22 94 Nasal Cannula 4.0 36 02/22/17 13:29 105 22 88 Nasal Cannula 2.0 28 02/22/17 12:10 97.9 117 24 135/75 98 Simple Mask 2.0 02/22/17 12:00 96 02/22/17 10:35 117 135/75 02/22/17 08:00 109 02/22/17 07:37 110 22 96 Nasal Cannula 2.0 28 02/22/17 07:27 Nasal Cannula 2.0 28 02/22/17 07:27 103 22 99 Nasal Cannula 2.0 28 02/22/17 07:27 98 Nasal Cannula 2.0 28 02/22/17 06:11 203/123 02/22/17 04:00 92 02/22/17 04:00 98.6 95 22 127/73 99 Nasal Cannula 2.0 28 02/22/17 01:36 93 22 99 Nasal Cannula 2.0 28 02/22/17 01:21 84 22 97 Nasal Cannula 2.0 28 02/22/17 00:00 98.6 86 18 124/75 98 Nasal Cannula 02/22/17 00:00 82 02/21/17 23:14 98.6 02/21/17 22:14 112 124/75 02/21/17 22:13 124/75 Intake and Output 02/22/17 02/23/17 19:00 07:00 Intake Total 370 ml Output Total 600 ml Balance -230 ml Intake Oral 0 ml Tube Feeding 70 ml Other 300 ml Output Urine Total 600 ml # Bowel Movements 2 Laboratory Tests 02/22/17 12:50: Vancomycin Level Trough 7.1 Height (Feet): 5 Height (Inches): 4.00 Weight (Pounds): 160 Objective HEAD AND NECK: No JVP. No LAD. No thyromegaly. Extraocular movement intact. Pupils are reactive to light and accommodation. LUNGS: Clear to auscultation. CARDIAC: Regular rate and rhythm. S1 and S2. No murmur. No rub. ABDOMEN: Soft. PEG is in place. EXTREMITIES: She has 1 to 2+ edema. No clubbing. No cyanosis. NEUROLOGIC: The patient opened up her eyes with verbal stimuli, not following commands. ZEINA ZENDEJAS Feb 22, 2017 21:29
--- NOTE | 2017-02-22 23:12 | Cardiology Progress Note ---
Assessment/Plan Assessment/Plan 1. Sinus tachycardia, resolved, likely secondary to underlying infection/ sepsis. Normal LV systolic function. 2. Hypopxic hypercapnic respiratory failure, pulmonary to follow. 3. History of prior cerebrovascular accident with left hemiparalysis. 4. Mild pulmonary HTN. 5. Large left pleural effusion. Subjective Subjective Sinus tachycardia at 136. Objective Last 24 Hour Vital Signs Date Time Temp Pulse Resp B/P (MAP) Pulse Ox O2 Delivery O2 Flow Rate FiO2 02/22/17 21:54 126/76 02/22/17 21:53 136 126/76 02/22/17 20:00 97.6 125 18 116/70 91 Nasal Cannula 02/22/17 19:11 118 20 96 Nasal Cannula 2.0 28 02/22/17 19:10 116 20 94 Nasal Cannula 2.0 28 02/22/17 19:10 Nasal Cannula 2.0 28 02/22/17 19:10 94 Nasal Cannula 2.0 28 02/22/17 16:00 109 02/22/17 16:00 97.5 119 22 136/78 99 Nasal Cannula 4.0 02/22/17 13:58 136/78 02/22/17 13:39 112 22 94 Nasal Cannula 4.0 36 02/22/17 13:29 105 22 88 Nasal Cannula 2.0 28 02/22/17 12:10 97.9 117 24 135/75 98 Simple Mask 2.0 02/22/17 12:00 96 02/22/17 10:35 117 135/75 02/22/17 08:00 109 02/22/17 07:37 110 22 96 Nasal Cannula 2.0 28 02/22/17 07:27 Nasal Cannula 2.0 28 02/22/17 07:27 103 22 99 Nasal Cannula 2.0 28 02/22/17 07:27 98 Nasal Cannula 2.0 28 02/22/17 06:11 203/123 02/22/17 04:00 92 02/22/17 04:00 98.6 95 22 127/73 99 Nasal Cannula 2.0 28 02/22/17 01:36 93 22 99 Nasal Cannula 2.0 28 02/22/17 01:21 84 22 97 Nasal Cannula 2.0 28 02/22/17 00:00 98.6 86 18 124/75 98 Nasal Cannula 02/22/17 00:00 82 02/21/17 23:14 98.6 Intake and Output 02/22/17 02/23/17 19:00 07:00 Intake Total 370 ml Output Total 600 ml Balance -230 ml Intake Oral 0 ml Tube Feeding 70 ml Other 300 ml Output Urine Total 600 ml # Bowel Movements 2 2D Echo: LVEF 55%, RVSP 47 mmHg, Mild LVH, Large left pleural effusion, mild MR. Laboratory Tests Test 02/22/17 12:50 Vancomycin Level Trough 7.1 ug/mL (5.0-12.0) Objective GENERAL: The patient is a very unfortunate 66-year-old lady with head dropped and tilted, chronically ill-looking with contraction over the left upper and lower extremities. HEENT: Atraumatic and normocephalic. Anicteric. Conjunctival pallor. Pupils are equal, round, and reactive to light and accommodation. NECK: Cannot assess JVP as she is in sitting position. No carotid bruit. CARDIOVASCULAR SYSTEM: Normal S1, S2. Tachycardic. No murmurs, gallops, or rubs. LUNGS: Clear to auscultation bilaterally. Poor inspiratory effort. ABDOMEN: Soft, nontender, and nondistended. No hepatosplenomegaly. Presence of a G-tube. EXTREMITIES: No evidence of edema, clubbing, or cyanosis. DESMOND GORDON Feb 22, 2017 23:12
[2017-02-23] VITALS: BP 88/59
[2017-02-23] MEDS: NovoLOG Insulin Flexpen SUBQ SCH ×4 (01:10→17:48)
[2017-02-23] MEDS: Albuterol/Ipratropium 3ml neb HHN SCH ×4 (01:31→19:40)
[2017-02-23] MEDS: Vancomycin 750mg/NS 250ml IVPB SCH (02:24)
[2017-02-23 04:00] VITALS: BP 98/65
[2017-02-23] MEDS: cloNIDine 0.2mg Tab GT SCH ×3 (06:00→22:33)
[2017-02-23 08:00] VITALS: BP 101/68
[2017-02-23] MEDS: Metoprolol Tartrate 50mg tab GT SCH ×2 (09:00→22:33)
--- NOTE | 2017-02-23 09:27 | Diagnostic Imaging Report ---
Indication: Shortness of breath Technique: XRAY Chest 1v Comparison: 02/21/2017 Findings: Heart size and mediastinal contours are stable. Interstitial opacification/edema has slightly improved compared to the prior exam. Persistent small left pleural effusion and left basilar atelectasis/consolidation or no pneumothorax. Osseous structures are stable. Impression: Slight interval improvement of interstitial edema/opacification compared to 2 days prior. Persistent small left pleural effusion and left basilar atelectasis/consolidation.
[2017-02-23] MEDS: levETIRAcetam 500mg/5ml Liquid GT SCH ×2 (10:04→22:32)
[2017-02-23] MEDS: Gabapentin 300 MG/6 ML Soln GT SCH ×2 (10:05→17:40)
[2017-02-23] MEDS: Heparin 5000 units/ml inj SUBQ SCH ×2 (10:11→22:34)
[2017-02-23] MEDS: Levemir Flexpen SUBQ SCH ×2 (10:16→17:44)
--- NOTE | 2017-02-23 10:50 | Pulmonology Progress Note ---
Assessment/Plan Assessment/Plan ASSESSMENT Sepsis with possible bacteremia UTI with E coli and Enterococci PNA with Pseudomonas and Proteus acute respiratory failure with hypoxemia and hypercapnia , requiring BiPAP ( likely due to PNA and pleural effusion) large left pleural effusion gross hematuria -resolved hyperkalemia -resolved hyperglycemia with DM OOC hx of CVA with L hemiplegia dysphagia, G tube seizure disorder HTN moderate pulmonary HTN PLAN OF CARE tele BiPAP Pulmonary toilet titrate O2 to keep sat above 92 %, CXR 02/23 - Slight interval improvement of interstitial edema/opacification compared to 2 days prior. Persistent small left pleural effusion and left basilar atelectasis/consolidation, with improvement . ABG in am try to wean from BiPAP US chest in am and thoracentesis if sufficient fluid to tap PT ok,- 1.0 Venous Duplex with chronic thrombus LLE DVT prophylaxis abx ID follows urine cx + E coli, Enterococci, sputum cx +Pseudomonas, Proteus, blood cx 2/4 Staph DVT prophylaxis seizure precautions, continue Keppra BP management with BB and optimize further as needed PT/OT pain management bowel regimen monitor HH, transfuse with goal to keep Hgb above 8 BS management with SS of insulin, Ctx1b-3,4 not at goal, BS elevated, initially added Levemir, increase dose today cardio follows s/p IVF, monitor HR, tachycardia resolved ECHO with EF 55% and RVSP of 47 c/w moderate pulmonary HTN Strict aspiration precautions, GT feeding monitor tolerance case discussed and evaluated by supervising physician Subjective Allergies: Coded Allergies: HYDANTOINS (Unverified Allergy, Unknown, 09/09/13) PHENYTOIN (Unverified Allergy, Unknown, 09/09/13) Subjective no fever, no leukocytosis episode of hypoxemia ABG with evidence of hypercapnia started on BiPAP, tachypneic Objective Last 24 Hour Vital Signs Date Time Temp Pulse Resp B/P (MAP) Pulse Ox O2 Delivery O2 Flow Rate FiO2 02/23/17 09:00 91 101/68 02/23/17 08:51 93 31 99 Facial 30 02/23/17 07:17 86 23 98 Nasal Cannula 2.0 28 02/23/17 07:06 89 19 96 Nasal Cannula 2.0 28 02/23/17 07:01 98 Nasal Cannula 2.0 28 02/23/17 07:01 Nasal Cannula 2.0 28 02/23/17 07:00 89 24 98 Facial 30 02/23/17 06:00 98/65 02/23/17 05:30 90 19 100 Facial 30 02/23/17 04:00 93 02/23/17 04:00 97.6 91 18 98/65 98 Nasal Cannula 02/23/17 03:30 91 17 98 Facial 30 02/23/17 01:47 107 21 100 Facial 30 02/23/17 01:32 102 20 97 Nasal Cannula 2.0 28 02/23/17 01:30 96 24 92 Nasal Cannula 2.0 28 02/23/17 00:00 123 02/23/17 00:00 97.7 94 18 88/59 98 Nasal Cannula 02/22/17 21:54 126/76 02/22/17 21:53 136 126/76 02/22/17 20:00 96 02/22/17 20:00 97.6 125 18 116/70 91 Nasal Cannula 02/22/17 19:11 118 20 96 Nasal Cannula 2.0 28 02/22/17 19:10 116 20 94 Nasal Cannula 2.0 28 02/22/17 19:10 Nasal Cannula 2.0 28 02/22/17 19:10 94 Nasal Cannula 2.0 28 02/22/17 16:00 109 02/22/17 16:00 97.5 119 22 136/78 99 Nasal Cannula 4.0 02/22/17 13:58 136/78 02/22/17 13:39 112 22 94 Nasal Cannula 4.0 36 02/22/17 13:29 105 22 88 Nasal Cannula 2.0 28 02/22/17 12:10 97.9 117 24 135/75 98 Simple Mask 2.0 02/22/17 12:00 96 Objective General Appearance: NAD HEENT: normocephalic, atraumatic, anicteric, BiPAP mask on with 30% FiO2 Respiratory/Chest: chest wall non-tender, no accessory muscle use, few isolated rhonchi, decreased BS at bases, tachypneic Cardiovascular: regular rate and rhythm - SR on tele, no JVD Abdomen: normal bowel sounds, soft, non tender, non distended, G tube Extremities: no edema Neurologic/Psychiatric: other - poorly responsive , Left hemiplegia Musculoskeletal: atrophy - BLE Laboratory Tests 02/22/17 12:50: Vancomycin Level Trough 7.1 02/23/17 05:40: Prothrombin Time 10.7, Prothromb Time International Ratio 1.0 Current Medications Medications (Trade) Dose Ordered Sig/Chinyere Route PRN Reason Start Time Stop Time Status Last Admin Dose Admin Acetaminophen (Tylenol) 650 mg Q4H PRN ORAL fever (temp >100.5F) 02/19/17 12:30 03/21/17 12:29 02/21/17 22:15 Albuterol/ Ipratropium (Albuterol/ Ipratropium) 3 ml Q4H PRN HHN Shortness of Breath 02/19/17 12:30 02/24/17 12:29 02/21/17 14:15 Albuterol/ Ipratropium (Albuterol/ Ipratropium) 3 ml Q6HRT N 02/21/17 19:00 02/26/17 18:59 02/23/17 07:06 Cefepime HCl 2 gm/ Dextrose 55 ml @ 110 mls/hr Q24H IV 02/19/17 13:00 02/26/17 12:59 02/22/17 13:42 Clonidine HCl (Catapres) 0.2 mg Q8HR GT 02/19/17 14:00 03/21/17 13:59 02/22/17 21:54 Dextrose (Dextrose 50%) STAT PRN IV Hypoglycemia 02/19/17 12:30 03/21/17 12:29 Gabapentin (Neurontin) 100 mg BID GT 02/19/17 18:00 03/21/17 17:59 02/23/17 10:05 Heparin Sodium (Porcine) (Heparin 5000 units/ml) 5,000 units EVERY 12 HOURS SUBQ 02/19/17 21:00 03/21/17 20:59 02/23/17 10:11 Insulin Aspart (NovoLOG) EVERY 6 HOURS SUBQ 02/21/17 18:00 03/21/17 16:29 02/23/17 06:32 Insulin Detemir (Levemir) 10 units BID SUBQ 02/22/17 09:00 03/23/17 13:59 02/23/17 10:16 Levetiracetam (Keppra) 500 mg Q12HR GT 02/19/17 21:00 03/21/17 20:59 02/23/17 10:04 Metoprolol Tartrate (Lopressor) 50 mg Q12HR GT 02/19/17 13:00 03/21/17 12:59 02/22/17 21:53 Morphine Sulfate (Morphine Sulfate) 2 mg Q4H PRN IVP Moderate Pain (Pain Scale 4-6) 02/19/17 12:30 02/26/17 12:29 Nitroglycerin (Ntg) 0.4 mg Q5M PRN SL Prn Chest Pain 02/19/17 12:30 03/21/17 12:29 Ondansetron HCl (Zofran) 4 mg Q6H PRN IVP Nausea & Vomiting 02/19/17 12:30 03/21/17 12:29 Polyethylene Glycol (Miralax) 17 gm DAILYPRN PRN ORAL Constipation 02/19/17 12:30 03/21/17 12:29 Temazepam (Restoril) 15 mg HSPRN PRN ORAL Insomnia 02/19/17 12:30 02/26/17 12:29 Vancomycin HCl (Vanco rx to dose) 1 ea DAILY PRN MISC per RX protocol 02/19/17 12:45 03/21/17 12:44 Vancomycin/Sodium Chloride 250 ml @ 166.667 mls/hr Q12HR@0100,1300 IVPB 02/23/17 01:00 02/28/17 00:59 02/23/17 02:24 Natasha Luna NP (Vanchtein) Feb 23, 2017 10:50
[2017-02-23] MEDS ORDERED: Albuterol/Ipratropium 3ml neb HHN PRN (12:00)
[2017-02-23 12:05] VITALS: BP 113/71
--- NOTE | 2017-02-23 13:02 | Infectious Diseases Prog Note ---
Assessment/Plan Assessment/Plan A: Sepsis UTI Pneumonia with pseudomonas & Proteus Uncontrolled DM Positive blood culture likely contamination s/p CVA with aphasia & left hemiplegia s/p ventriculostomy tube placement P: discontinue Vancomycin &, continue Cefepime will f/u cultures Subjective ROS Limited/Unobtainable: Yes Allergies: Coded Allergies: HYDANTOINS (Unverified Allergy, Unknown, 09/09/13) PHENYTOIN (Unverified Allergy, Unknown, 09/09/13) Objective Vital Signs Last 24 Hour Vital Signs Date Time Temp Pulse Resp B/P (MAP) Pulse Ox O2 Delivery O2 Flow Rate FiO2 02/23/17 11:11 99 22 99 Facial 30 02/23/17 09:00 91 101/68 02/23/17 08:51 93 31 99 Facial 30 02/23/17 08:00 97.7 91 20 101/68 99 Bi-pap 30 02/23/17 07:17 86 23 98 Nasal Cannula 2.0 28 02/23/17 07:06 89 19 96 Nasal Cannula 2.0 28 02/23/17 07:01 98 Nasal Cannula 2.0 28 02/23/17 07:01 Nasal Cannula 2.0 28 02/23/17 07:00 89 24 98 Facial 30 02/23/17 06:00 98/65 02/23/17 05:30 90 19 100 Facial 30 02/23/17 04:00 93 02/23/17 04:00 97.6 91 18 98/65 98 Nasal Cannula 02/23/17 03:30 91 17 98 Facial 30 02/23/17 01:47 107 21 100 Facial 30 02/23/17 01:32 102 20 97 Nasal Cannula 2.0 28 02/23/17 01:30 96 24 92 Nasal Cannula 2.0 28 02/23/17 00:00 123 02/23/17 00:00 97.7 94 18 88/59 98 Nasal Cannula 02/22/17 21:54 126/76 02/22/17 21:53 136 126/76 02/22/17 20:00 96 02/22/17 20:00 97.6 125 18 116/70 91 Nasal Cannula 02/22/17 19:11 118 20 96 Nasal Cannula 2.0 28 02/22/17 19:10 116 20 94 Nasal Cannula 2.0 28 02/22/17 19:10 Nasal Cannula 2.0 28 02/22/17 19:10 94 Nasal Cannula 2.0 28 02/22/17 16:00 109 02/22/17 16:00 97.5 119 22 136/78 99 Nasal Cannula 4.0 02/22/17 13:58 136/78 02/22/17 13:39 112 22 94 Nasal Cannula 4.0 36 02/22/17 13:29 105 22 88 Nasal Cannula 2.0 28 Height (Feet): 5 Height (Inches): 4.00 Weight (Pounds): 160 HEENT: other - on BIPAP Respiratory/Chest: rhonchi - bilaterally Cardiovascular: tachycardia Abdomen: soft, non tender, other - GT feeding Extremities: no edema Neurologic/Psychiatric: aphasia Laboratory Tests Test 02/23/17 05:40 Prothrombin Time 10.7 SEC (9.30-11.50) Prothromb Time International Ratio 1.0 (0.9-1.1) Current Medications Medications (Trade) Dose Ordered Sig/Chinyere Route PRN Reason Start Time Stop Time Status Last Admin Dose Admin Acetaminophen (Tylenol) 650 mg Q4H PRN ORAL fever (temp >100.5F) 02/19/17 12:30 03/21/17 12:29 02/21/17 22:15 Albuterol/ Ipratropium (Albuterol/ Ipratropium) 3 ml Q4H PRN HHN Shortness of Breath 02/23/17 12:00 02/28/17 11:59 Albuterol/ Ipratropium (Albuterol/ Ipratropium) 3 ml Q6HRT HHN 02/21/17 19:00 02/26/17 18:59 02/23/17 07:06 Cefepime HCl 2 gm/ Dextrose 55 ml @ 110 mls/hr Q24H IV 02/19/17 13:00 02/26/17 12:59 02/22/17 13:42 Clonidine HCl (Catapres) 0.2 mg Q8HR GT 02/19/17 14:00 03/21/17 13:59 02/22/17 21:54 Dextrose (Dextrose 50%) STAT PRN IV Hypoglycemia 02/19/17 12:30 03/21/17 12:29 Gabapentin (Neurontin) 100 mg BID GT 02/19/17 18:00 03/21/17 17:59 02/23/17 10:05 Heparin Sodium (Porcine) (Heparin 5000 units/ml) 5,000 units EVERY 12 HOURS SUBQ 02/19/17 21:00 03/21/17 20:59 02/23/17 10:11 Insulin Aspart (NovoLOG) EVERY 6 HOURS SUBQ 02/21/17 18:00 03/21/17 16:29 02/23/17 06:32 Insulin Detemir (Levemir) 15 units BID SUBQ 02/23/17 18:00 03/25/17 17:59 Levetiracetam (Keppra) 500 mg Q12HR GT 02/19/17 21:00 03/21/17 20:59 02/23/17 10:04 Metoprolol Tartrate (Lopressor) 50 mg Q12HR GT 02/19/17 13:00 03/21/17 12:59 02/22/17 21:53 Morphine Sulfate (Morphine Sulfate) 2 mg Q4H PRN IVP Moderate Pain (Pain Scale 4-6) 02/19/17 12:30 02/26/17 12:29 Nitroglycerin (Ntg) 0.4 mg Q5M PRN SL Prn Chest Pain 02/19/17 12:30 03/21/17 12:29 Ondansetron HCl (Zofran) 4 mg Q6H PRN IVP Nausea & Vomiting 02/19/17 12:30 03/21/17 12:29 Polyethylene Glycol (Miralax) 17 gm DAILYPRN PRN ORAL Constipation 02/19/17 12:30 03/21/17 12:29 Temazepam (Restoril) 15 mg HSPRN PRN ORAL Insomnia 02/19/17 12:30 02/26/17 12:29 Vancomycin HCl (Vanco rx to dose) 1 ea DAILY PRN MISC per RX protocol 02/19/17 12:45 03/21/17 12:44 Vancomycin/Sodium Chloride 250 ml @ 166.667 mls/hr Q12HR@0100,1300 IVPB 02/23/17 01:00 02/28/17 00:59 02/23/17 02:24 DENEEN BRENNAN Feb 23, 2017 13:02
[2017-02-23] MEDS: Cefepime HCl 2 GM in D5W 55 ML IV SCH (13:49)
[2017-02-23] MEDS ORDERED: Miralax 17gm pkt GT PRN (15:30)
[2017-02-23 16:00] VITALS: BP 124/76
--- NOTE | 2017-02-23 16:52 | General Progress Note ---
Assessment/Plan Problem List: (1) Dementia ICD Codes: F03.90 - Unspecified dementia without behavioral disturbance SNOMED: 04073243 (2) Dysphagia ICD Codes: R13.10 - Dysphagia SNOMED: 42546535 (3) HTN (hypertension) ICD Codes: I10 - Essential (primary) hypertension SNOMED: 00382886 (4) CVA (cerebral vascular accident) ICD Codes: I63.9 - Cerebral infarction, unspecified SNOMED: 677905320 (5) Hyperglycemia ICD Codes: R73.9 - Hyperglycemia, unspecified SNOMED: 75178505 Assessment/Plan continue Levemir 15 units bid continue Novolog sliding scale Subjective ROS Limited/Unobtainable: Yes Allergies: Coded Allergies: HYDANTOINS (Unverified Allergy, Unknown, 09/09/13) PHENYTOIN (Unverified Allergy, Unknown, 09/09/13) Subjective events noted interval notes reviewed on continuous TF Objective Last 24 Hour Vital Signs Date Time Temp Pulse Resp B/P (MAP) Pulse Ox O2 Delivery O2 Flow Rate FiO2 02/23/17 14:35 90 21 97 Facial 30 02/23/17 13:49 113/71 02/23/17 13:33 86 26 98 Nasal Cannula 2.0 28 02/23/17 13:15 30 02/23/17 13:15 86 26 96 Bi-pap 30 02/23/17 13:12 86 35 96 Facial 30 02/23/17 12:05 20 113/71 98 Bi-pap 30 02/23/17 12:00 96 02/23/17 12:00 97.7 86 02/23/17 11:11 99 22 99 Facial 30 02/23/17 09:00 91 101/68 02/23/17 08:51 93 31 99 Facial 30 02/23/17 08:00 97.7 91 20 101/68 99 Bi-pap 30 02/23/17 08:00 96 02/23/17 07:17 86 23 98 Nasal Cannula 2.0 28 02/23/17 07:06 89 19 96 Nasal Cannula 2.0 28 02/23/17 07:01 98 Nasal Cannula 2.0 28 02/23/17 07:01 Nasal Cannula 2.0 28 02/23/17 07:00 89 24 98 Facial 30 02/23/17 06:00 98/65 02/23/17 05:30 90 19 100 Facial 30 02/23/17 04:00 93 02/23/17 04:00 97.6 91 18 98/65 98 Nasal Cannula 02/23/17 03:30 91 17 98 Facial 30 02/23/17 01:47 107 21 100 Facial 30 02/23/17 01:32 102 20 97 Nasal Cannula 2.0 28 02/23/17 01:30 96 24 92 Nasal Cannula 2.0 28 02/23/17 00:00 123 02/23/17 00:00 97.7 94 18 88/59 98 Nasal Cannula 02/22/17 21:54 126/76 02/22/17 21:53 136 126/76 02/22/17 20:00 96 02/22/17 20:00 97.6 125 18 116/70 91 Nasal Cannula 02/22/17 19:11 118 20 96 Nasal Cannula 2.0 28 02/22/17 19:10 116 20 94 Nasal Cannula 2.0 28 02/22/17 19:10 Nasal Cannula 2.0 28 02/22/17 19:10 94 Nasal Cannula 2.0 28 Laboratory Tests 02/23/17 05:40: Prothrombin Time 10.7, Prothromb Time International Ratio 1.0 Height (Feet): 5 Height (Inches): 4.00 Weight (Pounds): 160 General Appearance: no apparent distress Neck: normal alignment Cardiovascular: normal peripheral pulses Respiratory/Chest: lungs clear Edema: no edema noted Arm (L), no edema noted Arm (R), no edema noted Leg (L), no edema noted Leg (R), no edema noted Pedal (L), no edema noted Pedal (R), no edema noted Generalized Objective Current Medications Medications (Trade) Dose Ordered Sig/Chinyere Route PRN Reason Start Time Stop Time Status Last Admin Dose Admin Acetaminophen (Tylenol) 650 mg Q4H PRN ORAL fever (temp >100.5F) 02/19/17 12:30 03/21/17 12:29 02/21/17 22:15 Albuterol/ Ipratropium (Albuterol/ Ipratropium) 3 ml Q4H PRN HHN Shortness of Breath 02/23/17 12:00 02/28/17 11:59 Albuterol/ Ipratropium (Albuterol/ Ipratropium) 3 ml Q6HRT HHN 12/15/17 19:00 02/26/17 18:59 02/23/17 13:12 Cefepime HCl 2 gm/ Dextrose 55 ml @ 110 mls/hr Q24H IV 02/19/17 13:00 02/26/17 12:59 02/23/17 13:49 Clonidine HCl (Catapres) 0.2 mg Q8HR GT 02/19/17 14:00 03/21/17 13:59 02/23/17 13:49 Dextrose (Dextrose 50%) STAT PRN IV Hypoglycemia 02/19/17 12:30 03/21/17 12:29 Gabapentin (Neurontin) 100 mg BID GT 02/19/17 18:00 03/21/17 17:59 02/23/17 10:05 Heparin Sodium (Porcine) (Heparin 5000 units/ml) 5,000 units EVERY 12 HOURS SUBQ 02/19/17 21:00 03/21/17 20:59 02/23/17 10:11 Insulin Aspart (NovoLOG) EVERY 6 HOURS SUBQ 02/21/17 18:00 03/21/17 16:29 02/23/17 13:52 Insulin Detemir (Levemir) 15 units BID SUBQ 02/23/17 18:00 03/25/17 17:59 Levetiracetam (Keppra) 500 mg Q12HR GT 02/19/17 21:00 03/21/17 20:59 02/23/17 10:04 Metoprolol Tartrate (Lopressor) 50 mg Q12HR GT 02/19/17 13:00 03/21/17 12:59 02/22/17 21:53 Morphine Sulfate (Morphine Sulfate) 2 mg Q4H PRN IVP Moderate Pain (Pain Scale 4-6) 02/19/17 12:30 02/26/17 12:29 Nitroglycerin (Ntg) 0.4 mg Q5M PRN SL Prn Chest Pain 02/19/17 12:30 03/21/17 12:29 Ondansetron HCl (Zofran) 4 mg Q6H PRN IVP Nausea & Vomiting 02/19/17 12:30 03/21/17 12:29 Polyethylene Glycol (Miralax) 17 gm DAILYPRN PRN GT Constipation 02/23/17 15:30 03/21/17 12:29 Temazepam (Restoril) 15 mg HSPRN PRN GT Insomnia 02/23/17 15:30 02/26/17 12:29 Item Value Date Time Bedside Blood Glucose 284 mg/dl H 02/22/17 0603 Bedside Blood Glucose 330 mg/dl H 02/22/17 0034 Bedside Blood Glucose 315 mg/dl H 02/21/17 1753 Bedside Blood Glucose 295 mg/dl H 02/21/17 1424 Bedside Blood Glucose 240 mg/dl H 02/23/17 1352 Bedside Blood Glucose 237 mg/dl H 02/23/17 1016 Bedside Blood Glucose 237 mg/dl H 02/23/17 0632 Bedside Blood Glucose 312 mg/dl H 02/23/17 0110 Bedside Blood Glucose 364 mg/dl H 02/22/17 2100 MARCIO GERONIMO Feb 23, 2017 16:52
[2017-02-23] MEDS ORDERED: Sterile Water Irrig 1000ml IRRIG ONE ×2 (17:29→18:03)
[2017-02-23] MEDS ORDERED: NS 500ML ONE (18:03)
[2017-02-23] MEDS ORDERED: Sterile Water For Irrig 2000ml IRRIG ONE (18:03)
[2017-02-23 20:00] VITALS: BP 122/82
--- NOTE | 2017-02-23 21:57 | General Progress Note ---
Assessment/Plan Problem List: (1) Seizure ICD Codes: R56.9 - Unspecified convulsions SNOMED: 88133931 (2) Hyperglycemia ICD Codes: R73.9 - Hyperglycemia, unspecified SNOMED: 91846058 (3) DVT (deep venous thrombosis) ICD Codes: I82.409 - Acute embolism and thrombosis of unspecified deep veins of unspecified lower extremity SNOMED: 272707783 (4) Leukocytosis ICD Codes: D72.829 - Elevated white blood cell count, unspecified SNOMED: 020320048 (5) HTN (hypertension) ICD Codes: I10 - Essential (primary) hypertension SNOMED: 86165856 (6) CVA (cerebral vascular accident) ICD Codes: I63.9 - Cerebral infarction, unspecified SNOMED: 756152979 (7) Diabetes mellitus out of control ICD Codes: E11.9 - Diabetes mellitus out of control SNOMED: 146037298 (8) Sepsis ICD Codes: A41.9 - Sepsis SNOMED: 06018158 Qualifiers: Qualified Codes: A41.9 - Sepsis, unspecified organism (9) Pneumonia ICD Codes: J18.9 - Pneumonia, unspecified organism SNOMED: 381035390 Status: progressing Assessment/Plan htn and dm ams still confused afebrile no sob Subjective Constitutional: Reports: no symptoms Allergies: Coded Allergies: HYDANTOINS (Unverified Allergy, Unknown, 09/09/13) PHENYTOIN (Unverified Allergy, Unknown, 09/09/13) Objective Last 24 Hour Vital Signs Date Time Temp Pulse Resp B/P (MAP) Pulse Ox O2 Delivery O2 Flow Rate FiO2 02/23/17 21:30 78 15 98 Facial 30 02/23/17 20:00 97.7 89 22 122/82 100 Bi-pap 2.0 30 02/23/17 19:47 88 21 99 Bi-pap 30 02/23/17 19:46 84 17 98 Bi-pap 30 02/23/17 19:43 Bi-pap 02/23/17 19:42 99 Bi-pap 02/23/17 19:30 84 17 99 Facial 30 02/23/17 17:25 95 28 98 Facial 30 02/23/17 16:00 97.5 91 20 124/76 97 Bi-pap 30 02/23/17 16:00 109 02/23/17 14:35 90 21 97 Facial 30 02/23/17 13:49 113/71 02/23/17 13:33 86 26 98 Nasal Cannula 2.0 28 02/23/17 13:15 30 02/23/17 13:15 86 26 96 Bi-pap 30 02/23/17 13:12 86 35 96 Facial 30 02/23/17 12:05 20 113/71 98 Bi-pap 30 02/23/17 12:00 96 02/23/17 12:00 97.7 86 02/23/17 11:11 99 22 99 Facial 30 02/23/17 09:00 91 101/68 02/23/17 08:51 93 31 99 Facial 30 02/23/17 08:00 97.7 91 20 101/68 99 Bi-pap 30 02/23/17 08:00 96 02/23/17 07:17 86 23 98 Nasal Cannula 2.0 28 02/23/17 07:06 89 19 96 Nasal Cannula 2.0 28 02/23/17 07:01 98 Nasal Cannula 2.0 28 02/23/17 07:01 Nasal Cannula 2.0 28 02/23/17 07:00 89 24 98 Facial 30 02/23/17 06:00 98/65 02/23/17 05:30 90 19 100 Facial 30 02/23/17 04:00 93 02/23/17 04:00 97.6 91 18 98/65 98 Nasal Cannula 02/23/17 03:30 91 17 98 Facial 30 02/23/17 01:47 107 21 100 Facial 30 02/23/17 01:32 102 20 97 Nasal Cannula 2.0 28 02/23/17 01:30 96 24 92 Nasal Cannula 2.0 28 02/23/17 00:00 123 02/23/17 00:00 97.7 94 18 88/59 98 Nasal Cannula Intake and Output 02/23/17 02/24/17 19:00 07:00 Output Total 350 ml Balance -350 ml Output Urine Total 350 ml Laboratory Tests 02/23/17 05:40: Prothrombin Time 10.7, Prothromb Time International Ratio 1.0 Height (Feet): 5 Height (Inches): 4.00 Weight (Pounds): 160 Jes Jacques MD Feb 23, 2017 21:57
[2017-02-24] VITALS: BP 131/75
[2017-02-24] MEDS: NovoLOG Insulin Flexpen SUBQ SCH ×4 (00:57→17:43)
[2017-02-24] MEDS: Albuterol/Ipratropium 3ml neb HHN SCH ×4 (02:05→19:09)
[2017-02-24 04:00] VITALS: BP 126/76
[2017-02-24] MEDS: cloNIDine 0.2mg Tab GT SCH ×3 (06:15→22:00)
[2017-02-24 08:00] VITALS: BP 138/82
--- NOTE | 2017-02-24 08:26 | Nephrology Progress Note ---
Assessment/Plan Assessment 1. Hyperkalemia. 2. Urinary tract infection. 3. Prerenal azotemia. 4. Dehydration. 5. Dyspnea on exertion. Plan plan Check [id number] to free water per g tube monitoring renal function avoid NSAID Replace electrolyte as need it Subjective ROS Limited/Unobtainable: Yes Subjective awake currently is on BIPAP Objective Objective Last 24 Hour Vital Signs Date Time Temp Pulse Resp B/P (MAP) Pulse Ox O2 Delivery O2 Flow Rate FiO2 02/24/17 07:32 78 21 99 Bi-pap 30 02/24/17 07:25 74 14 99 Facial 30 02/24/17 07:21 99 Bi-pap 30 02/24/17 07:21 Bi-pap 30 02/24/17 07:21 74 23 99 Bi-pap 30 02/24/17 06:15 136/78 02/24/17 05:29 80 16 98 Facial 30 02/24/17 04:00 93 02/24/17 04:00 97.8 84 18 126/76 99 02/24/17 03:29 82 18 99 Facial 30 02/24/17 01:38 86 23 99 Bi-pap 30 02/24/17 01:30 85 16 98 Bi-pap 30 02/24/17 01:30 85 16 99 Facial 30 02/24/17 00:00 85 02/24/17 00:00 97.7 85 22 131/75 98 02/23/17 22:33 83 127/80 02/23/17 22:33 127/80 02/23/17 22:30 80 17 98 Facial 30 02/23/17 21:30 78 15 98 Facial 30 02/23/17 20:00 87 02/23/17 20:00 97.7 89 22 122/82 100 Bi-pap 2.0 30 02/23/17 19:47 88 21 99 Bi-pap 30 02/23/17 19:46 84 17 98 Bi-pap 30 02/23/17 19:43 Bi-pap 02/23/17 19:42 99 Bi-pap 02/23/17 19:30 84 17 99 Facial 30 02/23/17 17:25 95 28 98 Facial 30 02/23/17 16:00 97.5 91 20 124/76 97 Bi-pap 30 02/23/17 16:00 109 02/23/17 14:35 90 21 97 Facial 30 02/23/17 13:49 113/71 02/23/17 13:33 86 26 98 Nasal Cannula 2.0 28 02/23/17 13:15 30 02/23/17 13:15 86 26 96 Bi-pap 30 02/23/17 13:12 86 35 96 Facial 30 02/23/17 12:05 20 113/71 98 Bi-pap 30 02/23/17 12:00 96 02/23/17 12:00 97.7 86 02/23/17 11:11 99 22 99 Facial 30 02/23/17 09:00 91 101/68 02/23/17 08:51 93 31 99 Facial 30 Height (Feet): 5 Height (Inches): 4.00 Weight (Pounds): 160 Objective HEAD AND NECK: No JVP. No LAD. No thyromegaly. Extraocular movement intact. Pupils are reactive to light and accommodation. LUNGS: Clear to auscultation. CARDIAC: Regular rate and rhythm. S1 and S2. No murmur. No rub. ABDOMEN: Soft. PEG is in place. EXTREMITIES: She has 1 to 2+ edema. No clubbing. No cyanosis. NEUROLOGIC: The patient opened up her eyes with verbal stimuli, not following commands. ZEINA ZENDEJAS Feb 24, 2017 08:26
[2017-02-24] MEDS: Heparin 5000 units/ml inj SUBQ SCH ×2 (09:00→20:32)
[2017-02-24 09:14] LABS: BASOPHILS % (AUTO) 1.6 % (0.0-2.0); EOSINOPHILS % (AUTO) 3.5 % (0.0-3.0); HEMATOCRIT 31.5 % (37.0-47.0); HEMOGLOBIN 9.4 G/DL (12.0-16.0); LYMPHOCYTES % (AUTO) 9.7 % (20.0-45.0); MEAN CORPUSCULAR VOLUME 84 FL (80-99); MONOCYTES % (AUTO) 11.9 % (1.0-10.0); NEUTROPHILS % (AUTO) 73.3 % (45.0-75.0); PLATELET COUNT 155 K/UL (150-450); RED BLOOD COUNT 3.74 M/UL (4.20-5.40); RED CELL DISTRIBUTION WIDTH 16.5 % (11.6-14.8); WHITE BLOOD COUNT 7.4 K/UL (4.8-10.8)
[2017-02-24 09:29] LABS: ANION GAP 2 mmol/L (5-15); BLOOD UREA NITROGEN 15 mg/dL (7-18); CALCIUM 9.8 MG/DL (8.5-10.1); CARBON DIOXIDE 36 MMOL/L (21-32); CHLORIDE 107 MMOL/L (98-107); CREATININE 0.6 MG/DL (0.55-1.30); POTASSIUM 4.1 MMOL/L (3.5-5.1); SODIUM 145 MMOL/L (136-145)
[2017-02-24] MEDS: Gabapentin 300 MG/6 ML Soln GT SCH ×2 (09:35→17:47)
[2017-02-24] MEDS: levETIRAcetam 500mg/5ml Liquid GT SCH ×2 (09:35→20:28)
[2017-02-24] MEDS: Metoprolol Tartrate 50mg tab GT SCH ×2 (09:35→20:30)
[2017-02-24] MEDS: Levemir Flexpen SUBQ SCH ×2 (09:39→17:43)
[2017-02-24 12:00] VITALS: BP 126/77
[2017-02-24] MEDS: Cefepime HCl 2 GM in D5W 55 ML IV SCH (12:07)
--- NOTE | 2017-02-24 13:10 | Pulmonology Progress Note ---
Assessment/Plan Problems: (1) Hypercapnic respiratory failure (2) Pneumonia (3) Pleural effusion (4) CVA (cerebral vascular accident) (5) Dysphagia Assessment/Plan -Optimize pulmonary hygiene/mobilize as tolerated -Titrate down FiO2 to keep SaO2. > 90% -BiPAP qHS and PRN -RTC and PRN HHN's -Abx per ID -CH chest -Thora eval -Monitor volumes and renal function -TF's as tolerated -DVT Px: Hep SQ -FC Subjective Allergies: Coded Allergies: HYDANTOINS (Unverified Allergy, Unknown, 09/09/13) PHENYTOIN (Unverified Allergy, Unknown, 09/09/13) Subjective AFVSS, on BiPAP O/N now on 30% FM, 7.41/61/86/38/96 No cough, no SOB, no F/C Objective Last 24 Hour Vital Signs Date Time Temp Pulse Resp B/P (MAP) Pulse Ox O2 Delivery O2 Flow Rate FiO2 02/24/17 12:00 76 02/24/17 11:00 79 14 99 Facial 30 02/24/17 09:35 76 128/82 02/24/17 09:00 74 14 99 Facial 30 02/24/17 08:00 97.9 76 18 138/82 100 02/24/17 08:00 76 02/24/17 07:32 78 21 99 Bi-pap 30 02/24/17 07:25 74 14 99 Facial 30 02/24/17 07:21 99 Bi-pap 30 02/24/17 07:21 Bi-pap 30 02/24/17 07:21 74 23 99 Bi-pap 30 02/24/17 06:15 136/78 02/24/17 05:29 80 16 98 Facial 30 02/24/17 04:00 93 02/24/17 04:00 97.8 84 18 126/76 99 02/24/17 03:29 82 18 99 Facial 30 02/24/17 01:38 86 23 99 Bi-pap 30 02/24/17 01:30 85 16 98 Bi-pap 30 02/24/17 01:30 85 16 99 Facial 30 02/24/17 00:00 85 02/24/17 00:00 97.7 85 22 131/75 98 02/23/17 22:33 83 127/80 02/23/17 22:33 127/80 02/23/17 22:30 80 17 98 Facial 30 02/23/17 21:30 78 15 98 Facial 30 02/23/17 20:00 87 02/23/17 20:00 97.7 89 22 122/82 100 Bi-pap 2.0 30 02/23/17 19:47 88 21 99 Bi-pap 30 02/23/17 19:46 84 17 98 Bi-pap 30 02/23/17 19:43 Bi-pap 02/23/17 19:42 99 Bi-pap 02/23/17 19:30 84 17 99 Facial 30 02/23/17 17:25 95 28 98 Facial 30 02/23/17 16:00 97.5 91 20 124/76 97 Bi-pap 30 02/23/17 16:00 109 02/23/17 14:35 90 21 97 Facial 30 02/23/17 13:49 113/71 02/23/17 13:33 86 26 98 Nasal Cannula 2.0 28 02/23/17 13:15 30 02/23/17 13:15 86 26 96 Bi-pap 30 02/23/17 13:12 86 35 96 Facial 30 General Appearance: no acute distress HEENT: normocephalic, atraumatic, mucous membranes moist Respiratory/Chest: crackles/rales - @ R base Cardiovascular: normal peripheral pulses, normal rate, regular rhythm Abdomen: normal bowel sounds, soft, non tender, no organomegaly, other - GT Extremities: no cyanosis, no clubbing, no edema Laboratory Tests 02/24/17 07:10: White Blood Count 7.4, Red Blood Count 3.74L, Hemoglobin 9.4L, Hematocrit 31.5L , Mean Corpuscular Volume 84, Mean Corpuscular Hemoglobin 25.0L, Mean Corpuscular Hemoglobin Concent 29.7L, Red Cell Distribution Width 16.5H, Platelet Count 155, Mean Platelet Volume 9.8, Neutrophils (%) (Auto) 73.3, Lymphocytes (%) (Auto) 9.7L, Monocytes (%) (Auto) 11.9H, Eosinophils (%) (Auto) 3.5H, Basophils (%) (Auto) 1.6, Sodium Level 145, Potassium Level 4.1, Chloride Level 107, Carbon Dioxide Level 36H, Anion Gap 2L, Blood Urea Nitrogen 15, Creatinine 0.6, Estimat Glomerular Filtration Rate > 60, Glucose Level 217H, Calcium Level 9.8 02/24/17 10:05: Arterial Blood pH 7.410, Arterial Blood Partial Pressure CO2 61.9*H, Arterial Blood Partial Pressure O2 86.4, Arterial Blood HCO3 38.4H, Arterial Blood Oxygen Saturation 96.1, Arterial Blood Base Excess 12.0, Justo Test Positive Current Medications Medications (Trade) Dose Ordered Sig/Chinyere Route PRN Reason Start Time Stop Time Status Last Admin Dose Admin Acetaminophen (Tylenol) 650 mg Q4H PRN ORAL fever (temp >100.5F) 02/19/17 12:30 03/21/17 12:29 02/21/17 22:15 Albuterol/ Ipratropium (Albuterol/ Ipratropium) 3 ml Q4H PRN N Shortness of Breath 02/23/17 12:00 02/28/17 11:59 Albuterol/ Ipratropium (Albuterol/ Ipratropium) 3 ml Q6HRT N 02/21/17 19:00 02/26/17 18:59 02/24/17 07:21 Cefepime HCl 2 gm/ Dextrose 55 ml @ 110 mls/hr Q24H IV 02/19/17 13:00 02/26/17 12:59 02/24/17 12:07 Clonidine HCl (Catapres) 0.2 mg Q8HR GT 02/19/17 14:00 03/21/17 13:59 02/24/17 06:15 Dextrose (Dextrose 50%) STAT PRN IV Hypoglycemia 02/19/17 12:30 03/21/17 12:29 Gabapentin (Neurontin) 100 mg BID GT 02/19/17 18:00 03/21/17 17:59 02/24/17 09:35 Heparin Sodium (Porcine) (Heparin 5000 units/ml) 5,000 units EVERY 12 HOURS SUBQ 02/19/17 21:00 03/21/17 20:59 02/23/17 22:34 Insulin Aspart (NovoLOG) EVERY 6 HOURS SUBQ 02/21/17 18:00 03/21/17 16:29 02/24/17 12:06 Insulin Detemir (Levemir) 15 units BID SUBQ 02/23/17 18:00 03/25/17 17:59 02/24/17 09:39 Levetiracetam (Keppra) 500 mg Q12HR GT 02/19/17 21:00 03/21/17 20:59 02/24/17 09:35 Metoprolol Tartrate (Lopressor) 50 mg Q12HR GT 02/19/17 13:00 03/21/17 12:59 02/24/17 09:35 Morphine Sulfate (Morphine Sulfate) 2 mg Q4H PRN IVP Moderate Pain (Pain Scale 4-6) 02/19/17 12:30 02/26/17 12:29 Nitroglycerin (Ntg) 0.4 mg Q5M PRN SL Prn Chest Pain 02/19/17 12:30 03/21/17 12:29 Ondansetron HCl (Zofran) 4 mg Q6H PRN IVP Nausea & Vomiting 02/19/17 12:30 03/21/17 12:29 Polyethylene Glycol (Miralax) 17 gm DAILYPRN PRN GT Constipation 02/23/17 15:30 03/21/17 12:29 Temazepam (Restoril) 15 mg HSPRN PRN GT Insomnia 02/23/17 15:30 02/26/17 12:29 SUNG FRANCE M.D. Feb 24, 2017 13:10
--- NOTE | 2017-02-24 13:34 | Infectious Diseases Prog Note ---
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 P: continue Cefepime Subjective ROS Limited/Unobtainable: Yes Allergies: Coded Allergies: HYDANTOINS (Unverified Allergy, Unknown, 09/09/13) PHENYTOIN (Unverified Allergy, Unknown, 09/09/13) Objective Vital Signs Last 24 Hour Vital Signs Date Time Temp Pulse Resp B/P (MAP) Pulse Ox O2 Delivery O2 Flow Rate FiO2 02/24/17 13:11 81 15 98 Facial 30 02/24/17 13:08 83 14 96 Bi-pap 30 02/24/17 12:00 97.9 84 19 126/77 97 02/24/17 12:00 76 02/24/17 11:00 79 14 99 Facial 30 02/24/17 09:35 76 128/82 02/24/17 09:00 74 14 99 Facial 30 02/24/17 08:00 97.9 76 18 138/82 100 02/24/17 08:00 76 02/24/17 07:32 78 21 99 Bi-pap 30 02/24/17 07:25 74 14 99 Facial 30 02/24/17 07:21 99 Bi-pap 30 02/24/17 07:21 Bi-pap 30 02/24/17 07:21 74 23 99 Bi-pap 30 02/24/17 06:15 136/78 02/24/17 05:29 80 16 98 Facial 30 02/24/17 04:00 93 02/24/17 04:00 97.8 84 18 126/76 99 02/24/17 03:29 82 18 99 Facial 30 02/24/17 01:38 86 23 99 Bi-pap 30 02/24/17 01:30 85 16 98 Bi-pap 30 02/24/17 01:30 85 16 99 Facial 30 02/24/17 00:00 85 02/24/17 00:00 97.7 85 22 131/75 98 02/23/17 22:33 83 127/80 02/23/17 22:33 127/80 02/23/17 22:30 80 17 98 Facial 30 02/23/17 21:30 78 15 98 Facial 30 02/23/17 20:00 87 02/23/17 20:00 97.7 89 22 122/82 100 Bi-pap 2.0 30 02/23/17 19:47 88 21 99 Bi-pap 30 02/23/17 19:46 84 17 98 Bi-pap 30 02/23/17 19:43 Bi-pap 02/23/17 19:42 99 Bi-pap 02/23/17 19:30 84 17 99 Facial 30 02/23/17 17:25 95 28 98 Facial 30 02/23/17 16:00 97.5 91 20 124/76 97 Bi-pap 30 02/23/17 16:00 109 02/23/17 14:35 90 21 97 Facial 30 02/23/17 13:49 113/71 02/23/17 13:33 86 26 98 Nasal Cannula 2.0 28 Height (Feet): 5 Height (Inches): 4.00 Weight (Pounds): 160 General Appearance: no acute distress HEENT: other - on BIPAP Respiratory/Chest: other Cardiovascular: normal rate Abdomen: soft, non tender, other - GT feeding Extremities: no edema Neurologic/Psychiatric: unresponsiveness Laboratory Tests Test 02/24/17 07:10 02/24/17 10:05 White Blood Count 7.4 K/UL (4.8-10.8) Red Blood Count 3.74 M/UL (4.20-5.40) L Hemoglobin 9.4 G/DL (12.0-16.0) L Hematocrit 31.5 % (37.0-47.0) L Mean Corpuscular Volume 84 FL (80-99) Mean Corpuscular Hemoglobin 25.0 PG (27.0-31.0) L Mean Corpuscular Hemoglobin Concent 29.7 G/DL (32.0-36.0) L Red Cell Distribution Width 16.5 % (11.6-14.8) H Platelet Count 155 K/UL (150-450) Mean Platelet Volume 9.8 FL (6.5-10.1) Neutrophils (%) (Auto) 73.3 % (45.0-75.0) Lymphocytes (%) (Auto) 9.7 % (20.0-45.0) L Monocytes (%) (Auto) 11.9 % (1.0-10.0) H Eosinophils (%) (Auto) 3.5 % (0.0-3.0) H Basophils (%) (Auto) 1.6 % (0.0-2.0) Sodium Level 145 MMOL/L (136-145) Potassium Level 4.1 MMOL/L (3.5-5.1) Chloride Level 107 MMOL/L (98-107) Carbon Dioxide Level 36 MMOL/L (21-32) H Anion Gap 2 mmol/L (5-15) L Blood Urea Nitrogen 15 mg/dL (7-18) Creatinine 0.6 MG/DL (0.55-1.30) Estimat Glomerular Filtration Rate > 60 mL/min (>60) Glucose Level 217 MG/DL (74-106) H Calcium Level 9.8 MG/DL (8.5-10.1) Arterial Blood pH 7.410 (7.350-7.450) Arterial Blood Partial Pressure CO2 61.9 mmHg (35.0-45.0) *H Arterial Blood Partial Pressure O2 86.4 mmHg (75.0-100.0) Arterial Blood HCO3 38.4 mmol/L (22.0-26.0) H Arterial Blood Oxygen Saturation 96.1 % (92.0-98.0) Arterial Blood Base Excess 12.0 Justo Test Positive Current Medications Medications (Trade) Dose Ordered Sig/Ch[place]ere Route PRN Reason Start Time Stop Time Status Last Admin Dose Admin Acetaminophen (Tylenol) 650 mg Q4H PRN ORAL fever (temp >100.5F) 02/19/17 12:30 03/21/17 12:29 02/21/17 22:15 Acetylcysteine (Mucomyst) 200 mg Q6HRT N 02/24/17 19:00 03/26/17 18:59 Albuterol/ Ipratropium (Albuterol/ Ipratropium) 3 ml Q4H PRN HHN Shortness of Breath 02/23/17 12:00 02/28/17 11:59 Albuterol/ Ipratropium (Albuterol/ Ipratropium) 3 ml Q6HRT N 02/24/17 19:00 03/01/17 18:59 Cefepime HCl 2 gm/ Dextrose 55 ml @ 110 mls/hr Q24H IV 02/19/17 13:00 02/26/17 12:59 02/24/17 12:07 Clonidine HCl (Catapres) 0.2 mg Q8HR GT 02/19/17 14:00 03/21/17 13:59 02/24/17 06:15 Dextrose (Dextrose 50%) STAT PRN IV Hypoglycemia 02/19/17 12:30 03/21/17 12:29 Gabapentin (Neurontin) 100 mg BID GT 02/19/17 18:00 03/21/17 17:59 02/24/17 09:35 Heparin Sodium (Porcine) (Heparin 5000 units/ml) 5,000 units EVERY 12 HOURS SUBQ 02/19/17 21:00 03/21/17 20:59 02/23/17 22:34 Insulin Aspart (NovoLOG) EVERY 6 HOURS SUBQ 02/21/17 18:00 03/21/17 16:29 02/24/17 12:06 Insulin Detemir (Levemir) 15 units BID SUBQ 02/23/17 18:00 03/25/17 17:59 02/24/17 09:39 Levetiracetam (Keppra) 500 mg Q12HR GT 02/19/17 21:00 03/21/17 20:59 02/24/17 09:35 Metoprolol Tartrate (Lopressor) 50 mg Q12HR GT 02/19/17 13:00 03/21/17 12:59 02/24/17 09:35 Morphine Sulfate (Morphine Sulfate) 2 mg Q4H PRN IVP Moderate Pain (Pain Scale 4-6) 02/19/17 12:30 02/26/17 12:29 Nitroglycerin (Ntg) 0.4 mg Q5M PRN SL Prn Chest Pain 02/19/17 12:30 03/21/17 12:29 Ondansetron HCl (Zofran) 4 mg Q6H PRN IVP Nausea & Vomiting 02/19/17 12:30 03/21/17 12:29 Polyethylene Glycol (Miralax) 17 gm DAILYPRN PRN GT Constipation 02/23/17 15:30 03/21/17 12:29 Temazepam (Restoril) 15 mg HSPRN PRN GT Insomnia 02/23/17 15:30 02/26/17 12:29 DENEEN BRENNAN Feb 24, 2017 13:34
--- NOTE | 2017-02-24 14:12 | Diagnostic Imaging Report ---
Indication: Dyspnea Comparison: 02/23/2017 A single view chest radiograph was obtained. Findings: Lung volumes are low. Heart is enlarged. There may be a small left pleural effusion. Mild vascular congestion could be present. Please correlate clinically. IMPRESSION: No change from the prior day
[2017-02-24 16:00] VITALS: BP 139/82
--- NOTE | 2017-02-24 16:30 | Diagnostic Imaging Report ---
Indication:pleural effusion Technique: Grayscale and duplex Doppler imaging of the chest performed. Comparison: None Findings: There is a trace left pleural effusion present. No effusion on the right noted. IMPRESSION: Trace left pleural effusion
[2017-02-24] MEDS: Acetylcysteine 20% Soln 4ml HHN SCH (19:00)
--- NOTE | 2017-02-24 19:09 | General Progress Note ---
Assessment/Plan Problem List: (1) Dementia ICD Codes: F03.90 - Unspecified dementia without behavioral disturbance SNOMED: 66818664 (2) Dysphagia ICD Codes: R13.10 - Dysphagia SNOMED: 31171445 (3) HTN (hypertension) ICD Codes: I10 - Essential (primary) hypertension SNOMED: 93827692 (4) CVA (cerebral vascular accident) ICD Codes: I63.9 - Cerebral infarction, unspecified SNOMED: 172290182 (5) Hyperglycemia ICD Codes: R73.9 - Hyperglycemia, unspecified SNOMED: 28337432 Assessment/Plan reduce Levemir to 12 units bid continue Novolog sliding scale Subjective ROS Limited/Unobtainable: Yes Allergies: Coded Allergies: HYDANTOINS (Unverified Allergy, Unknown, 09/09/13) PHENYTOIN (Unverified Allergy, Unknown, 09/09/13) Subjective events noted interval notes reviewed Objective Last 24 Hour Vital Signs Date Time Temp Pulse Resp B/P (MAP) Pulse Ox O2 Delivery O2 Flow Rate FiO2 02/24/17 16:00 89 02/24/17 16:00 97.9 88 17 139/82 100 02/24/17 15:05 89 26 94 35 02/24/17 13:36 126/77 02/24/17 13:18 76 19 99 Bi-pap 30 02/24/17 13:11 81 15 98 Facial 30 02/24/17 13:08 83 14 96 Bi-pap 30 02/24/17 12:00 97.9 84 19 126/77 97 02/24/17 12:00 76 02/24/17 11:00 79 14 99 Facial 30 02/24/17 09:35 76 128/82 02/24/17 09:00 74 14 99 Facial 30 02/24/17 08:00 97.9 76 18 138/82 100 02/24/17 08:00 76 02/24/17 07:32 78 21 99 Bi-pap 30 02/24/17 07:25 74 14 99 Facial 30 02/24/17 07:21 99 Bi-pap 30 02/24/17 07:21 Bi-pap 30 02/24/17 07:21 74 23 99 Bi-pap 30 02/24/17 06:15 136/78 02/24/17 05:29 80 16 98 Facial 30 02/24/17 04:00 93 02/24/17 04:00 97.8 84 18 126/76 99 02/24/17 03:29 82 18 99 Facial 30 02/24/17 01:38 86 23 99 Bi-pap 30 02/24/17 01:30 85 16 98 Bi-pap 30 02/24/17 01:30 85 16 99 Facial 30 02/24/17 00:00 85 02/24/17 00:00 97.7 85 22 131/75 98 02/23/17 22:33 83 127/80 02/23/17 22:33 127/80 02/23/17 22:30 80 17 98 Facial 30 02/23/17 21:30 78 15 98 Facial 30 02/23/17 20:00 87 02/23/17 20:00 97.7 89 22 122/82 100 Bi-pap 2.0 30 02/23/17 19:47 88 21 99 Bi-pap 30 02/23/17 19:46 84 17 98 Bi-pap 30 02/23/17 19:43 Bi-pap 02/23/17 19:42 99 Bi-pap 02/23/17 19:30 84 17 99 Facial 30 Intake and Output 02/24/17 02/25/17 19:00 07:00 Intake Total 900 ml Output Total 22948 ml Balance -9200 ml Free Water 350 ml Tube Feeding 550 ml Output Urine Total 300 ml Drainage Total 9800 ml Laboratory Tests 02/24/17 07:10: White Blood Count 7.4, Red Blood Count 3.74L, Hemoglobin 9.4L, Hematocrit 31.5L , Mean Corpuscular Volume 84, Mean Corpuscular Hemoglobin 25.0L, Mean Corpuscular Hemoglobin Concent 29.7L, Red Cell Distribution Width 16.5H, Platelet Count 155, Mean Platelet Volume 9.8, Neutrophils (%) (Auto) 73.3, Lymphocytes (%) (Auto) 9.7L, Monocytes (%) (Auto) 11.9H, Eosinophils (%) (Auto) 3.5H, Basophils (%) (Auto) 1.6, Sodium Level 145, Potassium Level 4.1, Chloride Level 107, Carbon Dioxide Level 36H, Anion Gap 2L, Blood Urea Nitrogen 15, Creatinine 0.6, Estimat Glomerular Filtration Rate > 60, Glucose Level 217H, Calcium Level 9.8 02/24/17 10:05: Arterial Blood pH 7.410, Arterial Blood Partial Pressure CO2 61.9*H, Arterial Blood Partial Pressure O2 86.4, Arterial Blood HCO3 38.4H, Arterial Blood Oxygen Saturation 96.1, Arterial Blood Base Excess 12.0, Justo Test Positive Height (Feet): 5 Height (Inches): 4.00 Weight (Pounds): 160 General Appearance: no apparent distress EENT: pale conjunctivae Neck: normal alignment Cardiovascular: normal rate Respiratory/Chest: lungs clear Pelvis: normal external exam Edema: no edema noted Arm (L), no edema noted Arm (R), no edema noted Leg (L), no edema noted Leg (R), no edema noted Pedal (L), no edema noted Pedal (R), no edema noted Generalized Objective Current Medications Medications (Trade) Dose Ordered Sig/Chinyere Route PRN Reason Start Time Stop Time Status Last Admin Dose Admin Acetaminophen (Tylenol) 650 mg Q4H PRN ORAL fever (temp >100.5F) 02/19/17 12:30 03/21/17 12:29 02/21/17 22:15 Acetylcysteine (Mucomyst) 200 mg Q6HRT HHN 02/24/17 19:00 03/26/17 18:59 Albuterol/ Ipratropium (Albuterol/ Ipratropium) 3 ml Q4H PRN HHN Shortness of Breath 02/23/17 12:00 02/28/17 11:59 Albuterol/ Ipratropium (Albuterol/ Ipratropium) 3 ml Q6HRT N 02/24/17 19:00 03/01/17 18:59 Cefepime HCl 2 gm/ Dextrose 55 ml @ 110 mls/hr Q24H IV 02/19/17 13:00 02/26/17 12:59 02/24/17 12:07 Clonidine HCl (Catapres) 0.2 mg Q8HR GT 02/19/17 14:00 03/21/17 13:59 02/24/17 13:36 Dextrose (Dextrose 50%) STAT PRN IV Hypoglycemia 02/19/17 12:30 03/21/17 12:29 Gabapentin (Neurontin) 100 mg BID GT 02/19/17 18:00 03/21/17 17:59 02/24/17 17:47 Heparin Sodium (Porcine) (Heparin 5000 units/ml) 5,000 units EVERY 12 HOURS SUBQ 02/19/17 21:00 03/21/17 20:59 02/23/17 22:34 Insulin Aspart (NovoLOG) EVERY 6 HOURS SUBQ 02/21/17 18:00 03/21/17 16:29 02/24/17 12:06 Insulin Detemir (Levemir) 15 units BID SUBQ 02/23/17 18:00 03/25/17 17:59 02/24/17 09:39 Levetiracetam (Keppra) 500 mg Q12HR GT 02/19/17 21:00 03/21/17 20:59 02/24/17 09:35 Metoprolol Tartrate (Lopressor) 50 mg Q12HR GT 02/19/17 13:00 03/21/17 12:59 02/24/17 09:35 Morphine Sulfate (Morphine Sulfate) 2 mg Q4H PRN IVP Moderate Pain (Pain Scale 4-6) 02/19/17 12:30 02/26/17 12:29 Nitroglycerin (Ntg) 0.4 mg Q5M PRN SL Prn Chest Pain 02/19/17 12:30 03/21/17 12:29 Ondansetron HCl (Zofran) 4 mg Q6H PRN IVP Nausea & Vomiting 02/19/17 12:30 03/21/17 12:29 Polyethylene Glycol (Miralax) 17 gm DAILYPRN PRN GT Constipation 02/23/17 15:30 03/21/17 12:29 Temazepam (Restoril) 15 mg HSPRN PRN GT Insomnia 02/23/17 15:30 02/26/17 12:29 Item Value Date Time Bedside Blood Glucose 96 mg/dl 02/24/17 1800 Bedside Blood Glucose 214 mg/dl H 02/24/17 1206 Bedside Blood Glucose 210 mg/dl H 02/24/17 0939 Bedside Blood Glucose 181 mg/dl H 02/24/17 0057 Bedside Blood Glucose 225 mg/dl H 02/24/17 0600 Bedside Blood Glucose 236 mg/dl H 02/23/17 1804 Bedside Blood Glucose 240 mg/dl H 02/23/17 1352 MARCIO GERONIMO Feb 24, 2017 19:09
--- NOTE | 2017-02-24 19:24 | Cardiology Progress Note ---
Assessment/Plan Assessment/Plan 1. Sinus tachycardia, likely secondary to underlying infection/sepsis. Normal LV systolic function. 2. Hypoxic hypercapnic respiratory failure, on Bipap mask. 3. History of prior cerebrovascular accident with left hemiparalysis. 4. Mild pulmonary HTN. 5. Large left pleural effusion, pulmonary to follow. Subjective Subjective Sinus tachycardia at 105. Objective Last 24 Hour Vital Signs Date Time Temp Pulse Resp B/P (MAP) Pulse Ox O2 Delivery O2 Flow Rate FiO2 02/24/17 19:20 103 20 100 Simple Mask 6.0 44 02/24/17 19:14 100 Simple Mask 6.0 44 02/24/17 19:14 Simple Mask 6.0 44 02/24/17 19:13 105 20 100 Simple Mask 6.0 44 02/24/17 19:10 105 22 100 02/24/17 16:00 89 02/24/17 16:00 97.9 88 17 139/82 100 02/24/17 15:05 89 26 94 35 02/24/17 13:36 126/77 02/24/17 13:18 76 19 99 Bi-pap 30 02/24/17 13:11 81 15 98 Facial 30 02/24/17 13:08 83 14 96 Bi-pap 30 02/24/17 12:00 97.9 84 19 126/77 97 02/24/17 12:00 76 02/24/17 11:00 79 14 99 Facial 30 02/24/17 09:35 76 128/82 02/24/17 09:00 74 14 99 Facial 30 02/24/17 08:00 97.9 76 18 138/82 100 02/24/17 08:00 76 02/24/17 07:32 78 21 99 Bi-pap 30 02/24/17 07:25 74 14 99 Facial 30 02/24/17 07:21 99 Bi-pap 30 02/24/17 07:21 Bi-pap 30 02/24/17 07:21 74 23 99 Bi-pap 30 02/24/17 06:15 136/78 02/24/17 05:29 80 16 98 Facial 30 02/24/17 04:00 93 02/24/17 04:00 97.8 84 18 126/76 99 02/24/17 03:29 82 18 99 Facial 30 02/24/17 01:38 86 23 99 Bi-pap 30 02/24/17 01:30 85 16 98 Bi-pap 30 02/24/17 01:30 85 16 99 Facial 30 02/24/17 00:00 85 02/24/17 00:00 97.7 85 22 131/75 98 02/23/17 22:33 83 127/80 02/23/17 22:33 127/80 02/23/17 22:30 80 17 98 Facial 30 02/23/17 21:30 78 15 98 Facial 30 02/23/17 20:00 87 02/23/17 20:00 97.7 89 22 122/82 100 Bi-pap 2.0 30 02/23/17 19:47 88 21 99 Bi-pap 30 02/23/17 19:46 84 17 98 Bi-pap 30 02/23/17 19:43 Bi-pap 02/23/17 19:42 99 Bi-pap 02/23/17 19:30 84 17 99 Facial 30 Intake and Output 02/24/17 02/25/17 19:00 07:00 Intake Total 900 ml Output Total 95751 ml Balance -9200 ml Free Water 350 ml Tube Feeding 550 ml Output Urine Total 300 ml Drainage Total 9800 ml 2D Echo: LVEF 55%, RVSP 47 mmHg, Mild LVH, Large left pleural effusion, mild MR. Laboratory Tests Test 02/24/17 07:10 02/24/17 10:05 White Blood Count 7.4 K/UL (4.8-10.8) Red Blood Count 3.74 M/UL (4.20-5.40) L Hemoglobin 9.4 G/DL (12.0-16.0) L Hematocrit 31.5 % (37.0-47.0) L Mean Corpuscular Volume 84 FL (80-99) Mean Corpuscular Hemoglobin 25.0 PG (27.0-31.0) L Mean Corpuscular Hemoglobin Concent 29.7 G/DL (32.0-36.0) L Red Cell Distribution Width 16.5 % (11.6-14.8) H Platelet Count 155 K/UL (150-450) Mean Platelet Volume 9.8 FL (6.5-10.1) Neutrophils (%) (Auto) 73.3 % (45.0-75.0) Lymphocytes (%) (Auto) 9.7 % (20.0-45.0) L Monocytes (%) (Auto) 11.9 % (1.0-10.0) H Eosinophils (%) (Auto) 3.5 % (0.0-3.0) H Basophils (%) (Auto) 1.6 % (0.0-2.0) Sodium Level 145 MMOL/L (136-145) Potassium Level 4.1 MMOL/L (3.5-5.1) Chloride Level 107 MMOL/L (98-107) Carbon Dioxide Level 36 MMOL/L (21-32) H Anion Gap 2 mmol/L (5-15) L Blood Urea Nitrogen 15 mg/dL (7-18) Creatinine 0.6 MG/DL (0.55-1.30) Estimat Glomerular Filtration Rate > 60 mL/min (>60) Glucose Level 217 MG/DL (74-106) H Calcium Level 9.8 MG/DL (8.5-10.1) Arterial Blood pH 7.410 (7.350-7.450) Arterial Blood Partial Pressure CO2 61.9 mmHg (35.0-45.0) *H Arterial Blood Partial Pressure O2 86.4 mmHg (75.0-100.0) Arterial Blood HCO3 38.4 mmol/L (22.0-26.0) H Arterial Blood Oxygen Saturation 96.1 % (92.0-98.0) Arterial Blood Base Excess 12.0 Justo Test Positive Objective GENERAL: The patient is a very unfortunate 66-year-old lady with head dropped and tilted, chronically ill-looking with contraction over the left upper and lower extremities. HEENT: Atraumatic and normocephalic. Anicteric. Conjunctival pallor. Pupils are equal, round, and reactive to light and accommodation. NECK: Cannot assess JVP as she is in sitting position. No carotid bruit. CARDIOVASCULAR SYSTEM: Normal S1, S2. Tachycardic. No murmurs, gallops, or rubs. LUNGS: Clear to auscultation bilaterally. Poor inspiratory effort. ABDOMEN: Soft, nontender, and nondistended. No hepatosplenomegaly. Presence of a G-tube. EXTREMITIES: No evidence of edema, clubbing, or cyanosis. DESMOND GORDON Feb 24, 2017 19:24
[2017-02-24 20:00] VITALS: BP 95/66
--- NOTE | 2017-02-24 21:15 | General Progress Note ---
Assessment/Plan Problem List: (1) Seizure ICD Codes: R56.9 - Unspecified convulsions SNOMED: 92885123 (2) Hyperglycemia ICD Codes: R73.9 - Hyperglycemia, unspecified SNOMED: 33032559 (3) DVT (deep venous thrombosis) ICD Codes: I82.409 - Acute embolism and thrombosis of unspecified deep veins of unspecified lower extremity SNOMED: 890823386 (4) Leukocytosis ICD Codes: D72.829 - Elevated white blood cell count, unspecified SNOMED: 339594870 (5) HTN (hypertension) ICD Codes: I10 - Essential (primary) hypertension SNOMED: 20197618 (6) CVA (cerebral vascular accident) ICD Codes: I63.9 - Cerebral infarction, unspecified SNOMED: 990050470 (7) Diabetes mellitus out of control ICD Codes: E11.9 - Diabetes mellitus out of control SNOMED: 344323316 (8) Sepsis ICD Codes: A41.9 - Sepsis SNOMED: 07870773 Qualifiers: Qualified Codes: A41.9 - Sepsis, unspecified organism (9) Pneumonia ICD Codes: J18.9 - Pneumonia, unspecified organism SNOMED: 133706566 Status: progressing Assessment/Plan htn and dm ams reveiwed chart and labs and mes check sugar afebrile Subjective ROS Limited/Unobtainable: Yes Allergies: Coded Allergies: HYDANTOINS (Unverified Allergy, Unknown, 09/09/13) PHENYTOIN (Unverified Allergy, Unknown, 09/09/13) Objective Last 24 Hour Vital Signs Date Time Temp Pulse Resp B/P (MAP) Pulse Ox O2 Delivery O2 Flow Rate FiO2 02/24/17 21:12 99 20 99 Facial 30 02/24/17 20:30 91 95/59 02/24/17 20:00 97.9 95 20 95/66 95 02/24/17 19:20 103 20 100 Simple Mask 6.0 44 02/24/17 19:14 100 Simple Mask 6.0 44 02/24/17 19:14 Simple Mask 6.0 44 02/24/17 19:13 105 20 100 Simple Mask 6.0 44 02/24/17 19:10 105 22 100 02/24/17 16:00 89 02/24/17 16:00 97.9 88 17 139/82 100 02/24/17 15:05 89 26 94 35 02/24/17 13:36 126/77 02/24/17 13:18 76 19 99 Bi-pap 30 02/24/17 13:11 81 15 98 Facial 30 02/24/17 13:08 83 14 96 Bi-pap 30 02/24/17 12:00 97.9 84 19 126/77 97 02/24/17 12:00 76 02/24/17 11:00 79 14 99 Facial 30 02/24/17 09:35 76 128/82 02/24/17 09:00 74 14 99 Facial 30 02/24/17 08:00 97.9 76 18 138/82 100 02/24/17 08:00 76 02/24/17 07:32 78 21 99 Bi-pap 30 02/24/17 07:25 74 14 99 Facial 30 02/24/17 07:21 99 Bi-pap 30 02/24/17 07:21 Bi-pap 30 02/24/17 07:21 74 23 99 Bi-pap 30 02/24/17 06:15 136/78 02/24/17 05:29 80 16 98 Facial 30 02/24/17 04:00 93 02/24/17 04:00 97.8 84 18 126/76 99 02/24/17 03:29 82 18 99 Facial 30 02/24/17 01:38 86 23 99 Bi-pap 30 02/24/17 01:30 85 16 98 Bi-pap 30 02/24/17 01:30 85 16 99 Facial 30 02/24/17 00:00 85 02/24/17 00:00 97.7 85 22 131/75 98 02/23/17 22:33 83 127/80 02/23/17 22:33 127/80 02/23/17 22:30 80 17 98 Facial 30 02/23/17 21:30 78 15 98 Facial 30 Intake and Output 02/24/17 02/25/17 19:00 07:00 Intake Total 900 ml Output Total 37652 ml Balance -9200 ml Free Water 350 ml Tube Feeding 550 ml Output Urine Total 300 ml Drainage Total 9800 ml Laboratory Tests 02/24/17 07:10: White Blood Count 7.4, Red Blood Count 3.74L, Hemoglobin 9.4L, Hematocrit 31.5L , Mean Corpuscular Volume 84, Mean Corpuscular Hemoglobin 25.0L, Mean Corpuscular Hemoglobin Concent 29.7L, Red Cell Distribution Width 16.5H, Platelet Count 155, Mean Platelet Volume 9.8, Neutrophils (%) (Auto) 73.3, Lymphocytes (%) (Auto) 9.7L, Monocytes (%) (Auto) 11.9H, Eosinophils (%) (Auto) 3.5H, Basophils (%) (Auto) 1.6, Sodium Level 145, Potassium Level 4.1, Chloride Level 107, Carbon Dioxide Level 36H, Anion Gap 2L, Blood Urea Nitrogen 15, Creatinine 0.6, Estimat Glomerular Filtration Rate > 60, Glucose Level 217H, Calcium Level 9.8 02/24/17 10:05: Arterial Blood pH 7.410, Arterial Blood Partial Pressure CO2 61.9*H, Arterial Blood Partial Pressure O2 86.4, Arterial Blood HCO3 38.4H, Arterial Blood Oxygen Saturation 96.1, Arterial Blood Base Excess 12.0, Justo Test Positive Height (Feet): 5 Height (Inches): 4.00 Weight (Pounds): 160 Neck: supple Cardiovascular: normal rate Respiratory/Chest: lungs clear Abdomen: soft Jes Jacques MD Feb 24, 2017 21:15
[2017-02-24 22:54] LABS: FERRITIN 69 NG/ML (8-388); LACTATE DEHYDROGENASE 134 U/L (81-234)
[2017-02-24 23:26] LABS: % IRON SATURATION 9 % (15-50); IRON 17 ug/dL (50-175); TOTAL IRON BINDING CAPACITY 183 ug/dL (250-450)
[2017-02-25 00:18] VITALS: BP 104/68
[2017-02-25] MEDS: NovoLOG Insulin Flexpen SUBQ SCH ×4 (00:41→18:00)
[2017-02-25] MEDS: Albuterol/Ipratropium 3ml neb HHN SCH ×4 (01:10→21:13)
[2017-02-25] MEDS: Acetylcysteine 20% Soln 4ml HHN SCH ×4 (01:11→21:13)
[2017-02-25 04:00] VITALS: BP 122/78
[2017-02-25] MEDS: cloNIDine 0.2mg Tab GT SCH ×3 (06:16→23:04)
[2017-02-25] MEDS: Gabapentin 300 MG/6 ML Soln GT SCH ×2 (09:02→18:00)
[2017-02-25] MEDS: levETIRAcetam 500mg/5ml Liquid GT SCH ×2 (09:02→21:34)
[2017-02-25] MEDS: Metoprolol Tartrate 50mg tab GT SCH ×2 (09:03→21:34)
[2017-02-25] MEDS: Levemir Flexpen SUBQ SCH ×2 (09:04→18:00)
[2017-02-25] MEDS: Heparin 5000 units/ml inj SUBQ SCH ×2 (09:05→21:35)
--- NOTE | 2017-02-25 10:57 | Infectious Diseases Prog Note ---
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 P: continue Cefepime Subjective ROS Limited/Unobtainable: Yes Allergies: Coded Allergies: HYDANTOINS (Unverified Allergy, Unknown, 09/09/13) PHENYTOIN (Unverified Allergy, Unknown, 09/09/13) Objective Vital Signs Last 24 Hour Vital Signs Date Time Temp Pulse Resp B/P (MAP) Pulse Ox O2 Delivery O2 Flow Rate FiO2 02/25/17 09:03 75 109/76 02/25/17 08:51 104 24 100 Simple Mask 6.0 44 02/25/17 08:38 79 15 99 Facial 30 02/25/17 08:31 83 17 98 Bi-pap 30 02/25/17 08:30 Bi-pap 30 02/25/17 08:30 97 Bi-pap 30 02/25/17 06:16 125/79 02/25/17 05:03 81 23 96 Facial 30 02/25/17 04:00 97.0 84 24 122/78 98 02/25/17 04:00 86 02/25/17 03:00 81 23 100 Facial 30 02/25/17 01:07 84 16 100 Bi-pap 30 02/25/17 01:06 82 15 100 Facial 30 02/25/17 01:00 83 21 100 Bi-pap 30 02/25/17 00:18 97.7 20 104/68 96 02/25/17 00:00 81 02/24/17 23:04 94 16 100 Facial 30 02/24/17 22:00 107/69 02/24/17 21:12 99 20 99 Facial 30 02/24/17 20:30 91 95/59 02/24/17 20:00 97.9 95 20 95/66 95 02/24/17 20:00 95 02/24/17 19:20 103 20 100 Simple Mask 6.0 44 02/24/17 19:14 100 Simple Mask 6.0 44 02/24/17 19:14 Simple Mask 6.0 44 02/24/17 19:13 105 20 100 Simple Mask 6.0 44 02/24/17 19:10 105 22 100 02/24/17 16:00 89 02/24/17 16:00 97.9 88 17 139/82 100 02/24/17 15:05 89 26 94 35 02/24/17 13:36 126/77 02/24/17 13:18 76 19 99 Bi-pap 30 02/24/17 13:11 81 15 98 Facial 30 02/24/17 13:08 83 14 96 Bi-pap 30 02/24/17 12:00 97.9 84 19 126/77 97 02/24/17 12:00 76 02/24/17 11:00 79 14 99 Facial 30 Height (Feet): 5 Height (Inches): 4.00 Weight (Pounds): 160 HEENT: other - O2 by mask Respiratory/Chest: decreased breath sounds Cardiovascular: normal rate Abdomen: soft, non tender, other - GT feeding Extremities: no edema Neurologic/Psychiatric: aphasia, other - opens eyes Laboratory Tests Test 02/24/17 22:10 Reticulocyte Count 0.4 % (0.0-2.0) Fibrinogen 662 mg/dL (200-400) H Iron Level 17 ug/dL (50-175) L Total Iron Binding Capacity 183 ug/dL (250-450) L Percent Iron Saturation 9 % (15-50) L Unsaturated Iron Binding 166 ug/dL (112-346) Soluble Transferrin Receptor Pending Ferritin 69 NG/ML (8-388) Lactate Dehydrogenase 134 U/L (81-234) Folate 27.8 NG/ML (8.6-58.9) Thyroid Stimulating Hormone (TSH) 1.510 uiU/mL (0.358-3.740) Current Medications Medications (Trade) Dose Ordered Sig/Chinyere Route PRN Reason Start Time Stop Time Status Last Admin Dose Admin Acetaminophen (Tylenol) 650 mg Q4H PRN ORAL fever (temp >100.5F) 02/19/17 12:30 03/21/17 12:29 02/21/17 22:15 Acetylcysteine (Mucomyst) 200 mg Q6HRT HHN 02/24/17 19:00 03/26/17 18:59 02/25/17 08:37 Albuterol/ Ipratropium (Albuterol/ Ipratropium) 3 ml Q4H PRN HHN Shortness of Breath 02/23/17 12:00 02/28/17 11:59 Albuterol/ Ipratropium (Albuterol/ Ipratropium) 3 ml Q6HRT HHN 02/24/17 19:00 03/01/17 18:59 02/25/17 08:33 Cefepime HCl 2 gm/ Dextrose 55 ml @ 110 mls/hr Q24H IV 02/19/17 13:00 02/26/17 12:59 02/24/17 12:07 Clonidine HCl (Catapres) 0.2 mg Q8HR GT 02/19/17 14:00 03/21/17 13:59 02/25/17 06:16 Dextrose (Dextrose 50%) STAT PRN IV Hypoglycemia 02/19/17 12:30 03/21/17 12:29 Gabapentin (Neurontin) 100 mg BID GT 02/19/17 18:00 03/21/17 17:59 02/25/17 09:02 Heparin Sodium (Porcine) (Heparin 5000 units/ml) 5,000 units EVERY 12 HOURS SUBQ 02/19/17 21:00 03/21/17 20:59 02/25/17 09:05 Insulin Aspart (NovoLOG) EVERY 6 HOURS SUBQ 02/21/17 18:00 03/21/17 16:29 02/25/17 05:42 Insulin Detemir (Levemir) 12 units BID SUBQ 02/25/17 09:00 03/27/17 08:59 02/25/17 09:04 Levetiracetam (Keppra) 500 mg Q12HR GT 02/19/17 21:00 03/21/17 20:59 02/25/17 09:02 Metoprolol Tartrate (Lopressor) 50 mg Q12HR GT 02/19/17 13:00 03/21/17 12:59 02/25/17 09:03 Morphine Sulfate (Morphine Sulfate) 2 mg Q4H PRN IVP Moderate Pain (Pain Scale 4-6) 02/19/17 12:30 02/26/17 12:29 Nitroglycerin (Ntg) 0.4 mg Q5M PRN SL Prn Chest Pain 02/19/17 12:30 03/21/17 12:29 Ondansetron HCl (Zofran) 4 mg Q6H PRN IVP Nausea & Vomiting 02/19/17 12:30 03/21/17 12:29 Polyethylene Glycol (Miralax) 17 gm DAILYPRN PRN GT Constipation 02/23/17 15:30 03/21/17 12:29 Temazepam (Restoril) 15 mg HSPRN PRN GT Insomnia 02/23/17 15:30 02/26/17 12:29 DENEEN BRENNAN Feb 25, 2017 10:57
--- NOTE | 2017-02-25 12:45 | Consultation ---
DATE OF CONSULTATION: 02/24/2017 HEMATOLOGY/ONCOLOGY CONSULTATION CONSULTING PHYSICIAN: Jose Boateng M.D. REFERRING PHYSICIAN: Jes Jacques M.D. REASON FOR CONSULTATION: Evaluation of anemia. IDENTIFYING DATA: Dear Dr. Jacques: The patient is a pleasant 66-year-old female, whom I have seen in the past. She is at present a resident of acute rehabilitation facility, currently in sinus rhythm, noted to have anemia. She has been seen before by me. She has past medical history significant for hemorrhagic stroke, left hemiplegia, chronic seizure disorder, dementia, , and diabetes mellitus, who at this time, continues to be . Hematology Service was consulted for evaluation and treatment. Hemoglobin currently in the 9 range. PAST MEDICAL HISTORY: Hemorrhagic stroke, left hemiplegia, history of recurrent seizures, diabetes mellitus, hypertension, and COPD. MEDICATIONS: Reviewed; Lovenox, Plavix, clonidine, and Zofran. ALLERGIES: Phenytoin and hydantoin. SOCIAL HISTORY: Resident of a long-term facility. No evidence of alcohol, tobacco, or illicit drug use. FAMILY HISTORY: Unable to obtain. REVIEW OF SYSTEMS: Difficult to obtain due to mental status. PHYSICAL EXAMINATION: VITAL SIGNS: Reviewed. CONSTITUTIONAL: An elderly appearing female. No fever, chills, or night sweats. PULMONARY: Decreased breath sounds. CARDIOVASCULAR: Regular rate. No S3 or S4. ABDOMEN: Soft, nontender, and nondistended. EXTREMITIES: No cyanosis, swelling, or edema. NEUROLOGIC: Spastic left upper extremity. No spontaneous movement is noted. LABORATORY AND DIAGNOSTIC DATA: WBC 10.3, hemoglobin 9.1, and hematocrit 28. ASSESSMENT AND RECOMMENDATIONS: 1. Anemia secondary to chronic disease. At this time, we will consider to order anemia workup. This order has been placed. 2. Deep vein thrombosis history. The patient was closely monitor. No evidence of recurrent clot at this moment. Currently, on heparin subcutaneous. 3. Leukocytosis, currently improved. . 4. Diabetes mellitus, currently better controlled. . 5. Sepsis, improved on antibiotics. 6. Pneumonia, has been seen by ID Service. I appreciate the consultation. Jose Boateng M.D. DR: JORGE JOB#: [id number] CC:
[2017-02-25] MEDS: Cefepime HCl 2 GM in D5W 55 ML IV SCH (13:00)
--- NOTE | 2017-02-25 17:12 | Nephrology Progress Note ---
Assessment/Plan Assessment 1. Hyperkalemia. 2. Urinary tract infection. 3. Prerenal azotemia. 4. Dehydration. 5. Dyspnea on exertion. Plan plan to free water per g tube monitoring renal function avoid NSAID Replace electrolyte as need it Subjective Constitutional: Reports: no symptoms HEENT: Reports: no symptoms Genitourinary: Reports: no symptoms Neurologic/Psychiatric: Reports: no symptoms Subjective No changes in MS Objective Objective Last 24 Hour Vital Signs Date Time Temp Pulse Resp B/P (MAP) Pulse Ox O2 Delivery O2 Flow Rate FiO2 02/25/17 15:15 74 18 99 Full Face 30 02/25/17 13:18 74 18 98 Bi-pap 30 02/25/17 13:07 74 19 98 Bi-pap 30 02/25/17 12:42 86 23 93 Facial 30 02/25/17 09:03 75 109/76 02/25/17 08:51 104 24 100 Simple Mask 6.0 44 02/25/17 08:38 79 15 99 Facial 30 02/25/17 08:31 83 17 98 Bi-pap 30 02/25/17 08:30 Bi-pap 30 02/25/17 08:30 97 Bi-pap 30 02/25/17 06:16 125/79 02/25/17 05:03 81 23 96 Facial 30 02/25/17 04:00 97.0 84 24 122/78 98 02/25/17 04:00 86 02/25/17 03:00 81 23 100 Facial 30 02/25/17 01:07 84 16 100 Bi-pap 30 02/25/17 01:06 82 15 100 Facial 30 02/25/17 01:00 83 21 100 Bi-pap 30 02/25/17 00:18 97.7 20 104/68 96 02/25/17 00:00 81 02/24/17 23:04 94 16 100 Facial 30 02/24/17 22:00 107/69 02/24/17 21:12 99 20 99 Facial 30 02/24/17 20:30 91 95/59 02/24/17 20:00 97.9 95 20 95/66 95 02/24/17 20:00 95 02/24/17 19:20 103 20 100 Simple Mask 6.0 44 02/24/17 19:14 100 Simple Mask 6.0 44 02/24/17 19:14 Simple Mask 6.0 44 02/24/17 19:13 105 20 100 Simple Mask 6.0 44 02/24/17 19:10 105 22 100 Intake and Output 02/25/17 02/26/17 19:00 07:00 # Voids 2 Laboratory Tests 02/24/17 22:10: Reticulocyte Count 0.4, Fibrinogen 662H, Iron Level 17L, Total Iron Binding Capacity 183L, Percent Iron Saturation 9L, Unsaturated Iron Binding 166, Soluble Transferrin Receptor [Pending], Ferritin 69, Lactate Dehydrogenase 134, Folate 27.8, Thyroid Stimulating Hormone (TSH) 1.510 Height (Feet): 5 Height (Inches): 4.00 Weight (Pounds): 160 Objective HEAD AND NECK: No JVP. No LAD. No thyromegaly. Extraocular movement intact. Pupils are reactive to light and accommodation. LUNGS: Clear to auscultation. CARDIAC: Regular rate and rhythm. S1 and S2. No murmur. No rub. ABDOMEN: Soft. PEG is in place. EXTREMITIES: She has 1 to 2+ edema. No clubbing. No cyanosis. NEUROLOGIC: The patient opened up her eyes with verbal stimuli, not following commands. ZEINA ZENDEJAS Feb 25, 2017 17:12
--- NOTE | 2017-02-25 18:08 | Pulmonology Progress Note ---
Assessment/Plan Problems: (1) Hypercapnic respiratory failure (2) Pneumonia (3) Pleural effusion (4) CVA (cerebral vascular accident) (5) Dysphagia Assessment/Plan -Optimize pulmonary hygiene/mobilize as tolerated -Titrate down FiO2 to keep SaO2. > 90% -BiPAP qHS and PRN -RTC and PRN HHN's + NAC -Abx per ID -F/U CT chest -Monitor volumes and renal function -TF's as tolerated -DVT Px: Hep SQ -FC Subjective Allergies: Coded Allergies: HYDANTOINS (Unverified Allergy, Unknown, 09/09/13) PHENYTOIN (Unverified Allergy, Unknown, 09/09/13) Subjective On/Off BiPAP, no cough, + SOB, no F/C US without sig effusion, CXR stable, CT pending I/O likely inaccurate, not -9.4L overnight Objective Last 24 Hour Vital Signs Date Time Temp Pulse Resp B/P (MAP) Pulse Ox O2 Delivery O2 Flow Rate FiO2 02/25/17 15:15 74 18 99 Full Face 30 02/25/17 13:18 74 18 98 Bi-pap 30 02/25/17 13:07 74 19 98 Bi-pap 30 02/25/17 12:42 86 23 93 Facial 30 02/25/17 09:03 75 109/76 02/25/17 08:51 104 24 100 Simple Mask 6.0 44 02/25/17 08:38 79 15 99 Facial 30 02/25/17 08:31 83 17 98 Bi-pap 30 02/25/17 08:30 Bi-pap 30 02/25/17 08:30 97 Bi-pap 30 02/25/17 06:16 125/79 02/25/17 05:03 81 23 96 Facial 30 02/25/17 04:00 97.0 84 24 122/78 98 02/25/17 04:00 86 02/25/17 03:00 81 23 100 Facial 30 02/25/17 01:07 84 16 100 Bi-pap 30 02/25/17 01:06 82 15 100 Facial 30 02/25/17 01:00 83 21 100 Bi-pap 30 02/25/17 00:18 97.7 20 104/68 96 02/25/17 00:00 81 02/24/17 23:04 94 16 100 Facial 30 02/24/17 22:00 107/69 02/24/17 21:12 99 20 99 Facial 30 02/24/17 20:30 91 95/59 02/24/17 20:00 97.9 95 20 95/66 95 02/24/17 20:00 95 02/24/17 19:20 103 20 100 Simple Mask 6.0 44 02/24/17 19:14 100 Simple Mask 6.0 44 02/24/17 19:14 Simple Mask 6.0 44 02/24/17 19:13 105 20 100 Simple Mask 6.0 44 02/24/17 19:10 105 22 100 Intake and Output 02/25/17 02/26/17 19:00 07:00 # Voids 2 General Appearance: no acute distress HEENT: normocephalic, atraumatic, mucous membranes moist Respiratory/Chest: rhonchi - scattered Cardiovascular: normal peripheral pulses, normal rate, regular rhythm Abdomen: normal bowel sounds, soft, non tender, no organomegaly, non distended Extremities: no cyanosis, no clubbing, no edema Laboratory Tests 02/24/17 22:10: Reticulocyte Count 0.4, Fibrinogen 662H, Iron Level 17L, Total Iron Binding Capacity 183L, Percent Iron Saturation 9L, Unsaturated Iron Binding 166, Soluble Transferrin Receptor [Pending], Ferritin 69, Lactate Dehydrogenase 134, Folate 27.8, Thyroid Stimulating Hormone (TSH) 1.510 Current Medications Medications (Trade) Dose Ordered Sig/Chinyere Route PRN Reason Start Time Stop Time Status Last Admin Dose Admin Acetaminophen (Tylenol) 650 mg Q4H PRN ORAL fever (temp >100.5F) 02/19/17 12:30 03/21/17 12:29 02/21/17 22:15 Acetylcysteine (Mucomyst) 200 mg Q6HRT N 02/24/17 19:00 03/26/17 18:59 02/25/17 13:05 Albuterol/ Ipratropium (Albuterol/ Ipratropium) 3 ml Q4H PRN HHN Shortness of Breath 02/23/17 12:00 02/28/17 11:59 Albuterol/ Ipratropium (Albuterol/ Ipratropium) 3 ml Q6HRT HHN 02/24/17 19:00 03/01/17 18:59 02/25/17 13:05 Cefepime HCl 2 gm/ Dextrose 55 ml @ 110 mls/hr Q24H IV 02/19/17 13:00 03/04/17 12:59 02/25/17 13:00 Clonidine HCl (Catapres) 0.2 mg Q8HR GT 02/19/17 14:00 03/21/17 13:59 02/25/17 06:16 Dextrose (Dextrose 50%) STAT PRN IV Hypoglycemia 02/19/17 12:30 03/21/17 12:29 Gabapentin (Neurontin) 100 mg BID GT 02/19/17 18:00 03/21/17 17:59 02/25/17 09:02 Heparin Sodium (Porcine) (Heparin 5000 units/ml) 5,000 units EVERY 12 HOURS SUBQ 02/19/17 21:00 03/21/17 20:59 02/25/17 09:05 Insulin Aspart (NovoLOG) EVERY 6 HOURS SUBQ 02/21/17 18:00 03/21/17 16:29 02/25/17 05:42 Insulin Detemir (Levemir) 12 units BID SUBQ 02/25/17 09:00 03/27/17 08:59 02/25/17 09:04 Levetiracetam (Keppra) 500 mg Q12HR GT 02/19/17 21:00 03/21/17 20:59 02/25/17 09:02 Metoprolol Tartrate (Lopressor) 50 mg Q12HR GT 02/19/17 13:00 03/21/17 12:59 02/25/17 09:03 Morphine Sulfate (Morphine Sulfate) 2 mg Q4H PRN IVP Moderate Pain (Pain Scale 4-6) 02/19/17 12:30 02/26/17 12:29 Nitroglycerin (Ntg) 0.4 mg Q5M PRN SL Prn Chest Pain 02/19/17 12:30 03/21/17 12:29 Ondansetron HCl (Zofran) 4 mg Q6H PRN IVP Nausea & Vomiting 02/19/17 12:30 03/21/17 12:29 Polyethylene Glycol (Miralax) 17 gm DAILYPRN PRN GT Constipation 02/23/17 15:30 03/21/17 12:29 Temazepam (Restoril) 15 mg HSPRN PRN GT Insomnia 02/23/17 15:30 02/26/17 12:29 SUNG FRANCE M.D. Feb 25, 2017 18:08
[2017-02-25 20:00] VITALS: BP 120/69
--- NOTE | 2017-02-25 21:10 | Cardiology Progress Note ---
Assessment/Plan Assessment/Plan 1. Sinus tachycardia, resolved, likely secondary to underlying infection/ sepsis. Normal LV systolic function. 2. Hypoxic hypercapnic respiratory failure, on Bipap mask. 3. History of prior cerebrovascular accident with left hemiparalysis. 4. Mild pulmonary HTN. 5. Large left pleural effusion. Subjective Subjective Sinus rhythm at 74. On bipap mask. Objective Last 24 Hour Vital Signs Date Time Temp Pulse Resp B/P (MAP) Pulse Ox O2 Delivery O2 Flow Rate FiO2 02/25/17 15:15 74 18 99 Full Face 30 02/25/17 14:00 127/76 02/25/17 13:18 74 18 98 Bi-pap 30 02/25/17 13:07 74 19 98 Bi-pap 30 02/25/17 12:42 86 23 93 Facial 30 02/25/17 09:03 75 109/76 02/25/17 08:51 104 24 100 Simple Mask 6.0 44 02/25/17 08:38 79 15 99 Facial 30 02/25/17 08:31 83 17 98 Bi-pap 30 02/25/17 08:30 Bi-pap 30 02/25/17 08:30 97 Bi-pap 30 02/25/17 06:16 125/79 02/25/17 05:03 81 23 96 Facial 30 02/25/17 04:00 97.0 84 24 122/78 98 02/25/17 04:00 86 02/25/17 03:00 81 23 100 Facial 30 02/25/17 01:07 84 16 100 Bi-pap 30 02/25/17 01:06 82 15 100 Facial 30 02/25/17 01:00 83 21 100 Bi-pap 30 02/25/17 00:18 97.7 20 104/68 96 02/25/17 00:00 81 02/24/17 23:04 94 16 100 Facial 30 02/24/17 22:00 107/69 02/24/17 21:12 99 20 99 Facial 30 Intake and Output 02/25/17 02/26/17 19:00 07:00 # Voids 2 1 2D Echo: LVEF 55%, RVSP 47 mmHg, Mild LVH, Large left pleural effusion, mild MR. Laboratory Tests Test 02/24/17 22:10 Reticulocyte Count 0.4 % (0.0-2.0) Fibrinogen 662 mg/dL (200-400) H Iron Level 17 ug/dL (50-175) L Total Iron Binding Capacity 183 ug/dL (250-450) L Percent Iron Saturation 9 % (15-50) L Unsaturated Iron Binding 166 ug/dL (112-346) Soluble Transferrin Receptor Pending Ferritin 69 NG/ML (8-388) Lactate Dehydrogenase 134 U/L (81-234) Folate 27.8 NG/ML (8.6-58.9) Thyroid Stimulating Hormone (TSH) 1.510 uiU/mL (0.358-3.740) Objective GENERAL: The patient is a very unfortunate 66-year-old lady with head dropped and tilted, chronically ill-looking with contraction over the left upper and lower extremities. HEENT: Atraumatic and normocephalic. Anicteric. Conjunctival pallor. Pupils are equal, round, and reactive to light and accommodation. NECK: Cannot assess JVP as she is in sitting position. No carotid bruit. CARDIOVASCULAR SYSTEM: Normal S1, S2. No murmurs, gallops, or rubs. LUNGS: Clear to auscultation bilaterally. Poor inspiratory effort. ABDOMEN: Soft, nontender, and nondistended. No hepatosplenomegaly. Presence of a G-tube. EXTREMITIES: No evidence of edema, clubbing, or cyanosis. DESMOND GORDON Feb 25, 2017 21:10
--- NOTE | 2017-02-25 21:11 | General Progress Note ---
Assessment/Plan Problem List: (1) Seizure ICD Codes: R56.9 - Unspecified convulsions SNOMED: 55053115 (2) Hyperglycemia ICD Codes: R73.9 - Hyperglycemia, unspecified SNOMED: 29253764 (3) DVT (deep venous thrombosis) ICD Codes: I82.409 - Acute embolism and thrombosis of unspecified deep veins of unspecified lower extremity SNOMED: 979856212 (4) Leukocytosis ICD Codes: D72.829 - Elevated white blood cell count, unspecified SNOMED: 963575459 (5) HTN (hypertension) ICD Codes: I10 - Essential (primary) hypertension SNOMED: 17861213 (6) CVA (cerebral vascular accident) ICD Codes: I63.9 - Cerebral infarction, unspecified SNOMED: 749846210 (7) Diabetes mellitus out of control ICD Codes: E11.9 - Diabetes mellitus out of control SNOMED: 843019947 (8) Sepsis ICD Codes: A41.9 - Sepsis SNOMED: 78467879 Qualifiers: Qualified Codes: A41.9 - Sepsis, unspecified organism (9) Pneumonia ICD Codes: J18.9 - Pneumonia, unspecified organism SNOMED: 258512679 Status: progressing Assessment/Plan htn and dm sepsis clinically improving no wheezing afebrile Subjective ROS Limited/Unobtainable: Yes Allergies: Coded Allergies: HYDANTOINS (Unverified Allergy, Unknown, 09/09/13) PHENYTOIN (Unverified Allergy, Unknown, 09/09/13) Objective Last 24 Hour Vital Signs Date Time Temp Pulse Resp B/P (MAP) Pulse Ox O2 Delivery O2 Flow Rate FiO2 02/25/17 15:15 74 18 99 Full Face 30 02/25/17 14:00 127/76 02/25/17 13:18 74 18 98 Bi-pap 30 02/25/17 13:07 74 19 98 Bi-pap 30 02/25/17 12:42 86 23 93 Facial 30 02/25/17 09:03 75 109/76 02/25/17 08:51 104 24 100 Simple Mask 6.0 44 02/25/17 08:38 79 15 99 Facial 30 02/25/17 08:31 83 17 98 Bi-pap 30 02/25/17 08:30 Bi-pap 30 02/25/17 08:30 97 Bi-pap 30 02/25/17 06:16 125/79 02/25/17 05:03 81 23 96 Facial 30 02/25/17 04:00 97.0 84 24 122/78 98 02/25/17 04:00 86 02/25/17 03:00 81 23 100 Facial 30 02/25/17 01:07 84 16 100 Bi-pap 30 02/25/17 01:06 82 15 100 Facial 30 02/25/17 01:00 83 21 100 Bi-pap 30 02/25/17 00:18 97.7 20 104/68 96 02/25/17 00:00 81 02/24/17 23:04 94 16 100 Facial 30 02/24/17 22:00 107/69 02/24/17 21:12 99 20 99 Facial 30 Intake and Output 02/25/17 02/26/17 19:00 07:00 # Voids 2 1 Laboratory Tests 02/24/17 22:10: Reticulocyte Count 0.4, Fibrinogen 662H, Iron Level 17L, Total Iron Binding Capacity 183L, Percent Iron Saturation 9L, Unsaturated Iron Binding 166, Soluble Transferrin Receptor [Pending], Ferritin 69, Lactate Dehydrogenase 134, Folate 27.8, Thyroid Stimulating Hormone (TSH) 1.510 Height (Feet): 5 Height (Inches): 4.00 Weight (Pounds): 160 General Appearance: confused Cardiovascular: normal rate Jes Jacques MD Feb 25, 2017 21:11
[2017-02-25 22:59] VITALS: BP 134/78
[2017-02-26] VITALS: BP 125/76
[2017-02-26] MEDS: NovoLOG Insulin Flexpen SUBQ SCH ×4 (00:30→17:55)
[2017-02-26] MEDS: Albuterol/Ipratropium 3ml neb HHN SCH ×4 (01:51→19:49)
[2017-02-26] MEDS: Acetylcysteine 20% Soln 4ml HHN SCH ×4 (02:01→19:57)
[2017-02-26 04:00] VITALS: BP 127/76
[2017-02-26] MEDS: Vancomycin 750mg/NS 250ml IVPB SCH (04:15)
[2017-02-26] MEDS: cloNIDine 0.2mg Tab GT SCH ×2 (06:28→14:14)
--- NOTE | 2017-02-26 07:01 | General Progress Note ---
Assessment/Plan Problem List: (1) Dementia ICD Codes: F03.90 - Unspecified dementia without behavioral disturbance SNOMED: 37704396 (2) Dysphagia ICD Codes: R13.10 - Dysphagia SNOMED: 53110109 (3) HTN (hypertension) ICD Codes: I10 - Essential (primary) hypertension SNOMED: 59812442 (4) CVA (cerebral vascular accident) ICD Codes: I63.9 - Cerebral infarction, unspecified SNOMED: 658421669 (5) Hyperglycemia ICD Codes: R73.9 - Hyperglycemia, unspecified SNOMED: 07807305 Assessment/Plan continue Levemir 12 units bid continue Novolog sliding scale Subjective ROS Limited/Unobtainable: Yes Allergies: Coded Allergies: HYDANTOINS (Unverified Allergy, Unknown, 09/09/13) PHENYTOIN (Unverified Allergy, Unknown, 09/09/13) Subjective events noted interval notes reviewed Objective Last 24 Hour Vital Signs Date Time Temp Pulse Resp B/P (MAP) Pulse Ox O2 Delivery O2 Flow Rate FiO2 02/26/17 06:28 155/93 02/26/17 05:30 80 22 98 Full Face 30 02/26/17 04:12 71 02/26/17 04:00 97.9 76 20 127/76 100 Bi-pap 02/26/17 03:30 81 24 97 Facial 30 02/26/17 01:52 90 19 99 Bi-pap 30 02/26/17 01:51 84 15 98 Bi-pap 30 02/26/17 01:30 78 21 98 Full Face 30 02/26/17 00:16 75 02/26/17 00:00 97.7 76 20 125/76 98 Bi-pap 02/25/17 23:04 134/78 02/25/17 22:59 134/78 02/25/17 22:46 78 21 98 Full Face 30 02/25/17 21:34 82 120/69 02/25/17 21:23 80 19 97 Facial 30 02/25/17 20:06 79 02/25/17 20:00 97.5 82 20 120/69 99 Bi-pap 02/25/17 20:00 98 Bi-pap 30 02/25/17 19:30 Bi-pap 02/25/17 19:30 84 20 99 Bi-pap 02/25/17 19:30 98 Bi-pap 02/25/17 19:30 81 26 98 Full Face 30 02/25/17 19:30 81 19 98 Bi-pap 30 02/25/17 16:53 79 02/25/17 15:15 74 18 99 Full Face 30 02/25/17 14:00 127/76 02/25/17 13:18 74 18 98 Bi-pap 30 02/25/17 13:07 74 19 98 Bi-pap 30 02/25/17 12:42 86 23 93 Facial 30 02/25/17 09:03 75 109/76 02/25/17 08:51 104 24 100 Simple Mask 6.0 44 02/25/17 08:38 79 15 99 Facial 30 02/25/17 08:31 83 17 98 Bi-pap 30 02/25/17 08:30 Bi-pap 30 02/25/17 08:30 97 Bi-pap 30 Height (Feet): 5 Height (Inches): 4.00 Weight (Pounds): 160 General Appearance: no apparent distress Neck: normal alignment Cardiovascular: normal rate Respiratory/Chest: decreased breath sounds Abdomen: normal bowel sounds Objective Current Medications Medications (Trade) Dose Ordered Sig/Chinyere Route PRN Reason Start Time Stop Time Status Last Admin Dose Admin Acetaminophen (Tylenol) 650 mg Q4H PRN ORAL fever (temp >100.5F) 02/19/17 12:30 03/21/17 12:29 02/21/17 22:15 Acetylcysteine (Mucomyst) 200 mg Q6HRT HHN 02/24/17 19:00 03/26/17 18:59 02/26/17 02:01 Albuterol/ Ipratropium (Albuterol/ Ipratropium) 3 ml Q4H PRN HHN Shortness of Breath 02/23/17 12:00 02/28/17 11:59 Albuterol/ Ipratropium (Albuterol/ Ipratropium) 3 ml Q6HRT HHN 02/24/17 19:00 03/01/17 18:59 02/26/17 01:51 Cefepime HCl 2 gm/ Dextrose 55 ml @ 110 mls/hr Q24H IV 02/19/17 13:00 03/04/17 12:59 02/25/17 13:00 Clonidine HCl (Catapres) 0.2 mg Q8HR GT 02/19/17 14:00 03/21/17 13:59 02/26/17 06:28 Dextrose (Dextrose 50%) STAT PRN IV Hypoglycemia 02/19/17 12:30 03/21/17 12:29 Gabapentin (Neurontin) 100 mg BID GT 02/19/17 18:00 03/21/17 17:59 02/25/17 09:02 Heparin Sodium (Porcine) (Heparin 5000 units/ml) 5,000 units EVERY 12 HOURS SUBQ 02/19/17 21:00 03/21/17 20:59 02/25/17 21:35 Insulin Aspart (NovoLOG) EVERY 6 HOURS SUBQ 02/21/17 18:00 03/21/17 16:29 02/26/17 06:30 Insulin Detemir (Levemir) 12 units BID SUBQ 02/25/17 09:00 03/27/17 08:59 02/25/17 18:00 Levetiracetam (Keppra) 500 mg Q12HR GT 02/19/17 21:00 03/21/17 20:59 02/25/17 21:34 Metoprolol Tartrate (Lopressor) 50 mg Q12HR GT 02/19/17 13:00 03/21/17 12:59 02/25/17 21:34 Morphine Sulfate (Morphine Sulfate) 2 mg Q4H PRN IVP Moderate Pain (Pain Scale 4-6) 02/19/17 12:30 02/26/17 12:29 Nitroglycerin (Ntg) 0.4 mg Q5M PRN SL Prn Chest Pain 02/19/17 12:30 03/21/17 12:29 Ondansetron HCl (Zofran) 4 mg Q6H PRN IVP Nausea & Vomiting 02/19/17 12:30 03/21/17 12:29 Polyethylene Glycol (Miralax) 17 gm DAILYPRN PRN GT Constipation 02/23/17 15:30 03/21/17 12:29 Temazepam (Restoril) 15 mg HSPRN PRN GT Insomnia 02/23/17 15:30 02/26/17 12:29 Item Value Date Time Bedside Blood Glucose 153 mg/dl H 02/26/17 0630 Bedside Blood Glucose 162 mg/dl H 02/26/17 0030 Bedside Blood Glucose 95 mg/dl 02/25/17 1800 Bedside Blood Glucose 154 mg/dl H 02/25/17 1200 Bedside Blood Glucose 194 mg/dl H 02/25/17 0904 Bedside Blood Glucose 194 mg/dl H 02/25/17 0600 Bedside Blood Glucose 214 mg/dl H 02/25/17 0041 MARCIO GERONIMO Feb 26, 2017 07:01
[2017-02-26 08:00] VITALS: BP 124/80
--- NOTE | 2017-02-26 08:00 | Nephrology Progress Note ---
Assessment/Plan Assessment 1. Hyperkalemia. 2. Urinary tract infection. 3. Prerenal azotemia. 4. Dehydration. 5. Dyspnea on exertion. Plan plan check chem 7 to free water per g tube monitoring renal function avoid NSAID Replace electrolyte as need it Subjective Constitutional: Reports: no symptoms HEENT: Reports: no symptoms Neurologic/Psychiatric: Reports: no symptoms Subjective No changes in MS Objective Objective Last 24 Hour Vital Signs Date Time Temp Pulse Resp B/P (MAP) Pulse Ox O2 Delivery O2 Flow Rate FiO2 02/26/17 06:28 155/93 02/26/17 05:30 80 22 98 Full Face 30 02/26/17 04:12 71 02/26/17 04:00 99 Bi-pap 02/26/17 04:00 97.9 76 20 127/76 100 Bi-pap 02/26/17 03:30 81 24 97 Facial 30 02/26/17 01:52 90 19 99 Bi-pap 30 02/26/17 01:51 84 15 98 Bi-pap 30 02/26/17 01:30 78 21 98 Full Face 30 02/26/17 00:16 75 02/26/17 00:00 97.7 76 20 125/76 98 Bi-pap 02/26/17 00:00 99 Bi-pap 02/25/17 23:04 134/78 02/25/17 22:59 134/78 02/25/17 22:46 78 21 98 Full Face 30 02/25/17 21:34 82 120/69 02/25/17 21:23 80 19 97 Facial 30 02/25/17 20:06 79 02/25/17 20:00 97.5 82 20 120/69 99 Bi-pap 02/25/17 20:00 98 Bi-pap 30 02/25/17 19:30 Bi-pap 02/25/17 19:30 84 20 99 Bi-pap 02/25/17 19:30 98 Bi-pap 02/25/17 19:30 81 26 98 Full Face 30 02/25/17 19:30 81 19 98 Bi-pap 30 02/25/17 16:53 79 02/25/17 15:15 74 18 99 Full Face 30 02/25/17 14:00 127/76 02/25/17 13:18 74 18 98 Bi-pap 30 02/25/17 13:07 74 19 98 Bi-pap 30 02/25/17 12:42 86 23 93 Facial 30 02/25/17 09:03 75 109/76 02/25/17 08:51 104 24 100 Simple Mask 6.0 44 02/25/17 08:38 79 15 99 Facial 30 02/25/17 08:31 83 17 98 Bi-pap 30 02/25/17 08:30 Bi-pap 30 02/25/17 08:30 97 Bi-pap 30 Height (Feet): 5 Height (Inches): 4.00 Weight (Pounds): 160 Objective HEAD AND NECK: No JVP. No LAD. No thyromegaly. Extraocular movement intact. Pupils are reactive to light and accommodation. LUNGS: Clear to auscultation. CARDIAC: Regular rate and rhythm. S1 and S2. No murmur. No rub. ABDOMEN: Soft. PEG is in place. EXTREMITIES: She has 1 to 2+ edema. No clubbing. No cyanosis. NEUROLOGIC: The patient opened up her eyes with verbal stimuli, not following commands. ZEINA ZENDEJAS Feb 26, 2017 08:00
[2017-02-26] MEDS: levETIRAcetam 500mg/5ml Liquid GT SCH ×2 (09:00→21:19)
[2017-02-26] MEDS: Levemir Flexpen SUBQ SCH ×2 (09:00→17:56)
[2017-02-26] MEDS: Gabapentin 300 MG/6 ML Soln GT SCH ×2 (09:00→17:53)
--- NOTE | 2017-02-26 09:09 | Diagnostic Imaging Report ---
Clinical Indication: Reason For Exam: COPD Technique: Spiral acquisitions obtained through the chest. No IV contrast utilized, reason not stated. Multiplanar reconstructions generated. Total dose length product 867.99 mGycm. CTDIvol(s) 25.12 mGy. Dose reduction achieved using automated exposure control Comparison: Chest radiograph 02/24/2017 Findings: There is a moderate size left pleural effusion. There is a smaller right pleural effusion. The left lower lobe is completely atelectatic. There is atelectasis of a significant portion of the right lower lobe the upper lung hoang demonstrate suggestion of mild pulmonary vascular congestion, although this is probably somewhat exaggerated by respiratory motion artifact. The heart is enlarged. There is minimal pericardial thickening versus fluid. The pulmonary arteries are ectatic, right and left pulmonary artery each measuring about 28 mm in diameter. No mediastinal or hilar mass or adenopathy. The included portions of the thyroid are unremarkable. There is a ventriculoperitoneal shunt catheter, entering the the right upper quadrant and then heading over the dome of the liver, tip over the posterior dome. There may be a small amount of intraperitoneal fluid related to this. No axillary or chest wall mass or adenopathy. The bones demonstrate degenerative spondylosis. Included upper abdominal anatomy demonstrates is a 3.5 cm contour bulge in the upper pole of the left kidney which is isoattenuating to renal parenchyma. An incidental 1 cm nodule is seen in the right adrenal gland in this patient whose history of malignancy is unknown. Impression: Moderate size left pleural effusion. Compressive atelectasis of the left lower lobe Smaller right pleural effusion with compressive atelectasis of portions of the right lower lobe Mild interstitial congestion Cardiomegaly Ectatic bilateral pulmonary arteries, suggestive of but not diagnostic for pulmonary arterial hypertension Ventriculoperitoneal shunt catheter. Trace free intraperitoneal fluid, likely related to such The above findings were provided to the nursing unit in a handwritten preliminary report Isoattenuating left upper pole renal contour bulge. The possibility of a mass should be.. Consider further evaluation with contrast CT, renal ultrasound or MRI Right adrenal nodule measuring 1 cm is probably benign, although risk is increased if there is a prior history of malignancy. Consider biochemical assays to determine functional status and exclude pheochromocytoma. Also consider follow-up adrenal CT protocol or chemical-shift MRI in 12 months to assess stability. Ye FRANCO, et al. Management of Incidental Adrenal Masses: A White Paper of the ACR Incidental Findings Committee. J Am [employer] Radiol. 2017 Aug;14(8):5204-3737.. The above 2 findings were phoned to Dr. Paige at the time of interpretation The CT scanner at [facility] is accredited by the [employer] and the scans are performed using protocols designed to limit radiation exposure to as low as reasonably achievable to attain images of sufficient resolution adequate for diagnostic evaluation.
[2017-02-26 09:37] LABS: BASOPHILS % (AUTO) 0.5 % (0.0-2.0); EOSINOPHILS % (AUTO) 3.4 % (0.0-3.0); HEMATOCRIT 31.2 % (37.0-47.0); HEMOGLOBIN 9.2 G/DL (12.0-16.0); LYMPHOCYTES % (AUTO) 15.8 % (20.0-45.0); MEAN CORPUSCULAR VOLUME 85 FL (80-99); MONOCYTES % (AUTO) 11.9 % (1.0-10.0); NEUTROPHILS % (AUTO) 68.5 % (45.0-75.0); PLATELET COUNT 189 K/UL (150-450); RED BLOOD COUNT 3.67 M/UL (4.20-5.40); RED CELL DISTRIBUTION WIDTH 16.9 % (11.6-14.8); WHITE BLOOD COUNT 6.8 K/UL (4.8-10.8)
[2017-02-26 09:52] LABS: ALANINE AMINOTRANSFERASE 25 U/L (12-78); ALBUMIN 1.9 G/DL (3.4-5.0); ALBUMIN/GLOBULIN RATIO 0.4 (1.0-2.7); ALKALINE PHOSPHATASE 97 U/L (46-116); ANION GAP 0 mmol/L (5-15); ASPARTATE AMINO TRANSFERASE 21 U/L (15-37); BILIRUBIN,TOTAL 0.1 MG/DL (0.2-1.0); BLOOD UREA NITROGEN 13 mg/dL (7-18); CALCIUM 9.4 MG/DL (8.5-10.1); CARBON DIOXIDE 39 MMOL/L (21-32); CHLORIDE 106 MMOL/L (98-107); CREATININE 0.6 MG/DL (0.55-1.30); SODIUM 145 MMOL/L (136-145)
--- NOTE | 2017-02-26 10:05 | General Progress Note ---
Assessment/Plan Assessment/Plan ASSESSMENT AND RECOMMENDATIONS: #. 3.5 cm contour bulge in the upper pole of the left kidney + 1 cm nodule is seen in the right adrenal gland --> Will order tumor markers --> urology follow up #. Anemia secondary to chronic disease. Anemia work up has been reviewed. # Deep vein thrombosis history. The patient was closely monitor. No evidence of recurrent clot at this moment. Currently, on heparin subcutaneous. #. Leukocytosis, currently improved. #. Diabetes mellitus, currently better controlled. #. Pneumonia, has been seen by ID Service. Subjective Constitutional: Reports: malaise Hematologic/Lymphatic: Reports: anemia Allergies: Coded Allergies: HYDANTOINS (Unverified Allergy, Unknown, 09/09/13) PHENYTOIN (Unverified Allergy, Unknown, 09/09/13) All Systems: reviewed and negative except above Subjective On abx Objective Last 24 Hour Vital Signs Date Time Temp Pulse Resp B/P (MAP) Pulse Ox O2 Delivery O2 Flow Rate FiO2 02/26/17 08:55 91 17 99 Bi-pap 30 02/26/17 08:51 99 Bi-pap 30 02/26/17 08:51 Bi-pap 30 02/26/17 08:45 92 16 97 Full Face 30 02/26/17 08:45 90 17 97 Bi-pap 30 02/26/17 08:10 87 16 99 Bi-pap 30 02/26/17 07:55 89 17 99 Full Face 30 02/26/17 07:55 87 17 99 Bi-pap 30 02/26/17 06:28 155/93 02/26/17 05:30 80 22 98 Full Face 30 02/26/17 04:12 71 02/26/17 04:00 99 Bi-pap 02/26/17 04:00 97.9 76 20 127/76 100 Bi-pap 02/26/17 03:30 81 24 97 Facial 30 02/26/17 01:52 90 19 99 Bi-pap 30 02/26/17 01:51 84 15 98 Bi-pap 30 02/26/17 01:30 78 21 98 Full Face 30 02/26/17 00:16 75 02/26/17 00:00 97.7 76 20 125/76 98 Bi-pap 02/26/17 00:00 99 Bi-pap 02/25/17 23:04 134/78 02/25/17 22:59 134/78 02/25/17 22:46 78 21 98 Full Face 30 02/25/17 21:34 82 120/69 02/25/17 21:23 80 19 97 Facial 30 02/25/17 20:06 79 02/25/17 20:00 97.5 82 20 120/69 99 Bi-pap 02/25/17 20:00 98 Bi-pap 30 02/25/17 19:30 Bi-pap 02/25/17 19:30 84 20 99 Bi-pap 02/25/17 19:30 98 Bi-pap 02/25/17 19:30 81 26 98 Full Face 30 02/25/17 19:30 81 19 98 Bi-pap 30 02/25/17 16:53 79 02/25/17 15:15 74 18 99 Full Face 30 02/25/17 14:00 127/76 02/25/17 13:18 74 18 98 Bi-pap 30 02/25/17 13:07 74 19 98 Bi-pap 30 02/25/17 12:42 86 23 93 Facial 30 Laboratory Tests 02/26/17 09:15: White Blood Count 6.8, Red Blood Count 3.67L, Hemoglobin 9.2L, Hematocrit 31.2L , Mean Corpuscular Volume 85, Mean Corpuscular Hemoglobin 25.1L, Mean Corpuscular Hemoglobin Concent 29.6L, Red Cell Distribution Width 16.9H, Platelet Count 189, Mean Platelet Volume 8.6, Neutrophils (%) (Auto) 68.5, Lymphocytes (%) (Auto) 15.8L, Monocytes (%) (Auto) 11.9H, Eosinophils (%) (Auto ) 3.4H, Basophils (%) (Auto) 0.5, Sodium Level 145, Potassium Level 4.0, Chloride Level 106, Carbon Dioxide Level 39H, Anion Gap 0L, Blood Urea Nitrogen 13, Creatinine 0.6, Estimat Glomerular Filtration Rate > 60, Glucose Level 199H , Calcium Level 9.4, Total Bilirubin 0.1L, Aspartate Amino Transf (AST/SGOT) 21 , Alanine Aminotransferase (ALT/SGPT) 25, Alkaline Phosphatase 97, Total Protein 6.8, Albumin 1.9L, Globulin 4.9, Albumin/Globulin Ratio 0.4L Height (Feet): 5 Height (Inches): 4.00 Weight (Pounds): 160 General Appearance: no apparent distress EENT: PERRL/EOMI Neck: normal alignment Abdomen: non tender Neurologic: superintendent marine II-XII grossly normal, no motor/sensory deficits Skin: normal pigmentation Jose Boateng Feb 26, 2017 10:05
--- NOTE | 2017-02-26 10:13 | Infectious Diseases Prog Note ---
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 P: continue Cefepime Subjective ROS Limited/Unobtainable: Yes Allergies: Coded Allergies: HYDANTOINS (Unverified Allergy, Unknown, 09/09/13) PHENYTOIN (Unverified Allergy, Unknown, 09/09/13) Objective Vital Signs Last 24 Hour Vital Signs Date Time Temp Pulse Resp B/P (MAP) Pulse Ox O2 Delivery O2 Flow Rate FiO2 02/26/17 08:55 91 17 99 Bi-pap 30 02/26/17 08:51 99 Bi-pap 30 02/26/17 08:51 Bi-pap 30 02/26/17 08:45 92 16 97 Full Face 30 02/26/17 08:45 90 17 97 Bi-pap 30 02/26/17 08:10 87 16 99 Bi-pap 30 02/26/17 07:55 89 17 99 Full Face 30 02/26/17 07:55 87 17 99 Bi-pap 30 02/26/17 06:28 155/93 02/26/17 05:30 80 22 98 Full Face 30 02/26/17 04:12 71 02/26/17 04:00 99 Bi-pap 02/26/17 04:00 97.9 76 20 127/76 100 Bi-pap 02/26/17 03:30 81 24 97 Facial 30 02/26/17 01:52 90 19 99 Bi-pap 30 02/26/17 01:51 84 15 98 Bi-pap 30 02/26/17 01:30 78 21 98 Full Face 30 02/26/17 00:16 75 02/26/17 00:00 97.7 76 20 125/76 98 Bi-pap 02/26/17 00:00 99 Bi-pap 02/25/17 23:04 134/78 02/25/17 22:59 134/78 02/25/17 22:46 78 21 98 Full Face 30 02/25/17 21:34 82 120/69 02/25/17 21:23 80 19 97 Facial 30 02/25/17 20:06 79 02/25/17 20:00 97.5 82 20 120/69 99 Bi-pap 02/25/17 20:00 98 Bi-pap 30 02/25/17 19:30 Bi-pap 02/25/17 19:30 84 20 99 Bi-pap 02/25/17 19:30 98 Bi-pap 02/25/17 19:30 81 26 98 Full Face 30 02/25/17 19:30 81 19 98 Bi-pap 30 02/25/17 16:53 79 02/25/17 15:15 74 18 99 Full Face 30 02/25/17 14:00 127/76 02/25/17 13:18 74 18 98 Bi-pap 30 02/25/17 13:07 74 19 98 Bi-pap 30 02/25/17 12:42 86 23 93 Facial 30 Height (Feet): 5 Height (Inches): 4.00 Weight (Pounds): 160 HEENT: other - on BIPAP Respiratory/Chest: rhonchi - bilaterally Cardiovascular: normal rate Abdomen: soft, non tender, other - GT feeding Neurologic/Psychiatric: motor weakness, aphasia Laboratory Tests Test 02/26/17 09:15 White Blood Count 6.8 K/UL (4.8-10.8) Red Blood Count 3.67 M/UL (4.20-5.40) L Hemoglobin 9.2 G/DL (12.0-16.0) L Hematocrit 31.2 % (37.0-47.0) L Mean Corpuscular Volume 85 FL (80-99) Mean Corpuscular Hemoglobin 25.1 PG (27.0-31.0) L Mean Corpuscular Hemoglobin Concent 29.6 G/DL (32.0-36.0) L Red Cell Distribution Width 16.9 % (11.6-14.8) H Platelet Count 189 K/UL (150-450) Mean Platelet Volume 8.6 FL (6.5-10.1) Neutrophils (%) (Auto) 68.5 % (45.0-75.0) Lymphocytes (%) (Auto) 15.8 % (20.0-45.0) L Monocytes (%) (Auto) 11.9 % (1.0-10.0) H Eosinophils (%) (Auto) 3.4 % (0.0-3.0) H Basophils (%) (Auto) 0.5 % (0.0-2.0) Sodium Level 145 MMOL/L (136-145) Potassium Level 4.0 MMOL/L (3.5-5.1) Chloride Level 106 MMOL/L (98-107) Carbon Dioxide Level 39 MMOL/L (21-32) H Anion Gap 0 mmol/L (5-15) L Blood Urea Nitrogen 13 mg/dL (7-18) Creatinine 0.6 MG/DL (0.55-1.30) Estimat Glomerular Filtration Rate > 60 mL/min (>60) Glucose Level 199 MG/DL (74-106) H Calcium Level 9.4 MG/DL (8.5-10.1) Total Bilirubin 0.1 MG/DL (0.2-1.0) L Aspartate Amino Transf (AST/SGOT) 21 U/L (15-37) Alanine Aminotransferase (ALT/SGPT) 25 U/L (12-78) Alkaline Phosphatase 97 U/L (46-116) Total Protein 6.8 G/DL (6.4-8.2) Albumin 1.9 G/DL (3.4-5.0) L Globulin 4.9 g/dL Albumin/Globulin Ratio 0.4 (1.0-2.7) L Current Medications Medications (Trade) Dose Ordered Sig/[place]ere Route PRN Reason Start Time Stop Time Status Last Admin Dose Admin Acetaminophen (Tylenol) 650 mg Q4H PRN ORAL fever (temp >100.5F) 02/19/17 12:30 03/21/17 12:29 02/21/17 22:15 Acetylcysteine (Mucomyst) 200 mg Q6HRT HHN 02/24/17 19:00 03/26/17 18:59 02/26/17 08:45 Albuterol/ Ipratropium (Albuterol/ Ipratropium) 3 ml Q4H PRN HHN Shortness of Breath 02/23/17 12:00 02/28/17 11:59 Albuterol/ Ipratropium (Albuterol/ Ipratropium) 3 ml Q6HRT HHN 02/24/17 19:00 03/01/17 18:59 02/26/17 07:55 Cefepime HCl 2 gm/ Dextrose 55 ml @ 110 mls/hr Q24H IV 02/19/17 13:00 03/04/17 12:59 02/25/17 13:00 Clonidine HCl (Catapres) 0.2 mg Q8HR GT 02/19/17 14:00 03/21/17 13:59 02/26/17 06:28 Dextrose (Dextrose 50%) STAT PRN IV Hypoglycemia 02/19/17 12:30 03/21/17 12:29 Gabapentin (Neurontin) 100 mg BID GT 02/19/17 18:00 03/21/17 17:59 02/25/17 09:02 Heparin Sodium (Porcine) (Heparin 5000 units/ml) 5,000 units EVERY 12 HOURS SUBQ 02/19/17 21:00 03/21/17 20:59 02/25/17 21:35 Insulin Aspart (NovoLOG) EVERY 6 HOURS SUBQ 02/21/17 18:00 03/21/17 16:29 02/26/17 06:30 Insulin Detemir (Levemir) 12 units BID SUBQ 02/25/17 09:00 03/27/17 08:59 02/25/17 18:00 Levetiracetam (Keppra) 500 mg Q12HR GT 02/19/17 21:00 03/21/17 20:59 02/25/17 21:34 Metoprolol Tartrate (Lopressor) 50 mg Q12HR GT 02/19/17 13:00 03/21/17 12:59 02/25/17 21:34 Morphine Sulfate (Morphine Sulfate) 2 mg Q4H PRN IVP Moderate Pain (Pain Scale 4-6) 02/19/17 12:30 02/26/17 12:29 Nitroglycerin (Ntg) 0.4 mg Q5M PRN SL Prn Chest Pain 02/19/17 12:30 03/21/17 12:29 Ondansetron HCl (Zofran) 4 mg Q6H PRN IVP Nausea & Vomiting 02/19/17 12:30 03/21/17 12:29 Polyethylene Glycol (Miralax) 17 gm DAILYPRN PRN GT Constipation 02/23/17 15:30 03/21/17 12:29 Temazepam (Restoril) 15 mg HSPRN PRN GT Insomnia 02/23/17 15:30 02/26/17 12:29 DENEEN BRENNAN Feb 26, 2017 10:12
[2017-02-26] MEDS: Heparin 5000 units/ml inj SUBQ SCH ×2 (10:34→21:19)
[2017-02-26] MEDS: Metoprolol Tartrate 50mg tab GT SCH ×2 (11:02→21:20)
[2017-02-26 12:00] VITALS: BP 161/94
--- NOTE | 2017-02-26 13:16 | Pulmonology Progress Note ---
Assessment/Plan Problems: (1) Hypercapnic respiratory failure (2) Pneumonia (3) Pleural effusion (4) CVA (cerebral vascular accident) (5) Dysphagia Assessment/Plan -Optimize pulmonary hygiene/mobilize as tolerated -Titrate down FiO2 to keep SaO2. > 90% -BiPAP qHS and PRN -RTC and PRN HHN's + NAC -Abx per ID -Monitor effusion - PRN thora -Monitor volumes and renal function, will give lasix 20 IV x 1 today - F/U cards recs -TF's as tolerated, HOLD WHEN ON BiPAP -DVT Px: Hep SQ -FC, discuss GOC, should consider a more comfort based approach Subjective Allergies: Coded Allergies: HYDANTOINS (Unverified Allergy, Unknown, 09/09/13) PHENYTOIN (Unverified Allergy, Unknown, 09/09/13) Subjective On/Off BiPAP, no cough, + SOB, no F/C Once again I/O inaccurate CT with mod L and small R effusion with compressive Atx Renal and adrenal lesions noted, onc consulted Objective Last 24 Hour Vital Signs Date Time Temp Pulse Resp B/P (MAP) Pulse Ox O2 Delivery O2 Flow Rate FiO2 02/26/17 12:59 81 22 96 Full Face 30 02/26/17 11:20 76 22 97 Full Face 30 02/26/17 11:02 68 127/80 02/26/17 08:55 91 17 99 Bi-pap 30 02/26/17 08:51 99 Bi-pap 30 02/26/17 08:51 Bi-pap 30 02/26/17 08:45 92 16 97 Full Face 30 02/26/17 08:45 90 17 97 Bi-pap 30 02/26/17 08:10 87 16 99 Bi-pap 30 02/26/17 07:55 89 17 99 Full Face 30 02/26/17 07:55 87 17 99 Bi-pap 30 02/26/17 06:28 155/93 02/26/17 05:30 80 22 98 Full Face 30 02/26/17 04:12 71 02/26/17 04:00 99 Bi-pap 02/26/17 04:00 97.9 76 20 127/76 100 Bi-pap 02/26/17 03:30 81 24 97 Facial 30 02/26/17 01:52 90 19 99 Bi-pap 30 02/26/17 01:51 84 15 98 Bi-pap 30 02/26/17 01:30 78 21 98 Full Face 30 02/26/17 00:16 75 02/26/17 00:00 97.7 76 20 125/76 98 Bi-pap 02/26/17 00:00 99 Bi-pap 02/25/17 23:04 134/78 02/25/17 22:59 134/78 02/25/17 22:46 78 21 98 Full Face 30 02/25/17 21:34 82 120/69 02/25/17 21:23 80 19 97 Facial 30 02/25/17 20:06 79 02/25/17 20:00 97.5 82 20 120/69 99 Bi-pap 02/25/17 20:00 98 Bi-pap 30 02/25/17 19:30 Bi-pap 02/25/17 19:30 84 20 99 Bi-pap 02/25/17 19:30 98 Bi-pap 02/25/17 19:30 81 26 98 Full Face 30 02/25/17 19:30 81 19 98 Bi-pap 30 02/25/17 16:53 79 02/25/17 15:15 74 18 99 Full Face 30 02/25/17 14:00 127/76 02/25/17 13:18 74 18 98 Bi-pap 30 Intake and Output 02/25/17 02/26/17 19:00 07:00 Intake Total 1340 ml Balance 1340 ml Free Water 500 ml Tube Feeding 840 ml # Voids 2 13 General Appearance: no acute distress, cachetic HEENT: normocephalic, atraumatic, other - BiPAP Respiratory/Chest: rhonchi - BiB Cardiovascular: normal peripheral pulses, normal rate, regular rhythm Abdomen: normal bowel sounds, soft, non tender, no organomegaly, non distended , other - GT Extremities: no cyanosis, no clubbing, no edema Laboratory Tests 02/26/17 09:15: White Blood Count 6.8, Red Blood Count 3.67L, Hemoglobin 9.2L, Hematocrit 31.2L , Mean Corpuscular Volume 85, Mean Corpuscular Hemoglobin 25.1L, Mean Corpuscular Hemoglobin Concent 29.6L, Red Cell Distribution Width 16.9H, Platelet Count 189, Mean Platelet Volume 8.6, Neutrophils (%) (Auto) 68.5, Lymphocytes (%) (Auto) 15.8L, Monocytes (%) (Auto) 11.9H, Eosinophils (%) (Auto ) 3.4H, Basophils (%) (Auto) 0.5, Sodium Level 145, Potassium Level 4.0, Chloride Level 106, Carbon Dioxide Level 39H, Anion Gap 0L, Blood Urea Nitrogen 13, Creatinine 0.6, Estimat Glomerular Filtration Rate > 60, Glucose Level 199H , Calcium Level 9.4, Total Bilirubin 0.1L, Aspartate Amino Transf (AST/SGOT) 21 , Alanine Aminotransferase (ALT/SGPT) 25, Alkaline Phosphatase 97, Total Protein 6.8, Albumin 1.9L, Globulin 4.9, Albumin/Globulin Ratio 0.4L 02/26/17 10:00: Alpha Fetoprotein [Pending], CA 15-3 Antigen [Pending], CA 125 Antigen [Pending] Current Medications Medications (Trade) Dose Ordered Sig/[place] Route PRN Reason Start Time Stop Time Status Last Admin Dose Admin Acetaminophen (Tylenol) 650 mg Q4H PRN ORAL fever (temp >100.5F) 02/19/17 12:30 03/21/17 12:29 02/21/17 22:15 Acetylcysteine (Mucomyst) 200 mg Q6HRT N 02/24/17 19:00 03/26/17 18:59 02/26/17 08:45 Albuterol/ Ipratropium (Albuterol/ Ipratropium) 3 ml Q4H PRN HHN Shortness of Breath 02/23/17 12:00 02/28/17 11:59 Albuterol/ Ipratropium (Albuterol/ Ipratropium) 3 ml Q6HRT N 02/24/17 19:00 03/01/17 18:59 02/26/17 07:55 Cefepime HCl 2 gm/ Dextrose 55 ml @ 110 mls/hr Q24H IV 02/19/17 13:00 03/04/17 12:59 02/25/17 13:00 Clonidine HCl (Catapres) 0.2 mg Q8HR GT 02/19/17 14:00 03/21/17 13:59 02/26/17 06:28 Dextrose (Dextrose 50%) STAT PRN IV Hypoglycemia 02/19/17 12:30 03/21/17 12:29 Gabapentin (Neurontin) 100 mg BID GT 02/19/17 18:00 03/21/17 17:59 02/26/17 09:00 Heparin Sodium (Porcine) (Heparin 5000 units/ml) 5,000 units EVERY 12 HOURS SUBQ 02/19/17 21:00 03/21/17 20:59 02/26/17 10:34 Insulin Aspart (NovoLOG) EVERY 6 HOURS SUBQ 02/21/17 18:00 03/21/17 16:29 02/26/17 06:30 Insulin Detemir (Levemir) 12 units BID SUBQ 02/25/17 09:00 03/27/17 08:59 02/25/17 18:00 Levetiracetam (Keppra) 500 mg Q12HR GT 02/19/17 21:00 03/21/17 20:59 02/26/17 09:00 Metoprolol Tartrate (Lopressor) 50 mg Q12HR GT 02/19/17 13:00 03/21/17 12:59 02/26/17 11:02 Nitroglycerin (Ntg) 0.4 mg Q5M PRN SL Prn Chest Pain 02/19/17 12:30 03/21/17 12:29 Ondansetron HCl (Zofran) 4 mg Q6H PRN IVP Nausea & Vomiting 02/19/17 12:30 03/21/17 12:29 Polyethylene Glycol (Miralax) 17 gm DAILYPRN PRN GT Constipation 02/23/17 15:30 03/21/17 12:29 SUNG FRANCE M.D. Feb 26, 2017 13:16
[2017-02-26] MEDS: Cefepime HCl 2 GM in D5W 55 ML IV SCH (14:13)
[2017-02-26 16:00] VITALS: BP 154/89
--- NOTE | 2017-02-26 18:29 | Consultation ---
History of Present Illness General Date patient seen: Feb 26, 2017 Time patient seen: 12:45 Chief Complaint: General Complaint Referring physician: Sawyer Reason for Consultation: ? Left renal and adrenal mass Present Illness HPI 66 yo female with multiple medical problems, non verbal. Admitted for workup for potential pneumonia. Imaging showed questionable left renal bulge and likely left adrenal adenoma. Allergies: Coded Allergies: HYDANTOINS (Unverified Allergy, Unknown, 09/09/13) PHENYTOIN (Unverified Allergy, Unknown, 09/09/13) Medication History Scheduled Al Hydroxide/mg Hydroxide (Mag-Al Liquid), 30 ML GT Q6HR, (Reported) Ascorbic Acid* (Ascorbic Acid*), 500 MG GT DAILY, (Reported) Atorvastatin Calcium* (Atorvastatin Calcium*), 80 MG ORAL BEDTIME, (Reported) Ceftriaxone Sod (Rocephin), 1 GM IV DAILY, (Reported) Cephalexin* (Keflex*), 250 MG GT BID, (Reported) Clonidine Hcl* (Catapres*), 0.2 MG GT Q8HR, (Reported) Clopidogrel* (Clopidogrel*), 75 MG ORAL DAILY, (Reported) Enoxaparin* (Lovenox*), 40 MG SUBQ QHS, (Reported) Gabapentin* (Neurontin*), 100 MG GT BID, (Reported) Insulin Detemir (Levemir), 24 SUBQ BID, (Reported) Levetiracetam* (Levetiracetam*), 500 MG GT BID, (Reported) Losartan Potassium (Losartan Potassium), 25 MG PO DAILY, (Reported) Metoprolol Succinate (Toprol Xl), 100 MG ORAL DAILY, (Reported) Metoprolol Succinate* (Metoprolol Succinate*), 100 MG GT DAILY, (Reported) Metoprolol Tartrate* (Metoprolol Tartrate*), 50 MG GT BID, (Reported) Morphine Sulfate/Pf (Morphine 1 mg/2 ml Syringe), 1 MG IV Q4HR, (Reported) Multivitamin Liquid* (Multi-Delyn*), 5 ML GT DAILY, (Reported) Pantoprazole* (Pantoprazole*), 40 MG GT DAILY, (Reported) Sennosides (Senna), 8.6 MG GT BEDTIME, (Reported) Warfarin Sod (Coumadin*), 5 MG GT EVERY OTHER DAY, (Reported) Zinc Acetate (Galzin), 220 MG GT DAILY, (Reported) Zinc Sulfate (Zinc Sulfate), 220 MG ORAL DAILY, (Reported) Scheduled PRN Acetaminophen (Acetaminophen), 650 MG GT Q4HR PRN for Prn Headache/Temp > 101, ( Reported) Al Hydroxide/mg Hydroxide (Mag-Al Liquid), 30 ML GT Q6HR PRN for Dyspepsia, ( Reported) Albuterol Sulfate* (Albuterol Sulfate Hhn*), 3 ML INH Q6H PRN for Shortness of Breath, (Reported) Dextrose 50 % in Water (Dextrose 50%-Water Syringe), 50 ML IV NEEDED PRN for Hypoglycemia, (Reported) Ipratropium [place] 0.5MG/2.5ML (Ipratropium [place] 0.5MG/2.5ML), 0.5 MG HHN Q6H PRN for Shortness of Breath, (Reported) Lorazepam (Lorazepam), 0.5 GM MC Q4HR PRN for For Anxiety, (Reported) Morphine Sulfate (Morphine Sulfate), 2 MG IVP Q4HR PRN for For Pain, (Reported) Ondansetron* (Zofran*), 4 MG IV Q6H PRN for Nausea & Vomiting, (Reported) Polyethylene Glycol 3350* (Miralax*), 17 GM ORAL DAILY PRN for Constipation, ( Reported) Temazepam* (Restoril*), 15 MG ORAL BEDTIME PRN for Insomnia, (Reported) Zolpidem Tartrate* (Zolpidem Tartrate*), 5 MG ORAL BEDTIME PRN for Insomnia, ( Reported) Miscellaneous Medications Insulin Aspart (Novolog Flexpen), (Reported) Insulin Lispro (Humalog), 0 SUBQ, (Reported) Patient History Limited by: medical condition History Provided By: Medical Record Healthcare decision maker Resuscitation status Advanced Directive on File No Past Medical/Surgical History Past Medical/Surgical History: (1) UTI (urinary tract infection) due to urinary indwelling catheter (2) HTN (hypertension) (3) CVA (cerebral vascular accident) (4) GERD (gastroesophageal reflux disease) Review of Systems All Other Systems: negative except mentioned in HPI Physical Exam General Appearance: no apparent distress Abdomen: non tender, soft Last 24 Hour Vital Signs Date Time Temp Pulse Resp B/P (MAP) Pulse Ox O2 Delivery O2 Flow Rate FiO2 12/20/17 17:13 71 19 99 Full Face 30 02/26/17 14:56 64 23 99 Full Face 30 02/26/17 14:14 161/94 02/26/17 13:35 82 21 99 Bi-pap 30 02/26/17 13:20 79 18 99 Bi-pap 30 02/26/17 12:59 81 22 96 Full Face 30 02/26/17 12:00 79 02/26/17 12:00 97.0 80 21 161/94 100 Bi-pap 02/26/17 11:20 76 22 97 Full Face 30 02/26/17 11:02 68 127/80 02/26/17 08:55 91 17 99 Bi-pap 30 02/26/17 08:51 99 Bi-pap 30 02/26/17 08:51 Bi-pap 30 02/26/17 08:45 92 16 97 Full Face 30 02/26/17 08:45 90 17 97 Bi-pap 30 02/26/17 08:10 87 16 99 Bi-pap 30 02/26/17 08:00 79 02/26/17 08:00 97.0 68 21 124/80 99 Bi-pap 02/26/17 07:55 89 17 99 Full Face 30 02/26/17 07:55 87 17 99 Bi-pap 30 02/26/17 06:28 155/93 02/26/17 05:30 80 22 98 Full Face 30 02/26/17 04:12 71 02/26/17 04:00 99 Bi-pap 02/26/17 04:00 97.9 76 20 127/76 100 Bi-pap 02/26/17 03:30 81 24 97 Facial 30 02/26/17 01:52 90 19 99 Bi-pap 30 02/26/17 01:51 84 15 98 Bi-pap 30 02/26/17 01:30 78 21 98 Full Face 30 02/26/17 00:16 75 02/26/17 00:00 97.7 76 20 125/76 98 Bi-pap 02/26/17 00:00 99 Bi-pap 02/25/17 23:04 134/78 02/25/17 22:59 134/78 02/25/17 22:46 78 21 98 Full Face 30 02/25/17 21:34 82 120/69 02/25/17 21:23 80 19 97 Facial 30 02/25/17 20:06 79 02/25/17 20:00 97.5 82 20 120/69 99 Bi-pap 02/25/17 20:00 98 Bi-pap 30 02/25/17 19:30 Bi-pap 02/25/17 19:30 84 20 99 Bi-pap 02/25/17 19:30 98 Bi-pap 02/25/17 19:30 81 26 98 Full Face 30 02/25/17 19:30 81 19 98 Bi-pap 30 Intake and Output 02/25/17 02/26/17 19:00 07:00 Intake Total 1340 ml Balance 1340 ml Free Water 500 ml Tube Feeding 840 ml # Voids 2 13 Laboratory Tests Test 02/26/17 09:15 02/26/17 10:00 White Blood Count 6.8 K/UL (4.8-10.8) Red Blood Count 3.67 M/UL (4.20-5.40) L Hemoglobin 9.2 G/DL (12.0-16.0) L Hematocrit 31.2 % (37.0-47.0) L Mean Corpuscular Volume 85 FL (80-99) Mean Corpuscular Hemoglobin 25.1 PG (27.0-31.0) L Mean Corpuscular Hemoglobin Concent 29.6 G/DL (32.0-36.0) L Red Cell Distribution Width 16.9 % (11.6-14.8) H Platelet Count 189 K/UL (150-450) Mean Platelet Volume 8.6 FL (6.5-10.1) Neutrophils (%) (Auto) 68.5 % (45.0-75.0) Lymphocytes (%) (Auto) 15.8 % (20.0-45.0) L Monocytes (%) (Auto) 11.9 % (1.0-10.0) H Eosinophils (%) (Auto) 3.4 % (0.0-3.0) H Basophils (%) (Auto) 0.5 % (0.0-2.0) Sodium Level 145 MMOL/L (136-145) Potassium Level 4.0 MMOL/L (3.5-5.1) Chloride Level 106 MMOL/L (98-107) Carbon Dioxide Level 39 MMOL/L (21-32) H Anion Gap 0 mmol/L (5-15) L Blood Urea Nitrogen 13 mg/dL (7-18) Creatinine 0.6 MG/DL (0.55-1.30) Estimat Glomerular Filtration Rate > 60 mL/min (>60) Glucose Level 199 MG/DL (74-106) H Calcium Level 9.4 MG/DL (8.5-10.1) Total Bilirubin 0.1 MG/DL (0.2-1.0) L Aspartate Amino Transf (AST/SGOT) 21 U/L (15-37) Alanine Aminotransferase (ALT/SGPT) 25 U/L (12-78) Alkaline Phosphatase 97 U/L (46-116) Total Protein 6.8 G/DL (6.4-8.2) Albumin 1.9 G/DL (3.4-5.0) L Globulin 4.9 g/dL Albumin/Globulin Ratio 0.4 (1.0-2.7) L Alpha Fetoprotein Pending CA 15-3 Antigen Pending CA 125 Antigen Pending Height (Feet): 5 Height (Inches): 4.00 Weight (Pounds): 160 Medications Current Medications Medications (Trade) Dose Ordered Sig/[place] Route PRN Reason Start Time Stop Time Status Last Admin Dose Admin Acetaminophen (Tylenol) 650 mg Q4H PRN ORAL fever (temp >100.5F) 02/19/17 12:30 03/21/17 12:29 02/21/17 22:15 Acetylcysteine (Mucomyst) 200 mg Q6HRT HHN 02/24/17 19:00 03/26/17 18:59 02/26/17 13:23 Albuterol/ Ipratropium (Albuterol/ Ipratropium) 3 ml Q4H PRN HHN Shortness of Breath 02/23/17 12:00 02/28/17 11:59 Albuterol/ Ipratropium (Albuterol/ Ipratropium) 3 ml Q6HRT HHN 02/24/17 19:00 03/01/17 18:59 02/26/17 13:20 Cefepime HCl 2 gm/ Dextrose 55 ml @ 110 mls/hr Q24H IV 02/19/17 13:00 03/04/17 12:59 02/26/17 14:13 Clonidine HCl (Catapres) 0.2 mg Q8HR GT 02/19/17 14:00 03/21/17 13:59 02/26/17 14:14 Dextrose (Dextrose 50%) STAT PRN IV Hypoglycemia 02/19/17 12:30 03/21/17 12:29 Gabapentin (Neurontin) 100 mg BID GT 02/19/17 18:00 03/21/17 17:59 02/26/17 17:53 Heparin Sodium (Porcine) (Heparin 5000 units/ml) 5,000 units EVERY 12 HOURS SUBQ 02/19/17 21:00 03/21/17 20:59 02/26/17 10:34 Insulin Aspart (NovoLOG) EVERY 6 HOURS SUBQ 02/21/17 18:00 03/21/17 16:29 02/26/17 17:55 Insulin Detemir (Levemir) 12 units BID SUBQ 02/25/17 09:00 03/27/17 08:59 02/26/17 17:56 Levetiracetam (Keppra) 500 mg Q12HR GT 02/19/17 21:00 03/21/17 20:59 02/26/17 09:00 Metoprolol Tartrate (Lopressor) 50 mg Q12HR GT 02/19/17 13:00 03/21/17 12:59 02/26/17 11:02 Nitroglycerin (Ntg) 0.4 mg Q5M PRN SL Prn Chest Pain 02/19/17 12:30 03/21/17 12:29 Ondansetron HCl (Zofran) 4 mg Q6H PRN IVP Nausea & Vomiting 02/19/17 12:30 03/21/17 12:29 Polyethylene Glycol (Miralax) 17 gm DAILYPRN PRN GT Constipation 02/23/17 15:30 03/21/17 12:[address] chest: questionable left renal bulge, highly likely left adrenal adenoma. Assessment/Plan Status: stable Assessment/Plan 66 yo female with multiple medical co-morbidities. Patient is non verbal. Questionable left renal bulge difficult to make out without contrast and dedicated renal imaging. Given medical condition, I don't think it warrants further workup. Left adrenal adenoma highly likely benign. Recommend observation of both findings. Esequiel Haider M.D. Feb 26, 2017 18:29
--- NOTE | 2017-02-26 20:29 | General Progress Note ---
Assessment/Plan Problem List: (1) Seizure ICD Codes: R56.9 - Unspecified convulsions SNOMED: 26974165 (2) Hyperglycemia ICD Codes: R73.9 - Hyperglycemia, unspecified SNOMED: 00368998 (3) DVT (deep venous thrombosis) ICD Codes: I82.409 - Acute embolism and thrombosis of unspecified deep veins of unspecified lower extremity SNOMED: 377990487 (4) Leukocytosis ICD Codes: D72.829 - Elevated white blood cell count, unspecified SNOMED: 945851496 (5) HTN (hypertension) ICD Codes: I10 - Essential (primary) hypertension SNOMED: 86350758 (6) CVA (cerebral vascular accident) ICD Codes: I63.9 - Cerebral infarction, unspecified SNOMED: 985517142 (7) Diabetes mellitus out of control ICD Codes: E11.9 - Diabetes mellitus out of control SNOMED: 128919827 (8) Sepsis ICD Codes: A41.9 - Sepsis SNOMED: 16676461 Qualifiers: Qualified Codes: A41.9 - Sepsis, unspecified organism (9) Pneumonia ICD Codes: J18.9 - Pneumonia, unspecified organism SNOMED: 414072130 Status: progressing Assessment/Plan htn and dm sepsis siezure cva pvd vitals holding Subjective ROS Limited/Unobtainable: Yes Allergies: Coded Allergies: HYDANTOINS (Unverified Allergy, Unknown, 09/09/13) PHENYTOIN (Unverified Allergy, Unknown, 09/09/13) Objective Last 24 Hour Vital Signs Date Time Temp Pulse Resp B/P (MAP) Pulse Ox O2 Delivery O2 Flow Rate FiO2 02/26/17 20:10 75 24 99 Bi-pap 30 02/26/17 20:03 99 Bi-pap 30 02/26/17 20:03 Bi-pap 30 02/26/17 20:02 73 16 Bi-pap 30 02/26/17 20:00 73 16 99 Full Face 30 02/26/17 19:59 76 16 99 Bi-pap 30 02/26/17 17:13 71 19 99 Full Face 30 02/26/17 16:00 79 02/26/17 16:00 97.8 75 21 154/89 100 Bi-pap 02/26/17 14:56 64 23 99 Full Face 30 02/26/17 14:14 161/94 02/26/17 13:35 82 21 99 Bi-pap 30 02/26/17 13:20 79 18 99 Bi-pap 30 02/26/17 12:59 81 22 96 Full Face 30 02/26/17 12:00 79 02/26/17 12:00 97.0 80 21 161/94 100 Bi-pap 02/26/17 11:20 76 22 97 Full Face 30 02/26/17 11:02 68 127/80 02/26/17 08:55 91 17 99 Bi-pap 30 02/26/17 08:51 99 Bi-pap 30 02/26/17 08:51 Bi-pap 30 02/26/17 08:45 92 16 97 Full Face 30 02/26/17 08:45 90 17 97 Bi-pap 30 02/26/17 08:10 87 16 99 Bi-pap 30 02/26/17 08:00 79 02/26/17 08:00 97.0 68 21 124/80 99 Bi-pap 02/26/17 07:55 89 17 99 Full Face 30 02/26/17 07:55 87 17 99 Bi-pap 30 02/26/17 06:28 155/93 02/26/17 05:30 80 22 98 Full Face 30 02/26/17 04:12 71 02/26/17 04:00 99 Bi-pap 02/26/17 04:00 97.9 76 20 127/76 100 Bi-pap 02/26/17 03:30 81 24 97 Facial 30 02/26/17 01:52 90 19 99 Bi-pap 30 02/26/17 01:51 84 15 98 Bi-pap 30 02/26/17 01:30 78 21 98 Full Face 30 02/26/17 00:16 75 02/26/17 00:00 97.7 76 20 125/76 98 Bi-pap 02/26/17 00:00 99 Bi-pap 02/25/17 23:04 134/78 02/25/17 22:59 134/78 02/25/17 22:46 78 21 98 Full Face 30 02/25/17 21:34 82 120/69 02/25/17 21:23 80 19 97 Facial 30 Intake and Output 02/25/17 02/26/17 19:00 07:00 Intake Total 1340 ml Balance 1340 ml Free Water 500 ml Tube Feeding 840 ml # Voids 2 13 Laboratory Tests 02/26/17 09:15: White Blood Count 6.8, Red Blood Count 3.67L, Hemoglobin 9.2L, Hematocrit 31.2L , Mean Corpuscular Volume 85, Mean Corpuscular Hemoglobin 25.1L, Mean Corpuscular Hemoglobin Concent 29.6L, Red Cell Distribution Width 16.9H, Platelet Count 189, Mean Platelet Volume 8.6, Neutrophils (%) (Auto) 68.5, Lymphocytes (%) (Auto) 15.8L, Monocytes (%) (Auto) 11.9H, Eosinophils (%) (Auto ) 3.4H, Basophils (%) (Auto) 0.5, Sodium Level 145, Potassium Level 4.0, Chloride Level 106, Carbon Dioxide Level 39H, Anion Gap 0L, Blood Urea Nitrogen 13, Creatinine 0.6, Estimat Glomerular Filtration Rate > 60, Glucose Level 199H , Calcium Level 9.4, Total Bilirubin 0.1L, Aspartate Amino Transf (AST/SGOT) 21 , Alanine Aminotransferase (ALT/SGPT) 25, Alkaline Phosphatase 97, Total Protein 6.8, Albumin 1.9L, Globulin 4.9, Albumin/Globulin Ratio 0.4L 02/26/17 10:00: Alpha Fetoprotein [Pending], CA 15-3 Antigen [Pending], CA 125 Antigen [Pending] Height (Feet): 5 Height (Inches): 4.00 Weight (Pounds): 160 Cardiovascular: normal rate Jes Jacques MD Feb 26, 2017 20:29
[2017-02-26 20:45] VITALS: BP 146/87
--- NOTE | 2017-02-26 23:37 | Cardiology Progress Note ---
Assessment/Plan Assessment/Plan 1. Sinus resolved, likely secondary to underlying infection/sepsis/hypoxemia, normal LV systolic function. 2. Hypoxic hypercapnic respiratory failure, on face mask. 3. History of prior cerebrovascular accident with left hemiparalysis. 4. Mild pulmonary HTN. 5. Large left pleural effusion. Subjective Subjective Sinus rhythm at 80. On face mask. Objective Last 24 Hour Vital Signs Date Time Temp Pulse Resp B/P (MAP) Pulse Ox O2 Delivery O2 Flow Rate FiO2 02/26/17 23:11 78 18 98 Full Face 30 02/26/17 21:20 80 146/87 02/26/17 21:16 74 16 99 Full Face 30 02/26/17 20:45 98.4 80 18 146/87 100 Venturi Mask 02/26/17 20:10 75 24 99 Bi-pap 30 02/26/17 20:03 99 Bi-pap 30 02/26/17 20:03 Bi-pap 30 02/26/17 20:02 73 16 Bi-pap 30 02/26/17 20:00 73 16 99 Full Face 30 02/26/17 19:59 76 16 99 Bi-pap 30 02/26/17 17:13 71 19 99 Full Face 30 02/26/17 16:00 79 02/26/17 16:00 97.8 75 21 154/89 100 Bi-pap 02/26/17 14:56 64 23 99 Full Face 30 02/26/17 14:14 161/94 02/26/17 13:35 82 21 99 Bi-pap 30 02/26/17 13:20 79 18 99 Bi-pap 30 02/26/17 12:59 81 22 96 Full Face 30 02/26/17 12:00 79 02/26/17 12:00 97.0 80 21 161/94 100 Bi-pap 02/26/17 11:20 76 22 97 Full Face 30 02/26/17 11:02 68 127/80 02/26/17 08:55 91 17 99 Bi-pap 30 02/26/17 08:51 99 Bi-pap 30 02/26/17 08:51 Bi-pap 30 02/26/17 08:45 92 16 97 Full Face 30 02/26/17 08:45 90 17 97 Bi-pap 30 02/26/17 08:10 87 16 99 Bi-pap 30 02/26/17 08:00 79 02/26/17 08:00 97.0 68 21 124/80 99 Bi-pap 02/26/17 07:55 89 17 99 Full Face 30 02/26/17 07:55 87 17 99 Bi-pap 30 02/26/17 06:28 155/93 02/26/17 05:30 80 22 98 Full Face 30 02/26/17 04:12 71 02/26/17 04:00 99 Bi-pap 02/26/17 04:00 97.9 76 20 127/76 100 Bi-pap 02/26/17 03:30 81 24 97 Facial 30 02/26/17 01:52 90 19 99 Bi-pap 30 02/26/17 01:51 84 15 98 Bi-pap 30 02/26/17 01:30 78 21 98 Full Face 30 02/26/17 00:16 75 02/26/17 00:00 97.7 76 20 125/76 98 Bi-pap 02/26/17 00:00 99 Bi-pap Intake and Output 02/25/17 02/26/17 19:00 07:00 Intake Total 1340 ml Balance 1340 ml Free Water 500 ml Tube Feeding 840 ml # Voids 2 13 2D Echo: LVEF 55%, RVSP 47 mmHg, Mild LVH, Large left pleural effusion, mild MR. Laboratory Tests Test 02/26/17 09:15 02/26/17 10:00 White Blood Count 6.8 K/UL (4.8-10.8) Red Blood Count 3.67 M/UL (4.20-5.40) L Hemoglobin 9.2 G/DL (12.0-16.0) L Hematocrit 31.2 % (37.0-47.0) L Mean Corpuscular Volume 85 FL (80-99) Mean Corpuscular Hemoglobin 25.1 PG (27.0-31.0) L Mean Corpuscular Hemoglobin Concent 29.6 G/DL (32.0-36.0) L Red Cell Distribution Width 16.9 % (11.6-14.8) H Platelet Count 189 K/UL (150-450) Mean Platelet Volume 8.6 FL (6.5-10.1) Neutrophils (%) (Auto) 68.5 % (45.0-75.0) Lymphocytes (%) (Auto) 15.8 % (20.0-45.0) L Monocytes (%) (Auto) 11.9 % (1.0-10.0) H Eosinophils (%) (Auto) 3.4 % (0.0-3.0) H Basophils (%) (Auto) 0.5 % (0.0-2.0) Sodium Level 145 MMOL/L (136-145) Potassium Level 4.0 MMOL/L (3.5-5.1) Chloride Level 106 MMOL/L (98-107) Carbon Dioxide Level 39 MMOL/L (21-32) H Anion Gap 0 mmol/L (5-15) L Blood Urea Nitrogen 13 mg/dL (7-18) Creatinine 0.6 MG/DL (0.55-1.30) Estimat Glomerular Filtration Rate > 60 mL/min (>60) Glucose Level 199 MG/DL (74-106) H Calcium Level 9.4 MG/DL (8.5-10.1) Total Bilirubin 0.1 MG/DL (0.2-1.0) L Aspartate Amino Transf (AST/SGOT) 21 U/L (15-37) Alanine Aminotransferase (ALT/SGPT) 25 U/L (12-78) Alkaline Phosphatase 97 U/L (46-116) Total Protein 6.8 G/DL (6.4-8.2) Albumin 1.9 G/DL (3.4-5.0) L Globulin 4.9 g/dL Albumin/Globulin Ratio 0.4 (1.0-2.7) L Alpha Fetoprotein Pending CA 15-3 Antigen Pending CA 125 Antigen Pending Objective GENERAL: The patient is a very unfortunate 66-year-old lady with head dropped and tilted, chronically ill-looking with contraction over the left upper and lower extremities. HEENT: Atraumatic and normocephalic. Anicteric. Conjunctival pallor. Pupils are equal, round, and reactive to light and accommodation. NECK: Cannot assess JVP as she is in sitting position. No carotid bruit. CARDIOVASCULAR SYSTEM: Normal S1, S2. No murmurs, gallops, or rubs. LUNGS: Clear to auscultation bilaterally. Poor inspiratory effort. ABDOMEN: Soft, nontender, and nondistended. No hepatosplenomegaly. Presence of a G-tube. EXTREMITIES: No evidence of edema, clubbing, or cyanosis. DESMOND GORDON Feb 26, 2017 23:37
[2017-02-27] MEDS: cloNIDine 0.2mg Tab GT SCH ×4 (00:02→21:05)
[2017-02-27] MEDS: NovoLOG Insulin Flexpen SUBQ SCH ×5 (00:06→23:35)
[2017-02-27 00:52] VITALS: BP 143/82
[2017-02-27] MEDS: Albuterol/Ipratropium 3ml neb HHN SCH ×4 (01:01→19:00)
[2017-02-27] MEDS: Acetylcysteine 20% Soln 4ml HHN SCH ×4 (01:03→19:00)
[2017-02-27 04:33] VITALS: BP 136/77
--- NOTE | 2017-02-27 07:00 | General Progress Note ---
Assessment/Plan Problem List: (1) Dementia ICD Codes: F03.90 - Unspecified dementia without behavioral disturbance SNOMED: 12379266 (2) Dysphagia ICD Codes: R13.10 - Dysphagia SNOMED: 88614920 (3) HTN (hypertension) ICD Codes: I10 - Essential (primary) hypertension SNOMED: 31180183 (4) CVA (cerebral vascular accident) ICD Codes: I63.9 - Cerebral infarction, unspecified SNOMED: 908439782 (5) Hyperglycemia ICD Codes: R73.9 - Hyperglycemia, unspecified SNOMED: 62208624 (6) Adrenal adenoma ICD Codes: D35.00 - Benign neoplasm of unspecified adrenal gland SNOMED: 923148270 Assessment/Plan continue Levemir 12 units bid continue Novolog sliding scale Right adrenal nodule measuring 1 cm is probably benign will order hormonal evaluation in order to rule out functionality: - 24 hours urine metanephrines - 24 hours urine free cortisol - PAC/PRA - DHEAs Subjective ROS Limited/Unobtainable: Yes Allergies: Coded Allergies: HYDANTOINS (Unverified Allergy, Unknown, 09/09/13) PHENYTOIN (Unverified Allergy, Unknown, 09/09/13) Subjective events noted interval notes reviewed Objective Last 24 Hour Vital Signs Date Time Temp Pulse Resp B/P (MAP) Pulse Ox O2 Delivery O2 Flow Rate FiO2 02/27/17 05:26 142/84 02/27/17 05:16 70 19 98 Facial 30 02/27/17 04:33 96.8 72 18 136/77 98 Venturi Mask 02/27/17 03:43 79 02/27/17 03:24 64 14 97 Facial 30 02/27/17 01:28 71 18 100 Bi-pap 30 02/27/17 01:04 70 14 98 Facial 30 02/27/17 01:04 70 14 98 Bi-pap 30 02/27/17 01:00 99 Bi-pap 02/27/17 00:52 98.1 76 18 143/82 98 Venturi Mask 02/27/17 00:02 143/82 02/26/17 23:19 66 02/26/17 23:11 78 18 98 Full Face 30 02/26/17 21:20 80 146/87 02/26/17 21:16 74 16 99 Full Face 30 02/26/17 20:45 98.4 80 18 146/87 100 Venturi Mask 02/26/17 20:45 100 Bi-pap 02/26/17 20:10 75 24 99 Bi-pap 30 02/26/17 20:03 99 Bi-pap 30 02/26/17 20:03 Bi-pap 30 02/26/17 20:02 73 16 Bi-pap 30 02/26/17 20:00 73 16 99 Full Face 30 02/26/17 19:59 76 16 99 Bi-pap 30 02/26/17 19:04 70 02/26/17 17:13 71 19 99 Full Face 30 02/26/17 16:00 79 02/26/17 16:00 97.8 75 21 154/89 100 Bi-pap 02/26/17 14:56 64 23 99 Full Face 30 02/26/17 14:14 161/94 02/26/17 13:35 82 21 99 Bi-pap 30 02/26/17 13:20 79 18 99 Bi-pap 30 02/26/17 12:59 81 22 96 Full Face 30 02/26/17 12:00 79 02/26/17 12:00 97.0 80 21 161/94 100 Bi-pap 02/26/17 11:20 76 22 97 Full Face 30 02/26/17 11:02 68 127/80 02/26/17 08:55 91 17 99 Bi-pap 30 02/26/17 08:51 99 Bi-pap 30 02/26/17 08:51 Bi-pap 30 02/26/17 08:45 92 16 97 Full Face 30 02/26/17 08:45 90 17 97 Bi-pap 30 02/26/17 08:10 87 16 99 Bi-pap 30 02/26/17 08:00 79 02/26/17 08:00 97.0 68 21 124/80 99 Bi-pap 02/26/17 07:55 89 17 99 Full Face 30 02/26/17 07:55 87 17 99 Bi-pap 30 Intake and Output 02/26/17 02/27/17 19:00 07:00 Intake Total 1450 ml Output Total 500 ml Balance -500 ml 1450 ml Free Water 750 ml Tube Feeding 700 ml Output Urine Total 500 ml Laboratory Tests 02/26/17 09:15: White Blood Count 6.8, Red Blood Count 3.67L, Hemoglobin 9.2L, Hematocrit 31.2L , Mean Corpuscular Volume 85, Mean Corpuscular Hemoglobin 25.1L, Mean Corpuscular Hemoglobin Concent 29.6L, Red Cell Distribution Width 16.9H, Platelet Count 189, Mean Platelet Volume 8.6, Neutrophils (%) (Auto) 68.5, Lymphocytes (%) (Auto) 15.8L, Monocytes (%) (Auto) 11.9H, Eosinophils (%) (Auto ) 3.4H, Basophils (%) (Auto) 0.5, Sodium Level 145, Potassium Level 4.0, Chloride Level 106, Carbon Dioxide Level 39H, Anion Gap 0L, Blood Urea Nitrogen 13, Creatinine 0.6, Estimat Glomerular Filtration Rate > 60, Glucose Level 199H , Calcium Level 9.4, Total Bilirubin 0.1L, Aspartate Amino Transf (AST/SGOT) 21 , Alanine Aminotransferase (ALT/SGPT) 25, Alkaline Phosphatase 97, Total Protein 6.8, Albumin 1.9L, Globulin 4.9, Albumin/Globulin Ratio 0.4L 02/26/17 10:00: Alpha Fetoprotein [Pending], CA 15-3 Antigen [Pending], CA 125 Antigen [Pending] Height (Feet): 5 Height (Inches): 4.00 Weight (Pounds): 160 General Appearance: no apparent distress EENT: pale conjunctivae Neck: normal alignment Cardiovascular: normal rate Respiratory/Chest: lungs clear Abdomen: normal bowel sounds Edema: 1+ Arm (L), 1+ Arm (R), 1+ Leg (L), 1+ Leg (R), 1+ Pedal (L), 1+ Pedal ( R), 1+ Generalized Objective Current Medications Medications (Trade) Dose Ordered Sig/Chinyere Route PRN Reason Start Time Stop Time Status Last Admin Dose Admin Acetaminophen (Tylenol) 650 mg Q4H PRN ORAL fever (temp >100.5F) 02/19/17 12:30 03/21/17 12:29 02/21/17 22:15 Acetylcysteine (Mucomyst) 200 mg Q6HRT HHN 02/24/17 19:00 03/26/17 18:59 02/27/17 01:03 Albuterol/ Ipratropium (Albuterol/ Ipratropium) 3 ml Q4H PRN HHN Shortness of Breath 02/23/17 12:00 02/28/17 11:59 Albuterol/ Ipratropium (Albuterol/ Ipratropium) 3 ml Q6HRT HHN 02/24/17 19:00 03/01/17 18:59 02/27/17 01:01 Cefepime HCl 2 gm/ Dextrose 55 ml @ 110 mls/hr Q24H IV 02/19/17 13:00 03/04/17 12:59 02/26/17 14:13 Clonidine HCl (Catapres) 0.2 mg Q8HR GT 02/19/17 14:00 03/21/17 13:59 02/27/17 05:26 Dextrose (Dextrose 50%) STAT PRN IV Hypoglycemia 02/19/17 12:30 03/21/17 12:29 Gabapentin (Neurontin) 100 mg BID GT 02/19/17 18:00 03/21/17 17:59 02/26/17 17:53 Heparin Sodium (Porcine) (Heparin 5000 units/ml) 5,000 units EVERY 12 HOURS SUBQ 02/19/17 21:00 03/21/17 20:59 02/26/17 21:19 Insulin Aspart (NovoLOG) EVERY 6 HOURS SUBQ 02/21/17 18:00 03/21/17 16:29 02/27/17 05:25 Insulin Detemir (Levemir) 12 units BID SUBQ 02/25/17 09:00 03/27/17 08:59 02/26/17 17:56 Levetiracetam (Keppra) 500 mg Q12HR GT 02/19/17 21:00 03/21/17 20:59 02/26/17 21:19 Metoprolol Tartrate (Lopressor) 50 mg Q12HR GT 02/19/17 13:00 03/21/17 12:59 02/26/17 21:20 Nitroglycerin (Ntg) 0.4 mg Q5M PRN SL Prn Chest Pain 02/19/17 12:30 03/21/17 12:29 Ondansetron HCl (Zofran) 4 mg Q6H PRN IVP Nausea & Vomiting 02/19/17 12:30 03/21/17 12:29 Polyethylene Glycol (Miralax) 17 gm DAILYPRN PRN GT Constipation 02/23/17 15:30 03/21/17 12:29 Item Value Date Time Bedside Blood Glucose 228 mg/dl H 02/27/17 0540 Bedside Blood Glucose 218 mg/dl H 02/27/17 0006 Bedside Blood Glucose 238 mg/dl H 02/26/17 1800 Bedside Blood Glucose 203 mg/dl H 02/26/17 1444 Bedside Blood Glucose 203 mg/dl H 02/26/17 0900 Bedside Blood Glucose 153 mg/dl H 02/26/17 0630 Bedside Blood Glucose 162 mg/dl H 02/26/17 0030 MARCIO GERONIMO Feb 27, 2017 07:00
[2017-02-27 08:00] VITALS: BP 142/81
[2017-02-27] MEDS: Levemir Flexpen SUBQ SCH ×2 (09:00→18:15)
[2017-02-27] MEDS: Metoprolol Tartrate 50mg tab GT SCH ×2 (09:41→21:05)
[2017-02-27] MEDS: Gabapentin 300 MG/6 ML Soln GT SCH ×2 (09:42→18:19)
[2017-02-27] MEDS: levETIRAcetam 500mg/5ml Liquid GT SCH ×2 (09:42→21:05)
[2017-02-27] MEDS: Heparin 5000 units/ml inj SUBQ SCH ×2 (09:45→21:17)
--- NOTE | 2017-02-27 09:54 | Infectious Diseases Prog Note ---
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 placement P: discontinue Cefepime Subjective ROS Limited/Unobtainable: Yes Allergies: Coded Allergies: HYDANTOINS (Unverified Allergy, Unknown, 09/09/13) PHENYTOIN (Unverified Allergy, Unknown, 09/09/13) Objective Vital Signs Last 24 Hour Vital Signs Date Time Temp Pulse Resp B/P (MAP) Pulse Ox O2 Delivery O2 Flow Rate FiO2 02/27/17 09:41 78 142/81 02/27/17 07:24 68 14 97 Bi-pap 30 02/27/17 07:19 Bi-pap 30 02/27/17 07:19 74 22 96 Facial 30 02/27/17 07:18 96 Bi-pap 30 02/27/17 05:26 142/84 02/27/17 05:16 70 19 98 Facial 30 02/27/17 04:33 96.8 72 18 136/77 98 Venturi Mask 02/27/17 03:43 79 02/27/17 03:24 64 14 97 Facial 30 02/27/17 01:28 71 18 100 Bi-pap 30 02/27/17 01:04 70 14 98 Facial 30 02/27/17 01:04 70 14 98 Bi-pap 30 02/27/17 01:00 99 Bi-pap 02/27/17 00:52 98.1 76 18 143/82 98 Venturi Mask 02/27/17 00:02 143/82 02/26/17 23:19 66 02/26/17 23:11 78 18 98 Full Face 30 02/26/17 21:20 80 146/87 02/26/17 21:16 74 16 99 Full Face 30 02/26/17 20:45 98.4 80 18 146/87 100 Venturi Mask 02/26/17 20:45 100 Bi-pap 02/26/17 20:10 75 24 99 Bi-pap 30 02/26/17 20:03 99 Bi-pap 30 02/26/17 20:03 Bi-pap 30 02/26/17 20:02 73 16 Bi-pap 30 02/26/17 20:00 73 16 99 Full Face 30 02/26/17 19:59 76 16 99 Bi-pap 30 02/26/17 19:04 70 02/26/17 17:13 71 19 99 Full Face 30 02/26/17 16:00 79 02/26/17 16:00 97.8 75 21 154/89 100 Bi-pap 02/26/17 14:56 64 23 99 Full Face 30 02/26/17 14:14 161/94 02/26/17 13:35 82 21 99 Bi-pap 30 02/26/17 13:20 79 18 99 Bi-pap 30 02/26/17 12:59 81 22 96 Full Face 30 02/26/17 12:00 79 02/26/17 12:00 97.0 80 21 161/94 100 Bi-pap 02/26/17 11:20 76 22 97 Full Face 30 02/26/17 11:02 68 127/80 Height (Feet): 5 Height (Inches): 4.00 Weight (Pounds): 160 HEENT: other - on BIPAP Respiratory/Chest: rhonchi - bilaterally Cardiovascular: normal rate Abdomen: soft, non tender, other - GT feeding Skin: ulcers, other - sacral Neurologic/Psychiatric: motor weakness, aphasia Laboratory Tests Test 02/26/17 10:00 02/27/17 08:30 Alpha Fetoprotein 2.9 ng/mL (0.0-8.3) CA 15-3 Antigen 27.9 U/mL (0.0-25.0) H CA 125 Antigen 33.8 U/mL (0.0-38.1) Renin Pending Aldosterone Pending Dehydroepiandrosterone Sulfate Pending Current Medications Medications (Trade) Dose Ordered Sig/Chinyere Route PRN Reason Start Time Stop Time Status Last Admin Dose Admin Acetaminophen (Tylenol) 650 mg Q4H PRN ORAL fever (temp >100.5F) 02/19/17 12:30 03/21/17 12:29 02/21/17 22:15 Acetylcysteine (Mucomyst) 200 mg Q6HRT HHN 02/24/17 19:00 18 18:59 02/27/17 07:22 Albuterol/ Ipratropium (Albuterol/ Ipratropium) 3 ml Q4H PRN HHN Shortness of Breath 02/23/17 12:00 02/28/17 11:59 Albuterol/ Ipratropium (Albuterol/ Ipratropium) 3 ml Q6HRT HHN 02/24/17 19:00 03/01/17 18:59 02/27/17 07:21 Cefepime HCl 2 gm/ Dextrose 55 ml @ 110 mls/hr Q24H IV 02/19/17 13:00 03/04/17 12:59 02/26/17 14:13 Clonidine HCl (Catapres) 0.2 mg Q8HR GT 02/19/17 14:00 03/21/17 13:59 02/27/17 05:26 Dextrose (Dextrose 50%) STAT PRN IV Hypoglycemia 02/19/17 12:30 03/21/17 12:29 Gabapentin (Neurontin) 100 mg BID GT 02/19/17 18:00 03/21/17 17:59 02/27/17 09:42 Heparin Sodium (Porcine) (Heparin 5000 units/ml) 5,000 units EVERY 12 HOURS SUBQ 02/19/17 21:00 03/21/17 20:59 02/27/17 09:45 Insulin Aspart (NovoLOG) EVERY 6 HOURS SUBQ 02/21/17 18:00 03/21/17 16:29 02/27/17 05:25 Insulin Detemir (Levemir) 12 units BID SUBQ 02/25/17 09:00 03/27/17 08:59 02/26/17 17:56 Levetiracetam (Keppra) 500 mg Q12HR GT 02/19/17 21:00 03/21/17 20:59 02/27/17 09:42 Metoprolol Tartrate (Lopressor) 50 mg Q12HR GT 02/19/17 13:00 03/21/17 12:59 02/27/17 09:41 Nitroglycerin (Ntg) 0.4 mg Q5M PRN SL Prn Chest Pain 02/19/17 12:30 03/21/17 12:29 Ondansetron HCl (Zofran) 4 mg Q6H PRN IVP Nausea & Vomiting 02/19/17 12:30 03/21/17 12:29 Polyethylene Glycol (Miralax) 17 gm DAILYPRN PRN GT Constipation 02/23/17 15:30 03/21/17 12:29 DENEEN BRENNAN Feb 27, 2017 09:54
--- NOTE | 2017-02-27 10:49 | Nephrology Progress Note ---
Assessment/Plan Assessment 1. Hyperkalemia.resolved 2. Urinary tract infection. 3. Prerenal azotemia. 4. Dehydration. 5. Dyspnea on exertion. Plan plan check chem 7 free water per g tube monitoring renal function avoid NSAID Replace electrolyte as need it Subjective Constitutional: Reports: no symptoms HEENT: Reports: no symptoms Genitourinary: Reports: no symptoms Neurologic/Psychiatric: Reports: no symptoms Subjective No changes in MS Objective Objective Last 24 Hour Vital Signs Date Time Temp Pulse Resp B/P (MAP) Pulse Ox O2 Delivery O2 Flow Rate FiO2 02/27/17 09:41 78 142/81 02/27/17 08:00 79 02/27/17 08:00 97.5 78 20 142/81 96 Bi-pap 02/27/17 07:35 70 20 100 Bi-pap 30 02/27/17 07:24 68 14 97 Bi-pap 30 02/27/17 07:19 Bi-pap 30 02/27/17 07:19 74 22 96 Facial 30 02/27/17 07:18 96 Bi-pap 30 02/27/17 05:26 142/84 02/27/17 05:16 70 19 98 Facial 30 02/27/17 04:33 96.8 72 18 136/77 98 Venturi Mask 02/27/17 03:43 79 02/27/17 03:24 64 14 97 Facial 30 02/27/17 01:28 71 18 100 Bi-pap 30 02/27/17 01:04 70 14 98 Facial 30 02/27/17 01:04 70 14 98 Bi-pap 30 02/27/17 01:00 99 Bi-pap 02/27/17 00:52 98.1 76 18 143/82 98 Venturi Mask 02/27/17 00:02 143/82 02/26/17 23:19 66 02/26/17 23:11 78 18 98 Full Face 30 02/26/17 21:20 80 146/87 02/26/17 21:16 74 16 99 Full Face 30 02/26/17 20:45 98.4 80 18 146/87 100 Venturi Mask 02/26/17 20:45 100 Bi-pap 02/26/17 20:10 75 24 99 Bi-pap 30 02/26/17 20:03 99 Bi-pap 30 02/26/17 20:03 Bi-pap 30 02/26/17 20:02 73 16 Bi-pap 30 02/26/17 20:00 73 16 99 Full Face 30 02/26/17 19:59 76 16 99 Bi-pap 30 02/26/17 19:04 70 02/26/17 17:13 71 19 99 Full Face 30 02/26/17 16:00 79 02/26/17 16:00 97.8 75 21 154/89 100 Bi-pap 02/26/17 14:56 64 23 99 Full Face 30 02/26/17 14:14 161/94 02/26/17 13:35 82 21 99 Bi-pap 30 02/26/17 13:20 79 18 99 Bi-pap 30 02/26/17 12:59 81 22 96 Full Face 30 02/26/17 12:00 79 02/26/17 12:00 97.0 80 21 161/94 100 Bi-pap 02/26/17 11:20 76 22 97 Full Face 30 02/26/17 11:02 68 127/80 Intake and Output 02/26/17 02/27/17 19:00 07:00 Intake Total 1590 ml Output Total 500 ml Balance -500 ml 1590 ml Free Water 750 ml Tube Feeding 840 ml Output Urine Total 500 ml Laboratory Tests 02/27/17 08:30: Renin [Pending], Aldosterone [Pending], Dehydroepiandrosterone Sulfate [Pending] Height (Feet): 5 Height (Inches): 4.00 Weight (Pounds): 160 Objective HEAD AND NECK: No JVP. No LAD. No thyromegaly. Extraocular movement intact. Pupils are reactive to light and accommodation. LUNGS: Clear to auscultation. CARDIAC: Regular rate and rhythm. S1 and S2. No murmur. No rub. ABDOMEN: Soft. PEG is in place. EXTREMITIES: She has 1 to 2+ edema. No clubbing. No cyanosis. NEUROLOGIC: The patient opened up her eyes with verbal stimuli, not following commands. ZEINA ZENDEJAS Feb 27, 2017 10:49
[2017-02-27 12:00] VITALS: BP 153/97
--- NOTE | 2017-02-27 13:01 | Pulmonology Progress Note ---
Assessment/Plan Problems: (1) Hypercapnic respiratory failure (2) Pneumonia (3) Pleural effusion (4) CVA (cerebral vascular accident) (5) Dysphagia Assessment/Plan -Optimize pulmonary hygiene/mobilize as tolerated -Titrate down FiO2 to keep SaO2. > 90% -BiPAP qHS and PRN -RTC and PRN HHN's + NAC -Abx per ID -Monitor effusion - PRN thora -Monitor volumes and renal function, PRN lasix, F/U cards and renal recs -TF's as tolerated, HOLD WHEN ON BiPAP -F/U heme-onc recs Re: w/u of kidney mass -F/U endo recs Re: adrenal nodule -DVT Px: Hep SQ -FC, discuss GOC, should consider a more comfort based approach Subjective Allergies: Coded Allergies: HYDANTOINS (Unverified Allergy, Unknown, 09/09/13) PHENYTOIN (Unverified Allergy, Unknown, 09/09/13) Subjective On BiPAP ON now on FM Less SOB, no cough, no F/C Once again I/O inaccurate Endo eval noted Re: adrenal nodule Objective Last 24 Hour Vital Signs Date Time Temp Pulse Resp B/P (MAP) Pulse Ox O2 Delivery O2 Flow Rate FiO2 02/27/17 11:00 79 26 95 Facial 30 02/27/17 09:41 78 142/81 02/27/17 09:15 75 19 95 Facial 30 02/27/17 08:00 79 02/27/17 08:00 97.5 78 20 142/81 96 Bi-pap 02/27/17 07:35 70 20 100 Bi-pap 30 02/27/17 07:24 68 14 97 Bi-pap 30 02/27/17 07:19 Bi-pap 30 02/27/17 07:19 74 22 96 Facial 30 02/27/17 07:18 96 Bi-pap 30 02/27/17 05:26 142/84 02/27/17 05:16 70 19 98 Facial 30 02/27/17 04:33 96.8 72 18 136/77 98 Venturi Mask 02/27/17 03:43 79 02/27/17 03:24 64 14 97 Facial 30 02/27/17 01:28 71 18 100 Bi-pap 30 02/27/17 01:04 70 14 98 Facial 30 02/27/17 01:04 70 14 98 Bi-pap 30 02/27/17 01:00 99 Bi-pap 02/27/17 00:52 98.1 76 18 143/82 98 Venturi Mask 02/27/17 00:02 143/82 02/26/17 23:19 66 02/26/17 23:11 78 18 98 Full Face 30 02/26/17 21:20 80 146/87 02/26/17 21:16 74 16 99 Full Face 30 02/26/17 20:45 98.4 80 18 146/87 100 Venturi Mask 02/26/17 20:45 100 Bi-pap 02/26/17 20:10 75 24 99 Bi-pap 30 02/26/17 20:03 99 Bi-pap 30 02/26/17 20:03 Bi-pap 30 02/26/17 20:02 73 16 Bi-pap 30 02/26/17 20:00 73 16 99 Full Face 30 02/26/17 19:59 76 16 99 Bi-pap 30 02/26/17 19:04 70 02/26/17 17:13 71 19 99 Full Face 30 02/26/17 16:00 79 02/26/17 16:00 97.8 75 21 154/89 100 Bi-pap 02/26/17 14:56 64 23 99 Full Face 30 02/26/17 14:14 161/94 02/26/17 13:35 82 21 99 Bi-pap 30 02/26/17 13:20 79 18 99 Bi-pap 30 Intake and Output 02/26/17 02/27/17 19:00 07:00 Intake Total 1590 ml Output Total 500 ml Balance -500 ml 1590 ml Free Water 750 ml Tube Feeding 840 ml Output Urine Total 500 ml General Appearance: no acute distress, cachetic, other - on FM HEENT: normocephalic, atraumatic, mucous membranes moist Respiratory/Chest: chest wall non-tender, lungs clear, normal breath sounds, no respiratory distress Cardiovascular: normal peripheral pulses, normal rate, regular rhythm Abdomen: normal bowel sounds, soft, non tender, no organomegaly, non distended Extremities: no cyanosis, no clubbing, no edema Laboratory Tests 02/27/17 08:30: Renin [Pending], Aldosterone [Pending], Dehydroepiandrosterone Sulfate [Pending] Current Medications Medications (Trade) Dose Ordered Sig/[place] Route PRN Reason Start Time Stop Time Status Last Admin Dose Admin Acetaminophen (Tylenol) 650 mg Q4H PRN ORAL fever (temp >100.5F) 02/19/17 12:30 03/21/17 12:29 02/21/17 22:15 Acetylcysteine (Mucomyst) 200 mg Q6HRT N 02/24/17 19:00 03/26/17 18:59 02/27/17 07:22 Albuterol/ Ipratropium (Albuterol/ Ipratropium) 3 ml Q4H PRN HHN Shortness of Breath 02/23/17 12:00 02/28/17 11:59 Albuterol/ Ipratropium (Albuterol/ Ipratropium) 3 ml Q6HRT N 02/24/17 19:00 03/01/17 18:59 02/27/17 07:21 Clonidine HCl (Catapres) 0.2 mg Q8HR GT 02/19/17 14:00 03/21/17 13:59 02/27/17 05:26 Dextrose (Dextrose 50%) STAT PRN IV Hypoglycemia 02/19/17 12:30 03/21/17 12:29 Gabapentin (Neurontin) 100 mg BID GT 02/19/17 18:00 03/21/17 17:59 02/27/17 09:42 Heparin Sodium (Porcine) (Heparin 5000 units/ml) 5,000 units EVERY 12 HOURS SUBQ 02/19/17 21:00 03/21/17 20:59 02/27/17 09:45 Insulin Aspart (NovoLOG) EVERY 6 HOURS SUBQ 02/21/17 18:00 03/21/17 16:29 02/27/17 05:25 Insulin Detemir (Levemir) 12 units BID SUBQ 02/25/17 09:00 03/27/17 08:59 02/27/17 09:00 Levetiracetam (Keppra) 500 mg Q12HR GT 02/19/17 21:00 03/21/17 20:59 02/27/17 09:42 Metoprolol Tartrate (Lopressor) 50 mg Q12HR GT 02/19/17 13:00 03/21/17 12:59 02/27/17 09:41 Nitroglycerin (Ntg) 0.4 mg Q5M PRN SL Prn Chest Pain 02/19/17 12:30 03/21/17 12:29 Ondansetron HCl (Zofran) 4 mg Q6H PRN IVP Nausea & Vomiting 02/19/17 12:30 03/21/17 12:29 Polyethylene Glycol (Miralax) 17 gm DAILYPRN PRN GT Constipation 02/23/17 15:30 03/21/17 12:29 SUNG FRANCE M.D. Feb 27, 2017 13:01
--- NOTE | 2017-02-27 17:39 | General Progress Note ---
Assessment/Plan Assessment/Plan ASSESSMENT AND RECOMMENDATIONS: #. 3.5 cm contour bulge in the upper pole of the left kidney + 1 cm nodule is seen in the right adrenal gland --> will monitor for now #. Anemia secondary to chronic disease. Anemia work up has been reviewed. Continue to trend H/H daily --> hgb goal above 7 #. Sepsis #. UTI #. Pneumonia # Deep vein thrombosis history. The patient was closely monitor. No evidence of recurrent clot at this moment. Currently, on heparin subcutaneous. #. Diabetes mellitus, currently better controlled. Subjective Hematologic/Lymphatic: Reports: anemia Allergies: Coded Allergies: HYDANTOINS (Unverified Allergy, Unknown, 09/09/13) PHENYTOIN (Unverified Allergy, Unknown, 09/09/13) All Systems: reviewed and negative except above Subjective On abx Objective Last 24 Hour Vital Signs Date Time Temp Pulse Resp B/P (MAP) Pulse Ox O2 Delivery O2 Flow Rate FiO2 02/27/17 14:15 153/97 02/27/17 13:20 72 22 Simple Mask 6.0 44 02/27/17 13:10 77 15 96 Facial 30 02/27/17 13:10 77 15 96 Bi-pap 30 02/27/17 12:00 79 02/27/17 12:00 98.0 88 22 153/97 Bi-pap 02/27/17 11:00 79 26 95 Facial 30 02/27/17 09:41 78 142/81 02/27/17 09:15 75 19 95 Facial 30 02/27/17 08:00 79 02/27/17 08:00 97.5 78 20 142/81 96 Bi-pap 02/27/17 07:35 70 20 100 Bi-pap 30 02/27/17 07:24 68 14 97 Bi-pap 30 02/27/17 07:19 Bi-pap 30 02/27/17 07:19 74 22 96 Facial 30 02/27/17 07:18 96 Bi-pap 30 02/27/17 05:26 142/84 02/27/17 05:16 70 19 98 Facial 30 02/27/17 04:33 96.8 72 18 136/77 98 Venturi Mask 02/27/17 03:43 79 02/27/17 03:24 64 14 97 Facial 30 02/27/17 01:28 71 18 100 Bi-pap 30 02/27/17 01:04 70 14 98 Facial 30 02/27/17 01:04 70 14 98 Bi-pap 30 02/27/17 01:00 99 Bi-pap 02/27/17 00:52 98.1 76 18 143/82 98 Venturi Mask 02/27/17 00:02 143/82 02/26/17 23:19 66 02/26/17 23:11 78 18 98 Full Face 30 02/26/17 21:20 80 146/87 02/26/17 21:16 74 16 99 Full Face 30 02/26/17 20:45 98.4 80 18 146/87 100 Venturi Mask 02/26/17 20:45 100 Bi-pap 02/26/17 20:10 75 24 99 Bi-pap 30 02/26/17 20:03 99 Bi-pap 30 02/26/17 20:03 Bi-pap 30 02/26/17 20:02 73 16 Bi-pap 30 02/26/17 20:00 73 16 99 Full Face 30 02/26/17 19:59 76 16 99 Bi-pap 30 02/26/17 19:04 70 Intake and Output 02/26/17 02/27/17 19:00 07:00 Intake Total 1590 ml Output Total 500 ml Balance -500 ml 1590 ml Free Water 750 ml Tube Feeding 840 ml Output Urine Total 500 ml Laboratory Tests 02/27/17 08:30: Renin [Pending], Aldosterone [Pending], Dehydroepiandrosterone Sulfate [Pending] Height (Feet): 5 Height (Inches): 4.00 Weight (Pounds): 160 General Appearance: no apparent distress EENT: normal ENT inspection Neck: normal alignment Pelvis: normal external exam 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
[2017-02-27 20:45] VITALS: BP 167/99
--- NOTE | 2017-02-27 21:03 | General Progress Note ---
Assessment/Plan Problem List: (1) Seizure ICD Codes: R56.9 - Unspecified convulsions SNOMED: 14330254 (2) Hyperglycemia ICD Codes: R73.9 - Hyperglycemia, unspecified SNOMED: 82966667 (3) DVT (deep venous thrombosis) ICD Codes: I82.409 - Acute embolism and thrombosis of unspecified deep veins of unspecified lower extremity SNOMED: 186383086 (4) Leukocytosis ICD Codes: D72.829 - Elevated white blood cell count, unspecified SNOMED: 546745426 (5) HTN (hypertension) ICD Codes: I10 - Essential (primary) hypertension SNOMED: 28784267 (6) CVA (cerebral vascular accident) ICD Codes: I63.9 - Cerebral infarction, unspecified SNOMED: 783373534 (7) Diabetes mellitus out of control ICD Codes: E11.9 - Diabetes mellitus out of control SNOMED: 463395426 (8) Sepsis ICD Codes: A41.9 - Sepsis SNOMED: 35481157 Qualifiers: Qualified Codes: A41.9 - Sepsis, unspecified organism (9) Pneumonia ICD Codes: J18.9 - Pneumonia, unspecified organism SNOMED: 661175320 Status: progressing Assessment/Plan htn and dm sepsis siezure cva reviewed chart and labs and meds Subjective ROS Limited/Unobtainable: Yes Constitutional: Reports: no symptoms Allergies: Coded Allergies: HYDANTOINS (Unverified Allergy, Unknown, 09/09/13) PHENYTOIN (Unverified Allergy, Unknown, 09/09/13) Objective Last 24 Hour Vital Signs Date Time Temp Pulse Resp B/P (MAP) Pulse Ox O2 Delivery O2 Flow Rate FiO2 02/27/17 20:45 97.9 86 19 167/99 98 Bi-pap 02/27/17 19:10 86 22 Simple Mask 6.0 44 02/27/17 19:00 84 21 99 Simple Mask 6.0 44 02/27/17 19:00 99 Simple Mask 6.0 44 02/27/17 19:00 Simple Mask 44 02/27/17 16:00 98.2 82 22 99 Simple Mask 6.0 02/27/17 16:00 82 02/27/17 14:15 153/97 02/27/17 13:20 72 22 Simple Mask 6.0 44 02/27/17 13:10 77 15 96 Facial 30 02/27/17 13:10 77 15 96 Bi-pap 30 02/27/17 12:00 79 02/27/17 12:00 98.0 88 22 153/97 Bi-pap 02/27/17 11:00 79 26 95 Facial 30 02/27/17 09:41 78 142/81 02/27/17 09:15 75 19 95 Facial 30 02/27/17 08:00 79 02/27/17 08:00 97.5 78 20 142/81 96 Bi-pap 02/27/17 07:35 70 20 100 Bi-pap 30 02/27/17 07:24 68 14 97 Bi-pap 30 02/27/17 07:19 Bi-pap 30 02/27/17 07:19 74 22 96 Facial 30 02/27/17 07:18 96 Bi-pap 30 02/27/17 05:26 142/84 02/27/17 05:16 70 19 98 Facial 30 02/27/17 04:33 96.8 72 18 136/77 98 Venturi Mask 02/27/17 03:43 79 02/27/17 03:24 64 14 97 Facial 30 02/27/17 01:28 71 18 100 Bi-pap 30 02/27/17 01:04 70 14 98 Facial 30 02/27/17 01:04 70 14 98 Bi-pap 30 02/27/17 01:00 99 Bi-pap 02/27/17 00:52 98.1 76 18 143/82 98 Venturi Mask 02/27/17 00:02 143/82 02/26/17 23:19 66 02/26/17 23:11 78 18 98 Full Face 30 02/26/17 21:20 80 146/87 02/26/17 21:16 74 16 99 Full Face 30 Intake and Output 02/26/17 02/27/17 19:00 07:00 Intake Total 1590 ml Output Total 500 ml Balance -500 ml 1590 ml Free Water 750 ml Tube Feeding 840 ml Output Urine Total 500 ml Laboratory Tests 02/27/17 08:30: Renin [Pending], Aldosterone [Pending], Dehydroepiandrosterone Sulfate [Pending] Height (Feet): 5 Height (Inches): 4.00 Weight (Pounds): 160 Cardiovascular: normal rate Respiratory/Chest: lungs clear Abdomen: soft Hadadz,Ali MD Feb 27, 2017 21:03
[2017-02-28 01:00] VITALS: BP 122/78
[2017-02-28] MEDS: Acetylcysteine 20% Soln 4ml HHN SCH ×3 (01:00→13:11)
[2017-02-28] MEDS: Albuterol/Ipratropium 3ml neb HHN SCH ×4 (02:32→20:40)
[2017-02-28 04:36] VITALS: BP 120/62
[2017-02-28] MEDS: cloNIDine 0.2mg Tab GT SCH ×3 (05:43→21:44)
[2017-02-28] MEDS: NovoLOG Insulin Flexpen SUBQ SCH ×3 (05:52→17:22)
--- NOTE | 2017-02-28 07:55 | General Progress Note ---
Assessment/Plan Problem List: (1) Dementia ICD Codes: F03.90 - Unspecified dementia without behavioral disturbance SNOMED: 10851576 (2) Dysphagia ICD Codes: R13.10 - Dysphagia SNOMED: 26728762 (3) HTN (hypertension) ICD Codes: I10 - Essential (primary) hypertension SNOMED: 07438488 (4) CVA (cerebral vascular accident) ICD Codes: I63.9 - Cerebral infarction, unspecified SNOMED: 445940139 (5) Hyperglycemia ICD Codes: R73.9 - Hyperglycemia, unspecified SNOMED: 22959207 (6) Adrenal adenoma ICD Codes: D35.00 - Benign neoplasm of unspecified adrenal gland SNOMED: 580783541 Assessment/Plan continue Levemir 12 units bid continue Novolog sliding scale Right adrenal nodule measuring 1 cm is probably benign hormonal evaluation to rule out functionality ordered and pending: - 24 hours urine metanephrines - 24 hours urine free cortisol - PAC/PRA - DHEAs Subjective ROS Limited/Unobtainable: Yes Allergies: Coded Allergies: HYDANTOINS (Unverified Allergy, Unknown, 09/09/13) PHENYTOIN (Unverified Allergy, Unknown, 09/09/13) Subjective events noted interval notes reviewed Objective Last 24 Hour Vital Signs Date Time Temp Pulse Resp B/P (MAP) Pulse Ox O2 Delivery O2 Flow Rate FiO2 02/28/17 05:43 120/62 02/28/17 05:27 70 20 98 Facial 30 02/28/17 04:36 96.8 64 18 120/62 95 Bi-pap 02/28/17 04:00 74 02/28/17 03:51 72 18 99 Full Face 30 02/28/17 01:30 66 14 99 Full Face 30 02/28/17 01:30 70 18 100 Bi-pap 02/28/17 01:30 67 14 99 Bi-pap 02/28/17 01:00 96.9 70 18 122/78 99 Bi-pap 02/28/17 00:00 69 02/27/17 22:24 88 24 98 Facial 30 02/27/17 21:05 86 167/99 02/27/17 21:05 167/99 02/27/17 20:45 97.9 86 19 167/99 98 Bi-pap 02/27/17 20:00 85 02/27/17 19:10 86 22 Simple Mask 6.0 44 12/21/17 19:00 84 21 99 Simple Mask 6.0 44 02/27/17 19:00 99 Simple Mask 6.0 44 02/27/17 19:00 Simple Mask 44 02/27/17 16:00 98.2 82 22 99 Simple Mask 6.0 02/27/17 16:00 82 02/27/17 14:15 153/97 02/27/17 13:20 72 22 Simple Mask 6.0 44 02/27/17 13:10 77 15 96 Facial 30 02/27/17 13:10 77 15 96 Bi-pap 30 02/27/17 12:00 79 02/27/17 12:00 98.0 88 22 153/97 Bi-pap 02/27/17 11:00 79 26 95 Facial 30 02/27/17 09:41 78 142/81 02/27/17 09:15 75 19 95 Facial 30 02/27/17 08:00 79 02/27/17 08:00 97.5 78 20 142/81 96 Bi-pap Intake and Output 02/27/17 02/28/17 19:00 07:00 Output Total 2800 ml 450 ml Balance -2800 ml -450 ml Output Urine Total 2800 ml 450 ml # Bowel Movements 1 Laboratory Tests 02/27/17 08:30: Renin [Pending], Aldosterone [Pending], Dehydroepiandrosterone Sulfate [Pending] Height (Feet): 5 Height (Inches): 4.00 Weight (Pounds): 160 General Appearance: no apparent distress EENT: pale conjunctivae Neck: normal alignment Cardiovascular: normal rate Respiratory/Chest: decreased breath sounds Abdomen: normal bowel sounds Edema: 1+ Arm (L), 1+ Arm (R), 1+ Leg (L), 1+ Leg (R), 1+ Pedal (L), 1+ Pedal ( R), 1+ Generalized Objective Current Medications Medications (Trade) Dose Ordered Sig/Chinyere Route PRN Reason Start Time Stop Time Status Last Admin Dose Admin Acetaminophen (Tylenol) 650 mg Q4H PRN ORAL fever (temp >100.5F) 02/19/17 12:30 03/21/17 12:29 02/21/17 22:15 Acetylcysteine (Mucomyst) 200 mg Q6HRT HHN 02/24/17 19:00 03/26/17 18:59 02/28/17 01:00 Albuterol/ Ipratropium (Albuterol/ Ipratropium) 3 ml Q4H PRN HHN Shortness of Breath 02/23/17 12:00 02/28/17 11:59 Albuterol/ Ipratropium (Albuterol/ Ipratropium) 3 ml Q6HRT HHN 02/24/17 19:00 03/01/17 18:59 02/28/17 02:32 Clonidine HCl (Catapres) 0.2 mg Q8HR GT 02/19/17 14:00 03/21/17 13:59 02/28/17 05:43 Dextrose (Dextrose 50%) STAT PRN IV Hypoglycemia 02/19/17 12:30 03/21/17 12:29 Gabapentin (Neurontin) 100 mg BID GT 02/19/17 18:00 03/21/17 17:59 02/27/17 18:19 Heparin Sodium (Porcine) (Heparin 5000 units/ml) 5,000 units EVERY 12 HOURS SUBQ 02/19/17 21:00 03/21/17 20:59 02/27/17 21:17 Insulin Aspart (NovoLOG) EVERY 6 HOURS SUBQ 02/21/17 18:00 03/21/17 16:29 02/28/17 05:52 Insulin Detemir (Levemir) 12 units BID SUBQ 02/25/17 09:00 03/27/17 08:59 02/27/17 18:15 Levetiracetam (Keppra) 500 mg Q12HR GT 02/19/17 21:00 03/21/17 20:59 02/27/17 21:05 Metoprolol Tartrate (Lopressor) 50 mg Q12HR GT 02/19/17 13:00 03/21/17 12:59 02/27/17 21:05 Nitroglycerin (Ntg) 0.4 mg Q5M PRN SL Prn Chest Pain 02/19/17 12:30 03/21/17 12:29 Ondansetron HCl (Zofran) 4 mg Q6H PRN IVP Nausea & Vomiting 02/19/17 12:30 03/21/17 12:29 Polyethylene Glycol (Miralax) 17 gm DAILYPRN PRN GT Constipation 02/23/17 15:30 03/21/17 12:29 Item Value Date Time Bedside Blood Glucose 153 mg/dl H 02/28/17 0552 Bedside Blood Glucose 199 mg/dl H 02/27/17 2335 Bedside Blood Glucose 205 mg/dl H 02/27/17 1819 Bedside Blood Glucose 221 mg/dl H 02/27/17 1328 Bedside Blood Glucose 228 mg/dl H 02/27/17 0900 Bedside Blood Glucose 228 mg/dl H 02/27/17 0540 Bedside Blood Glucose 218 mg/dl H 02/27/17 0006 MARCIO GERONIMO Feb 28, 2017 07:55
[2017-02-28 08:00] VITALS: BP 122/85
[2017-02-28] MEDS: levETIRAcetam 500mg/5ml Liquid GT SCH ×2 (09:23→21:42)
[2017-02-28] MEDS: Gabapentin 300 MG/6 ML Soln GT SCH ×2 (09:23→17:20)
[2017-02-28] MEDS: Metoprolol Tartrate 50mg tab GT SCH ×2 (09:24→21:45)
[2017-02-28] MEDS: Heparin 5000 units/ml inj SUBQ SCH ×2 (09:27→21:43)
[2017-02-28] MEDS: Levemir Flexpen SUBQ SCH ×2 (09:28→17:22)
[2017-02-28 12:00] VITALS: BP 137/85
--- NOTE | 2017-02-28 12:30 | Nephrology Progress Note ---
Assessment/Plan Assessment 1. Hyperkalemia.resolved 2. Urinary tract infection. 3. Prerenal azotemia. 4. Dehydration. 5. Dyspnea on exertion. Plan plan check chem 7 free water per g tube monitoring renal function avoid NSAID Replace electrolyte as need it Subjective ROS Limited/Unobtainable: Yes Constitutional: Reports: no symptoms HEENT: Reports: no symptoms Genitourinary: Reports: no symptoms Neurologic/Psychiatric: Reports: no symptoms Subjective No changes in MS no events over night Objective Objective Last 24 Hour Vital Signs Date Time Temp Pulse Resp B/P (MAP) Pulse Ox O2 Delivery O2 Flow Rate FiO2 02/28/17 12:00 96.3 72 21 137/85 93 Bi-pap 02/28/17 11:02 68 17 94 Full Face 30 02/28/17 09:24 70 122/85 02/28/17 08:25 66 14 99 Facial 30 02/28/17 08:19 66 14 99 Bi-pap 30 02/28/17 08:19 66 14 99 Bi-pap 30 02/28/17 08:18 99 Bi-pap 30 02/28/17 08:18 Bi-pap 30 02/28/17 08:00 66 02/28/17 08:00 96.1 70 18 122/85 100 Bi-pap 02/28/17 06:45 66 14 99 Facial 30 02/28/17 05:43 120/62 02/28/17 05:27 70 20 98 Facial 30 02/28/17 04:36 96.8 64 18 120/62 95 Bi-pap 02/28/17 04:00 74 02/28/17 03:51 72 18 99 Full Face 30 02/28/17 01:30 66 14 99 Full Face 30 02/28/17 01:30 70 18 100 Bi-pap 02/28/17 01:30 67 14 99 Bi-pap 02/28/17 01:00 96.9 70 18 122/78 99 Bi-pap 02/28/17 00:00 69 02/27/17 22:24 88 24 98 Facial 30 02/27/17 21:05 86 167/99 02/27/17 21:05 167/99 02/27/17 20:45 97.9 86 19 167/99 98 Bi-pap 02/27/17 20:00 85 02/27/17 19:10 86 22 Simple Mask 6.0 44 02/27/17 19:00 84 21 99 Simple Mask 6.0 44 02/27/17 19:00 99 Simple Mask 6.0 44 02/27/17 19:00 Simple Mask 44 02/27/17 16:00 98.2 82 22 99 Simple Mask 6.0 02/27/17 16:00 82 02/27/17 14:15 153/97 02/27/17 13:20 72 22 Simple Mask 6.0 44 02/27/17 13:10 77 15 96 Facial 30 02/27/17 13:10 77 15 96 Bi-pap 30 Intake and Output 02/27/17 02/28/17 19:00 07:00 Intake Total 70 ml Output Total 2800 ml 450 ml Balance -2800 ml -380 ml Tube Feeding 70 ml Output Urine Total 2800 ml 450 ml # Bowel Movements 1 Laboratory Tests 02/28/17 08:25: Arterial Blood pH 7.457H, Arterial Blood Partial Pressure CO2 [Pending], Arterial Blood Partial Pressure O2 64.2L, Arterial Blood HCO3 86.2H, Arterial Blood Oxygen Saturation 44.3L, Arterial Blood Base Excess 17.8, Justo Test Positive 02/28/17 09:00: Urine Metanephrine [Pending], Urine Normetanephrine [Pending], Urine Normetanephrine 24 Hour [Pending], Urine Total Metanephrines [Pending] Height (Feet): 5 Height (Inches): 4.00 Weight (Pounds): 160 Objective HEAD AND NECK: No JVP. No LAD. No thyromegaly. Extraocular movement intact. Pupils are reactive to light and accommodation. LUNGS: Clear to auscultation. CARDIAC: Regular rate and rhythm. S1 and S2. No murmur. No rub. ABDOMEN: Soft. PEG is in place. EXTREMITIES: She has 1 to 2+ edema. No clubbing. No cyanosis. NEUROLOGIC: The patient opened up her eyes with verbal stimuli, not following commands. ZEINA ZENDEJAS Feb 28, 2017 12:30
[2017-02-28 16:00] VITALS: BP 142/93
--- NOTE | 2017-02-28 16:01 | Infectious Diseases Prog Note ---
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 placement P: observe off antibiotic repeat CXR Subjective ROS Limited/Unobtainable: Yes Allergies: Coded Allergies: HYDANTOINS (Unverified Allergy, Unknown, 09/09/13) PHENYTOIN (Unverified Allergy, Unknown, 09/09/13) Objective Vital Signs Last 24 Hour Vital Signs Date Time Temp Pulse Resp B/P (MAP) Pulse Ox O2 Delivery O2 Flow Rate FiO2 02/28/17 15:00 65 20 100 Full Face 40 02/28/17 13:26 137/85 02/28/17 13:12 30 02/28/17 13:12 78 25 100 Bi-pap 6.0 30 02/28/17 13:11 75 26 97 6.0 30 02/28/17 13:10 75 26 97 Full Face 30 02/28/17 12:00 67 02/28/17 12:00 96.3 72 21 137/85 93 Bi-pap 02/28/17 11:02 68 17 94 Full Face 30 02/28/17 09:24 70 122/85 02/28/17 08:25 66 14 99 Facial 30 02/28/17 08:19 66 14 99 Bi-pap 30 02/28/17 08:19 66 14 99 Bi-pap 30 02/28/17 08:18 99 Bi-pap 30 02/28/17 08:18 Bi-pap 30 02/28/17 08:00 66 02/28/17 08:00 96.1 70 18 122/85 100 Bi-pap 02/28/17 06:45 66 14 99 Facial 30 02/28/17 05:43 120/62 02/28/17 05:27 70 20 98 Facial 30 02/28/17 04:36 96.8 64 18 120/62 95 Bi-pap 02/28/17 04:00 74 02/28/17 03:51 72 18 99 Full Face 30 02/28/17 01:30 66 14 99 Full Face 30 02/28/17 01:30 70 18 100 Bi-pap 02/28/17 01:30 67 14 99 Bi-pap 02/28/17 01:00 96.9 70 18 122/78 99 Bi-pap 02/28/17 00:00 69 02/27/17 22:24 88 24 98 Facial 30 02/27/17 21:05 86 167/99 02/27/17 21:05 167/99 02/27/17 20:45 97.9 86 19 167/99 98 Bi-pap 02/27/17 20:00 85 02/27/17 19:10 86 22 Simple Mask 6.0 44 02/27/17 19:00 84 21 99 Simple Mask 6.0 44 02/27/17 19:00 99 Simple Mask 6.0 44 02/27/17 19:00 Simple Mask 44 02/27/17 16:00 98.2 82 22 99 Simple Mask 6.0 02/27/17 16:00 82 Height (Feet): 5 Height (Inches): 4.00 Weight (Pounds): 160 HEENT: other - on BIPA Respiratory/Chest: rhonchi - bilaterally Cardiovascular: normal rate Abdomen: soft, non tender, other - GT feeding Extremities: no edema Neurologic/Psychiatric: motor weakness, aphasia Laboratory Tests Test 02/28/17 08:25 02/28/17 09:00 Arterial Blood pH 7.457 (7.350-7.450) Arterial Blood Partial Pressure CO2 Pending Arterial Blood Partial Pressure O2 64.2 mmHg (75.0-100.0) L Arterial Blood HCO3 86.2 mmol/L (22.0-26.0) H Arterial Blood Oxygen Saturation 44.3 % (92.0-98.0) L Arterial Blood Base Excess 17.8 Justo Test Positive Urine Metanephrine Pending Urine Normetanephrine Pending Urine Normetanephrine 24 Hour Pending Urine Total Metanephrines Pending Current Medications Medications (Trade) Dose Ordered Sig/[place] Route PRN Reason Start Time Stop Time Status Last Admin Dose Admin Acetaminophen (Tylenol) 650 mg Q4H PRN ORAL fever (temp >100.5F) 02/19/17 12:30 03/21/17 12:29 02/21/17 22:15 Acetylcysteine (Mucomyst) 200 mg Q6HRT HHN 02/24/17 19:00 03/26/17 18:59 02/28/17 13:11 Albuterol/ Ipratropium (Albuterol/ Ipratropium) 3 ml Q6HRT HHN 02/24/17 19:00 03/01/17 18:59 02/28/17 13:11 Clonidine HCl (Catapres) 0.2 mg Q8HR GT 02/19/17 14:00 03/21/17 13:59 02/28/17 13:26 Dextrose (Dextrose 50%) STAT PRN IV Hypoglycemia 02/19/17 12:30 03/21/17 12:29 Gabapentin (Neurontin) 100 mg BID GT 02/19/17 18:00 03/21/17 17:59 02/28/17 09:23 Heparin Sodium (Porcine) (Heparin 5000 units/ml) 5,000 units EVERY 12 HOURS SUBQ 02/19/17 21:00 03/21/17 20:59 02/28/17 09:27 Insulin Aspart (NovoLOG) EVERY 6 HOURS SUBQ 02/21/17 18:00 03/21/17 16:29 02/28/17 12:25 Insulin Detemir (Levemir) 12 units BID SUBQ 02/25/17 09:00 03/27/17 08:59 02/28/17 09:28 Levetiracetam (Keppra) 500 mg Q12HR GT 02/19/17 21:00 03/21/17 20:59 02/28/17 09:23 Metoprolol Tartrate (Lopressor) 50 mg Q12HR GT 02/19/17 13:00 03/21/17 12:59 02/28/17 09:24 Nitroglycerin (Ntg) 0.4 mg Q5M PRN SL Prn Chest Pain 02/19/17 12:30 03/21/17 12:29 Ondansetron HCl (Zofran) 4 mg Q6H PRN IVP Nausea & Vomiting 02/19/17 12:30 03/21/17 12:29 Polyethylene Glycol (Miralax) 17 gm DAILYPRN PRN GT Constipation 02/23/17 15:30 03/21/17 12:29 DENEEN BRENNAN Feb 28, 2017 16:01
--- NOTE | 2017-02-28 16:41 | Wound Nurse Progress Note ---
Wound RN Progress Note Wound Consult #1 Sacral stage IV pressure ulcer. No deterioration noted. #2 Left iliac crest DTI pressure ulcer. Skin still intact. #3 Dry scab on left lateral knee. No deterioration noted Will cont same wound care treatment and recommendations below. Recommendation -Local wound care as ordered -Keep clean and dry -Turn and reposition -Optimize nutrition -Offload both heels -Heel protector on both heels -Low air loss mattress -Assess and f/u accordingly for any changes LINSEY TORRES RN Feb 28, 2017 16:40
--- NOTE | 2017-02-28 17:23 | Pulmonology Progress Note ---
Assessment/Plan Problems: (1) Hypercapnic respiratory failure (2) Pneumonia (3) Pleural effusion (4) CVA (cerebral vascular accident) (5) Dysphagia Assessment/Plan -Repeat CXR -Optimize pulmonary hygiene/mobilize as tolerated -Titrate down FiO2 to keep SaO2. > 90% -BiPAP qHS and PRN -RTC and PRN HHN's + NAC -Off Abx per ID -Monitor effusion - PRN thora -Monitor volumes and renal function, PRN lasix, F/U cards and renal recs -TF's as tolerated, HOLD WHEN ON BiPAP -F/U heme-onc recs Re: w/u of kidney mass -F/U endo recs Re: adrenal nodule -DVT Px: Hep SQ -FC, discuss GOC, should consider a more comfort based approach - discussed at length with daughter today, she understands that if unable to wean BiPAP trach may be indicated but is not sure whether this would be acceptable, also not sure RE: code status and intubation. She would like for her mother to remain FC for now and we will continue to discuss. Subjective Allergies: Coded Allergies: HYDANTOINS (Unverified Allergy, Unknown, 09/09/13) PHENYTOIN (Unverified Allergy, Unknown, 09/09/13) Subjective Desats when off BiPAP ABG in error Per RT thick creamy secretions No change in MS D/W daughter at length Objective Last 24 Hour Vital Signs Date Time Temp Pulse Resp B/P (MAP) Pulse Ox O2 Delivery O2 Flow Rate FiO2 02/28/17 17:17 72 22 100 Facial 40 02/28/17 16:00 96.3 82 21 93 Bi-pap 142/93 02/28/17 15:00 65 20 100 Full Face 40 02/28/17 13:26 137/85 02/28/17 13:12 30 02/28/17 13:12 78 25 100 Bi-pap 6.0 30 02/28/17 13:11 75 26 97 6.0 30 02/28/17 13:10 75 26 97 Full Face 30 02/28/17 12:00 67 02/28/17 12:00 96.3 72 21 137/85 93 Bi-pap 02/28/17 11:02 68 17 94 Full Face 30 02/28/17 09:24 70 122/85 02/28/17 08:25 66 14 99 Facial 30 02/28/17 08:19 66 14 99 Bi-pap 30 02/28/17 08:19 66 14 99 Bi-pap 30 02/28/17 08:18 99 Bi-pap 30 02/28/17 08:18 Bi-pap 30 02/28/17 08:00 66 02/28/17 08:00 96.1 70 18 122/85 100 Bi-pap 02/28/17 06:45 66 14 99 Facial 30 02/28/17 05:43 120/62 02/28/17 05:27 70 20 98 Facial 30 02/28/17 04:36 96.8 64 18 120/62 95 Bi-pap 02/28/17 04:00 74 02/28/17 03:51 72 18 99 Full Face 30 02/28/17 01:30 66 14 99 Full Face 30 02/28/17 01:30 70 18 100 Bi-pap 02/28/17 01:30 67 14 99 Bi-pap 02/28/17 01:00 96.9 70 18 122/78 99 Bi-pap 02/28/17 00:00 69 02/27/17 22:24 88 24 98 Facial 30 02/27/17 21:05 86 167/99 02/27/17 21:05 167/99 02/27/17 20:45 97.9 86 19 167/99 98 Bi-pap 02/27/17 20:00 85 02/27/17 19:10 86 22 Simple Mask 6.0 44 02/27/17 19:00 84 21 99 Simple Mask 6.0 44 02/27/17 19:00 99 Simple Mask 6.0 44 02/27/17 19:00 Simple Mask 44 Intake and Output 02/27/17 02/28/17 19:00 07:00 Intake Total 70 ml Output Total 2800 ml 450 ml Balance -2800 ml -380 ml Tube Feeding 70 ml Output Urine Total 2800 ml 450 ml # Bowel Movements 1 General Appearance: cachetic HEENT: normocephalic, atraumatic, mucous membranes moist Respiratory/Chest: rhonchi Cardiovascular: normal peripheral pulses, normal rate, regular rhythm Abdomen: normal bowel sounds, soft, non tender, no organomegaly, non distended , other - GT Extremities: no cyanosis, no clubbing, no edema Laboratory Tests 02/28/17 08:25: Arterial Blood pH 7.457H, Arterial Blood Partial Pressure CO2 [Pending], Arterial Blood Partial Pressure O2 64.2L, Arterial Blood HCO3 86.2H, Arterial Blood Oxygen Saturation 44.3L, Arterial Blood Base Excess 17.8, Justo Test Positive 02/28/17 09:00: Urine Metanephrine [Pending], Urine Normetanephrine [Pending], Urine Normetanephrine 24 Hour [Pending], Urine Total Metanephrines [Pending] Current Medications Medications (Trade) Dose Ordered Sig/[place] Route PRN Reason Start Time Stop Time Status Last Admin Dose Admin Acetaminophen (Tylenol) 650 mg Q4H PRN ORAL fever (temp >100.5F) 02/19/17 12:30 03/21/17 12:29 02/21/17 22:15 Acetylcysteine (Mucomyst) 200 mg Q6HRT N 02/24/17 19:00 03/26/17 18:59 02/28/17 13:11 Albuterol/ Ipratropium (Albuterol/ Ipratropium) 3 ml Q6HRT N 02/24/17 19:00 03/01/17 18:59 02/28/17 13:11 Clonidine HCl (Catapres) 0.2 mg Q8HR GT 02/19/17 14:00 03/21/17 13:59 02/28/17 13:26 Dextrose (Dextrose 50%) STAT PRN IV Hypoglycemia 02/19/17 12:30 03/21/17 12:29 Gabapentin (Neurontin) 100 mg BID GT 02/19/17 18:00 03/21/17 17:59 02/28/17 09:23 Heparin Sodium (Porcine) (Heparin 5000 units/ml) 5,000 units EVERY 12 HOURS SUBQ 02/19/17 21:00 03/21/17 20:59 02/28/17 09:27 Insulin Aspart (NovoLOG) EVERY 6 HOURS SUBQ 02/21/17 18:00 03/21/17 16:29 02/28/17 12:25 Insulin Detemir (Levemir) 12 units BID SUBQ 02/25/17 09:00 03/27/17 08:59 02/28/17 09:28 Levetiracetam (Keppra) 500 mg Q12HR GT 02/19/17 21:00 03/21/17 20:59 02/28/17 09:23 Metoprolol Tartrate (Lopressor) 50 mg Q12HR GT 02/19/17 13:00 03/21/17 12:59 02/28/17 09:24 Nitroglycerin (Ntg) 0.4 mg Q5M PRN SL Prn Chest Pain 02/19/17 12:30 03/21/17 12:29 Ondansetron HCl (Zofran) 4 mg Q6H PRN IVP Nausea & Vomiting 02/19/17 12:30 03/21/17 12:29 Polyethylene Glycol (Miralax) 17 gm DAILYPRN PRN GT Constipation 02/23/17 15:30 03/21/17 12:29 SUNG FRANCE M.D. Feb 28, 2017 17:23
[2017-02-28 20:00] VITALS: BP 126/76
--- NOTE | 2017-02-28 20:48 | General Progress Note ---
Assessment/Plan Problem List: (1) Seizure ICD Codes: R56.9 - Unspecified convulsions SNOMED: 83003214 (2) Hyperglycemia ICD Codes: R73.9 - Hyperglycemia, unspecified SNOMED: 48398948 (3) DVT (deep venous thrombosis) ICD Codes: I82.409 - Acute embolism and thrombosis of unspecified deep veins of unspecified lower extremity SNOMED: 502319359 (4) Leukocytosis ICD Codes: D72.829 - Elevated white blood cell count, unspecified SNOMED: 942548577 (5) HTN (hypertension) ICD Codes: I10 - Essential (primary) hypertension SNOMED: 80306977 (6) CVA (cerebral vascular accident) ICD Codes: I63.9 - Cerebral infarction, unspecified SNOMED: 536162423 (7) Diabetes mellitus out of control ICD Codes: E11.9 - Diabetes mellitus out of control SNOMED: 546313360 (8) Sepsis ICD Codes: A41.9 - Sepsis SNOMED: 20253582 Qualifiers: Qualified Codes: A41.9 - Sepsis, unspecified organism (9) Pneumonia ICD Codes: J18.9 - Pneumonia, unspecified organism SNOMED: 900292011 Status: progressing Assessment/Plan htn and dm sepsis siezure cva dvt moniter for bleeding bg is improving abx per id Subjective ROS Limited/Unobtainable: Yes Allergies: Coded Allergies: HYDANTOINS (Unverified Allergy, Unknown, 09/09/13) PHENYTOIN (Unverified Allergy, Unknown, 09/09/13) Objective Last 24 Hour Vital Signs Date Time Temp Pulse Resp B/P (MAP) Pulse Ox O2 Delivery O2 Flow Rate FiO2 02/28/17 20:40 Bi-pap 40 02/28/17 20:39 99 Bi-pap 40 02/28/17 20:00 97.5 63 20 126/76 99 02/28/17 17:17 72 22 100 Facial 40 02/28/17 16:00 96.3 82 21 93 Bi-pap 142/93 02/28/17 16:00 70 02/28/17 15:00 65 20 100 Full Face 40 02/28/17 13:26 137/85 02/28/17 13:12 30 02/28/17 13:12 78 25 100 Bi-pap 6.0 30 02/28/17 13:11 75 26 97 6.0 30 02/28/17 13:10 75 26 97 Full Face 30 02/28/17 12:00 67 02/28/17 12:00 96.3 72 21 137/85 93 Bi-pap 02/28/17 11:02 68 17 94 Full Face 30 02/28/17 09:24 70 122/85 02/28/17 08:25 66 14 99 Facial 30 02/28/17 08:19 66 14 99 Bi-pap 30 02/28/17 08:19 66 14 99 Bi-pap 30 02/28/17 08:18 99 Bi-pap 30 02/28/17 08:18 Bi-pap 30 02/28/17 08:00 66 02/28/17 08:00 96.1 70 18 122/85 100 Bi-pap 02/28/17 06:45 66 14 99 Facial 30 02/28/17 05:43 120/62 02/28/17 05:27 70 20 98 Facial 30 02/28/17 04:36 96.8 64 18 120/62 95 Bi-pap 02/28/17 04:00 74 02/28/17 03:51 72 18 99 Full Face 30 02/28/17 01:30 66 14 99 Full Face 30 02/28/17 01:30 70 18 100 Bi-pap 02/28/17 01:30 67 14 99 Bi-pap 02/28/17 01:00 96.9 70 18 122/78 99 Bi-pap 02/28/17 00:00 69 02/27/17 22:24 88 24 98 Facial 30 02/27/17 21:05 86 167/99 02/27/17 21:05 167/99 Intake and Output 02/27/17 02/28/17 19:00 07:00 Intake Total 70 ml Output Total 2800 ml 450 ml Balance -2800 ml -380 ml Tube Feeding 70 ml Output Urine Total 2800 ml 450 ml # Bowel Movements 1 Laboratory Tests 02/28/17 08:25: Arterial Blood pH 7.457H, Arterial Blood Partial Pressure CO2 [Pending], Arterial Blood Partial Pressure O2 64.2L, Arterial Blood HCO3 86.2H, Arterial Blood Oxygen Saturation 44.3L, Arterial Blood Base Excess 17.8, Justo Test Positive 02/28/17 09:00: Urine Metanephrine [Pending], Urine Normetanephrine [Pending], Urine Normetanephrine 24 Hour [Pending], Urine Total Metanephrines [Pending] Height (Feet): 5 Height (Inches): 4.00 Weight (Pounds): 160 Jes Jacques MD Feb 28, 2017 20:48
[2017-03-01] VITALS: BP 134/80
[2017-03-01] MEDS: NovoLOG Insulin Flexpen SUBQ SCH ×4 (00:18→17:24)
[2017-03-01] MEDS: Acetylcysteine 20% Soln 4ml HHN SCH ×5 (01:30→19:42)
[2017-03-01] MEDS: Albuterol/Ipratropium 3ml neb HHN SCH ×4 (01:32→22:51)
[2017-03-01 04:00] VITALS: BP 143/84
[2017-03-01] MEDS: cloNIDine 0.2mg Tab GT SCH ×3 (05:50→22:19)
[2017-03-01 08:00] VITALS: BP 145/87
--- NOTE | 2017-03-01 08:41 | Diagnostic Imaging Report ---
Indication: Infection Technique: XRAY Chest 1v Comparison: 02/24/2017 Findings: Limited exam with low lung volumes. Heart size and mediastinal contours are stable. Question a degree of congestion/mild interstitial edema. This appears slightly increased compared to the prior exam. Persistent small left pleural effusion with adjacent left basilar atelectasis/consolidation. No pneumothorax. No acute osseous abnormality identified. Impression: Limited exam with low lung volumes. Persistent small left pleural effusion with adjacent left basilar atelectasis/consolidation. Question mild increase in interstitial opacification/edema. This may be artifactually exaggerated due to lower lung volumes on today's exam.
--- NOTE | 2017-03-01 09:21 | General Progress Note ---
Assessment/Plan Problem List: (1) Seizure ICD Codes: R56.9 - Unspecified convulsions SNOMED: 92413311 (2) Hyperglycemia ICD Codes: R73.9 - Hyperglycemia, unspecified SNOMED: 76499280 (3) DVT (deep venous thrombosis) ICD Codes: I82.409 - Acute embolism and thrombosis of unspecified deep veins of unspecified lower extremity SNOMED: 293503143 (4) Leukocytosis ICD Codes: D72.829 - Elevated white blood cell count, unspecified SNOMED: 352902553 (5) HTN (hypertension) ICD Codes: I10 - Essential (primary) hypertension SNOMED: 43600876 (6) CVA (cerebral vascular accident) ICD Codes: I63.9 - Cerebral infarction, unspecified SNOMED: 122846332 (7) Diabetes mellitus out of control ICD Codes: E11.9 - Diabetes mellitus out of control SNOMED: 107030322 (8) Sepsis ICD Codes: A41.9 - Sepsis SNOMED: 60794599 Qualifiers: Qualified Codes: A41.9 - Sepsis, unspecified organism (9) Pneumonia ICD Codes: J18.9 - Pneumonia, unspecified organism SNOMED: 658032365 Status: progressing Assessment/Plan seizure elevated bg dm dvt moniter for bleeding leukocytosis improving htn cva sepsis and pna improving Subjective ROS Limited/Unobtainable: Yes Allergies: Coded Allergies: HYDANTOINS (Unverified Allergy, Unknown, 09/09/13) PHENYTOIN (Unverified Allergy, Unknown, 09/09/13) Objective Last 24 Hour Vital Signs Date Time Temp Pulse Resp B/P (MAP) Pulse Ox O2 Delivery O2 Flow Rate FiO2 03/01/17 08:05 66 20 99 Bi-pap 40 03/01/17 08:03 97 Bi-pap 40 03/01/17 08:03 Bi-pap 40 03/01/17 07:58 66 20 97 Bi-pap 40 03/01/17 07:58 40 03/01/17 05:50 139/75 03/01/17 04:00 97.5 63 20 143/84 100 03/01/17 03:55 60 03/01/17 01:47 58 20 98 Bi-pap 40 03/01/17 01:45 58 20 98 6.0 40 03/01/17 01:29 58 20 98 Bi-pap 40 03/01/17 00:00 97.3 61 20 134/80 99 02/28/17 23:40 63 02/28/17 23:28 67 18 96 Facial 40 02/28/17 21:45 63 118/77 02/28/17 21:44 118/77 02/28/17 20:53 81 20 96 Bi-pap 40 02/28/17 20:50 79 20 96 Facial 40 02/28/17 20:49 40 02/28/17 20:45 79 20 96 Bi-pap 40 02/28/17 20:40 Bi-pap 40 02/28/17 20:39 99 Bi-pap 40 02/28/17 20:00 97.5 63 20 126/76 99 02/28/17 17:17 72 22 100 Facial 40 02/28/17 16:00 96.3 82 21 93 Bi-pap 142/93 02/28/17 16:00 70 02/28/17 15:00 65 20 100 Full Face 40 02/28/17 13:26 137/85 02/28/17 13:12 30 02/28/17 13:12 78 25 100 Bi-pap 6.0 30 02/28/17 13:11 75 26 97 6.0 30 02/28/17 13:10 75 26 97 Full Face 30 02/28/17 12:00 67 02/28/17 12:00 96.3 72 21 137/85 93 Bi-pap 02/28/17 11:02 68 17 94 Full Face 30 02/28/17 09:24 70 122/85 Intake and Output 02/28/17 03/01/17 19:00 07:00 Intake Total 1590 ml 1230 ml Output Total 250 ml 520 ml Balance 1340 ml 710 ml Free Water 750 ml 600 ml Tube Feeding 840 ml 630 ml Output Urine Total 250 ml 520 ml Height (Feet): 5 Height (Inches): 4.00 Weight (Pounds): 160 Jes Jacques MD Mar 01, 2017 09:21
[2017-03-01] MEDS: Gabapentin 300 MG/6 ML Soln GT SCH ×2 (09:45→17:22)
[2017-03-01] MEDS: levETIRAcetam 500mg/5ml Liquid GT SCH ×2 (09:46→22:18)
[2017-03-01] MEDS: Metoprolol Tartrate 50mg tab GT SCH ×2 (09:47→22:31)
[2017-03-01] MEDS: Heparin 5000 units/ml inj SUBQ SCH ×2 (09:50→22:22)
[2017-03-01] MEDS: Levemir Flexpen SUBQ SCH ×2 (10:12→17:27)
--- NOTE | 2017-03-01 10:53 | Pulmonology Progress Note ---
Assessment/Plan Problems: (1) Hypercapnic respiratory failure (2) Pneumonia (3) Pleural effusion (4) CVA (cerebral vascular accident) (5) Dysphagia Assessment/Plan -Repeat CXR -Repeat ABG -Check labs -Optimize pulmonary hygiene/mobilize as tolerated -Titrate down FiO2 to keep SaO2. > 90% -BiPAP qHS and PRN -RTC and PRN HHN's + NAC -Off Abx per ID -Monitor effusion - PRN thora -Monitor volumes and renal function, PRN lasix, F/U cards and renal recs -TF's as tolerated, VERY CAUTIOUS ON BiPAP WITH STRICT MONITORING OF RESIDUALS -F/U heme-onc recs Re: w/u of kidney mass -F/U endo recs Re: adrenal nodule -DVT Px: Hep SQ -FC, discuss GOC, should consider a more comfort based approach - discussed at length with daughter again today, she understands that if unable to wean BiPAP trach may be indicated but is not sure whether this would be acceptable, but she is requesting FC, we will continue to discuss. Subjective Allergies: Coded Allergies: HYDANTOINS (Unverified Allergy, Unknown, 09/09/13) PHENYTOIN (Unverified Allergy, Unknown, 09/09/13) Subjective Unable to wean off BiPAP No cough, not really being suctioned, no F/C Daughter undecided Re: trach but wants her mother to be FC AFVSS otherwise, farhat GTF's Objective Last 24 Hour Vital Signs Date Time Temp Pulse Resp B/P (MAP) Pulse Ox O2 Delivery O2 Flow Rate FiO2 03/01/17 09:47 65 145/87 03/01/17 09:02 72 20 100 Facial 40 03/01/17 08:05 66 20 99 Bi-pap 40 03/01/17 08:03 97 Bi-pap 40 03/01/17 08:03 Bi-pap 40 03/01/17 08:00 79 03/01/17 08:00 97.9 65 19 145/87 100 Bi-pap 03/01/17 07:58 66 20 97 Bi-pap 40 03/01/17 07:58 40 03/01/17 07:03 74 20 100 Facial 40 03/01/17 05:50 139/75 03/01/17 04:00 97.5 63 20 143/84 100 03/01/17 03:55 60 03/01/17 01:47 58 20 98 Bi-pap 40 03/01/17 01:45 58 20 98 6.0 40 03/01/17 01:29 58 20 98 Bi-pap 40 03/01/17 00:00 97.3 61 20 134/80 99 02/28/17 23:40 63 02/28/17 23:28 67 18 96 Facial 40 02/28/17 21:45 63 118/77 02/28/17 21:44 118/77 02/28/17 20:53 81 20 96 Bi-pap 40 02/28/17 20:50 79 20 96 Facial 40 02/28/17 20:49 40 02/28/17 20:45 79 20 96 Bi-pap 40 02/28/17 20:40 Bi-pap 40 02/28/17 20:39 99 Bi-pap 40 02/28/17 20:00 97.5 63 20 126/76 99 02/28/17 17:17 72 22 100 Facial 40 02/28/17 16:00 96.3 82 21 93 Bi-pap 142/93 02/28/17 16:00 70 02/28/17 15:00 65 20 100 Full Face 40 02/28/17 13:26 137/85 02/28/17 13:12 30 02/28/17 13:12 78 25 100 Bi-pap 6.0 30 02/28/17 13:11 75 26 97 6.0 30 02/28/17 13:10 75 26 97 Full Face 30 02/28/17 12:00 67 02/28/17 12:00 96.3 72 21 137/85 93 Bi-pap 02/28/17 11:02 68 17 94 Full Face 30 Intake and Output 02/28/17 03/01/17 19:00 07:00 Intake Total 1590 ml 1230 ml Output Total 250 ml 520 ml Balance 1340 ml 710 ml Free Water 750 ml 600 ml Tube Feeding 840 ml 630 ml Output Urine Total 250 ml 520 ml General Appearance: cachetic, other - non-verbal HEENT: normocephalic, atraumatic, mucous membranes moist, other - BiPAP Respiratory/Chest: chest wall non-tender, rhonchi - scattered @ base Cardiovascular: normal peripheral pulses, normal rate, regular rhythm Abdomen: normal bowel sounds, soft, non tender, no organomegaly, other - GT Extremities: no cyanosis, no clubbing, no edema, other - contracted Current Medications Medications (Trade) Dose Ordered Sig/Chinyere Route PRN Reason Start Time Stop Time Status Last Admin Dose Admin Acetaminophen (Tylenol) 650 mg Q4H PRN ORAL fever (temp >100.5F) 02/19/17 12:30 03/21/17 12:29 02/21/17 22:15 Acetylcysteine (Mucomyst) [address] [facility] 02/24/17 19:00 03/26/17 18:59 03/01/17 07:57 Albuterol/ Ipratropium (Albuterol/ Ipratropium) [address] [facility] 02/24/17 19:00 03/01/17 18:59 03/01/17 07:57 Clonidine HCl (Catapres) 0.2 mg Q8HR 02/19/17 14:00 03/21/17 13:59 03/01/17 05:50 Dextrose (Dextrose 50%) STAT PRN IV Hypoglycemia 02/19/17 12:30 03/21/17 12:29 Gabapentin (Neurontin) 100 mg BID 02/19/17 18:00 03/21/17 17:59 03/01/17 09:45 Heparin Sodium (Porcine) (Heparin 5000 units/ml) 5,000 units EVERY 12 HOURS SUBQ 02/19/17 21:00 03/21/17 20:59 03/01/17 09:50 Insulin Aspart (NovoLOG) EVERY 6 HOURS SUBQ 02/21/17 18:00 03/21/17 16:29 03/01/17 05:50 Insulin Detemir ([facility]) [facility] 02/25/17 09:00 03/27/17 08:59 03/01/17 10:12 Levetiracetam (Keppra) 500 mg Q12HR 02/19/17 21:00 03/21/17 20:59 03/01/17 09:46 Metoprolol Tartrate (Lopressor) 50 mg Q12HR GT 02/19/17 13:00 03/21/17 12:59 03/01/17 09:47 Nitroglycerin (Ntg) 0.4 mg Q5M PRN SL Prn Chest Pain 02/19/17 12:30 03/21/17 12:29 Ondansetron HCl (Zofran) 4 mg Q6H PRN IVP Nausea & Vomiting 02/19/17 12:30 03/21/17 12:29 Polyethylene Glycol (Miralax) 17 gm DAILYPRN PRN GT Constipation 02/23/17 15:30 03/21/17 12:29 SUNG FRANCE M.D. Mar 01, 2017 10:53
--- NOTE | 2017-03-01 11:03 | Infectious Diseases Prog Note ---
"Assessment/Plan Assessment/Plan antibiotics : none A 1. pseudomonas | proteus pneumonia 2. e.coli | enterococcus UTI s/p rx 3. + blood cultures with coag neg staph likely contaminated 4. DM 5. CVA 6. respiratory failure P 1. start iv cefepime 2. will follow up cultures Subjective ROS Limited/Unobtainable: Yes Allergies: Coded Allergies: HYDANTOINS (Unverified Allergy, Unknown, 09/09/13) PHENYTOIN (Unverified Allergy, Unknown, 09/09/13) Objective Vital Signs Last 24 Hour Vital Signs Date Time Temp Pulse Resp B/P (MAP) Pulse Ox O2 Delivery O2 Flow Rate FiO2 03/01/17 09:47 65 145/87 03/01/17 09:02 72 20 100 Facial 40 03/01/17 08:05 66 20 99 Bi-pap 40 03/01/17 08:03 97 Bi-pap 40 03/01/17 08:03 Bi-pap 40 03/01/17 08:00 79 03/01/17 08:00 97.9 65 19 145/87 100 Bi-pap 03/01/17 07:58 66 20 97 Bi-pap 40 03/01/17 07:58 40 03/01/17 07:03 74 20 100 Facial 40 03/01/17 05:50 139/75 03/01/17 04:00 97.5 63 20 143/84 100 03/01/17 03:55 60 03/01/17 01:47 58 20 98 Bi-pap 40 03/01/17 01:45 58 20 98 6.0 40 03/01/17 01:29 58 20 98 Bi-pap 40 03/01/17 00:00 97.3 61 20 134/80 99 02/28/17 23:40 63 02/28/17 23:28 67 18 96 Facial 40 02/28/17 21:45 63 118/77 02/28/17 21:44 118/77 02/28/17 20:53 81 20 96 Bi-pap 40 02/28/17 20:50 79 20 96 Facial 40 02/28/17 20:49 40 02/28/17 20:45 79 20 96 Bi-pap 40 02/28/17 20:40 Bi-pap 40 02/28/17 20:39 99 Bi-pap 40 02/28/17 20:00 97.5 63 20 126/76 99 02/28/17 17:17 72 22 100 Facial 40 02/28/17 16:00 96.3 82 21 93 Bi-pap 142/93 02/28/17 16:00 70 02/28/17 15:00 65 20 100 Full Face 40 02/28/17 13:26 137/85 02/28/17 13:12 30 02/28/17 13:12 78 25 100 Bi-pap 6.0 30 02/28/17 13:11 75 26 97 6.0 30 02/28/17 13:10 75 26 97 Full Face 30 02/28/17 12:00 67 02/28/17 12:00 96.3 72 21 137/85 93 Bi-pap 02/28/17 11:02 68 17 94 Full Face 30 Height (Feet): 5 Height (Inches): 4.00 Weight (Pounds): 160 HEENT: other - on bipap Respiratory/Chest: lungs clear Cardiovascular: normal rate, regular rhythm, no gallop/murmur Abdomen: soft, non tender, other - GT Extremities: no edema ANDREA BLAS Mar 01, 2017 11:03"
[2017-03-01 12:00] VITALS: BP 137/80
[2017-03-01 12:37] LABS: BASOPHILS % (AUTO) 0.6 % (0.0-2.0); HEMATOCRIT 32.5 % (37.0-47.0); HEMOGLOBIN 9.9 G/DL (12.0-16.0); LYMPHOCYTES % (AUTO) 17.5 % (20.0-45.0); MEAN CORPUSCULAR VOLUME 84 FL (80-99); MONOCYTES % (AUTO) 10.1 % (1.0-10.0); NEUTROPHILS % (AUTO) 68.8 % (45.0-75.0); PLATELET COUNT 267 K/UL (150-450); RED BLOOD COUNT 3.87 M/UL (4.20-5.40); RED CELL DISTRIBUTION WIDTH 16.6 % (11.6-14.8); WHITE BLOOD COUNT 6.2 K/UL (4.8-10.8)
[2017-03-01 12:59] LABS: ALANINE AMINOTRANSFERASE 53 U/L (12-78); ALBUMIN 2.1 G/DL (3.4-5.0); ALBUMIN/GLOBULIN RATIO 0.4 (1.0-2.7); ALKALINE PHOSPHATASE 104 U/L (46-116); ANION GAP 2 mmol/L (5-15); ASPARTATE AMINO TRANSFERASE 34 U/L (15-37); BILIRUBIN,TOTAL 0.2 MG/DL (0.2-1.0); BLOOD UREA NITROGEN 14 mg/dL (7-18); CALCIUM 8.5 MG/DL (8.5-10.1); CARBON DIOXIDE 39 MMOL/L (21-32); CHLORIDE 98 MMOL/L (98-107); CREATININE 0.6 MG/DL (0.55-1.30); SODIUM 139 MMOL/L (136-145)
[2017-03-01] MEDS: Cefepime HCl 2 GM in D5W 55 ML IVPB SCH (14:58)
[2017-03-01 16:00] VITALS: BP 150/88
[2017-03-01 20:00] VITALS: BP 150/88
[2017-03-01] MEDS ORDERED: Albuterol/Ipratropium 3ml neb HHN PRN (20:15)
[2017-03-02] VITALS: BP 145/87
[2017-03-02] MEDS: NovoLOG Insulin Flexpen SUBQ SCH ×4 (00:24→18:38)
[2017-03-02] MEDS: Acetylcysteine 20% Soln 4ml HHN SCH ×4 (02:04→19:13)
[2017-03-02 04:00] VITALS: BP 129/77
[2017-03-02] MEDS: cloNIDine 0.2mg Tab GT SCH ×3 (06:20→21:55)
[2017-03-02] MEDS: Albuterol/Ipratropium 3ml neb HHN SCH ×5 (07:18→23:00)
[2017-03-02 08:00] VITALS: BP 117/67
[2017-03-02] MEDS: levETIRAcetam 500mg/5ml Liquid GT SCH ×2 (08:45→21:44)
[2017-03-02] MEDS: Gabapentin 300 MG/6 ML Soln GT SCH ×2 (08:45→18:37)
[2017-03-02] MEDS: Metoprolol Tartrate 50mg tab GT SCH ×2 (08:45→21:45)
[2017-03-02] MEDS: Heparin 5000 units/ml inj SUBQ SCH ×2 (08:47→21:50)
[2017-03-02] MEDS: Levemir Flexpen SUBQ SCH ×2 (08:48→21:40)
--- NOTE | 2017-03-02 09:08 | Infectious Diseases Prog Note ---
Assessment/Plan Assessment/Plan A: Sepsis UTI s/p Rx Pneumonia with pseudomonas & Proteus DM Hypercapnic respiratory failure Positive blood culture likely contamination s/p CVA with aphasia & left hemiplegia s/p ventriculostomy tube placement P: Continue Cefepime Subjective ROS Limited/Unobtainable: Yes Allergies: Coded Allergies: HYDANTOINS (Unverified Allergy, Unknown, 09/09/13) PHENYTOIN (Unverified Allergy, Unknown, 09/09/13) Objective Vital Signs Last 24 Hour Vital Signs Date Time Temp Pulse Resp B/P (MAP) Pulse Ox O2 Delivery O2 Flow Rate FiO2 03/02/17 08:45 76 117/67 03/02/17 08:00 97.7 76 19 117/67 99 Nasal Cannula 03/02/17 07:18 74 20 98 Bi-pap 30 03/02/17 07:17 Nasal Cannula 2.0 28 03/02/17 07:16 98 Nasal Cannula 2.0 03/02/17 06:20 129/77 03/02/17 04:51 66 18 96 Facial 30 03/02/17 04:00 70 03/02/17 04:00 97.0 65 18 129/77 97 03/02/17 03:48 77 16 98 Facial 30 03/02/17 01:45 74 16 98 Bi-pap 30 03/02/17 01:34 30 03/02/17 01:30 70 16 97 Bi-pap 30 03/02/17 01:15 72 16 98 Facial 30 03/02/17 00:00 97.7 71 16 145/87 98 03/02/17 00:00 75 03/01/17 23:08 81 14 98 Facial 30 03/01/17 23:07 79 16 99 Bi-pap 30 03/01/17 22:52 28 03/01/17 22:51 79 16 99 Nasal Cannula 2.0 28 03/01/17 22:31 79 150/88 03/01/17 22:19 150/88 03/01/17 20:00 97.7 79 16 150/88 99 03/01/17 20:00 85 03/01/17 19:50 73 20 95 Nasal Cannula 2.0 28 03/01/17 19:49 28 03/01/17 19:48 73 20 95 Nasal Cannula 2.0 28 03/01/17 19:39 Nasal Cannula 2.0 28 03/01/17 19:37 95 Nasal Cannula 2.0 28 03/01/17 16:00 98.4 86 20 150/88 100 Bi-pap 03/01/17 16:00 73 03/01/17 14:54 139/80 03/01/17 13:15 30 03/01/17 13:15 57 14 99 Bi-pap 30 03/01/17 13:12 57 14 97 Facial 30 03/01/17 13:06 56 20 97 Bi-pap 30 03/01/17 12:00 59 03/01/17 12:00 97.9 62 19 137/80 100 Bi-pap 03/01/17 11:28 76 20 98 Facial 40 03/01/17 09:47 65 145/87 Height (Feet): 5 Height (Inches): 4.00 Weight (Pounds): 160 HEENT: other - O2 by nasal cannula Respiratory/Chest: lungs clear Cardiovascular: normal rate Abdomen: soft, non tender Extremities: no edema Neurologic/Psychiatric: aphasia Laboratory Tests Test 03/01/17 12:06 03/01/17 12:08 White Blood Count 6.2 K/UL (4.8-10.8) Red Blood Count 3.87 M/UL (4.20-5.40) L Hemoglobin 9.9 G/DL (12.0-16.0) L Hematocrit 32.5 % (37.0-47.0) L Mean Corpuscular Volume 84 FL (80-99) Mean Corpuscular Hemoglobin 25.5 PG (27.0-31.0) L Mean Corpuscular Hemoglobin Concent 30.4 G/DL (32.0-36.0) L Red Cell Distribution Width 16.6 % (11.6-14.8) H Platelet Count 267 K/UL (150-450) Mean Platelet Volume 7.5 FL (6.5-10.1) Neutrophils (%) (Auto) 68.8 % (45.0-75.0) Lymphocytes (%) (Auto) 17.5 % (20.0-45.0) L Monocytes (%) (Auto) 10.1 % (1.0-10.0) H Eosinophils (%) (Auto) 3.0 % (0.0-3.0) Basophils (%) (Auto) 0.6 % (0.0-2.0) Sodium Level 139 MMOL/L (136-145) Potassium Level 4.0 MMOL/L (3.5-5.1) Chloride Level 98 MMOL/L (98-107) Carbon Dioxide Level 39 MMOL/L (21-32) H Anion Gap 2 mmol/L (5-15) L Blood Urea Nitrogen 14 mg/dL (7-18) Creatinine 0.6 MG/DL (0.55-1.30) Estimat Glomerular Filtration Rate > 60 mL/min (>60) Glucose Level 203 MG/DL (74-106) H Calcium Level 8.5 MG/DL (8.5-10.1) Total Bilirubin 0.2 MG/DL (0.2-1.0) Aspartate Amino Transf (AST/SGOT) 34 U/L (15-37) Alanine Aminotransferase (ALT/SGPT) 53 U/L (12-78) Alkaline Phosphatase 104 U/L (46-116) Pro-B-Type Natriuretic Peptide 103 pg/mL (0-125) Total Protein 7.0 G/DL (6.4-8.2) Albumin 2.1 G/DL (3.4-5.0) L Globulin 4.9 g/dL Albumin/Globulin Ratio 0.4 (1.0-2.7) L Arterial Blood pH 7.430 (7.350-7.450) Arterial Blood Partial Pressure CO2 67.1 mmHg (35.0-45.0) *H Arterial Blood Partial Pressure O2 134.3 mmHg (75.0-100.0) H Arterial Blood HCO3 43.7 mmol/L (22.0-26.0) H Arterial Blood Oxygen Saturation 98.2 % (92.0-98.0) H Arterial Blood Base Excess 16.8 Justo Test Positive Current Medications Medications (Trade) Dose Ordered Sig/Chinyere Route PRN Reason Start Time Stop Time Status Last Admin Dose Admin Acetaminophen (Tylenol) 650 mg Q4H PRN ORAL fever (temp >100.5F) 02/19/17 12:30 03/21/17 12:29 02/21/17 22:15 Acetylcysteine (Mucomyst) 200 mg Q6HRT HHN 02/24/17 19:00 03/26/17 18:59 03/02/17 07:18 Albuterol/ Ipratropium (Albuterol/ Ipratropium) 3 ml Q4HRT HHN 03/01/17 23:00 03/06/17 22:59 03/02/17 07:18 Albuterol/ Ipratropium (Albuterol/ Ipratropium) 3 ml Q6H PRN HHN Shortness of Breath 03/01/17 20:15 03/06/17 20:14 Cefepime HCl 2 gm/ Dextrose 55 ml @ 110 mls/hr Q24H IVPB 03/01/17 13:00 03/08/17 12:59 03/01/17 14:58 Clonidine HCl (Catapres) 0.2 mg Q8HR GT 02/19/17 14:00 03/21/17 13:59 03/02/17 06:20 Dextrose (Dextrose 50%) STAT PRN IV Hypoglycemia 02/19/17 12:30 03/21/17 12:29 Gabapentin (Neurontin) 100 mg BID GT 02/19/17 18:00 03/21/17 17:59 03/02/17 08:45 Heparin Sodium (Porcine) (Heparin 5000 units/ml) 5,000 units EVERY 12 HOURS SUBQ 02/19/17 21:00 03/21/17 20:59 03/02/17 08:47 Insulin Aspart (NovoLOG) EVERY 6 HOURS SUBQ 02/21/17 18:00 03/21/17 16:29 03/02/17 07:07 Insulin Detemir (Levemir) 12 units Q12H SUBQ 03/02/17 09:00 04/01/17 08:59 03/02/17 08:48 Levetiracetam (Keppra) 500 mg Q12HR GT 02/19/17 21:00 03/21/17 20:59 03/02/17 08:45 Metoprolol Tartrate (Lopressor) 50 mg Q12HR GT 02/19/17 13:00 03/21/17 12:59 03/02/17 08:45 Nitroglycerin (Ntg) 0.4 mg Q5M PRN SL Prn Chest Pain 02/19/17 12:30 03/21/17 12:29 Ondansetron HCl (Zofran) 4 mg Q6H PRN IVP Nausea & Vomiting 02/19/17 12:30 03/21/17 12:29 Polyethylene Glycol (Miralax) 17 gm DAILYPRN PRN GT Constipation 02/23/17 15:30 03/21/17 12:29 DENEEN BRENNAN Mar 02, 2017 09:08
--- NOTE | 2017-03-02 09:45 | Diagnostic Imaging Report ---
Indication: Reason For Exam: BLD. Infection. Technique: XRAY Chest 1v Comparison: 03/01/2017 Findings: Limited exam with low lung volumes. Heart size and mediastinal contours are stable. Suggestion of mild congestive changes. Persistent small left pleural effusion with adjacent left basilar atelectasis/consolidation. No pneumothorax. No acute osseous abnormality identified. Impression: No significant interval change in appearance of heart and lungs compared to one day prior.
[2017-03-02 12:00] VITALS: BP 142/83
[2017-03-02] MEDS ORDERED: NS 500ML ONE (12:38)
[2017-03-02] MEDS ORDERED: Sterile Water Irrig 1000ml IRRIG ONE (12:38)
[2017-03-02] MEDS: Cefepime HCl 2 GM in D5W 55 ML IVPB SCH (13:45)
--- NOTE | 2017-03-02 15:34 | Pulmonology Progress Note ---
Assessment/Plan Problems: (1) Hypercapnic respiratory failure (2) Pneumonia (3) Pleural effusion (4) CVA (cerebral vascular accident) (5) Dysphagia Assessment/Plan -BiPAP PRN and qHS ---> NC during the day -Optimize pulmonary hygiene/mobilize as tolerated -Titrate down FiO2 to keep SaO2. > 90 -RTC and PRN HHN's + NAC -Abx per ID -Monitor effusion - PRN thora -Monitor volumes and renal function, PRN lasix, F/U cards and renal recs -TF's as tolerated, VERY CAUTIOUS WHILE ON BiPAP WITH STRICT MONITORING OF RESIDUALS -F/U heme-onc recs Re: w/u of kidney mass -F/U endo recs Re: adrenal nodule -DVT Px: Hep SQ -FC, discuss GOC, should consider a more comfort based approach - multiple discussions with daughter Subjective Allergies: Coded Allergies: HYDANTOINS (Unverified Allergy, Unknown, 09/09/13) PHENYTOIN (Unverified Allergy, Unknown, 09/09/13) Subjective BiPAP ON, 2L NC during the day Less cough, no SOB, getting suctioned, farhat TF's AFVSS otherwise Objective Last 24 Hour Vital Signs Date Time Temp Pulse Resp B/P (MAP) Pulse Ox O2 Delivery O2 Flow Rate FiO2 03/02/17 15:21 62 20 96 Nasal Cannula 2.0 03/02/17 13:44 /03/02/17 12:36 78 20 97 Nasal Cannula 2.0 03/02/17 12:35 88 20 98 Nasal Cannula 2.0 03/02/17 12:22 67 20 97 Nasal Cannula 2.0 03/02/17 12:22 67 20 97 Nasal Cannula 2.0 03/02/17 12:00 76 03/02/17 12:00 98.0 71 20 142/83 99 Nasal Cannula 03/02/17 08:45 76 117/67 03/02/17 08:00 86 03/02/17 08:00 97.7 76 19 117/67 99 Nasal Cannula 03/02/17 07:28 76 22 100 Nasal Cannula 2.0 03/02/17 07:18 74 20 98 Bi-pap 30 03/02/17 07:18 74 22 98 Nasal Cannula 2.0 03/02/17 07:18 76 20 100 Nasal Cannula 2.0 03/02/17 07:17 Nasal Cannula 2.0 28 03/02/17 07:16 98 Nasal Cannula 2.0 03/02/17 06:20 129/77 03/02/17 04:51 66 18 96 Facial 30 03/02/17 04:00 70 03/02/17 04:00 97.0 65 18 129/77 97 03/02/17 03:48 77 16 98 Facial 30 03/02/17 01:45 74 16 98 Bi-pap 30 03/02/17 01:34 30 03/02/17 01:30 70 16 97 Bi-pap 30 03/02/17 01:15 72 16 98 Facial 30 03/02/17 00:00 97.7 71 16 145/87 98 03/02/17 00:00 75 03/01/17 23:08 81 14 98 Facial 30 03/01/17 23:07 79 16 99 Bi-pap 30 03/01/17 22:52 28 03/01/17 22:51 79 16 99 Nasal Cannula 2.0 03/01/17 22:31 79 150/88 03/01/17 22:19 150/88 03/01/17 20:00 97.7 79 16 150/88 99 03/01/17 20:00 85 03/01/17 19:50 73 20 95 Nasal Cannula 2.0 03/01/17 19:49 28 03/01/17 19:48 73 20 95 Nasal Cannula 2.0 03/01/17 19:39 Nasal Cannula 2.0 03/01/17 19:37 95 Nasal Cannula 2.0 03/01/17 16:00 98.4 86 20 150/88 100 Bi-pap 03/01/17 16:00 73 Intake and Output 03/01/17 03/02/17 19:00 07:00 Output Total 1000 ml 500 ml Balance -1000 ml -500 ml Output Urine Total 1000 ml 500 ml # Bowel Movements 1 1 General Appearance: no acute distress, cachetic HEENT: normocephalic, atraumatic, mucous membranes moist Respiratory/Chest: chest wall non-tender, rhonchi - scattered Cardiovascular: normal peripheral pulses, normal rate, regular rhythm Abdomen: normal bowel sounds, soft, non tender, no organomegaly, non distended , other - GT CDI Extremities: no cyanosis, no clubbing, no edema Laboratory Tests 03/02/17 09:00: Hemoglobin A1c 8.6H Current Medications Medications (Trade) Dose Ordered Sig/Chinyere Route PRN Reason Start Time Stop Time Status Last Admin Dose Admin Acetaminophen (Tylenol) 650 mg Q4H PRN ORAL fever (temp >100.5F) 02/19/17 12:30 03/21/17 12:29 02/21/17 22:15 Acetylcysteine (Mucomyst) 200 mg Q6HRT N 02/24/17 19:00 03/26/17 18:59 03/02/17 12:22 Albuterol/ Ipratropium (Albuterol/ Ipratropium) 3 ml Q4HRT N 03/01/17 23:00 03/06/17 22:59 03/02/17 15:21 Albuterol/ Ipratropium (Albuterol/ Ipratropium) 3 ml Q6H PRN HHN Shortness of Breath 03/01/17 20:15 03/06/17 20:14 Cefepime HCl 2 gm/ Dextrose 55 ml @ 110 mls/hr Q24H IVPB 03/01/17 13:00 03/08/17 12:59 03/02/17 13:45 Clonidine HCl (Catapres) 0.2 mg Q8HR GT 02/19/17 14:00 03/21/17 13:59 03/02/17 13:44 Dextrose (Dextrose 50%) STAT PRN IV Hypoglycemia 02/19/17 12:30 03/21/17 12:29 Gabapentin (Neurontin) 100 mg BID GT 02/19/17 18:00 03/21/17 17:59 03/02/17 08:45 Heparin Sodium (Porcine) (Heparin 5000 units/ml) 5,000 units EVERY 12 HOURS SUBQ 02/19/17 21:00 03/21/17 20:59 03/02/17 08:47 Insulin Aspart (NovoLOG) EVERY 6 HOURS SUBQ 02/21/17 18:00 03/21/17 16:29 03/02/17 11:50 Insulin Detemir (Levemir) 12 units Q12H SUBQ 03/02/17 09:00 04/01/17 08:59 03/02/17 08:48 Levetiracetam (Keppra) 500 mg Q12HR GT 02/19/17 21:00 03/21/17 20:59 03/02/17 08:45 Metoprolol Tartrate (Lopressor) 50 mg Q12HR GT 02/19/17 13:00 03/21/17 12:59 03/02/17 08:45 Nitroglycerin (Ntg) 0.4 mg Q5M PRN SL Prn Chest Pain 02/19/17 12:30 03/21/17 12:29 Ondansetron HCl (Zofran) 4 mg Q6H PRN IVP Nausea & Vomiting 02/19/17 12:30 03/21/17 12:29 Polyethylene Glycol (Miralax) 17 gm DAILYPRN PRN GT Constipation 02/23/17 15:30 03/21/17 12:29 SUNG FRANCE M.D. Mar 02, 2017 15:34
[2017-03-02 16:00] VITALS: BP 137/84
[2017-03-02] MEDS ORDERED: Albuterol/Ipratropium 3ml neb HHN SCH (19:00)
[2017-03-02 20:00] VITALS: BP 173/101
--- NOTE | 2017-03-02 21:00 | General Progress Note ---
Assessment/Plan Assessment/Plan ASSESSMENT AND RECOMMENDATIONS: #. 3.5 cm contour bulge in the upper pole of the left kidney + 1 cm nodule is seen in the right adrenal gland --> will monitor for now #. Anemia secondary to chronic disease. Anemia work up has been reviewed. Continue to trend H/H daily --> hgb goal above 7 --> currently stable #. Sepsis #. UTI #. Pneumonia # Deep vein thrombosis history. The patient was closely monitor. No evidence of recurrent clot at this moment. Currently, on heparin subcutaneous. #. Diabetes mellitus, currently better controlled. Subjective Allergies: Coded Allergies: HYDANTOINS (Unverified Allergy, Unknown, 09/09/13) PHENYTOIN (Unverified Allergy, Unknown, 09/09/13) All Systems: reviewed and negative except above Subjective NAD Objective Last 24 Hour Vital Signs Date Time Temp Pulse Resp B/P (MAP) Pulse Ox O2 Delivery O2 Flow Rate FiO2 03/02/17 19:30 67 20 98 Nasal Cannula 2.0 03/02/17 19:16 69 20 97 Nasal Cannula 2.0 03/02/17 19:14 65 20 95 Nasal Cannula 2.0 03/02/17 18:56 63 18 99 Nasal Cannula 2.0 03/02/17 18:54 Nasal Cannula 2.0 28 03/02/17 18:54 99 Nasal Cannula 2.0 03/02/17 16:00 97.8 83 20 137/84 98 Nasal Cannula 03/02/17 16:00 83 03/02/17 15:32 80 22 97 Nasal Cannula 2.0 03/02/17 15:21 62 20 96 Nasal Cannula 2.0 03/02/17 13:44 117/67 03/02/17 12:36 78 20 97 Nasal Cannula 2.0 03/02/17 12:35 88 20 98 Nasal Cannula 2.0 03/02/17 12:22 67 20 97 Nasal Cannula 2.0 03/02/17 12:22 67 20 97 Nasal Cannula 2.0 03/02/17 12:00 76 03/02/17 12:00 98.0 71 20 142/83 99 Nasal Cannula 03/02/17 08:45 76 117/67 03/02/17 08:00 86 03/02/17 08:00 97.7 76 19 117/67 99 Nasal Cannula 03/02/17 07:28 76 22 100 Nasal Cannula 2.0 03/02/17 07:18 74 20 98 Bi-pap 30 03/02/17 07:18 74 22 98 Nasal Cannula 2.0 03/02/17 07:18 76 20 100 Nasal Cannula 2.0 03/02/17 07:17 Nasal Cannula 2.0 28 03/02/17 07:16 98 Nasal Cannula 2.0 03/02/17 06:20 129/77 03/02/17 04:51 66 18 96 Facial 30 03/02/17 04:00 70 03/02/17 04:00 97.0 65 18 129/77 97 03/02/17 03:48 77 16 98 Facial 30 03/02/17 01:45 74 16 98 Bi-pap 30 03/02/17 01:34 30 03/02/17 01:30 70 16 97 Bi-pap 30 03/02/17 01:15 72 16 98 Facial 30 03/02/17 00:00 97.7 71 16 145/87 98 03/02/17 00:00 75 03/01/17 23:08 81 14 98 Facial 30 03/01/17 23:07 79 16 99 Bi-pap 30 03/01/17 22:52 28 03/01/17 22:51 79 16 99 Nasal Cannula 2.0 28 03/01/17 22:31 79 150/88 03/01/17 22:19 150/88 Intake and Output 03/01/17 03/02/17 19:00 07:00 Output Total 1000 ml 500 ml Balance -1000 ml -500 ml Output Urine Total 1000 ml 500 ml # Bowel Movements 1 1 Laboratory Tests 03/02/17 09:00: Hemoglobin A1c 8.6H Height (Feet): 5 Height (Inches): 4.00 Weight (Pounds): 160 General Appearance: no apparent distress EENT: normal ENT inspection Neck: normal alignment Cardiovascular: normal peripheral pulses Edema: trace edema Skin: normal pigmentation Jose Boateng Mar 02, 2017 21:00
--- NOTE | 2017-03-02 22:12 | General Progress Note ---
Assessment/Plan Problem List: (1) Seizure ICD Codes: R56.9 - Unspecified convulsions SNOMED: 05248724 (2) Hyperglycemia ICD Codes: R73.9 - Hyperglycemia, unspecified SNOMED: 50279368 (3) DVT (deep venous thrombosis) ICD Codes: I82.409 - Acute embolism and thrombosis of unspecified deep veins of unspecified lower extremity SNOMED: 240141084 (4) Leukocytosis ICD Codes: D72.829 - Elevated white blood cell count, unspecified SNOMED: 493450878 (5) HTN (hypertension) ICD Codes: I10 - Essential (primary) hypertension SNOMED: 19013730 (6) CVA (cerebral vascular accident) ICD Codes: I63.9 - Cerebral infarction, unspecified SNOMED: 504395986 (7) Diabetes mellitus out of control ICD Codes: E11.9 - Diabetes mellitus out of control SNOMED: 096219376 (8) Sepsis ICD Codes: A41.9 - Sepsis SNOMED: 01568464 Qualifiers: Qualified Codes: A41.9 - Sepsis, unspecified organism (9) Pneumonia ICD Codes: J18.9 - Pneumonia, unspecified organism SNOMED: 037061084 Status: progressing Assessment/Plan seizure none today reviewed chart and labs elevated bg improving dm dvt cva sepsis and pna improving no bleeding Subjective ROS Limited/Unobtainable: Yes Constitutional: Reports: no symptoms Allergies: Coded Allergies: HYDANTOINS (Unverified Allergy, Unknown, 09/09/13) PHENYTOIN (Unverified Allergy, Unknown, 09/09/13) Objective Last 24 Hour Vital Signs Date Time Temp Pulse Resp B/P (MAP) Pulse Ox O2 Delivery O2 Flow Rate FiO2 03/02/17 21:55 155/100 03/02/17 21:45 67 137/84 03/02/17 19:30 67 20 98 Nasal Cannula 2.0 03/02/17 19:16 69 20 97 Nasal Cannula 2.0 03/02/17 19:14 65 20 95 Nasal Cannula 2.0 03/02/17 18:56 63 18 99 Nasal Cannula 2.0 03/02/17 18:54 Nasal Cannula 2.0 28 03/02/17 18:54 99 Nasal Cannula 2.0 03/02/17 16:00 97.8 83 20 137/84 98 Nasal Cannula 03/02/17 16:00 83 03/02/17 15:32 80 22 97 Nasal Cannula 2.0 03/02/17 15:21 62 20 96 Nasal Cannula 2.0 03/02/17 13:44 117/67 03/02/17 12:36 78 20 97 Nasal Cannula 2.0 03/02/17 12:35 88 20 98 Nasal Cannula 2.0 03/02/17 12:22 67 20 97 Nasal Cannula 2.0 03/02/17 12:22 67 20 97 Nasal Cannula 2.0 03/02/17 12:00 76 03/02/17 12:00 98.0 71 20 142/83 99 Nasal Cannula 03/02/17 08:45 76 117/67 03/02/17 08:00 86 03/02/17 08:00 97.7 76 19 117/67 99 Nasal Cannula 03/02/17 07:28 76 22 100 Nasal Cannula 2.0 03/02/17 07:18 74 20 98 Bi-pap 30 03/02/17 07:18 74 22 98 Nasal Cannula 2.0 03/02/17 07:18 76 20 100 Nasal Cannula 2.0 03/02/17 07:17 Nasal Cannula 2.0 28 03/02/17 07:16 98 Nasal Cannula 2.0 03/02/17 06:20 129/77 03/02/17 04:51 66 18 96 Facial 30 03/02/17 04:00 70 03/02/17 04:00 97.0 65 18 129/77 97 03/02/17 03:48 77 16 98 Facial 30 03/02/17 01:45 74 16 98 Bi-pap 30 03/02/17 01:34 30 03/02/17 01:30 70 16 97 Bi-pap 30 03/02/17 01:15 72 16 98 Facial 30 03/02/17 00:00 97.7 71 16 145/87 98 03/02/17 00:00 75 03/01/17 23:08 81 14 98 Facial 30 03/01/17 23:07 79 16 99 Bi-pap 30 03/01/17 22:52 28 03/01/17 22:51 79 16 99 Nasal Cannula 2.0 28 03/01/17 22:31 79 150/88 03/01/17 22:19 150/88 Intake and Output 03/01/17 03/02/17 19:00 07:00 Output Total 1000 ml 500 ml Balance -1000 ml -500 ml Output Urine Total 1000 ml 500 ml # Bowel Movements 1 1 Laboratory Tests 03/02/17 09:00: Hemoglobin A1c 8.6H Height (Feet): 5 Height (Inches): 4.00 Weight (Pounds): 160 Jes Jacques MD Mar 02, 2017 22:12
[2017-03-03] VITALS: BP 168/103
[2017-03-03] MEDS: NovoLOG Insulin Flexpen SUBQ SCH ×4 (00:50→17:31)
[2017-03-03] MEDS: Acetylcysteine 20% Soln 4ml HHN SCH ×4 (01:00→20:19)
[2017-03-03] MEDS: Albuterol/Ipratropium 3ml neb HHN SCH ×6 (03:06→23:39)
[2017-03-03 04:25] VITALS: BP 144/93
[2017-03-03] MEDS: cloNIDine 0.2mg Tab GT SCH ×3 (06:40→22:34)
[2017-03-03 08:00] VITALS: BP 132/86
--- NOTE | 2017-03-03 08:54 | Infectious Diseases Prog Note ---
Assessment/Plan Assessment/Plan A: Sepsis UTI s/p Rx Pneumonia with pseudomonas & Proteus DM Hypercapnic respiratory failure Positive blood culture likely contamination s/p CVA with aphasia & left hemiplegia s/p ventriculostomy tube placement P: Continue Cefepime will discontinue antibiotic soon Subjective ROS Limited/Unobtainable: Yes Allergies: Coded Allergies: HYDANTOINS (Unverified Allergy, Unknown, 09/09/13) PHENYTOIN (Unverified Allergy, Unknown, 09/09/13) Objective Vital Signs Last 24 Hour Vital Signs Date Time Temp Pulse Resp B/P (MAP) Pulse Ox O2 Delivery O2 Flow Rate FiO2 03/03/17 07:48 89 20 99 Nasal Cannula 2.0 03/03/17 07:45 89 21 Nasal Cannula 2.0 03/03/17 07:32 85 20 99 Nasal Cannula 2.0 03/03/17 07:30 85 20 99 Nasal Cannula 2.0 03/03/17 07:23 Nasal Cannula 2.0 03/03/17 07:23 99 Nasal Cannula 2.0 03/03/17 06:40 144/93 03/03/17 04:25 97.3 82 24 144/93 100 Nasal Cannula 03/03/17 04:00 83 03/03/17 03:15 65 20 99 Nasal Cannula 2.0 03/03/17 03:07 65 20 98 Nasal Cannula 2.0 03/03/17 03:07 65 20 96 Nasal Cannula 2.0 03/03/17 00:36 Nasal Cannula 03/03/17 00:34 Nasal Cannula 03/03/17 00:00 97.7 88 24 168/103 98 Venturi Mask 03/03/17 00:00 88 03/02/17 21:55 155/100 03/02/17 21:45 67 137/84 03/02/17 20:00 97.7 0 0 0 03/02/17 20:00 98.2 94 20 173/101 98 03/02/17 20:00 97 03/02/17 19:30 67 20 98 Nasal Cannula 2.0 03/02/17 19:16 69 20 97 Nasal Cannula 2.0 03/02/17 19:14 65 20 95 Nasal Cannula 2.0 03/02/17 18:56 63 18 99 Nasal Cannula 2.0 03/02/17 18:54 Nasal Cannula 2.0 28 03/02/17 18:54 99 Nasal Cannula 2.0 03/02/17 16:00 97.8 83 20 137/84 98 Nasal Cannula 03/02/17 16:00 83 03/02/17 15:32 80 22 97 Nasal Cannula 2.0 03/02/17 15:21 62 20 96 Nasal Cannula 2.0 03/02/17 13:44 117/67 03/02/17 12:36 78 20 97 Nasal Cannula 2.0 03/02/17 12:35 88 20 98 Nasal Cannula 2.0 03/02/17 12:22 67 20 97 Nasal Cannula 2.0 03/02/17 12:22 67 20 97 Nasal Cannula 2.0 03/02/17 12:00 76 03/02/17 12:00 98.0 71 20 142/83 99 Nasal Cannula Height (Feet): 5 Height (Inches): 4.00 Weight (Pounds): 160 General Appearance: no acute distress HEENT: mucous membranes moist Respiratory/Chest: lungs clear, other - O2 by cannula Cardiovascular: normal rate Abdomen: soft, non tender, other - GT feeding Neurologic/Psychiatric: motor weakness, aphasia Laboratory Tests Test 03/02/17 09:00 Hemoglobin A1c 8.6 % (4.3-6.0) H Current Medications Medications (Trade) Dose Ordered Sig/Chinyere Route PRN Reason Start Time Stop Time Status Last Admin Dose Admin Acetaminophen (Tylenol) 650 mg Q4H PRN ORAL fever (temp >100.5F) 02/19/17 12:30 03/21/17 12:29 02/21/17 22:15 Acetylcysteine (Mucomyst) 200 mg Q6HRT HHN 02/24/17 19:00 03/26/17 18:59 03/03/17 07:29 Albuterol/ Ipratropium (Albuterol/ Ipratropium) 3 ml Q4HRT HHN 03/01/17 23:00 03/06/17 22:59 03/03/17 07:29 Albuterol/ Ipratropium (Albuterol/ Ipratropium) 3 ml Q6H PRN HHN Shortness of Breath 03/01/17 20:15 03/06/17 20:14 Cefepime HCl 2 gm/ Dextrose 55 ml @ 110 mls/hr Q24H IVPB 03/01/17 13:00 03/08/17 12:59 03/02/17 13:45 Clonidine HCl (Catapres) 0.2 mg Q8HR GT 02/19/17 14:00 03/21/17 13:59 03/03/17 06:40 Dextrose (Dextrose 50%) STAT PRN IV Hypoglycemia 02/19/17 12:30 03/21/17 12:29 Gabapentin (Neurontin) 100 mg BID GT 02/19/17 18:00 03/21/17 17:59 03/02/17 18:37 Heparin Sodium (Porcine) (Heparin 5000 units/ml) 5,000 units EVERY 12 HOURS SUBQ 02/19/17 21:00 03/21/17 20:59 03/02/17 21:50 Insulin Aspart (NovoLOG) EVERY 6 HOURS SUBQ 02/21/17 18:00 03/21/17 16:29 03/03/17 06:46 Insulin Detemir (Levemir) 15 units Q12H SUBQ 03/03/17 09:00 04/02/17 08:59 Levetiracetam (Keppra) 500 mg Q12HR GT 02/19/17 21:00 03/21/17 20:59 03/02/17 21:44 Metoprolol Tartrate (Lopressor) 50 mg Q12HR GT 02/19/17 13:00 03/21/17 12:59 03/02/17 21:45 Nitroglycerin (Ntg) 0.4 mg Q5M PRN SL Prn Chest Pain 02/19/17 12:30 03/21/17 12:29 Ondansetron HCl (Zofran) 4 mg Q6H PRN IVP Nausea & Vomiting 02/19/17 12:30 03/21/17 12:29 Polyethylene Glycol (Miralax) 17 gm DAILYPRN PRN GT Constipation 02/23/17 15:30 03/21/17 12:29 DENEEN BRENNAN Mar 03, 2017 08:53
[2017-03-03] MEDS: levETIRAcetam 500mg/5ml Liquid GT SCH ×2 (09:33→22:33)
[2017-03-03] MEDS: Metoprolol Tartrate 50mg tab GT SCH ×2 (09:33→22:35)
[2017-03-03] MEDS: Gabapentin 300 MG/6 ML Soln GT SCH ×2 (09:33→17:29)
[2017-03-03] MEDS: Heparin 5000 units/ml inj SUBQ SCH ×2 (09:35→22:36)
[2017-03-03] MEDS: Levemir Flexpen SUBQ SCH ×2 (09:36→22:45)
--- NOTE | 2017-03-03 10:26 | General Progress Note ---
Assessment/Plan Problem List: (1) Seizure ICD Codes: R56.9 - Unspecified convulsions SNOMED: 60309933 (2) Hyperglycemia ICD Codes: R73.9 - Hyperglycemia, unspecified SNOMED: 68710644 (3) DVT (deep venous thrombosis) ICD Codes: I82.409 - Acute embolism and thrombosis of unspecified deep veins of unspecified lower extremity SNOMED: 310952522 (4) Leukocytosis ICD Codes: D72.829 - Elevated white blood cell count, unspecified SNOMED: 202761392 (5) HTN (hypertension) ICD Codes: I10 - Essential (primary) hypertension SNOMED: 65566523 (6) CVA (cerebral vascular accident) ICD Codes: I63.9 - Cerebral infarction, unspecified SNOMED: 941969978 (7) Diabetes mellitus out of control ICD Codes: E11.9 - Diabetes mellitus out of control SNOMED: 277162339 (8) Sepsis ICD Codes: A41.9 - Sepsis SNOMED: 69964890 Qualifiers: Qualified Codes: A41.9 - Sepsis, unspecified organism (9) Pneumonia ICD Codes: J18.9 - Pneumonia, unspecified organism SNOMED: 521808582 Status: progressing Assessment/Plan cva htn leukocytosis improved ams sepsis and pna. wrote dc back to facility if ok dr emliio west dm no siezure no bleeding Subjective ROS Limited/Unobtainable: Yes Allergies: Coded Allergies: HYDANTOINS (Unverified Allergy, Unknown, 09/09/13) PHENYTOIN (Unverified Allergy, Unknown, 09/09/13) Objective Last 24 Hour Vital Signs Date Time Temp Pulse Resp B/P (MAP) Pulse Ox O2 Delivery O2 Flow Rate FiO2 03/03/17 09:33 89 144/93 03/03/17 07:48 89 20 99 Nasal Cannula 2.0 03/03/17 07:45 89 21 Nasal Cannula 2.0 03/03/17 07:32 85 20 99 Nasal Cannula 2.0 03/03/17 07:30 85 20 99 Nasal Cannula 2.0 03/03/17 07:23 Nasal Cannula 2.0 28 03/03/17 07:23 99 Nasal Cannula 2.0 03/03/17 06:40 144/93 03/03/17 04:25 97.3 82 24 144/93 100 Nasal Cannula 03/03/17 04:00 83 03/03/17 03:15 65 20 99 Nasal Cannula 2.0 03/03/17 03:07 65 20 98 Nasal Cannula 2.0 03/03/17 03:07 65 20 96 Nasal Cannula 2.0 03/03/17 00:36 Nasal Cannula 03/03/17 00:34 Nasal Cannula 03/03/17 00:00 97.7 88 24 168/103 98 Venturi Mask 03/03/17 00:00 88 03/02/17 21:55 155/100 03/02/17 21:45 67 137/84 03/02/17 20:00 97.7 0 0 0 03/02/17 20:00 98.2 94 20 173/101 98 03/02/17 20:00 97 03/02/17 19:30 67 20 98 Nasal Cannula 2.0 03/02/17 19:16 69 20 97 Nasal Cannula 2.0 03/02/17 19:14 65 20 95 Nasal Cannula 2.0 03/02/17 18:56 63 18 99 Nasal Cannula 2.0 03/02/17 18:54 Nasal Cannula 2.0 28 03/02/17 18:54 99 Nasal Cannula 2.0 03/02/17 16:00 97.8 83 20 137/84 98 Nasal Cannula 03/02/17 16:00 83 03/02/17 15:32 80 22 97 Nasal Cannula 2.0 03/02/17 15:21 62 20 96 Nasal Cannula 2.0 03/02/17 13:44 117/67 03/02/17 12:36 78 20 97 Nasal Cannula 2.0 03/02/17 12:35 88 20 98 Nasal Cannula 2.0 03/02/17 12:22 67 20 97 Nasal Cannula 2.0 03/02/17 12:22 67 20 97 Nasal Cannula 2.0 03/02/17 12:00 76 03/02/17 12:00 98.0 71 20 142/83 99 Nasal Cannula Intake and Output 03/02/17 03/03/17 19:00 07:00 Output Total 500 ml Balance -500 ml Output Urine Total 500 ml # Bowel Movements 1 Height (Feet): 5 Height (Inches): 4.00 Weight (Pounds): 160 Jes Jacques MD Mar 03, 2017 10:26
[2017-03-03 12:00] VITALS: BP 152/83
[2017-03-03] MEDS: Cefepime HCl 2 GM in D5W 55 ML IVPB SCH (12:55)
--- NOTE | 2017-03-03 13:11 | Pulmonology Progress Note ---
Assessment/Plan Problems: (1) Hypercapnic respiratory failure (2) Pneumonia (3) Pleural effusion (4) CVA (cerebral vascular accident) (5) Dysphagia Assessment/Plan -Patient should be on NC during the day, titrated to keep SaO2 > 90% -At night SHE MUST use BiPAP, she has chronic CO2 retention and if she does not use her nocturnal BiPAP will end back in respiratory failure -Optimize pulmonary hygiene/mobilize as tolerated -RTC and PRN HHN's + NAC -Abx per ID -Monitor effusion - PRN thora -Monitor volumes and renal function, PRN lasix, F/U cards and renal recs -TF's as tolerated, NO TF's WHILE ON BiPAP -F/U heme-onc recs Re: w/u of kidney mass -F/U endo recs Re: adrenal nodule -DVT Px: Hep SQ -FC, discuss GOC, should consider a more comfort based approach - multiple discussions with daughter Subjective Allergies: Coded Allergies: HYDANTOINS (Unverified Allergy, Unknown, 09/09/13) PHENYTOIN (Unverified Allergy, Unknown, 09/09/13) Subjective Stable on 2L, did not use BiPAP O/N Less cough, no SOB, getting suctioned copius creamy secretions, farhat TF's AFVSS otherwise Objective Last 24 Hour Vital Signs Date Time Temp Pulse Resp B/P (MAP) Pulse Ox O2 Delivery O2 Flow Rate FiO2 03/03/17 11:35 86 20 99 Nasal Cannula 2.0 03/03/17 11:34 86 20 Nasal Cannula 2.0 03/03/17 11:24 87 21 99 Nasal Cannula 2.0 03/03/17 11:21 87 21 99 Nasal Cannula 2.0 03/03/17 09:33 89 144/93 03/03/17 08:00 87 03/03/17 08:00 97.5 92 18 132/86 100 03/03/17 07:48 89 20 99 Nasal Cannula 2.0 03/03/17 07:45 89 21 Nasal Cannula 2.0 03/03/17 07:32 85 20 99 Nasal Cannula 2.0 03/03/17 07:30 85 20 99 Nasal Cannula 2.0 03/03/17 07:23 Nasal Cannula 2.0 28 03/03/17 07:23 99 Nasal Cannula 2.0 03/03/17 06:40 144/93 03/03/17 04:25 97.3 82 24 144/93 100 Nasal Cannula 03/03/17 04:00 83 03/03/17 03:15 65 20 99 Nasal Cannula 2.0 03/03/17 03:07 65 20 98 Nasal Cannula 2.0 03/03/17 03:07 65 20 96 Nasal Cannula 2.0 03/03/17 00:36 Nasal Cannula 03/03/17 00:34 Nasal Cannula 03/03/17 00:00 97.7 88 24 168/103 98 Venturi Mask 03/03/17 00:00 88 03/02/17 21:55 155/100 03/02/17 21:45 67 137/84 03/02/17 20:00 97.7 0 0 0 03/02/17 20:00 98.2 94 20 173/101 98 03/02/17 20:00 97 03/02/17 19:30 67 20 98 Nasal Cannula 2.0 03/02/17 19:16 69 20 97 Nasal Cannula 2.0 03/02/17 19:14 65 20 95 Nasal Cannula 2.0 03/02/17 18:56 63 18 99 Nasal Cannula 2.0 03/02/17 18:54 Nasal Cannula 2.0 28 03/02/17 18:54 99 Nasal Cannula 2.0 03/02/17 16:00 97.8 83 20 137/84 98 Nasal Cannula 03/02/17 16:00 83 03/02/17 15:32 80 22 97 Nasal Cannula 2.0 03/02/17 15:21 62 20 96 Nasal Cannula 2.0 03/02/17 13:44 117/67 Intake and Output 03/02/17 03/03/17 19:00 07:00 Output Total 500 ml Balance -500 ml Output Urine Total 500 ml # Bowel Movements 1 General Appearance: no acute distress, cachetic HEENT: normocephalic, atraumatic, mucous membranes moist Respiratory/Chest: rhonchi - scattered but improved Cardiovascular: normal peripheral pulses, normal rate, regular rhythm Abdomen: normal bowel sounds, soft, non tender, no organomegaly, other - GT Extremities: no cyanosis, no clubbing, no edema Current Medications Medications (Trade) Dose Ordered Sig/Chinyere Route PRN Reason Start Time Stop Time Status Last Admin Dose Admin Acetaminophen (Tylenol) 650 mg Q4H PRN ORAL fever (temp >100.5F) 02/19/17 12:30 03/21/17 12:29 02/21/17 22:15 Acetylcysteine (Mucomyst) 200 mg Q6HRT N 02/24/17 19:00 03/26/17 18:59 03/03/17 11:21 Albuterol/ Ipratropium (Albuterol/ Ipratropium) 3 ml Q4HRT N 03/01/17 23:00 03/06/17 22:59 03/03/17 11:21 Albuterol/ Ipratropium (Albuterol/ Ipratropium) 3 ml Q6H PRN HHN Shortness of Breath 03/01/17 20:15 03/06/17 20:14 Cefepime HCl 2 gm/ Dextrose 55 ml @ 110 mls/hr Q24H IVPB 03/01/17 13:00 03/08/17 12:59 03/03/17 12:55 Clonidine HCl (Catapres) 0.2 mg Q8HR GT 02/19/17 14:00 03/21/17 13:59 03/03/17 06:40 Dextrose (Dextrose 50%) STAT PRN IV Hypoglycemia 02/19/17 12:30 03/21/17 12:29 Gabapentin (Neurontin) 100 mg BID GT 02/19/17 18:00 03/21/17 17:59 03/03/17 09:33 Heparin Sodium (Porcine) (Heparin 5000 units/ml) 5,000 units EVERY 12 HOURS SUBQ 02/19/17 21:00 03/21/17 20:59 03/03/17 09:35 Insulin Aspart (NovoLOG) EVERY 6 HOURS SUBQ 02/21/17 18:00 03/21/17 16:29 03/03/17 12:49 Insulin Detemir (Levemir) 15 units Q12H SUBQ 03/03/17 09:00 04/02/17 08:59 03/03/17 09:36 Levetiracetam (Keppra) 500 mg Q12HR GT 02/19/17 21:00 03/21/17 20:59 03/03/17 09:33 Metoprolol Tartrate (Lopressor) 50 mg Q12HR GT 02/19/17 13:00 03/21/17 12:59 03/03/17 09:33 Nitroglycerin (Ntg) 0.4 mg Q5M PRN SL Prn Chest Pain 02/19/17 12:30 03/21/17 12:29 Ondansetron HCl (Zofran) 4 mg Q6H PRN IVP Nausea & Vomiting 02/19/17 12:30 03/21/17 12:29 Polyethylene Glycol (Miralax) 17 gm DAILYPRN PRN GT Constipation 02/23/17 15:30 03/21/17 12:29 SUNG FRANCE M.D. Mar 03, 2017 13:11
--- NOTE | 2017-03-03 15:45 | Geriatric Medicine Prog Note ---
DATE: 03/02/2017 SUBJECTIVE: The patient is more comfortable today. OBJECTIVE: VITAL SIGNS: Stable. RESPIRATORY: Clear. CARDIOVASCULAR: Regular. LABORATORY DATA: Glucose 227. ASSESSMENT: Diabetes mellitus _in fair control PLAN: detemir UInsulin 10u sc q12hrs .with slidiong scale Nopvolog QID and fHS. Daniel Pro M.D. DR: NARCISA JOB#: [id number] CC: KAYY
[2017-03-03 16:00] VITALS: BP 141/90
[2017-03-03] MEDS ORDERED: Sterile Water Irrig 1000ml IRRIG ONE (17:32)
[2017-03-03] MEDS ORDERED: NS 275ml ONE (17:32)
--- NOTE | 2017-03-03 18:51 | General Progress Note ---
Assessment/Plan Assessment/Plan ASSESSMENT AND RECOMMENDATIONS: #. 3.5 cm contour bulge in the upper pole of the left kidney + 1 cm nodule is seen in the right adrenal gland --> will monitor for now #. Anemia secondary to chronic disease. Anemia work up has been reviewed. Continue to trend H/H daily --> hgb goal above 7 --> currently stable #. Sepsis #. UTI #. Pneumonia # Deep vein thrombosis history. The patient was closely monitor. No evidence of recurrent clot at this moment. Currently, on heparin subcutaneous. #. Diabetes mellitus, currently better controlled. Subjective Allergies: Coded Allergies: HYDANTOINS (Unverified Allergy, Unknown, 09/09/13) PHENYTOIN (Unverified Allergy, Unknown, 09/09/13) All Systems: reviewed and negative except above Subjective NAD Objective Last 24 Hour Vital Signs Date Time Temp Pulse Resp B/P (MAP) Pulse Ox O2 Delivery O2 Flow Rate FiO2 03/03/17 16:00 77 03/03/17 15:26 75 18 99 Nasal Cannula 2.0 03/03/17 15:15 74 22 99 Nasal Cannula 2.0 03/03/17 13:21 156/93 03/03/17 12:00 82 03/03/17 12:00 98.0 71 18 152/83 99 Nasal Cannula 2.0 03/03/17 11:35 86 20 99 Nasal Cannula 2.0 03/03/17 11:34 86 20 Nasal Cannula 2.0 03/03/17 11:24 87 21 99 Nasal Cannula 2.0 03/03/17 11:21 87 21 99 Nasal Cannula 2.0 03/03/17 09:33 89 144/93 03/03/17 08:00 87 03/03/17 08:00 97.5 92 18 132/86 100 03/03/17 07:48 89 20 99 Nasal Cannula 2.0 03/03/17 07:45 89 21 Nasal Cannula 2.0 03/03/17 07:32 85 20 99 Nasal Cannula 2.0 03/03/17 07:30 85 20 99 Nasal Cannula 2.0 03/03/17 07:23 Nasal Cannula 2.0 28 03/03/17 07:23 99 Nasal Cannula 2.0 03/03/17 06:40 144/93 03/03/17 04:25 97.3 82 24 144/93 100 Nasal Cannula 03/03/17 04:00 83 03/03/17 03:15 65 20 99 Nasal Cannula 2.0 03/03/17 03:07 65 20 98 Nasal Cannula 2.0 03/03/17 03:07 65 20 96 Nasal Cannula 2.0 03/03/17 00:36 Nasal Cannula 03/03/17 00:34 Nasal Cannula 03/03/17 00:00 97.7 88 24 168/103 98 Venturi Mask 03/03/17 00:00 88 03/02/17 21:55 155/100 03/02/17 21:45 67 137/84 03/02/17 20:00 97.7 0 0 0 03/02/17 20:00 98.2 94 20 173/101 98 03/02/17 20:00 97 03/02/17 19:30 67 20 98 Nasal Cannula 2.0 03/02/17 19:16 69 20 97 Nasal Cannula 2.0 03/02/17 19:14 65 20 95 Nasal Cannula 2.0 03/02/17 18:56 63 18 99 Nasal Cannula 2.0 03/02/17 18:54 Nasal Cannula 2.0 28 03/02/17 18:54 99 Nasal Cannula 2.0 Intake and Output 03/02/17 03/03/17 19:00 07:00 Intake Total 70 ml Output Total 500 ml Balance -430 ml Tube Feeding 70 ml Output Urine Total 500 ml # Bowel Movements 1 Height (Feet): 5 Height (Inches): 4.00 Weight (Pounds): 160 General Appearance: WD/WN EENT: normal ENT inspection Neck: normal alignment Cardiovascular: normal peripheral pulses Edema: trace edema Neurologic: ux design manager II-XII grossly normal Jose Boateng Mar 03, 2017 18:51
--- NOTE | 2017-03-03 19:26 | Cardiology Report ---
APPROVED REPORT EKG Measurement Heart [id number] Sinus tachycardia Moderate voltage criteria for LVH, may be normal variant Borderline ECG
[2017-03-03 20:00] VITALS: BP 152/92
[2017-03-04] VITALS: BP 156/88
[2017-03-04] MEDS: NovoLOG Insulin Flexpen SUBQ SCH ×4 (00:37→18:23)
[2017-03-04] MEDS: Acetylcysteine 20% Soln 4ml HHN SCH ×2 (01:47→07:52)
[2017-03-04] MEDS: Albuterol/Ipratropium 3ml neb HHN SCH ×4 (03:36→16:00)
[2017-03-04 04:00] VITALS: BP 129/79
[2017-03-04] MEDS: cloNIDine 0.2mg Tab GT SCH (06:03)
--- NOTE | 2017-03-04 07:29 | Cardiology Report ---
APPROVED REPORT EXAM: Two-dimensional and M-mode echocardiogram with Doppler and color Doppler. INDICATION Tachycardia M-Mode DIMENSIONS IVSd1.2 (0.7-1.1cm)Left Atrium (MM)3.1 (1.6-4.0cm) LVDd3.2 (3.5-5.6cm)Aortic Root2.8 (2.0-3.7cm) PWd0.8 (0.7-1.1cm)Aortic Cusp Exc.1.9 (1.5-2.0cm) LVDs2.0 (2.5-4.0cm) PWs1.4 cm Normal left ventricular chamber size, systolic function and wall motion . Left ventricular ejection fraction estimated to be 55 %. Mild left ventricular hypertrophy. Large pleural effusion. All other cardiac chamber sizes are within normal limits. Mild focal aortic valve sclerosis with adequate cusp excursion. Mildly thickened mitral valve leaflets with normal excursion. Mild mitral annulus and aortic root calcification. Normal pulmonic valve structure. Normal tricuspid valve structure. IVC at normal size without physiologic collapse. A color flow and spectral Doppler study was performed and revealed: Trace aortic regurgitation. Mild mitral regurgitation. Mitral diastolic velocities suggest reduced left ventricular relaxation c/w mild LV diastolic dysfunction (Grade I ).. Mild to moderate tricuspid regurgitation. Tricuspid systolic velocities suggests peak right ventricular systolic pressure of 47 mmHg, consistent with moderate pulmonary hypertension. No pulmonic regurgitation present.
[2017-03-04 08:00] VITALS: BP 146/76
--- NOTE | 2017-03-04 08:30 | Geriatric Medicine Prog Note ---
DATE: 03/01/2017 NOTE: "POOR AUDIO QUALITY" SUBJECTIVE: Per Dr. Sergio Baumann's, the patient is more comfortable today. The patient has improved diabetic control. OBJECTIVE: VITAL SIGNS: Blood pressure 140/87, pulse 71, respiratory rate 16, and temperature 98.2. RESPIRATORY: Rhonchi. CARDIOVASCULAR: Regular rhythm. LABORATORY DATA: Sugar is 198. ASSESSMENT: diabetes progress noteJellitus imoroved PLANS:Accuichecks QID ac and [id number] sliding scale NovoLog q.i.d. Detemir Insulin 10u units q. 12 h Daniel Pro M.D. DR: NARCISA JOB#: [id number] CC: KAYY
[2017-03-04] MEDS: levETIRAcetam 500mg/5ml Liquid GT SCH (08:37)
[2017-03-04] MEDS: Gabapentin 300 MG/6 ML Soln GT SCH (08:37)
[2017-03-04] MEDS: Metoprolol Tartrate 50mg tab GT SCH (08:39)
[2017-03-04] MEDS: Heparin 5000 units/ml inj SUBQ SCH (08:40)
[2017-03-04] MEDS: Levemir Flexpen SUBQ SCH (08:43)
--- NOTE | 2017-03-04 11:15 | Pulmonology Progress Note ---
Assessment/Plan Assessment/Plan ASSESSMENT Sepsis UTI with E coli and Enterococci -s/p Rx PNA with Pseudomonas and Proteus acute on chronic hypercapnic respiratory failure requiring BiPAP (likely due to PNA and pleural effusion) left pleural effusion gross hematuria -resolved hyperkalemia -resolved hyperglycemia with DM OOC , improving dehydration HTN moderate pulmonary HTN anemia of chronic disease adrenal nodule possible left kidney mass/ bulge hx of CVA with L hemiplegia dysphagia, G tube seizure disorder hx of ventriculostomy PLAN OF CARE tele titrate O2 to keep sat above 92 %, Pulmonary toilet BiPAP at night is a must, otherwise will go back to resp failure due to chronic CO2 retention US chest did not revealed significant pleural effusion to tap monitor pleural effusuon, t ap PRN last CXR 03/01 - no change from before abx ID follows urine cx + E coli, Enterococci, s/p rx; sputum cx +Pseudomonas, Proteus, blood cx 2/4 SCON, likely contamination as per ID per ID will stop abx soon BP management with BB and optimize further as needed ECHO with EF 55% and RVSP of 47 c/w moderate pulmonary HTN Venous Duplex with chronic thrombus LLE DVT prophylaxis cardio follows s/p IVF, monitor HR, tachycardia resolved( likely due to sepsis and dehydration as per cardio ) BS management with SS of insulin, Akp7m-7,4 not at goal, endo follows Strict aspiration precautions, GT feeding, monitor tolerance monitor renal parameters, lytes, correct as needed, avoid nephrotoxic, nephro follows urologist seen and evaluated due to possible left renal bulge , which was difficult to evaluate without contrast and dedicated renal imaging. Per urologist, given medical condition, no need for further workup, and Left adrenal adenoma highly likely benign. Recommend observation of both findings. heme/onco follows, also recommended conservative management/observation monitor HH, transfuse with goal to keep Hgb above 8 seizure precautions, continue Keppra PT/OT pain management bowel regimen can be transferred to [place] while awaiting for dc stable for dc from pulmonary standpoint with BiPAP at night due to chronic CO2 retention case discussed and evaluated by supervising physician Subjective Allergies: Coded Allergies: HYDANTOINS (Unverified Allergy, Unknown, 09/09/13) PHENYTOIN (Unverified Allergy, Unknown, 09/09/13) Subjective no fever, no leukocytosis on O2 via NC and BiPAP at night no signs of respiratory distress Objective Last 24 Hour Vital Signs Date Time Temp Pulse Resp B/P (MAP) Pulse Ox O2 Delivery O2 Flow Rate FiO2 03/04/17 08:39 82 158/82 03/04/17 08:06 82 18 99 Bi-pap 30 03/04/17 08:06 82 18 99 Bi-pap 30 03/04/17 08:00 62 03/04/17 08:00 98.2 60 16 146/76 100 Nasal Cannula 2.0 03/04/17 07:56 84 Nasal Cannula 2.0 03/04/17 07:56 Nasal Cannula 2.0 28 03/04/17 07:53 82 18 99 Bi-pap 30 03/04/17 07:53 82 18 99 Bi-pap 30 03/04/17 06:03 134/82 03/04/17 05:52 68 18 97 Facial 30 03/04/17 04:00 69 03/04/17 04:00 97.5 69 14 129/79 100 03/04/17 03:44 81 18 99 Bi-pap 30 03/04/17 03:37 79 18 99 Bi-pap 30 03/04/17 03:35 79 18 98 Facial 30 03/04/17 02:00 79 20 98 Bi-pap 30 03/04/17 01:50 85 14 94 Bi-pap 30 03/04/17 01:50 85 14 99 Facial 30 03/04/17 00:00 97.7 88 16 156/88 100 03/03/17 23:56 72 18 99 Bi-pap 30 03/03/17 23:43 91 22 99 Bi-pap 30 03/03/17 23:43 91 20 99 Facial 30 03/03/17 23:40 80 03/03/17 22:35 89 159/95 03/03/17 22:34 159/95 03/03/17 20:29 74 18 99 Nasal Cannula 2.0 03/03/17 20:29 82 20 99 Nasal Cannula 2.0 03/03/17 20:22 83 22 Nasal Cannula 2.0 28 03/03/17 20:21 Nasal Cannula 2.0 28 03/03/17 20:21 89 22 94 Nasal Cannula 2.0 28 03/03/17 20:21 89 21 94 Nasal Cannula 2.0 03/03/17 20:21 94 Nasal Cannula 2.0 03/03/17 20:00 84 03/03/17 20:00 97.3 83 16 152/92 100 03/03/17 16:00 77 03/03/17 16:00 97.4 80 19 141/90 100 Nasal Cannula 2.0 03/03/17 15:26 75 18 99 Nasal Cannula 2.0 28 03/03/17 15:15 74 22 99 Nasal Cannula 2.0 28 03/03/17 13:21 156/93 03/03/17 12:00 82 03/03/17 12:00 98.0 71 18 152/83 99 Nasal Cannula 2.0 03/03/17 11:35 86 20 99 Nasal Cannula 2.0 03/03/17 11:34 86 20 Nasal Cannula 2.0 03/03/17 11:24 87 21 99 Nasal Cannula 2.0 03/03/17 11:21 87 21 99 Nasal Cannula 2.0 Intake and Output 03/03/17 03/04/17 19:00 07:00 Intake Total 840 ml 770 ml Output Total 450 ml 800 ml Balance 390 ml -30 ml Tube Feeding 840 ml 770 ml Output Urine Total 450 ml 800 ml # Voids 1 Objective General Appearance: NAD HEENT: normocephalic, atraumatic, anicteric, O2 via NC Respiratory/Chest: chest wall non-tender, no accessory muscle use, few isolated rhonchi, decreased BS at bases, Cardiovascular: regular rate and rhythm - SR on tele, no JVD Abdomen: normal bowel sounds, soft, non tender, non distended, G tube Extremities: no edema Neurologic/Psychiatric: awake, poorly responsive , Left hemiplegia Musculoskeletal: atroph BLE Current Medications Medications (Trade) Dose Ordered Sig/Chinyere Route PRN Reason Start Time Stop Time Status Last Admin Dose Admin Acetaminophen (Tylenol) 650 mg Q4H PRN ORAL fever (temp >100.5F) 03/04/17 12:30 03/21/17 12:29 UNV Acetylcysteine (Mucomyst) 200 mg Q6HRT [facility] 03/04/17 13:00 03/26/17 18:59 UNV Albuterol/ Ipratropium (Albuterol/ Ipratropium) 3 ml Q4HRT [facility] 03/04/17 11:00 03/06/17 22:59 UNV Albuterol/ Ipratropium (Albuterol/ Ipratropium) 3 ml Q6H PRN HHN Shortness of Breath 03/04/17 14:15 03/06/17 20:14 UNV Cefepime HCl 2 gm/ Dextrose 55 ml @ 110 mls/hr Q24H IVPB 03/04/17 13:00 03/08/17 12:59 UNV Clonidine HCl (Catapres) 0.2 mg Q8HR GT 03/04/17 14:00 03/21/17 13:59 UNV Dextrose (Dextrose 50%) STAT PRN IV Hypoglycemia 03/04/17 12:30 03/21/17 12:29 UNV Gabapentin (Neurontin) 100 mg BID GT 03/04/17 18:00 03/21/17 17:59 UNV Heparin Sodium (Porcine) (Heparin 5000 units/ml) 5,000 units EVERY 12 HOURS SUBQ 03/04/17 21:00 03/21/17 20:59 UNV Insulin Aspart (NovoLOG) EVERY 6 HOURS SUBQ 03/04/17 12:00 03/21/17 16:29 UNV Insulin Detemir (Levemir) 15 units Q12H SUBQ 03/04/17 21:00 04/02/17 08:59 UNV Levetiracetam (Keppra) 500 mg Q12HR GT 03/04/17 21:00 03/21/17 20:59 UNV Metoprolol Tartrate (Lopressor) 50 mg Q12HR GT 03/04/17 21:00 03/21/17 12:59 UNV Nitroglycerin (Ntg) 0.4 mg Q5M PRN SL Prn Chest Pain 03/04/17 10:45 03/21/17 12:29 UNV Ondansetron HCl (Zofran) 4 mg Q6H PRN IVP Nausea & Vomiting 03/04/17 12:30 03/21/17 12:29 UNV Polyethylene Glycol (Miralax) 17 gm DAILYPRN PRN GT Constipation 03/04/17 15:30 03/21/17 12:29 UNV Natasha Luna NP (Vanchtein) Mar 04, 2017 11:15
[2017-03-04] MEDS ORDERED: Albuterol/Ipratropium 3ml neb HHN PRN (11:45)
[2017-03-04] MEDS ORDERED: Nitroglycerin Subl 0.4mg tab SL PRN (11:45)
[2017-03-04] MEDS ORDERED: Miralax 17gm pkt GT PRN (11:45)
[2017-03-04 12:00] VITALS: BP 129/76
[2017-03-04] MEDS ORDERED: Cefepime HCl 2 GM in D5W 55 ML IVPB SCH (13:00)
[2017-03-04] MEDS ORDERED: Acetylcysteine 20% Soln 4ml HHN SCH (13:00)
[2017-03-04] MEDS ORDERED: cloNIDine 0.2mg Tab GT SCH (14:00)
[2017-03-04 16:00] VITALS: BP 137/81
--- NOTE | 2017-03-04 17:05 | Infectious Diseases Prog Note ---
Assessment/Plan Assessment/Plan A: Sepsis UTI s/p Rx Pneumonia with pseudomonas & Proteus treated DM Hypercapnic respiratory failure Positive blood culture likely contamination s/p CVA with aphasia & left hemiplegia s/p ventriculostomy tube placement P: discontinue Cefepime Agree with discharge to SNF Subjective ROS Limited/Unobtainable: Yes Constitutional: Reports: other - stable Allergies: Coded Allergies: HYDANTOINS (Unverified Allergy, Unknown, 09/09/13) PHENYTOIN (Unverified Allergy, Unknown, 09/09/13) Objective Vital Signs Last 24 Hour Vital Signs Date Time Temp Pulse Resp B/P (MAP) Pulse Ox O2 Delivery O2 Flow Rate FiO2 03/04/17 16:14 80 20 99 Nasal Cannula 2.0 28 03/04/17 16:14 80 20 99 Nasal Cannula 2.0 28 03/04/17 16:06 81 22 99 Nasal Cannula 2.0 28 03/04/17 16:06 81 22 99 Nasal Cannula 2.0 28 03/04/17 16:00 96.8 74 18 137/81 100 Nasal Cannula 2.0 03/04/17 13:21 129/76 03/04/17 12:48 80 22 99 Nasal Cannula 2.0 28 03/04/17 12:38 77 22 99 Nasal Cannula 2.0 28 03/04/17 12:00 96.8 66 18 129/76 100 Nasal Cannula 2.0 03/04/17 08:39 82 158/82 03/04/17 08:06 82 18 99 Bi-pap 30 03/04/17 08:06 82 18 99 Bi-pap 30 03/04/17 08:00 62 03/04/17 08:00 98.2 60 16 146/76 100 Nasal Cannula 2.0 03/04/17 07:56 84 Nasal Cannula 2.0 03/04/17 07:56 Nasal Cannula 2.0 28 03/04/17 07:53 82 18 99 Bi-pap 30 03/04/17 07:53 82 18 99 Bi-pap 30 03/04/17 06:03 134/82 03/04/17 05:52 68 18 97 Facial 30 03/04/17 04:00 69 03/04/17 04:00 97.5 69 14 129/79 100 03/04/17 03:44 81 18 99 Bi-pap 30 03/04/17 03:37 79 18 99 Bi-pap 30 03/04/17 03:35 79 18 98 Facial 30 03/04/17 02:00 79 20 98 Bi-pap 30 03/04/17 01:50 85 14 94 Bi-pap 30 03/04/17 01:50 85 14 99 Facial 30 03/04/17 00:00 97.7 88 16 156/88 100 03/03/17 23:56 72 18 99 Bi-pap 30 03/03/17 23:43 91 22 99 Bi-pap 30 03/03/17 23:43 91 20 99 Facial 30 03/03/17 23:40 80 03/03/17 22:35 89 159/95 03/03/17 22:34 159/95 03/03/17 20:29 74 18 99 Nasal Cannula 2.0 03/03/17 20:29 82 20 99 Nasal Cannula 2.0 03/03/17 20:22 83 22 Nasal Cannula 2.0 28 03/03/17 20:21 Nasal Cannula 2.0 28 03/03/17 20:21 89 22 94 Nasal Cannula 2.0 03/03/17 20:21 89 21 94 Nasal Cannula 2.0 03/03/17 20:21 94 Nasal Cannula 2.0 03/03/17 20:00 84 03/03/17 20:00 97.3 83 16 152/92 100 Height (Feet): 5 Height (Inches): 4.00 Weight (Pounds): 160 General Appearance: no acute distress HEENT: mucous membranes moist Respiratory/Chest: other - few rhonchi Cardiovascular: normal rate Abdomen: soft, non tender Extremities: no edema Neurologic/Psychiatric: aphasia Current Medications Medications (Trade) Dose Ordered Sig/Chinyere Route PRN Reason Start Time Stop Time Status Last Admin Dose Admin Acetaminophen (Tylenol) 650 mg Q4H PRN ORAL fever (temp >100.5F) 03/04/17 11:45 03/21/17 11:44 Acetylcysteine (Mucomyst) 200 mg Q6HRT [facility] 03/04/17 13:00 03/26/17 18:59 03/04/17 16:06 Albuterol/ Ipratropium (Albuterol/ Ipratropium) 3 ml Q4HRT [facility] 03/04/17 12:00 03/06/17 11:59 03/04/17 16:00 Albuterol/ Ipratropium (Albuterol/ Ipratropium) 3 ml Q6H PRN HHN Shortness of Breath 03/04/17 11:45 03/06/17 11:44 Cefepime HCl 2 gm/ Dextrose 55 ml @ 110 mls/hr Q24H IVPB 03/04/17 13:00 03/08/17 12:59 03/04/17 13:22 Clonidine HCl (Catapres) 0.2 mg Q8HR GT 03/04/17 14:00 03/21/17 13:59 03/04/17 13:21 Dextrose (Dextrose 50%) STAT PRN IV Hypoglycemia 03/04/17 11:45 03/21/17 11:44 Gabapentin (Neurontin) 100 mg BID GT 03/04/17 18:00 03/21/17 17:59 Heparin Sodium (Porcine) (Heparin 5000 units/ml) 5,000 units EVERY 12 HOURS SUBQ 03/04/17 21:00 03/21/17 20:59 Insulin Aspart (NovoLOG) EVERY 6 HOURS SUBQ 03/04/17 12:00 03/21/17 16:29 03/04/17 13:24 Insulin Detemir (Levemir) 15 units Q12H SUBQ 03/04/17 21:00 04/02/17 08:59 Levetiracetam (Keppra) 500 mg Q12HR GT 03/04/17 21:00 03/21/17 20:59 Metoprolol Tartrate (Lopressor) 50 mg Q12HR GT 03/04/17 21:00 03/21/17 12:59 Nitroglycerin (Ntg) 0.4 mg Q5M PRN SL Prn Chest Pain 03/04/17 11:45 03/21/17 11:44 Ondansetron HCl (Zofran) 4 mg Q6H PRN IVP Nausea & Vomiting 03/04/17 11:45 03/21/17 11:44 Polyethylene Glycol (Miralax) 17 gm DAILYPRN PRN GT Constipation 03/04/17 11:45 03/21/17 11:44 DENEEN BRENNAN Mar 04, 2017 17:05
[2017-03-04] MEDS ORDERED: Gabapentin 300 MG/6 ML Soln GT SCH (18:00)
[2017-03-04 20:00] VITALS: BP 151/95
[2017-03-04] MEDS ORDERED: Sterile Water For Irrig 2000ml IRRIG ONE (20:29)
[2017-03-04] MEDS ORDERED: Levemir Flexpen SUBQ SCH (21:00)
[2017-03-04] MEDS ORDERED: Heparin 5000 units/ml inj SUBQ SCH (21:00)
[2017-03-04] MEDS ORDERED: Metoprolol Tartrate 50mg tab GT SCH (21:00)
[2017-03-04] MEDS ORDERED: levETIRAcetam 500mg/5ml Liquid GT SCH (21:00)
--- NOTE | 2017-03-04 21:30 | General Progress Note ---
Assessment/Plan Assessment/Plan ASSESSMENT AND RECOMMENDATIONS: #. 3.5 cm contour bulge in the upper pole of the left kidney + 1 cm nodule is seen in the right adrenal gland --> will monitor for now --> has been seen by urology #. Anemia secondary to chronic disease. Anemia work up has been reviewed. Continue to trend H/H daily --> hgb goal above 7 --> currently stable #. Respiratory failure requiring BiPAP #. Hematuria, resolved #. Sepsis #. UTI #. Pneumonia # Deep vein thrombosis history. The patient was closely monitor. No evidence of recurrent clot at this moment. Currently, on heparin subcutaneous. #. Diabetes mellitus, currently better controlled. Subjective Allergies: Coded Allergies: HYDANTOINS (Unverified Allergy, Unknown, 09/09/13) PHENYTOIN (Unverified Allergy, Unknown, 09/09/13) All Systems: reviewed and negative except above Subjective No new complaints Objective Last 24 Hour Vital Signs Date Time Temp Pulse Resp B/P (MAP) Pulse Ox O2 Delivery O2 Flow Rate FiO2 03/04/17 20:00 98.1 77 19 151/95 99 03/04/17 16:14 80 20 99 Nasal Cannula 2.0 28 03/04/17 16:14 80 20 99 Nasal Cannula 2.0 28 03/04/17 16:06 81 22 99 Nasal Cannula 2.0 28 03/04/17 16:06 81 22 99 Nasal Cannula 2.0 28 03/04/17 16:00 96.8 74 18 137/81 100 Nasal Cannula 2.0 03/04/17 13:21 129/76 03/04/17 12:48 80 22 99 Nasal Cannula 2.0 28 03/04/17 12:38 77 22 99 Nasal Cannula 2.0 28 03/04/17 12:00 96.8 66 18 129/76 100 Nasal Cannula 2.0 03/04/17 08:39 82 158/82 03/04/17 08:06 82 18 99 Bi-pap 30 03/04/17 08:06 82 18 99 Bi-pap 30 03/04/17 08:00 62 03/04/17 08:00 98.2 60 16 146/76 100 Nasal Cannula 2.0 03/04/17 07:56 84 Nasal Cannula 2.0 03/04/17 07:56 Nasal Cannula 2.0 28 03/04/17 07:53 82 18 99 Bi-pap 30 03/04/17 07:53 82 18 99 Bi-pap 30 03/04/17 06:03 134/82 03/04/17 05:52 68 18 97 Facial 30 03/04/17 04:00 69 03/04/17 04:00 97.5 69 14 129/79 100 03/04/17 03:44 81 18 99 Bi-pap 30 03/04/17 03:37 79 18 99 Bi-pap 30 03/04/17 03:35 79 18 98 Facial 30 03/04/17 02:00 79 20 98 Bi-pap 30 03/04/17 01:50 85 14 94 Bi-pap 30 03/04/17 01:50 85 14 99 Facial 30 03/04/17 00:00 97.7 88 16 156/88 100 03/03/17 23:56 72 18 99 Bi-pap 30 03/03/17 23:43 91 22 99 Bi-pap 30 03/03/17 23:43 91 20 99 Facial 30 03/03/17 23:40 80 03/03/17 22:35 89 159/95 03/03/17 22:34 159/95 Intake and Output 03/03/17 03/04/17 19:00 07:00 Intake Total 840 ml 770 ml Output Total 450 ml 800 ml Balance 390 ml -30 ml Tube Feeding 840 ml 770 ml Output Urine Total 450 ml 800 ml # Voids 1 Height (Feet): 5 Height (Inches): 4.00 Weight (Pounds): 160 General Appearance: no apparent distress EENT: normal ENT inspection Neck: normal alignment Cardiovascular: normal peripheral pulses Respiratory/Chest: chest wall non-tender Extremities: normal range of motion Skin: normal pigmentation Jose Boateng Mar 04, 2017 21:30
--- NOTE | 2017-03-06 00:12 | Diagnostic Imaging Report ---
APPROVED REPORT CPT Code: 91641 Present Symptoms Shortness of breath Comments: R/O DVT RIGHT LEG: Venous imaging reveals a patent deep venous system. There is no evidence of thrombus within the femoral, popliteal or tibial segments. The greater saphenous vein is also within normal limits. Doppler indicates normal spontaneous flow within these segments. LEFT LEG: Venous imaging reveals recanalized chronic thrombus in the superficial femoral vein. Large collateral vein noted anterior to the superficial femoral artery. The remainder of the deep venous system is within normal limits. There is no evidence of thrombus in the common femoral, popliteal or calf veins. The greater saphenous vein is also within normal limits. Doppler indicates normal spontaneous flow within these segments. There is no evidence of acute deep vein thrombosis.
--- NOTE | 2017-03-07 11:05 | Discharge Summary ---
Discharge Summary Hospital Course Date of Admission Feb 19, 2017 at 08:00 Date of Discharge Mar 04, 2017 at 20:30 Admitting Diagnosis ALTERED MENTAL STATUS HPI Lily Ferguson is a 66 year old female who was admitted on Feb 19, 2017 at 08:00 for Altered Mental Status Hospital Course [id number] Discharge Discharge Disposition Patient was discharged to SNF/Subacute Facility(03) Discharge Diagnoses: Ana Walton NP Mar 07, 2017 11:05
--- NOTE | 2017-03-08 01:00 | Discharge Summary 2 SIG ---
DATE OF ADMISSION: 02/19/2017 DATE OF DISCHARGE: 03/04/2017 ATTENDING PHYSICIAN: Los Slaughter D.O. CONSULTANTS: 1. Jose Boateng M.D. 2. Dillon Terrell M.D. 3. Bailee Hoang M.D. 4. Sergio Baumann M.D. 5. Jade Washington M.D. 6. Esequiel Haider M.D. 7. Gil Navarro M.D. BRIEF HOSPITAL COURSE: The patient is a 66-year-old female, who is a resident of [facility], was sent in by EMS for gross hematuria, tachypnea, elevated blood pressure and elevated glucose. The patient has a chronic indwelling Davis catheter and was admitted in October for hematuria and urosepsis. On evaluation at ED, the patient was tachypneic and tachycardic and was febrile consistent with sepsis. She was started empirically on Zosyn given recent previous urine susceptibility and was given insulin. Glucose was 383. She came in with hyperkalemia. There were no peak T-waves seen on EKG. She was given IV hydration and IV insulin to treat hyperkalemia. Albuterol was not given due to the patient's tachycardia. She had a chest x-ray done that showed bibasilar atelectasis. She was admitted to telemetry for sepsis, hypernatremia and hyperglycemia. She was initially started with cefepime and vancomycin. Tachycardia was likely secondary to underlying infection. Echocardiogram done showed normal function. Her renal parameters were monitored. She was given free water via G-tube. Blood sugars were monitored and was given Levemir 15 units b.i.d. on top of NovoLog sliding scale. She was given nebulizer treatments, however, respiratory status worsened and had to be placed on BiPAP. Chest x-ray done showed left pleural effusion. Ultrasound of the chest did not reveal significant amount for thoracentesis. Venous duplex of lower extremity was negative for DVT. CT scan finding of the chest showed a possible left renal bulge. Urologist was called in and recommended observation/conservative management. Urine culture showed growth of E. coli and Enterococcus. Sputum culture with Proteus and Pseudomonas. She was given IV cefepime. She had positive blood culture, but likely contamination. She came in with sacral stage IV pressure ulcer and left iliac crest DTI pressure ulcer. Wound care was rendered. She was placed on BiPAP at bedtime and recommended need to be on BiPAP at night due to chronic CO2 retention. The patient was taken off antibiotic treatment and was eventually discharged to SNF to continue BiPAP at custodial. FINAL DIAGNOSES: 1. Sepsis. 2. Urinary tract infection with Escherichia coli and Enterococcus. 3. Pneumonia with Pseudomonas and Proteus. 4. Acute on chronic hypercapnic respiratory failure requiring BiPAP. 5. Large pleural effusion. 6. Gross hematuria, resolved. 7. Hyperkalemia, resolved. 8. Hyperglycemia with diabetes mellitus, out of control. 9. Dehydration. 10. Hypertension. 11. Moderate pulmonary hypertension. 12. Anemia of chronic disease. 13. Adrenal nodule. 14. Possible left kidney mass/bulge. 15. Old cerebrovascular accident with left hemiplegia. 16. Dysphagia on gastrostomy tube. 17. Seizure disorder. 18. History of ventriculostomy. 19. Anemia of secondary disease. 20. Deep vein thrombosis by history. DISPOSITION: The patient was discharged to [facility] DISCHARGE MEDICATIONS: Refer to medication list. Jes Jacques M.D. I have been assigned to dictate discharge summary on this account and I was not involved in the patient's management. Ana Walton N.P. DR: MILIND JOB#: [id number] CC:
== END 2017-03-04 20:30 | DRG 720 ==
LOC: EDBD 06:58 → EMR 07:10 → 2E 08:00 → EDBEDREQ 10:20 → 4E 03-04 10:23
DX: A41.9 Sepsis, unspecified organism (principal); J96.21 Acute and chronic respiratory failure with hypoxia; J69.0 Pneumonitis due to inhalation of food and vomit; N17.9 Acute kidney failure, unspecified; E87.0 Hyperosmolality and hypernatremia; J15.6 Pneumonia due to other Gram-negative bacteria; J15.1 Pneumonia due to Pseudomonas; L89.153 Pressure ulcer of sacral region, stage 3; R13.10 Dysphagia, unspecified; J44.0 Chronic obstructive pulmonary disease with (acute) lower respiratory infection; J90 Pleural effusion, not elsewhere classified; J96.22 Acute and chronic respiratory failure with hypercapnia; E11.65 Type 2 diabetes mellitus with hyperglycemia; I27.20 Pulmonary hypertension, unspecified; I69.954 Hemiplegia and hemiparesis following unspecified cerebrovascular disease affecting left non-dominant side; E87.5 Hyperkalemia; T83.511A Infection and inflammatory reaction due to indwelling urethral catheter, initial encounter; Z79.4 Long term (current) use of insulin; K21.9 Gastro-esophageal reflux disease without esophagitis; I69.920 Aphasia following unspecified cerebrovascular disease; I10 Essential (primary) hypertension; Z93.1 Gastrostomy status; G40.909 Epilepsy, unspecified, not intractable, without status epilepticus; R31.0 Gross hematuria; E86.0 Dehydration; D35.00 Benign neoplasm of unspecified adrenal gland; D64.9 Anemia, unspecified; F03.90 Unspecified dementia, unspecified severity, without behavioral disturbance, psychotic disturbance, mood disturbance, and anxiety; N39.0 Urinary tract infection, site not specified; B96.20 Unspecified Escherichia coli [E. coli] as the cause of diseases classified elsewhere
CPT/HCPCS: 36415; 36600; 70450; 71010; 71250; 76604; 80048; 80053; 80202; 81001; 82088; 82105; 82378; 82550; 82553; 82570; 82627; 82728; 82746; 82803; 82962; 83036; 83540; 83550; 83605; 83615; 83880; 84238; 84244; 84443; 84484; 85025; 85044; 85384; 85610; 86300; 86304; 87040; 87070; 87081; 87086; 87181; 87205; 93005; 93306; 93970; 94640; 94660; 94664; 94760; 97803; J1815; J7620; S5561

== ENCOUNTER 2017-03-08 17:04 | Emergency (ER) | payer MEDICAID ==
[~2017-03-08] VITALS: Ht 162.6 cm; Wt 54.4 kg
[2017-03-08 17:04] VITALS: BP 126/76
[~2017-03-08 17:04] MED LIST changes: +LOSARTAN POTASS25 M1 PO; +METOPROLOL TART50 M1 GT; +ZINC SULFATE220 M2 ORAL
[2017-03-08 18:48] LABS: BASOPHILS % (AUTO) 1.3 % (0.0-2.0); EOSINOPHILS % (AUTO) 2.5 % (0.0-3.0); HEMATOCRIT 43.2 % (37.0-47.0); LYMPHOCYTES % (AUTO) 18.3 % (20.0-45.0); MEAN CORPUSCULAR VOLUME 86 FL (80-99); MONOCYTES % (AUTO) 4.3 % (1.0-10.0); NEUTROPHILS % (AUTO) 73.7 % (45.0-75.0); PLATELET COUNT 252 K/UL (150-450); RED BLOOD COUNT 5.05 M/UL (4.20-5.40); RED CELL DISTRIBUTION WIDTH 18.9 % (11.6-14.8); WHITE BLOOD COUNT 9.4 K/UL (4.8-10.8)
[2017-03-08 19:09] LABS: APPEARANCE,URINE SLIGHTLY CLOUDY; BILIRUBIN, URINE NEGATIVE (NEGATIVE); COLOR,URINE YELLOW; GLUCOSE, URINE (UA) NEGATIVE (NEGATIVE); KETONES,URINE NEGATIVE (NEGATIVE); LEUKOCYTE ESTERASE ,URINE 3+ (NEGATIVE); NITRITE,URINE NEGATIVE (NEGATIVE); PH,URINE 6.5 (4.5-8.0); PROTEIN,URINE 2+ (NEGATIVE); UROBILINOGEN,URINE NORMAL MG/DL (0.0-1.0)
[2017-03-08 19:15] VITALS: BP 131/74
[2017-03-08 19:15] LABS: ANION GAP -2 mmol/L (5-15); BLOOD UREA NITROGEN 24 mg/dL (7-18); CALCIUM 9.5 MG/DL (8.5-10.1); CARBON DIOXIDE 39 MMOL/L (21-32); CHLORIDE 101 MMOL/L (98-107); CREATININE 0.6 MG/DL (0.55-1.30); POTASSIUM 4.8 MMOL/L (3.5-5.1); SODIUM 138 MMOL/L (136-145)
[2017-03-08 19:25] LABS: ALANINE AMINOTRANSFERASE 25 U/L (12-78); ALBUMIN 2.8 G/DL (3.4-5.0); ALBUMIN/GLOBULIN RATIO 0.5 (1.0-2.7); ALKALINE PHOSPHATASE 111 U/L (46-116); ASPARTATE AMINO TRANSFERASE 24 U/L (15-37); BILIRUBIN,TOTAL 0.3 MG/DL (0.2-1.0); CKMB 0.6 NG/ML (0.0-3.6); CREATINE KINASE 41 U/L (26-308)
[2017-03-08 20:45] VITALS: BP 125/72
[2017-03-08] MEDS ORDERED: cefTRIAXone 1 GM in NS 55 ML IVPB ONE (20:45)
[2017-03-08] MEDS ORDERED: FLUCONAZOLE150 MG GT (21:01)
[2017-03-08] MEDS ORDERED: KEFLEX500 MG GT (21:01)
[2017-03-08] MEDS ORDERED: Cephalexin 250mg Cap ONE (21:10)
[2017-03-08 21:15] VITALS: BP 125/72
[2017-03-08] MEDS ORDERED: Cephalexin 250mg/5ml Susp 100mL Bottle GT ONE (21:15)
--- NOTE | 2017-03-08 23:10 | Emergency Room Report ---
History of Present Illness General Chief Complaint: Abnormal Labs Source: Family Member, Medical Record, EMS Present Illness HPI 66-year-old female presents ED for evaluation. Daughter bedside states that [facility] was [facility] for abnormal labs. WBC count was noted to be elevated on lab work. Patient was recently discharged from [facility] for treatment of sepsis, pneumonia, UTI. Patient has history of CVA and cognitive delay. Unable to provide any additional history at this time. No signs of distress. No other aggravating or leading factors. No other associated symptoms Allergies: Coded Allergies: HYDANTOINS (Unverified Allergy, Unknown, 09/09/13) PHENYTOIN (Unverified Allergy, Unknown, 09/09/13) Patient History Past Medical History: HTN, COPD, CVA/TIA Past Surgical History: other - gtube Pertinent Family History: none Social History: Denies: smoking, alcohol use, drug use Now: No Immunizations: UTD Reviewed Nursing Documentation: PMH: Agreed, PSxH: Agreed Nursing Documentation-PMH Past Medical History: No History, Except For Hx Cardiac Problems: Yes Hx Hypertension: Yes Hx COPD: Yes Hx Diabetes: Yes - Type 2 Hx Cancer: No Hx Gastrointestinal Problems: Yes - GT tube, GERD Hx Neurological Problems: Yes - intracranial hemorrhage, cva, shunt Hx Cerebrovascular Accident: Yes - Left side weakness Hx Seizures: Yes Hx Epilepsy: Yes Hx Memory Loss: Yes - Forgetful Hx Speech Problem: Yes - Slurred Speech following stroke Hx Weakness: Yes - Left Side following CVA Hx Brain Shunt: Yes Review of Systems All Other Systems: limited Physical Exam Vital Signs Date Time Temp Pulse Resp B/P (MAP) Pulse Ox O2 Delivery O2 Flow Rate FiO2 03/08/17 16:55 98.8 92 28 136/86 100 Nasal Cannula 2.0 Sp02 EP Interpretation: reviewed, normal General Appearance: lethargic Head: normocephalic Eyes: bilateral eye normal inspection, bilateral eye PERRL ENT: normal ENT inspection Neck: normal inspection Respiratory: chest non-tender, lungs clear, normal breath sounds, speaking full sentences Cardiovascular #1: regular rate, rhythm, no edema Gastrointestinal: normal bowel sounds, non tender, soft, non-distended, no guarding, no rebound Rectal: deferred Genitourinary: no CVA tenderness Musculoskeletal: normal inspection Neurologic: other - nonverbal Psychiatric: other - nonverbal Skin: normal inspection Lymphatic: normal inspection Medical Decision Making Diagnostic Impression: Primary Impression: UTI (urinary tract infection) Qualified Codes: N39.0 - Urinary tract infection, site not specified Additional Impression: Abnormal laboratory test result ER Course Hospital Course 66-year-old female referred to ED for abnormal WBC on recent lab work Differential diagnoses include: Pneumonia, UTI, sepsis, dehydration, MN/ unstable angina Clinical course Patient placed on stretcher. On hog raiser with stable vitals are ED course. After initial history and physical, I ordered labs, IV fluids, EKG, chest x-ray, blood cultures, UA. Labs - electrolytes ok, WBC 9.4, hb/hct stable, UA+ bacteria, lactate ok CXR - no acute process Abx given. I discussed findings with daughter I do not believe patient requires admission and IV antibiotics given that patient was recently discharged from hospital. Daughter agrees and prefers patient be discharged. I feel this is a highly complex case requiring extensive working including EKG/ Rhythm strip, Xray/CT/US, Blood/urine lab work, repeat exams while in ED, and administration of strong opiates/narcotics for pain control, admission to hospital or close patient follow up. Diagnosis - UTI, abnormal lab test result discharged to SNF with Rx Keflex, Diflucan. f/u with PMD. return to ED if symptoms recur/worsen Labs Test 03/08/17 18:20 03/08/17 18:49 White Blood Count 9.4 K/UL (4.8-10.8) Red Blood Count 5.05 M/UL (4.20-5.40) Hemoglobin 13.0 G/DL (12.0-16.0) Hematocrit 43.2 % (37.0-47.0) Mean Corpuscular Volume 86 FL (80-99) Mean Corpuscular Hemoglobin 25.8 PG (27.0-31.0) Mean Corpuscular Hemoglobin Concent 30.1 G/DL (32.0-36.0) Red Cell Distribution Width 18.9 % (11.6-14.8) Platelet Count 252 K/UL (150-450) Mean Platelet Volume 6.5 FL (6.5-10.1) Neutrophils (%) (Auto) 73.7 % (45.0-75.0) Lymphocytes (%) (Auto) 18.3 % (20.0-45.0) Monocytes (%) (Auto) 4.3 % (1.0-10.0) Eosinophils (%) (Auto) 2.5 % (0.0-3.0) Basophils (%) (Auto) 1.3 % (0.0-2.0) Sodium Level 138 MMOL/L (136-145) Potassium Level 4.8 MMOL/L (3.5-5.1) Chloride Level 101 MMOL/L (98-107) Carbon Dioxide Level 39 MMOL/L (21-32) Anion Gap -2 mmol/L (5-15) Blood Urea Nitrogen 24 mg/dL (7-18) Creatinine 0.6 MG/DL (0.55-1.30) Estimat Glomerular Filtration Rate > 60 mL/min (>60) Glucose Level 187 MG/DL (74-106) Lactic Acid Level 1.40 mmol/L (0.66-2.22) Calcium Level 9.5 MG/DL (8.5-10.1) Total Bilirubin 0.3 MG/DL (0.2-1.0) Aspartate Amino Transf (AST/SGOT) 24 U/L (15-37) Alanine Aminotransferase (ALT/SGPT) 25 U/L (12-78) Alkaline Phosphatase 111 U/L (46-116) Total Creatine Kinase 41 U/L (26-308) Creatine Kinase MB 0.6 NG/ML (0.0-3.6) Creatine Kinase MB Relative Index 1.4 Troponin I 0.000 ng/mL (0.000-0.056) Total Protein 8.3 G/DL (6.4-8.2) Albumin 2.8 G/DL (3.4-5.0) Globulin 5.5 g/dL Albumin/Globulin Ratio 0.5 (1.0-2.7) Urine Color Yellow Urine Appearance Slightly cloudy Urine pH 6.5 (4.5-8.0) Urine Specific [place] 1.015 (1.005-1.035) Urine Protein 2+ (NEGATIVE) Urine Glucose (UA) Negative (NEGATIVE) Urine Ketones Negative (NEGATIVE) Urine Occult Blood 2+ (NEGATIVE) Urine Nitrite Negative (NEGATIVE) Urine Bilirubin Negative (NEGATIVE) Urine Urobilinogen Normal MG/DL (0.0-1.0) Urine Leukocyte Esterase 3+ (NEGATIVE) Urine RBC 2-4 /HPF (0 - 2) Urine WBC 5-10 /HPF (0 - 2) Urine Squamous Epithelial Cells Few /LPF (NONE/OCC) Urine Bacteria Few /HPF (NONE) Urine Yeast Moderate /HPF (NONE) Chest X-Ray Diagnostic Results Chest X-Ray Diagnostic Results : Chest X-Ray Ordered: Yes # of Views/Limited/Complete: 1 View Indication: Other EP Interpretation: Yes Interpretation: no consolidation, no effusion, no pneumothorax, no acute cardiopulmonary disease Impression: No acute disease Electronically Signed by: Electronically signed by Willie Maria MD Last Vital Signs Date Time Temp Pulse Resp B/P (MAP) Pulse Ox O2 Delivery O2 Flow Rate FiO2 03/08/17 19:15 98.8 80 14 131/74 100 Nasal Cannula 2.0 Status: improved Disposition: XFER SNF Condition: Stable Scripts Fluconazole (FLUCONAZOLE) 150 Mg Tablet 150 MG GT DAILY, #2 TAB Prov: WILLIE MARIA M.D. 03/08/17 Cephalexin* (KEFLEX*) 500 Mg Capsule 500 MG GT Q6H, #28 CAP 0 Refills Prov: WILLIE MARIA M.D. 03/08/17 Patient Instructions: Dysuria WILLIE MARIA M.D. Mar 08, 2017 23:10
--- NOTE | 2017-03-09 12:39 | Diagnostic Imaging Report ---
Indication: Weakness Technique: XRAY Chest 1v Comparison: 03/02/2017 Findings: Low lung volumes. Heart size and mediastinal contours appear stable. There is persistent pulmonary vascular congestion/mild interstitial edema. There is blunting of the left costophrenic sulcus with left basilar atelectasis/consolidation. No definite pneumothorax. An acute osseous abnormality seen. Impression: Limited exam with low lung volumes. Persistent small left pleural effusion with left basilar atelectasis/consolidation.
== END 2017-03-08 21:15 ==
LOC: EDBD 17:04 → EMR 17:15
DX: N39.0 Urinary tract infection, site not specified (principal); I10 Essential (primary) hypertension; J44.9 Chronic obstructive pulmonary disease, unspecified; E11.9 Type 2 diabetes mellitus without complications; G40.909 Epilepsy, unspecified, not intractable, without status epilepticus; Z86.73 Personal history of transient ischemic attack (TIA), and cerebral infarction without residual deficits
CPT/HCPCS: 36415; 71010; 80053; 81003; 82550; 82553; 83605; 84484; 85025; 87040; 87086; 87181; 96361; 96374; 99284; J0696

== ENCOUNTER 2017-03-26 08:12 | Emergency (ER) | payer MEDICAID ==
[~2017-03-26] VITALS: Ht 170.2 cm; Wt 72.6 kg
[~2017-03-26 08:12] MED LIST changes: +FLUCONAZOLE150 MG GT; +KEFLEX500 MG GT
[2017-03-26 08:23] VITALS: BP 156/84
[2017-03-26 09:36] LABS: ANION GAP 2 mmol/L (5-15); BLOOD UREA NITROGEN 16 mg/dL (7-18); CALCIUM 10.5 MG/DL (8.5-10.1); CARBON DIOXIDE 40 MMOL/L (21-32); CHLORIDE 97 MMOL/L (98-107); CREATININE 0.5 MG/DL (0.55-1.30); POTASSIUM 4.5 MMOL/L (3.5-5.1); SODIUM 138 MMOL/L (136-145)
[2017-03-26 09:42] LABS: ALANINE AMINOTRANSFERASE 31 U/L (12-78); ALBUMIN 2.4 G/DL (3.4-5.0); ALBUMIN/GLOBULIN RATIO 0.4 (1.0-2.7); ALKALINE PHOSPHATASE 134 U/L (46-116); ASPARTATE AMINO TRANSFERASE 18 U/L (15-37); BASOPHILS % (AUTO) 2.2 % (0.0-2.0); BILIRUBIN,TOTAL < 0.1 MG/DL (0.2-1.0); EOSINOPHILS % (AUTO) 4.1 % (0.0-3.0); HEMATOCRIT 36.9 % (37.0-47.0); HEMOGLOBIN 10.8 G/DL (12.0-16.0); LYMPHOCYTES % (AUTO) 8.6 % (20.0-45.0); MEAN CORPUSCULAR VOLUME 84 FL (80-99); MONOCYTES % (AUTO) 9.6 % (1.0-10.0); NEUTROPHILS % (AUTO) 75.5 % (45.0-75.0); PLATELET COUNT 385 K/UL (150-450); RED BLOOD COUNT 4.38 M/UL (4.20-5.40); RED CELL DISTRIBUTION WIDTH 16.8 % (11.6-14.8); WHITE BLOOD COUNT 10.8 K/UL (4.8-10.8)
[2017-03-26 09:46] LABS: APPEARANCE,URINE SLIGHTLY CLOUDY; BILIRUBIN, URINE NEGATIVE (NEGATIVE); COLOR,URINE PALE YELLOW; GLUCOSE, URINE (UA) NEGATIVE (NEGATIVE); KETONES,URINE NEGATIVE (NEGATIVE); LEUKOCYTE ESTERASE ,URINE 3+ (NEGATIVE); NITRITE,URINE NEGATIVE (NEGATIVE); PH,URINE 8 (4.5-8.0); PROTEIN,URINE 1+ (NEGATIVE); UROBILINOGEN,URINE NORMAL MG/DL (0.0-1.0)
[2017-03-26 10:23] VITALS: BP 151/82
--- NOTE | 2017-03-26 10:42 | Emergency Room Report ---
History of Present Illness General Chief Complaint: Hypertension Source: EMS Present Illness HPI 66-year-old female, bedbound, nonverbal, PEG tube, coming from long term reportedly for high blood pressure. EMS states that nurse found her blood pressure to be systolic 160. Upon their arrival it was 140. There is no history of any shortness of breath, diarrhea, or vomiting. Other history is able to be obtained as patient is nonverbal Allergies: Coded Allergies: HYDANTOINS (Unverified Allergy, Unknown, 09/09/13) PHENYTOIN (Unverified Allergy, Unknown, 09/09/13) Patient History Past Medical History: see triage record Past Surgical History: none Pertinent Family History: none Reviewed Nursing Documentation: PMH: Agreed, PSxH: Agreed Nursing Documentation-PMH Hx Cardiac Problems: Yes Hx Hypertension: Yes Hx COPD: Yes Hx Diabetes: Yes Hx Cancer: No Hx Gastrointestinal Problems: Yes - GT tube, GERD History Of Psychiatric Problem: Yes - anxiety, epilepsy Hx Neurological Problems: Yes - intracranial hemorrhage, cva, shunt Hx Cerebrovascular Accident: Yes - left side Hx Seizures: Yes Hx Epilepsy: Yes Hx Memory Loss: Yes - Forgetful Hx Speech Problem: Yes - Slurred Speech following stroke Hx Weakness: Yes - Left Side following CVA Hx Brain Shunt: Yes Review of Systems All Other Systems: limited - nonverbal Physical Exam Vital Signs Date Time Temp Pulse Resp B/P (MAP) Pulse Ox O2 Delivery O2 Flow Rate FiO2 03/26/17 08:13 98.1 84 22 144/82 100 Nasal Cannula 2.0 Sp02 EP Interpretation: reviewed, normal General Appearance: other - nonverbal middle aged female, not in acute distress Head: normocephalic, atraumatic Eyes: bilateral eye normal inspection, bilateral eye PERRL, bilateral eye EOMI ENT: normal ENT inspection, normal pharynx, normal voice, moist mucus membranes Neck: normal inspection, full range of motion, supple Respiratory: normal inspection, lungs clear, normal breath sounds, no respiratory distress, no retraction, no wheezing, chest symmetrical Cardiovascular #1: normal inspection, regular rate, rhythm, normal capillary refill Cardiovascular #2: 2+ radial (R), 2+ radial (L) Gastrointestinal: other - peg tube in place. soft abdomen. no grimace to deep palpation Musculoskeletal: other - no signs trauma Neurologic: other - nonverbal and not ff comands Psychiatric: normal inspection, judgement/insight normal, memory normal Skin: normal inspection, normal color, no rash, warm/dry, well hydrated, normal turgor Medical Decision Making Diagnostic Impression: Primary Impression: Hypertension ER Course 66-year-old female from long term, brought in for high blood pressure DDX: Shows blood pressure has remained systolic under 150 Plan: Basic labs ER course: Patient has remained stable during ED stay. Labs unremarkable Satting 100% on room air Disposition: Patient is to be discharged to [facility] Discussed with patient's primary care doctor, Dr. Cesar Bajwa Please note that this Emergency Department Report was dictated using Proformativegrinding mill operator technology software, occasionally this can lead to erroneous entry secondary to interpretation by the dictation equipment EKG Diagnostic Results EP Interpretation: Yes Rate: normal Rhythm: NSR ST Segments: No acute changes ASA given to patient: No Rhythm Strip EP Interpretation: Yes Rate: 78 Rhythm: NSR, no PVCs, no ectopy Chest X-ray CXR: Ordered: Yes 1 view Indication: Chest pain EP interpretation: Yes Interpretation: Very poor inspiratory effort however no abnormalities noted Impression: No acute disease Electronically signed by Gay Loyd MD Laboratory Tests Test 03/26/17 08:45 03/26/17 09:05 White Blood Count 10.8 K/UL (4.8-10.8) Red Blood Count 4.38 M/UL (4.20-5.40) Hemoglobin 10.8 G/DL (12.0-16.0) L Hematocrit 36.9 % (37.0-47.0) L Mean Corpuscular Volume 84 FL (80-99) Mean Corpuscular Hemoglobin 24.7 PG (27.0-31.0) L Mean Corpuscular Hemoglobin Concent 29.3 G/DL (32.0-36.0) L Red Cell Distribution Width 16.8 % (11.6-14.8) H Platelet Count 385 K/UL (150-450) Mean Platelet Volume 7.1 FL (6.5-10.1) Neutrophils (%) (Auto) 75.5 % (45.0-75.0) H Lymphocytes (%) (Auto) 8.6 % (20.0-45.0) L Monocytes (%) (Auto) 9.6 % (1.0-10.0) Eosinophils (%) (Auto) 4.1 % (0.0-3.0) H Basophils (%) (Auto) 2.2 % (0.0-2.0) H Sodium Level 138 MMOL/L (136-145) Potassium Level 4.5 MMOL/L (3.5-5.1) Chloride Level 97 MMOL/L (98-107) L Carbon Dioxide Level 40 MMOL/L (21-32) H Anion Gap 2 mmol/L (5-15) L Blood Urea Nitrogen 16 mg/dL (7-18) Creatinine 0.5 MG/DL (0.55-1.30) L Estimate Glomerular Filtration Rate > 60 mL/min (>60) Glucose Level 235 MG/DL (74-106) H Calcium Level 10.5 MG/DL (8.5-10.1) H Total Bilirubin < 0.1 MG/DL (0.2-1.0) L Aspartate Amino Transferase (AST) 18 U/L (15-37) Alanine Aminotransferase (ALT) 31 U/L (12-78) Alkaline Phosphatase 134 U/L (46-116) H Total Protein 8.3 G/DL (6.4-8.2) H Albumin 2.4 G/DL (3.4-5.0) L Globulin 5.9 g/dL Albumin/Globulin Ratio 0.4 (1.0-2.7) L Urine Color Pale yellow Urine Appearance Slightly cloudy Urine pH 8 (4.5-8.0) Urine Specific [place] 1.010 (1.005-1.035) Urine Protein 1+ (NEGATIVE) H Urine Glucose (UA) Negative (NEGATIVE) Urine Ketones Negative (NEGATIVE) Urine Occult Blood 2+ (NEGATIVE) H Urine Nitrite Negative (NEGATIVE) Urine Bilirubin Negative (NEGATIVE) Urine Urobilinogen Normal MG/DL (0.0-1.0) Urine Leukocyte Esterase 3+ (NEGATIVE) H Urine RBC 5-10 /HPF (0 - 2) H Urine WBC 15-20 /HPF (0 - 2) H Urine Squamous Epithelial Cells Few /LPF (NONE/OCC) Urine Bacteria Few /HPF (NONE) Urine Yeast Many /HPF (NONE) H Last Vital Signs Date Time Temp Pulse Resp B/P (MAP) Pulse Ox O2 Delivery O2 Flow Rate FiO2 03/26/17 10:23 88 27 151/82 100 Nasal Cannula 2.0 03/26/17 08:23 98.0 Disposition: XFER [facility] HOSP Condition: Stable Referrals: CESAR BAJWA (PCP) Patient Instructions: Hypertension Additional Instructions: Patient's blood pressure has been under 150 systolic during stay. Gay Loyd M.D. Mar 26, 2017 10:42
--- NOTE | 2017-03-26 10:53 | Diagnostic Imaging Report ---
Indication: Dyspnea Comparison: 03/08/2017 A single view chest radiograph was obtained. Findings: Heart is enlarged. Lung volumes are low. Pulmonary vascularity is prominent. Bones are osteopenic. IMPRESSION: No acute disease
[2017-03-26 12:00] VITALS: BP 145/83
--- NOTE | 2017-03-27 12:40 | Cardiology Report ---
APPROVED REPORT EKG Measurement Heart [id number] OR [id number] [id number] Normal sinus rhythm Voltage criteria for left ventricular hypertrophy Abnormal ECG
== END 2017-03-26 12:00 ==
LOC: EDUNIT# 08:12 → EDBD 08:12 → EMR 08:28
DX: I10 Essential (primary) hypertension (principal); J44.9 Chronic obstructive pulmonary disease, unspecified; E11.9 Type 2 diabetes mellitus without complications; K21.9 Gastro-esophageal reflux disease without esophagitis; Z93.1 Gastrostomy status; I69.354 Hemiplegia and hemiparesis following cerebral infarction affecting left non-dominant side; Z74.01 Bed confinement status; Z88.8 Allergy status to other drugs, medicaments and biological substances
CPT/HCPCS: 36415; 71045; 80053; 81003; 85025; 87040; 87086; 87181; 93005; 99284